=== PATIENT | female | born 1940 | race Two or more races ===

== ENCOUNTER 2018-10-05 12:50 | Emergency (ER) | payer MEDICARE, OTHER ==
[~2018-10-05] VITALS: Ht 162.6 cm; Wt 91.6 kg
--- OUTSIDE RECORDS SUMMARY | 2018-10-05 12:53 | XMS REPORT | Clinical Summary ---
Author Author [facility]ID [facility] Address Unknown Phone Unavailable Care Team Providers Care Family Practitioner Name Role Phone Girish Holt MD PCP Allergies Comments Active Allergy Reactions Severity Noted Date Sulfa (Sulfonamide 05/28/2014 Antibiotics) Medications End Date Status Medication Sig Dispensed Refills Start Date Active metFORMIN (GLUCOPHAGE) Take 500 mg 0 500 MG tablet by mouth 2 (two) times daily with breakfast and dinner. Active gabapentin (NEURONTIN) Take 300 mg 0 300 MG capsule by mouth 3 (three) times daily. Active ERGOCALCIFEROL, VITAMIN Take by 0 D2, (VITAMIN D2 ORAL) mouth. Active MULTIVITS W-FE,OTHER Take by 0 MIN/LUT (CENTRUM SILVER mouth. ULTRA WOMEN'S ORAL) Active meclizine (ANTIVERT) 25 Take 1 tablet 12 tablet 0 11/04/201 mg tablet (25 mg total) 6 by mouth 3 (three) times daily as needed. Active Problems Patient Care Coordination Note Day [employer]ae[employer] very poor insight. Problem Noted Date Family history of colon cancer 09/14/2014 Constipation 09/14/2014 Overview: History of colon spasm History of colonic polyps 09/14/2014 Overview: Dr. Ry Anderson - (not for many years) Fatty liver 09/14/2014 Osteoarthritis 09/14/2014 Overview: Left knee TKR, now some edema and loss of feeling. Leg edema 09/14/2014 Peripheral neuropathy 09/14/2014 Overview: Likely DM, numbness in hand, tingling in legs Hypokalemia 05/28/2014 Hypomagnesemia 05/28/2014 Hyponatremia 05/28/2014 DM (diabetes mellitus) 05/28/2014 Overview: A1c 7.10 May 2014 (admission) Tyree Jarrett, A1c 7.7--08/11/2014 Normal microalb 08/11/2014 HTN (hypertension) 05/28/2014 Social History Date Tobacco Use Types Packs/Day Years Used Quit: 06/06/1999 Former Smoker Alcohol Use Drinks/Week oz/Week Comments No Sex Assigned at Date Recorded Not on file Industry Job Start Date Occupation Not on file Not on file Not on file Travel End Travel History Travel Start No recent travel history available. Last Filed Vital Signs Not on file Plan of Treatment Health Maintenance Due Date Last Done Comments INFLUENZA VACCINE 04/05/2018 Results Not on fileafter 10/04/2017 Insurance Payer Benefit Subscriber ID Type Phone Address Plan / Group MEDICARE MEDICARE A xxxxxxxxxx Medicare B [facility] xxxxxxxxx Other Govt (, [place], [facility], etc.)
[2018-10-05] MEDS ORDERED: ACETAMINOPHEN 325 MG TAB PO ONE (13:30)
[2018-10-05 13:59] LABS: BASOPHILS # (AUTO) 0.1 (0.0-0.1); BASOPHILS % 0.6 % (0.0-1.0); EOSINOPHILS # (AUTO) 0.1 (0.0-0.4); EOSINOPHILS % 1.6 % (0.0-6.0); HEMOGLOBIN 13.9 g/dL (12.0-16.0); LYMPHOCYTES # (AUTO) 1.6 (1.0-3.2); LYMPHOCYTES % 18.8 % (18.0-39.1); MEAN CORPUSCULAR HGB CONC 33.9 g/dL (31-35); MEAN CORPUSCULAR VOLUME 94.3 fL (81-99); MONOCYTES # (AUTO) 0.6 (0.2-0.8); MONOCYTES % 7.2 % (4.4-11.3); NEUTROPHILS # (AUTO) 6.1 (2.1-6.9); NEUTROPHILS % 71.7 % (38.7-80.0); PLATELET COUNT 94 x10e3/uL (140-360); RED BLOOD COUNT 4.35 x10e6/uL (3.6-5.1); RED CELL DISTRIBUTION WIDTH 13.6 % (11.7-14.4)
[2018-10-05 14:15] LABS: ALANINE AMINOTRANSFERASE 25 IU/L (0-55); ALBUMIN 3.7 g/dL (3.5-5.0); ALBUMIN/GLOBULIN RATIO 0.8 (0.8-2.0); ALKALINE PHOSPHATASE 97 IU/L (40-150); ANION GAP 12.9 mmol/L (8-16); BLOOD UREA NITROGEN 12 mg/dL (7-26); BUN/CREATININE RATIO 15 (6-25); CALCIUM 10.1 mg/dL (8.4-10.2); CARBON DIOXIDE 27 mmol/L (22-29); CHLORIDE 102 mmol/L (98-107); CREATININE, SERUM 0.78 mg/dL (0.57-1.11); EST GLOMERULAR FILTRATION RATE > 60 ML/MIN (60-); GLUCOSE 109 mg/dL (74-118); POTASSIUM 3.9 mmol/L (3.5-5.1); SODIUM 138 mmol/L (136-145)
--- NOTE | 2018-10-05 14:15 | Diagnostic Imaging Report ---
Exam: Head CT without contrast History: Severe headache, lip numbness, healing and finger, hypertension, diabetes Comparison studies: None Technique: Axial images were obtained from the skull base to the vertex. Coronal and sagittal images reconstructed from the axial data. Dose modulation, iterative reconstruction, and/or weight based adjustment of the mA/kV was utilized to reduce the radiation dose to as low as reasonably achievable. Radiation dose: Total DLP: 832 mGy*cm. Estimated effective dose: DLP x 0.015 Intravenous contrast: None Findings: Scalp: No abnormalities. Bones: No fractures, blastic or lytic lesions. Brain sulci: Appropriate for age. Ventricles: Normal in size and configuration. No hydrocephalus. Extra-axial spaces: No masses, no fluid collection. Parenchyma: No mass, acute hemorrhage or acute cortical vascular insults. A few scattered hypodensities in the supratentorial white matter are nonspecific but most compatible with chronic small vessel ischemic changes. Sellar/suprasellar region: No abnormalities. Craniocervical junction: Patent foramen magnum. No Chiari one malformation. Incidental findings: Atherosclerotic calcifications in the carotid siphons. 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 IMPRESSION: No acute intracranial abnormalities. Chronic findings: 1. Mild generalized volume loss. 2. Mild microvascular ischemic changes. Signed by: Dr. Poli Horan M.D. on 10/05/2018 2:12 PM
[2018-10-05 14:44] VITALS: BP 162/76
== END 2018-10-05 14:44 | disposition home or self-care (01) ==
LOC: ER 12:50
DX: G44.89 Other headache syndrome (principal); D69.3 Immune thrombocytopenic purpura
CPT/HCPCS: 36415; 70450; 80053; 83735; 85025; 99283

== ENCOUNTER 2019-02-06 12:42 | Observation (INO) | payer MEDICARE, OTHER ==
[~2019-02-06] VITALS: Ht 162.6 cm; Wt 91.6 kg
--- OUTSIDE RECORDS SUMMARY | 2019-02-06 12:45 | XMS REPORT ---
Author Author [facility] Address Unknown Phone Unavailable Care Team Providers Care Machine Setter Supervisor Name Role Phone Shaun SOSA Unavailable Unavailable Problems This patient has no known problems. Allergies, Adverse Reactions, Alerts This patient has no known allergies or adverse reactions. Medications This patient has no known medications. Results Test Description Test Time Test Comments Text Results Atomic Results Result Comments CT BRAIN WO 2018-10-05 14:09:00 [id number] [place], [place] [address] Patient Name: YEYO BYRNE MR #: [id number] : 1940 Age/Sex: 77/F Req #: [id number] Adm Physician: Ordered by: ANDRY GUTIÉRREZ AUTO SERVICE MECHANIC Report #: [id number] Location: ER Room/Bed: Procedure: [id number] CT/CT BRAIN WO Exam Date: 10/05/18 Exam Time: 1350 REPORT STATUS: Signed Exam: Head CT without contrast History: Severe headache, lip numbness, healing and finger, hypertension, diabetes Comparison studies: None Technique: Axial images were obtained from the skull base to the vertex. Coronal and sagittal images reconstructed from the axial data. Dose modulation, iterative reconstruction, and/or weight based adjustment of the mA/kV was utilized to reduce the radiation dose to as low as reasonably achievable. Radiation dose: Total DLP: 832 mGy*cm. Estimated effective dose: DLP x 0.015 Intravenous contrast: None Findings: Scalp: No abnormalities. Bones: No fractures, blastic or lytic lesions. Brain sulci: Appropriate for age. Ventricles: Normal in size and configuration. No hydrocephalus. Extra-axial spaces: No masses, no fluid collection. Parenchyma: No mass, acute hemorrhage or acute cortical vascular insults. A few scattered hypodensities in the supratentorial white matter are nonspecific but most compatible with chronic small vessel ischemic changes. Sellar/suprasellar region: No abnormalities. Craniocervical junction: Patent foramen magnum. No Chiari one malformation. Incidental findings: Atherosclerotic calcifications in the carotid siphons. 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 IMPRESSION: No acute intracranial abnormalities. Chronic findings: 1. Mild generalized volume loss. 2. Mild microvascular ischemic changes. Signed by: Dr. Inés Horan M.D. on 10/05/2018 2:12 PM Dictated By: INÉS HORAN MD 1412 Transcribed By: VANITA on 10/05/18 1412 COPY TO: ANDRY GUTIÉRREZ NP
--- OUTSIDE RECORDS SUMMARY | 2019-02-06 12:45 | XMS REPORT | Continuity of Care Document ---
Author Author [email or web address] Address Unknown Phone Unavailable Care Team Providers Care Bleach Boiler Packer Name Role Phone [employer] Unavailable Unavailable Problems No Data Provided for This Section Medications No Data Provided for This Section Allergies, Adverse Reactions, Alerts Substance Category Reaction Severity Reaction type Status Date Reported Comments Source SULFA Unknown Allergy to Substance Active 10/05/2018 [facility] Immunizations No Data Provided for This Section Results Order Name Results Value Reference Range Date Interpretation Comments Source Blood leukocytes automated count (number/volume) 8.52 4.8 - 10.8 10/05/2018 [facility] Blood erythrocytes automated count (number/volume) 4.35 3.6 - 5.1 10/05/2018 [facility] Blood hemoglobin measurement (moles/volume) 13.9 12.0 - 16.0 10/05/2018 [facility] Automated blood hematocrit (volume fraction) 41.0 34.2 - 44.1 10/05/2018 [facility] Automated erythrocyte mean corpuscular volume 94.3 81 - 99 10/05/2018 [facility] Automated erythrocyte mean corpuscular hemoglobin (mass per erythrocyte) 32.0 28 - 32 10/05/2018 [facility] Automated erythrocyte mean corpuscular hemoglobin concentration measurement (mass/volume) 33.9 31 - 35 10/05/2018 [facility] RDW BldCo-Rto 13.6 11.7 - 14.4 10/05/2018 [facility] Automated blood platelet count (count/volume) 94 140 - 360 10/05/2018 [facility] Automated blood segmented neutrophil count as percentage of total leukocytes 71.7 38.7 - 80.0 10/05/2018 [facility] Automated blood lymphocyte count as percentage ot total leukocytes 18.8 18.0 - 39.1 10/05/2018 [facility] Automated blood monocyte count as percentage of total leukocytes 7.2 4.4 - 11.3 10/05/2018 [facility] Automated blood eosinophil count as percentage of total leukocytes 1.6 0.0 - 6.0 10/05/2018 [facility] Automated blood basophil count as percentage of total leukocytes 0.6 0.0 - 1.0 10/05/2018 [facility] IM GRANULOCYTES % 0.1 0.0 - 1.0 10/05/2018 [facility] Automated blood neutrophil count 6.1 2.1 - 6.9 10/05/2018 [facility] Blood lymphocytes count (number/volume) 1.6 1.0 - 3.2 10/05/2018 [facility] Blood monocytes automated count (number/volume) 0.6 0.2 - 0.8 10/05/2018 [facility] Automated blood eosinophil count 0.1 0.0 - 0.4 10/05/2018 [facility] Automated blood basophil count (count/volume) 0.1 0.0 - 0.1 10/05/2018 [facility] Absolute Immature Granulocyte (auto 0.01 0 - 0.1 10/05/2018 [facility] Serum or plasma sodium measurement (moles/volume) 138 136 - 145 10/05/2018 [facility] Serum or plasma potassium measurement (moles/volume) 3.9 3.5 - 5.1 10/05/2018 [facility] Serum or plasma chloride measurement (moles/volume) 102 98 - 107 10/05/2018 [facility] Serum or plasma carbon dioxide, total measurement (moles/volume) 27 22 - 29 10/05/2018 [facility] Serum or plasma anion gap 12.9 8 - 16 10/05/2018 [facility] Serum or plasma urea nitrogen measurement (mass/volume) 12 7 - 26 10/05/2018 [facility] Serum or plasma creatinine measurement (mass/volume) 0.78 0.57 - 1.11 10/05/2018 [facility] Serum or plasma urea nitrogen/creatinine mass ratio 15 6 - 25 10/05/2018 [facility] Estimated glomerular filtration rate (GFR) determination > 60 60 10/05/2018 [facility] Glucose measurement 109 74 - 118 10/05/2018 [facility] Serum or plasma calcium measurement (mass/volume) 10.1 8.4 - 10.2 10/05/2018 [facility] Serum or plasma magnesium measurement (mass/volume) 1.9 1.3 - 2.1 10/05/2018 [facility] Serum or plasma total bilirubin measurement (mass/volume) 0.5 0.2 - 1.2 10/05/2018 [facility] Aspartate Amino Transf (AST/SGOT) 36 5 - 34 10/05/2018 [facility] Serum or plasma alanine aminotransferase measurement (enzymatic activity/volume) 25 0 - 55 10/05/2018 [facility] Serum or plasma protein measurement (mass/volume) 8.4 6.5 - 8.1 10/05/2018 [facility] Serum or plasma albumin measurement (mass/volume) 3.7 3.5 - 5.0 10/05/2018 [facility] Plasma globulin measurement (mass/volume) 4.7 2.3 - 3.5 10/05/2018 [facility] Serum or plasma albumin/globulin mass ratio 0.8 0.8 - 2.0 10/05/2018 [facility] Serum or plasma alkaline phosphatase measurement (enzymatic activity/volume) 97 40 - 150 10/05/2018 [facility] Pathology Reports No Data Provided for This Section Diagnostic Reports No Data Provided for This Section Consultation Notes No Data Provided for This Section Discharge Summaries No Data Provided for This Section History and Physicals No Data Provided for This Section Vital Signs No Data Provided for This Section Encounters Location Location Details Encounter Type Encounter Number Reason For Visit Attending Provider ADM Date DC Date Status Source Departed Emergency Room [id number] MYAH SOSA MD 10/05/2018 10/05/2018 [facility] Procedures Procedure Code Date Perfomer Comments Source Computed tomography of brain without radiopaque contrast [id number] 10/05/2018 [facility] Assessment and Plan No Data Provided for This Section Plan of Care Plan of Care Date Source Discharge Date 10/05/18 2:44pm Disposition HOME, SELF-CARE Condition at Discharge Stable Instructions/Education Provided Headache Forms Provided Work/School Excuse Prescriptions See Medication Section Referrals Samson Paul Order Date: Call for an appointment Additional Instructions/Education Call for follow up appointment to see your medical provider as needed. Take over the counter Motrin, Tylenol medication as needed for comfort. If prescribed medication on discharge, take the medication as prescribed and adhere to the warnings given for medication. As discussed at the bedside, drink fluids, rest and return to the emergency department for any fever, shortness of breath, chest pain, abdominal pain, trouble handling oral secretions or any new concerns. 10/05/2018 [facility] Social History Social History Date Source Smoking Status Start Date Stop Date Never Smoker 10/05/2018 [facility] Family History No Data Provided for This Section Advance Directives Order Name Results Value Date Source Advance Directives Advance Directives Directive Response Recorded Date/Time Does the patient have an advance directive? No 10/05/18 2:43pm Do you have a Directive to Physician? No 10/05/18 2:43pm Do you have a Medical Power of Envelope Sealing Machine Operator? No 10/05/18 2:43pm Do you have an out of hospital Do Not Resuscitate Order? No 10/05/18 2:43pm Do you have any special needs we should be aware of? No 10/05/18 2:43pm Do you have a support person here with you today? Yes 10/05/18 2:43pm Did patient receive Notice of Privacy Practices? Yes 10/05/18 2:43pm Did patient receive patient rights and responsibilities? Yes 10/05/18 2:43pm 10/05/2018 [facility] Functional Status No Data Provided for This Section
--- OUTSIDE RECORDS SUMMARY | 2019-02-06 12:45 | XMS REPORT | Clinical Summary ---
Author Author ZAID [facility] Address Unknown Phone Unavailable Care Team Providers Care Flux Core Welder Name Role Phone Girish Holt MD PCP Unavailable Allergies Comments Active Allergy Reactions Severity Noted [...] 25 Take 1 tablet 12 tablet 0 /02/201 mg tablet (25 mg total) 6 by mouth 3 (three) times daily as needed. Active Problems Patient Care Coordination Note [facility] very poor insight. Problem Noted Date Family [...] INFLUENZA VACCINE 04/05/2018 Results Not on fileafter 02/05/2018 Insurance Payer Benefit Subscriber ID Type Phone Address Plan / Group MEDICARE MEDICARE A xxxxxxxxxx Medicare B xxxxxxxxx Other Govt (, [place], [facility], etc.)
--- NOTE | 2019-02-06 13:56 | Diagnostic Imaging Report ---
EXAMINATION: CHEST SINGLE (PORTABLE) COMPARISON: None INDICATION: ^CHEST PAIN ^[id number] ^1350 ^Y DISCUSSION: Frontal view of the chest obtained at 1341 hours. HEART AND MEDIASTINUM: The cardiomediastinal silhouette is unremarkable. LINES: None. LUNGS: The lungs are well inflated and clear. No pneumonia or pulmonary edema. PLEURA: No pleural effusion or pneumothorax. BONES AND SOFT TISSUES: No focal osseous lesion. The soft tissues are normal. IMPRESSION: No acute cardiopulmonary disease. Signed by: Dr. Binh Echevarria MD on 02/06/2019 1:53 PM
[2019-02-06 14:00] LABS: BASOPHILS % 0.3 % (0.0-1.0); EOSINOPHILS # (AUTO) 0.1 (0.0-0.4); EOSINOPHILS % 0.3 % (0.0-6.0); HEMATOCRIT 40.2 % (34.2-44.1); HEMOGLOBIN 14.9 g/dL (12.0-16.0); LYMPHOCYTES # (AUTO) 1.8 (1.0-3.2); LYMPHOCYTES % 12.4 % (18.0-39.1); MEAN CORPUSCULAR HEMOGLOBIN 32.5 pg (28-32); MEAN CORPUSCULAR HGB CONC 37.1 g/dL (31-35); MEAN CORPUSCULAR VOLUME 87.8 fL (81-99); MONOCYTES # (AUTO) 0.6 (0.2-0.8); MONOCYTES % 3.9 % (4.4-11.3); NEUTROPHILS # (AUTO) 11.9 (2.1-6.9); NEUTROPHILS % 82.5 % (38.7-80.0); PLATELET COUNT 150 x10e3/uL (140-360); RED BLOOD COUNT 4.58 x10e6/uL (3.6-5.1); RED CELL DISTRIBUTION WIDTH 12.7 % (11.7-14.4)
[2019-02-06 14:01] LABS: BILIRUBIN,URINE NEGATIVE (NEGATIVE); CLARITY,URINE HAZY (CLEAR); COLOR,URINE YELLOW (YELLOW); KETONES,URINE NEGATIVE (NEGATIVE); LEUKOCYTE ESTERASE ,URINE SMALL (NEGATIVE); NITRITE,URINE NEGATIVE (NEGATIVE); PROTEIN,URINE DIPSTICK 1+ (NEGATIVE); URINE UROBILINOGEN 0.2 mg/dL (0.2 - 1)
[2019-02-06 14:06] LABS: AMORPHOUS SEDIMENT,URINE FEW (FEW); BACTERIA,URINE MANY /HPF; EPITHELIAL CELLS,URINE MODERATE /LPF; HYALINE CASTS 0-1 (0-1); MUCUS,URINE FEW (RARE)
[2019-02-06 14:09] LABS: INR 1.01; PROTHROMBIN TIME 13.8 seconds (11.9-14.5)
[2019-02-06 14:10] LABS: PARTIAL THROMBOPLASTIN TIME 45.4 seconds (23.8-35.5)
[2019-02-06 14:18] LABS: ALANINE AMINOTRANSFERASE 35 IU/L (0-55); ALBUMIN 4.3 g/dL (3.5-5.0); ALBUMIN/GLOBULIN RATIO 0.9 (0.8-2.0); ALKALINE PHOSPHATASE 117 IU/L (40-150); ANION GAP 19.1 mmol/L (8-16); BLOOD UREA NITROGEN 14 mg/dL (7-26); BUN/CREATININE RATIO 16 (6-25); CARBON DIOXIDE 21 mmol/L (22-29); CHLORIDE 90 mmol/L (98-107); CREATINE KINASE 44 IU/L (29-168); CREATININE, SERUM 0.88 mg/dL (0.57-1.11); EST GLOMERULAR FILTRATION RATE > 60 ML/MIN (60-); GLUCOSE 184 mg/dL (74-118); POTASSIUM 4.1 mmol/L (3.5-5.1); SODIUM 126 mmol/L (136-145)
[2019-02-06] MEDS ORDERED: ONDANSETRON HCL INJ 2MG/ML 2ML 2 MG/ML VIAL IV STA (15:01)
[2019-02-06] MEDS ORDERED: HYDROCODONE/APAP 7.5MG-325MG 1 EA TAB PO ONE (15:15)
[2019-02-06] MEDS ORDERED: HYDROCORTISONE SOD SUCCINATE 100 MG VIAL IV ONE (16:00)
[2019-02-06] MEDS: CEFTRIAXONE SOD 1 GM/NS 50 ML 50 ML IV SCH (16:12)
--- NOTE | 2019-02-06 16:22 | Diagnostic Imaging Report ---
CT chest pulmonary embolism protocol INDICATION: Question pulmonary embolus. Abdominal pain Pyelonephritis . TECHNIQUE: Thin collimation axial images obtained through the level of the pulmonary arteries with additional imaging through the chest following the uneventful administration of 100 cc of low osmolar, nonionic intravenous contrast. Images reconstructed into three dimensional coronal and sagittal projections for complete evaluation of the tortuous and overlapping pulmonary vascular structures and to reduce patient radiation dose. 5 mm collimation axial images obtained from the diaphragm to the level of the pubic symphysis were also obtained. RADIATION DOSE: Total DLP: 1263.07 mGy*cm Estimated effective dose: (DLP x 0.015 x size factor) mSv CTDIvol has been reviewed. It is below the limits set by the Radiation Protocol Committee (RPC). Dose reduction techniques used: Automated exposure control, adjustment of the mAs and/or kVp according to patient size, standardized low-dose protocol, and/or iterative reconstruction technique. COMPARISON: None. CHEST FINDINGS: No filling defects are appreciated within the main, left, right, lobar or visualized segmental pulmonary arteries to suggest embolism. The main pulmonary artery measures 3 cm in diameter. The thoracic aorta is not aneurysmal. Diffuse calcifications are present. No evidence for dissection. Lymph nodes: No enlarged axillary, supraclavicular, mediastinal, or hilar lymph nodes. Thyroid: Normal in size without mass in the visualized parenchyma.. Mediastinum: The upper esophagus is patulous. Small hiatal hernia. Small anterior pericardial effusion. Lungs: Right lung: No infiltrates. Small foci of paraseptal emphysema in the posterior upper lobe. Left lung: No infiltrates. Airways: Patent. Pleura: No pleural effusion or pleural based mass. No pneumothorax. ABDOMEN FINDINGS: Liver: The right lobe measures 21 cm in length with rounded contours. No evidence for mass. Gallbladder: Present and appears normal. No biliary ductal dilatation. Pancreas: Normal attenuation. Lobulated cyst in the head measures 1.5 x 1.6 cm. A fat attenuating lesion in the uncinate measures 7 mm in longest dimension and is suggestive of a lipoma. Spleen: Measures 14 cm in length. No mass. Adrenal Glands: No evidence for mass. Kidneys: Symmetric enhancement. No enhancing mass. Bilateral renal cysts measuring up to 10 mm. No calculus. No hydronephrosis. Lymph Nodes: No enlarged abdominal or retroperitoneal lymph nodes.. Aorta: Normal in diameter with scattered calcifications PELVIS FINDINGS: Bowel: Stomach: Normal. Small Bowel: Normal in caliber with normal wall thickness. Large Bowel: Normal in caliber with normal wall thickness. 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 Bladder: Circumferential mural thickening and mild underdistention. No perivesicular inflammation. Uterus: Present and atrophic. No adnexal mass. Peritoneum/retroperitoneum: No free fluid or fluid collection Soft tissues: Unremarkable Bones: No focal osseous lesions.. IMPRESSION: 1. No evidence of pulmonary embolus or aortic dissection. Top normal size of the main pulmonary artery. 2. Mild burden of paraseptal emphysema. 3. Small hiatal hernia and patulous upper esophagus. 4. Hepatosplenomegaly. 5. No evidence of obstructive uropathy. Bilateral renal cysts. 6. Lobulated cyst in the pancreas head should be monitored annually to confirm stability. Subcentimeter lipoma in the uncinate. 7. No evidence for bowel obstruction or inflammation. Signed by: Dr. Binh Echevarria MD on 02/06/2019 4:19 PM
--- OUTSIDE RECORDS SUMMARY | 2019-02-06 17:11 | XMS REPORT | Clinical Summary ---
Author Author [facility]ID [facility] Address Unknown Phone Unavailable Care Team Providers Care Motorcycle Mechanic Name Role Phone Girish Holt MD PCP [...] Active Problems Patient Care Coordination Note Day [employer] very poor insight. Problem Noted Date Family [...] Medicare B xxxxxxxxx Other Govt (, [place], [facility], etc[facility]
--- OUTSIDE RECORDS SUMMARY | 2019-02-06 17:11 | XMS REPORT | Continuity of Care Document ---
Author Author [employer] Address Unknown Phone Unavailable Care Team Providers Care Expediter Service Order Name Role Phone [employer] Unavailable Unavailable Problems No Data Provided for This Section Medications No Data Provided for This Section Allergies, Adverse Reactions, Alerts Substance Category Reaction Severity Reaction type Status Date Reported Comments Source SULFA Unknown Allergy to Substance Active 10/05/2018 [facility] Immunizations No Data Provided for This Section Results Order Name Results Value Reference Range Date Interpretation Comments Source Blood leukocytes automated count (number/volume) 8.52 4.8 - 10.8 10/05/2018 [facility] Blood erythrocytes automated count (number/volume) 4.35 3.6 - 5.1 10/05/2018 [facility] Blood hemoglobin measurement (moles/volume) 13.9 12.0 - 16.0 10/05/2018 [facility] Automated blood hematocrit (volume fraction) 41.0 34.2 - 44.1 10/05/2018 [facility] Automated erythrocyte mean corpuscular volume 94.3 81 - 99 10/05/2018 [facility] Automated erythrocyte mean corpuscular hemoglobin (mass per erythrocyte) 32.0 28 - 32 10/05/2018 [facility] Automated erythrocyte mean corpuscular hemoglobin concentration measurement (mass/volume) 33.9 31 - 35 10/05/2018 [facility] RDW BldCo-Rto 13.6 11.7 - 14.4 10/05/2018 [facility] Automated blood platelet count (count/volume) 94 140 - 360 10/05/2018 [facility] Automated blood segmented neutrophil count as percentage of total leukocytes 71.7 38.7 - 80.0 10/05/2018 [facility] Automated blood lymphocyte count as percentage ot total leukocytes 18.8 18.0 - 39.1 10/05/2018 [facility] Automated blood monocyte count as percentage of total leukocytes 7.2 4.4 - 11.3 10/05/2018 [facility] Automated blood eosinophil count as percentage of total leukocytes 1.6 0.0 - 6.0 10/05/2018 [facility] Automated blood basophil count as percentage of total leukocytes 0.6 0.0 - 1.0 10/05/2018 [facility] IM GRANULOCYTES % 0.1 0.0 - 1.0 10/05/2018 [facility] Automated blood neutrophil count 6.1 2.1 - 6.9 10/05/2018 [facility] Blood lymphocytes count (number/volume) 1.6 1.0 - 3.2 10/05/2018 [facility] Blood monocytes automated count (number/volume) 0.6 0.2 - 0.8 10/05/2018 [facility] Automated blood eosinophil count 0.1 0.0 - 0.4 10/05/2018 [facility] Automated blood basophil count (count/volume) 0.1 0.0 - 0.1 10/05/2018 [facility] Absolute Immature Granulocyte (auto 0.01 0 - 0.1 10/05/2018 [facility] Serum or plasma sodium measurement (moles/volume) 138 136 - 145 10/05/2018 [facility] Serum or plasma potassium measurement (moles/volume) 3.9 3.5 - 5.1 10/05/2018 [facility] Serum or plasma chloride measurement (moles/volume) 102 98 - 107 10/05/2018 [facility] Serum or plasma carbon dioxide, total measurement (moles/volume) 27 22 - 29 10/05/2018 [facility] Serum or plasma anion gap 12.9 8 - 16 10/05/2018 [facility] Serum or plasma urea nitrogen measurement (mass/volume) 12 7 - 26 10/05/2018 [facility] Serum or plasma creatinine measurement (mass/volume) 0.78 0.57 - 1.11 10/05/2018 [facility] Serum or plasma urea nitrogen/creatinine mass ratio 15 6 - 25 10/05/2018 [facility] Estimated glomerular filtration rate (GFR) determination > 60 60 10/05/2018 [facility] Glucose measurement 109 74 - 118 10/05/2018 [facility] Serum or plasma calcium measurement (mass/volume) 10.1 8.4 - 10.2 10/05/2018 [facility] Serum or plasma magnesium measurement (mass/volume) 1.9 1.3 - 2.1 10/05/2018 [facility] Serum or plasma total bilirubin measurement (mass/volume) 0.5 0.2 - 1.2 10/05/2018 [facility] Aspartate Amino Transf (AST/SGOT) 36 5 - 34 10/05/2018 [facility] Serum or plasma alanine aminotransferase measurement (enzymatic activity/volume) 25 0 - 55 10/05/2018 [facility] Serum or plasma protein measurement (mass/volume) 8.4 6.5 - 8.1 10/05/2018 [facility] Serum or plasma albumin measurement (mass/volume) 3.7 3.5 - 5.0 10/05/2018 [facility] Plasma globulin measurement (mass/volume) 4.7 2.3 - 3.5 10/05/2018 [facility] Serum or plasma albumin/globulin mass ratio 0.8 0.8 - 2.0 10/05/2018 [facility] Serum or plasma alkaline phosphatase measurement (enzymatic activity/volume) 97 40 - 150 10/05/2018 [facility] Pathology Reports No Data Provided for This [...] DC Date Status Source Departed Emergency Room [id number] MYAH SOSA MD 10/05/2018 10/05/2018 [facility] Procedures Procedure Code Date Perfomer Comments Source Computed tomography of brain without radiopaque contrast [id number] 10/05/2018 [facility] Assessment and Plan No Data Provided for [...] oral secretions or any new concerns. 10/05/2018 [facility] Social History Social History Date Source Smoking Status Start Date Stop Date Never Smoker 10/05/2018 [facility] Family History No Data Provided for This Section Advance Directives Order Name Results Value Date Source Advance Directives Advance Directives Directive Response Recorded Date/Time Does the patient have an advance directive? No 10/05/18 2:43pm Do you have a Directive to Physician? No 10/05/18 2:43pm Do you have a Medical Power of Entry Level Manager? No 10/05/18 2:43pm Do you have an [...] rights and responsibilities? Yes 10/05/18 2:43pm 10/05/2018 [facility] Functional Status No Data Provided for This Section
[2019-02-06] MEDS ORDERED: ONDANSETRON HCL INJ 2MG/ML 2ML 2 MG/ML VIAL IV PRN (17:15)
[2019-02-06] MEDS: SODIUM CHLORIDE 0.9% 1000ML 1,000 ML IV SCH (17:38)
[2019-02-06] MEDS ORDERED: SODIUM CHLORIDE 0.9% 1000ML 1,000 ML ONE (17:38)
[2019-02-06] MEDS: FAMOTIDINE 20 MG/2 ML VIAL IV SCH (17:42)
[2019-02-06] MEDS ORDERED: ACETAMINOPHEN 325 MG TAB PO PRN (19:00)
[2019-02-06] MEDS ORDERED: HYDRALAZINE HCL 20 MG/ML VIAL IV PRN (19:00)
--- NOTE | 2019-02-06 19:34 | NUR ---
PT BED ASSIGNMENT CHANGED, REPORT CALLED TO NAOMI MAR; UPDATED ON CURRENT PT STATUS AND PLAN OF CARE.
[2019-02-06 19:49] VITALS: BP 156/74
--- NOTE | 2019-02-06 19:49 | NUR ---
patient is a new admit that arrived via wheelchair. patient is awake and talking. patient has been transferred into the bed. bed is in the lowest position and call castro is within reach. will continue to monitor patient.
[2019-02-06 20:00] VITALS: BP 138/85
[2019-02-06 20:19] VITALS: BP 156/74
[2019-02-06] MEDS: HYDROCODONE/APAP 5MG-325MG TAB PO PRN (21:17)
[2019-02-06] MEDS ORDERED: SODIUM CHLORIDE 0.9% 50ML 50 ML ONE (22:37)
[2019-02-06] MEDS ORDERED: IOPAMIDOL 370 MG/ML 200 ML INFUS..BTL INJ ONE (22:37)
[2019-02-07] VITALS (7 sets, daily range): BP systolic 125–163; BP diastolic 67–90
[2019-02-07] MEDS: CEFTRIAXONE SOD 1 GM/NS 50 ML 50 ML IV SCH ×2 (04:21→16:37)
[2019-02-07] MEDS: SODIUM CHLORIDE 0.9% 1000ML 1,000 ML IV SCH (04:22)
[2019-02-07] MEDS: FAMOTIDINE 20 MG/2 ML VIAL IV SCH (04:22)
[2019-02-07 05:08] LABS: BASOPHILS # (AUTO) 0.1 (0.0-0.1); BASOPHILS % 0.5 % (0.0-1.0); EOSINOPHILS # (AUTO) 0.1 (0.0-0.4); EOSINOPHILS % 1.2 % (0.0-6.0); HEMOGLOBIN 13.1 g/dL (12.0-16.0); LYMPHOCYTES # (AUTO) 2.7 (1.0-3.2); LYMPHOCYTES % 24.8 % (18.0-39.1); MEAN CORPUSCULAR HEMOGLOBIN 32.1 pg (28-32); MEAN CORPUSCULAR HGB CONC 36.4 g/dL (31-35); MEAN CORPUSCULAR VOLUME 88.2 fL (81-99); MONOCYTES # (AUTO) 0.6 (0.2-0.8); MONOCYTES % 5.6 % (4.4-11.3); NEUTROPHILS # (AUTO) 7.4 (2.1-6.9); NEUTROPHILS % 67.5 % (38.7-80.0); PLATELET COUNT 124 x10e3/uL (140-360); RED BLOOD COUNT 4.08 x10e6/uL (3.6-5.1); RED CELL DISTRIBUTION WIDTH 12.7 % (11.7-14.4)
[2019-02-07 05:20] LABS: CREATINE KINASE 37 IU/L (29-168)
[2019-02-07 05:22] LABS: ALANINE AMINOTRANSFERASE 27 IU/L (0-55); ALBUMIN 3.6 g/dL (3.5-5.0); ALBUMIN/GLOBULIN RATIO 0.8 (0.8-2.0); ALKALINE PHOSPHATASE 89 IU/L (40-150); ANION GAP 16.1 mmol/L (8-16); BILIRUBIN,DIRECT 0.3 mg/dL (0.0-0.5); BLOOD UREA NITROGEN 13 mg/dL (7-26); BUN/CREATININE RATIO 17 (6-25); CALCIUM 9.3 mg/dL (8.4-10.2); CARBON DIOXIDE 23 mmol/L (22-29); CHLORIDE 93 mmol/L (98-107); CHOL/HDL RATIO 2.5 (3.0-3.6); CHOLESTEROL 112 MD/DL (0-199); CREATININE, SERUM 0.78 mg/dL (0.57-1.11); EST GLOMERULAR FILTRATION RATE > 60 ML/MIN (60-); GLUCOSE 106 mg/dL (74-118); HDL CHOLESTEROL 44 MG/DL (40-60); LDL CHOLESTEROL 41 MG/DL (60-130); POTASSIUM 4.1 mmol/L (3.5-5.1); SODIUM 128 mmol/L (136-145); TRIGLYCERIDES 135 MG/DL (0-149)
[2019-02-07 05:43] LABS: FREE T4 (FREE THYROXINE) 1.01 ng/dL (0.8-1.8); THYROID STIMULATING HORMONE 1.565 uIU/mL (0.350-4.940)
[2019-02-07] MEDS: HYDROCODONE/APAP 5MG-325MG TAB PO PRN (06:38)
--- NOTE | 2019-02-07 07:00 | NUR ---
BEDSIDE SHIFT REPORT RECEIVED FROM NIGHT RN. PT DENIES NEEDS AT THIS TIME.
--- NOTE | 2019-02-07 07:03 | NUR ---
report given to morning nurse. patient is resting comfortably in bed. bed is in lowest position and call castro is within reach.
[2019-02-07 07:09] LABS: B-TYPE NATRIURETIC PEPTIDE2 103.2 pg/mL (0-100)
[2019-02-07] MEDS ORDERED: BACLOFEN 10 MG TAB PO PRN (09:15)
[2019-02-07] MEDS ORDERED: LISINOPRIL10 MG PO (09:19)
[2019-02-07] MEDS ORDERED: OMEPRAZOLE40 MG (09:19)
[2019-02-07] MEDS ORDERED: METFORMIN HCL500 M2 PO (09:19)
[2019-02-07] MEDS ORDERED: CENTRUM SILVER1 EAC3 (09:19)
[2019-02-07] MEDS ORDERED: ATORVASTATIN CA10 MG PO (09:19)
[2019-02-07] MEDS ORDERED: JANUVIA100 MG PO (09:20)
[2019-02-07] MEDS ORDERED: NIFEDIPINE ER60 MG PO (09:20)
[2019-02-07] MEDS: ASPIRIN 81 MG ENTERIC COATED PO SCH (09:58)
[2019-02-07 14:13] LABS: CREATINE KINASE MB 1.9 ng/mL (0-5.0)
[2019-02-07] MEDS: METFORMIN HCL 500 MG TAB CR PO SCH (16:37)
[2019-02-07] MEDS ORDERED: ATORVASTATIN 10 MG TAB PO SCH (21:00)
[2019-02-08] VITALS: BP 156/78
[2019-02-08 02:14] VITALS: BP 156/78
[2019-02-08] MEDS: CEFTRIAXONE SOD 1 GM/NS 50 ML 50 ML IV SCH (03:36)
[2019-02-08 04:54] VITALS: BP 171/79
[2019-02-08 05:25] LABS: BASOPHILS % 0.7 % (0.0-1.0); EOSINOPHILS # (AUTO) 0.1 (0.0-0.4); HEMATOCRIT 34.7 % (34.2-44.1); LYMPHOCYTES # (AUTO) 1.5 (1.0-3.2); LYMPHOCYTES % 25.1 % (18.0-39.1); MEAN CORPUSCULAR HEMOGLOBIN 31.5 pg (28-32); MEAN CORPUSCULAR HGB CONC 34.6 g/dL (31-35); MEAN CORPUSCULAR VOLUME 91.1 fL (81-99); MONOCYTES # (AUTO) 0.6 (0.2-0.8); MONOCYTES % 9.3 % (4.4-11.3); NEUTROPHILS # (AUTO) 3.8 (2.1-6.9); NEUTROPHILS % 62.6 % (38.7-80.0); PLATELET COUNT 91 x10e3/uL (140-360); RED BLOOD COUNT 3.81 x10e6/uL (3.6-5.1); RED CELL DISTRIBUTION WIDTH 12.9 % (11.7-14.4)
[2019-02-08 05:43] LABS: ANION GAP 14.3 mmol/L (8-16); BLOOD UREA NITROGEN 14 mg/dL (7-26); BUN/CREATININE RATIO 16 (6-25); CALCIUM 9.3 mg/dL (8.4-10.2); CARBON DIOXIDE 26 mmol/L (22-29); CHLORIDE 102 mmol/L (98-107); CREATININE, SERUM 0.85 mg/dL (0.57-1.11); EST GLOMERULAR FILTRATION RATE > 60 ML/MIN (60-); GLUCOSE 107 mg/dL (74-118); MAGNESIUM 1.8 MG/DL (1.3-2.1); POTASSIUM 4.3 mmol/L (3.5-5.1); SODIUM 138 mmol/L (136-145)
--- NOTE | 2019-02-08 07:00 | NUR ---
BEDSIDE SHIFT REPORT RECEIVED FROM NIGHT RN. PT DENIES NEEDS AT THIS TIME.
[2019-02-08] MEDS ORDERED: PROTONIX40 MG/ML PO (07:15)
[2019-02-08] MEDS ORDERED: BACLOFEN10 MG PO (07:15)
[2019-02-08] MEDS ORDERED: CEFTIN PO (07:15)
[2019-02-08] MEDS ORDERED: ASPIRIN EC81 MG PO (07:15)
[2019-02-08] MEDS ORDERED: ALBUTEROL HFA INH (07:22)
[2019-02-08] MEDS ORDERED: PANTOPRAZOLE SOD 40 MG TABEC PO SCH ×2 (07:30→08:00)
[2019-02-08 08:00] VITALS: BP 166/83
[2019-02-08] MEDS ORDERED: ONDANSETRON HCL 4 MG ORAL DISINTEGRATING TAB PO PRN (08:00)
[2019-02-08] MEDS: ASPIRIN 81 MG ENTERIC COATED PO SCH (08:09)
[2019-02-08] MEDS: METFORMIN HCL 500 MG TAB CR PO SCH (08:09)
[2019-02-08 09:00] VITALS: BP 166/83
[2019-02-08] MEDS ORDERED: NIFEDIPINE CR 30 MG TAB PO SCH (09:00)
[2019-02-08] MEDS ORDERED: SITAGLIPTIN 100 MG TAB PO SCH (09:00)
[2019-02-08] MEDS ORDERED: LISINOPRIL 20 MG TAB PO SCH (09:00)
--- NOTE | 2019-02-09 18:20 | Discharge Summary ---
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 HISTORY: The patient has a history of hypertension, hyperlipidemia, type 2 diabetes, GERD, bipolar depression, Lester's disease, and cirrhosis. SURGICAL HISTORY: Left knee surgery, abdominal and inguinal hernia repair, appendectomy, right oophorectomy. FAMILY HISTORY: The patient's grandma x2, dad and grandpa had diabetes. The patient's cousin had cancer. The patient's dad and grandma had a stroke. SOCIAL HISTORY: Noncontributory. HOSPITAL COURSE: A 78-year-old female complains of left-sided back pain described as constant and sharp. She has associated nausea and vomiting. Symptoms worsened with deep breath and improved with medicines. On admission, her sodium was 126. Troponins were negative x3. Chest x-ray was negative. CT of the chest showed no evidence of PE or aortic dissection. Mild burden of paraseptal emphysema, small hiatal hernia, hepatosplenomegaly. No evidence of obstructive uropathy. Bilateral renal cysts and lobulated cyst in the pancreas head, which should be monitored annually. No evidence of obstruction or inflammation. Patient's sodium trended up and the WBC trended down with Rocephin. The patient was discharged home with Protonix, Ceftin, baclofen, and aspirin. The patient is now tolerating diet and did not need a GI workup. She was discharged home and follow up with primary care in 1 to 2 weeks. Vital signs stable, the patient afebrile. Dictated by Venessa Acevedo NP MD VERO Posada/JONAS /[id number]
== END 2019-02-08 10:24 | disposition home or self-care (01) ==
LOC: ER 12:42 → ERHOLD 17:01 → IMCU 19:49
PROVIDERS: ADMIT Internal Medicine; ATTEND Internal Medicine
DX: M54.9 Dorsalgia, unspecified (principal); K76.0 Fatty (change of) liver, not elsewhere classified; E27.1 Primary adrenocortical insufficiency; I10 Essential (primary) hypertension; E78.5 Hyperlipidemia, unspecified; K21.9 Gastro-esophageal reflux disease without esophagitis; F31.9 Bipolar disorder, unspecified; K74.60 Unspecified cirrhosis of liver; J43.8 Other emphysema; K44.9 Diaphragmatic hernia without obstruction or gangrene; Q61.02 Congenital multiple renal cysts; E11.9 Type 2 diabetes mellitus without complications
CPT/HCPCS: 36415 ×3; 71045; 71260; 74177; 80048; 80053 ×2; 80061; 80076; 81001; 82550 ×2; 82553 ×2; 83036; 83690; 83735; 83880 ×3; 84439; 84443; 84484 ×2; 85025 ×3; 85610; 85730; 87086; 93005; G0378 ×3; J0696 ×2; J1720; J2405; J7030 ×2; Q9967; S0164

== ENCOUNTER 2019-02-10 15:46 | Emergency (ER) | payer MEDICARE, OTHER ==
[~2019-02-10] VITALS: Ht 162.6 cm; Wt 91.6 kg
[~2019-02-10 15:46] MED LIST: ALBUTEROL HFA INH; ASPIRIN EC81 MG PO; ATORVASTATIN CA10 MG PO; BACLOFEN10 MG PO; CEFTIN PO; CENTRUM SILVER1 EAC3; JANUVIA100 MG PO; LISINOPRIL10 MG PO; METFORMIN HCL500 M2 PO; NIFEDIPINE ER60 MG PO; OMEPRAZOLE40 MG; PROTONIX40 MG/ML PO
--- OUTSIDE RECORDS SUMMARY | 2019-02-10 15:49 | XMS REPORT | Clinical Summary ---
Author Author [facility] Address Unknown Phone Unavailable Care Team Providers Care Chief Projectionist Name Role Phone Girish Holt MD PCP [...] Active Problems Patient Care Coordination Note Day Latter-Day very poor insight. Problem Noted Date Family [...] INFLUENZA VACCINE 04/05/2018 Results Not on fileafter 02/09/2018 Insurance Payer Benefit Subscriber ID Type Phone Address Plan / Group MEDICARE MEDICARE A xxxxxxxxxx Medicare B xxxxxxxxx Other Govt (, [place], [facility], etc.)
--- OUTSIDE RECORDS SUMMARY | 2019-02-10 15:49 | XMS REPORT | Continuity of Care Document ---
Author Author [employer] Address Unknown Phone Unavailable Care Team Providers Care Auto Body Service Mechanic Name Role Phone [place] Unavailable Unavailable Problems No Data Provided for This Section Medications No Data Provided for This Section Allergies, Adverse Reactions, Alerts Substance Category Reaction Severity Reaction type Status Date Reported Comments Source SULFA Unknown Allergy to Substance Active 10/05/2018 [facility] Immunizations No Data Provided for This Section Results Order Name Results Value Reference Range Date Interpretation Comments Source Blood leukocytes automated count (number/volume) 8.52 4.8 - 10.8 10/05/2018 [facility] Blood erythrocytes automated count (number/volume) 4.35 3.6 - 5.1 10/05/2018 [facility] Blood hemoglobin measurement (moles/volume) 13.9 12.0 - 16.0 10/05/2018 [facility] Automated blood hematocrit (volume fraction) 41.0 34.2 - 44.1 10/05/2018 [facility] Automated erythrocyte mean corpuscular volume 94.3 81 - 99 10/05/2018 [facility] Automated erythrocyte mean corpuscular hemoglobin (mass per erythrocyte) 32.0 28 - 32 10/05/2018 [facility] Automated erythrocyte mean corpuscular hemoglobin concentration measurement (mass/volume) 33.9 31 - 35 10/05/2018 [facility] RDW BldCo-Rto 13.6 11.7 - 14.4 10/05/2018 [facility] Automated blood platelet count (count/volume) 94 140 - 360 10/05/2018 [facility] Automated blood segmented neutrophil count as percentage of total leukocytes 71.7 38.7 - 80.0 10/05/2018 [facility] Automated blood lymphocyte count as percentage ot total leukocytes 18.8 18.0 - 39.1 10/05/2018 [facility] Automated blood monocyte count as percentage of total leukocytes 7.2 4.4 - 11.3 10/05/2018 [facility] Automated blood eosinophil count as percentage of total leukocytes 1.6 0.0 - 6.0 10/05/2018 [facility] Automated blood basophil count as percentage of total leukocytes 0.6 0.0 - 1.0 10/05/2018 [facility] IM GRANULOCYTES % 0.1 0.0 - 1.0 10/05/2018 [facility] Automated blood neutrophil count 6.1 2.1 - 6.9 10/05/2018 [facility] Blood lymphocytes count (number/volume) 1.6 1.0 - 3.2 10/05/2018 [facility] Blood monocytes automated count (number/volume) 0.6 0.2 - 0.8 10/05/2018 [facility] Automated blood eosinophil count 0.1 0.0 - 0.4 10/05/2018 [facility] Automated blood basophil count (count/volume) 0.1 0.0 - 0.1 10/05/2018 [facility] Absolute Immature Granulocyte (auto 0.01 0 - 0.1 10/05/2018 [facility] Serum or plasma sodium measurement (moles/volume) 138 136 - 145 10/05/2018 [facility] Serum or plasma potassium measurement (moles/volume) 3.9 3.5 - 5.1 10/05/2018 [facility] Serum or plasma chloride measurement (moles/volume) 102 98 - 107 10/05/2018 [facility] Serum or plasma carbon dioxide, total measurement (moles/volume) 27 22 - 29 10/05/2018 [facility] Serum or plasma anion gap 12.9 8 - 16 10/05/2018 [facility] Serum or plasma urea nitrogen measurement (mass/volume) 12 7 - 26 10/05/2018 [facility] Serum or plasma creatinine measurement (mass/volume) 0.78 0.57 - 1.11 10/05/2018 [facility] Serum or plasma urea nitrogen/creatinine mass ratio 15 6 - 25 10/05/2018 [facility] Estimated glomerular filtration rate (GFR) determination > 60 60 10/05/2018 [facility] Glucose measurement 109 74 - 118 10/05/2018 [facility] Serum or plasma calcium measurement (mass/volume) 10.1 8.4 - 10.2 10/05/2018 [facility] Serum or plasma magnesium measurement (mass/volume) 1.9 1.3 - 2.1 10/05/2018 [facility] Serum or plasma total bilirubin measurement (mass/volume) 0.5 0.2 - 1.2 10/05/2018 [facility] Aspartate Amino Transf (AST/SGOT) 36 5 - 34 10/05/2018 [facility] Serum or plasma alanine aminotransferase measurement (enzymatic activity/volume) 25 0 - 55 10/05/2018 [facility] Serum or plasma protein measurement (mass/volume) 8.4 6.5 - 8.1 10/05/2018 [facility] Serum or plasma albumin measurement (mass/volume) 3.7 3.5 - 5.0 10/05/2018 [facility] Plasma globulin measurement (mass/volume) 4.7 2.3 - 3.5 10/05/2018 [facility] Serum or plasma albumin/globulin mass ratio 0.8 0.8 - 2.0 10/05/2018 [facility] Serum or plasma alkaline phosphatase measurement (enzymatic activity/volume) 97 40 - 150 10/05/2018 [facility] Pathology Reports No Data Provided for This [...] DC Date Status Source Departed Emergency Room [id number] MYAH SOSA MD 10/05/2018 10/05/2018 [facility] Procedures Procedure Code Date Perfomer Comments Source Computed tomography of brain without radiopaque contrast [id number] 10/05/2018 [facility] Assessment and Plan No Data Provided for [...] oral secretions or any new concerns. 10/05/2018 [facility] Social History Social History Date Source Smoking Status Start Date Stop Date Never Smoker 10/05/2018 [facility] Family History No Data Provided for This Section Advance Directives Order Name Results Value Date Source Advance Directives Advance Directives Directive Response Recorded Date/Time Does the patient have an advance directive? No 10/05/18 2:43pm Do you have a Directive to Physician? No 10/05/18 2:43pm Do you have a Medical Power of Blade Bender Furnace Tender? No 10/05/18 2:43pm Do you have an [...] rights and responsibilities? Yes 10/05/18 2:43pm 10/05/2018 [facility] Functional Status No Data Provided for This Section
[2019-02-10 16:38] LABS: BASOPHILS # (AUTO) 0.1 (0.0-0.1); BASOPHILS % 0.4 % (0.0-1.0); EOSINOPHILS # (AUTO) 0.2 (0.0-0.4); EOSINOPHILS % 1.4 % (0.0-6.0); HEMATOCRIT 38.7 % (34.2-44.1); HEMOGLOBIN 13.3 g/dL (12.0-16.0); LYMPHOCYTES # (AUTO) 1.8 (1.0-3.2); LYMPHOCYTES % 14.7 % (18.0-39.1); MEAN CORPUSCULAR HEMOGLOBIN 30.9 pg (28-32); MEAN CORPUSCULAR HGB CONC 34.4 g/dL (31-35); MONOCYTES # (AUTO) 0.8 (0.2-0.8); MONOCYTES % 6.2 % (4.4-11.3); NEUTROPHILS # (AUTO) 9.4 (2.1-6.9); NEUTROPHILS % 77.1 % (38.7-80.0); PLATELET COUNT 135 x10e3/uL (140-360); RED CELL DISTRIBUTION WIDTH 13.2 % (11.7-14.4)
[2019-02-10 16:41] LABS: BILIRUBIN,URINE NEGATIVE (NEGATIVE); CLARITY,URINE SL CLOUDY (CLEAR); COLOR,URINE YELLOW (YELLOW); KETONES,URINE NEGATIVE (NEGATIVE); LEUKOCYTE ESTERASE ,URINE SMALL (NEGATIVE); NITRITE,URINE NEGATIVE (NEGATIVE); PROTEIN,URINE DIPSTICK 1+ (NEGATIVE); URINE UROBILINOGEN 0.2 mg/dL (0.2 - 1)
[2019-02-10] MEDS ORDERED: KETOROLAC TROMETHAMINE 30 MG/ML VIAL IV ONE (16:42)
[2019-02-10] MEDS ORDERED: ACETAMINOPHEN 325 MG TAB PO ONE (16:45)
[2019-02-10 16:53] LABS: AMORPHOUS SEDIMENT,URINE MODERATE (FEW); BACTERIA,URINE MODERATE /HPF; EPITHELIAL CELLS,URINE MANY /LPF; TRANSITIONAL EPI CELLS,URINE FEW
[2019-02-10 16:54] LABS: ALANINE AMINOTRANSFERASE 28 IU/L (0-55); ALBUMIN 3.9 g/dL (3.5-5.0); ALBUMIN/GLOBULIN RATIO 0.9 (0.8-2.0); ALKALINE PHOSPHATASE 83 IU/L (40-150); ANION GAP 18.1 mmol/L (8-16); BLOOD UREA NITROGEN 9 mg/dL (7-26); BUN/CREATININE RATIO 11 (6-25); CALCIUM 9.7 mg/dL (8.4-10.2); CARBON DIOXIDE 22 mmol/L (22-29); CHLORIDE 97 mmol/L (98-107); CREATININE, SERUM 0.83 mg/dL (0.57-1.11); EST GLOMERULAR FILTRATION RATE > 60 ML/MIN (60-); GLUCOSE 148 mg/dL (74-118); POTASSIUM 4.1 mmol/L (3.5-5.1); SODIUM 133 mmol/L (136-145)
[2019-02-10 17:04] LABS: CREATINE KINASE 24 IU/L (29-168)
--- NOTE | 2019-02-10 17:43 | Diagnostic Imaging Report ---
EXAMINATION: PA and lateral views of the chest. COMPARISON: CT chest PE protocol 02/06/2019 CLINICAL HISTORY: Chest pain, right lung DISCUSSION: Lines/tubes: None. Lungs: The lungs are well inflated and grossly clear. There is no evidence of pneumonia or pulmonary edema. Pleura: There is no pleural effusion or pneumothorax. Heart and mediastinum: Cardiomediastinal silhouette is unremarkable. Pulmonary vasculature is normal. Bones and soft tissues: No acute bony abnormalities. Degenerative changes in the thoracic spine IMPRESSION: No acute cardiopulmonary abnormalities. Please note patient had a CT chest (PE protocol), abdomen and pelvis 4 days ago Signed by: Dr. Junior Esquivel M.D. on 02/10/2019 5:40 PM
[2019-02-10 18:28] VITALS: BP 148/64
[2019-02-10] MEDS ORDERED: TIZANIDINE HCL4 M1 PO (18:35)
== END 2019-02-10 18:55 | disposition home or self-care (01) ==
LOC: ER 15:46
DX: R07.89 Other chest pain (principal); I10 Essential (primary) hypertension; E11.9 Type 2 diabetes mellitus without complications; K21.9 Gastro-esophageal reflux disease without esophagitis; F31.9 Bipolar disorder, unspecified; J98.4 Other disorders of lung; Z87.891 Personal history of nicotine dependence
CPT/HCPCS: 36415; 71046; 80053; 81001; 82550; 82553; 83880; 84484; 85025; 93005; 99284

== ENCOUNTER 2020-05-24 14:25 | Emergency (ER) | payer MEDICARE, OTHER ==
[~2020-05-24] VITALS: Ht 162.6 cm; Wt 91.6 kg
[~2020-05-24 14:25] MED LIST changes: +TIZANIDINE HCL4 M1 PO
--- NOTE | 2020-05-24 14:39 | Emergency Department Note ---
History of Present Illnes History of Present Illness Chief Complaint: Eye, Ear, Nose, Throat, Dental History of Present Illness This is a 79 year old Other female Chief Complaint Comment Patient in from home with reports of bleeding from her left ear. Patient reports that she was trying to clean ear wax out of her ear using a q-tip and since then it has been bleeding. Some mild dry blood noted to her external ear canal. No hearing difficulties noted. No acute distress noted. No complaints of pain. Historian: Patient Arrival Mode: Car Co Op Required: No Onset (how long ago): day(s) (1) Location: L ear Quality: bleeding Radiation: Reports non-radiation Severity: mild Onset quality: sudden Duration (how long): day(s) (1) Timing of current episode: constant Progression: unchanged Chronicity: new Context: Denies recent illness, Denies recent surgery Relieving factors: none Exacerbating factors: none Associated symptoms: Reports denies other symptoms Treatments prior to arrival: none Past Medical/Family History Physician Review I have reviewed the patient's past medical and family history. Any updates have been documented here. Past Medical History Recent Fever: No Clinical Suspicion of Infectio: No New/Unexplained Change in Ment: No Past Medical History: Hypertension, Diabetes, Liver Disease, GERD Other Medical History: BIPOLAR CIRRHOSIS ADDISONS EMPHYSEMA Past Surgical History: Knee Replacement, Hernia Repair Other Surgery: LEFT KNEE Social History Smoking Cessation: Never Smoker Alcohol Use: None Any Illegal Drug Use: No Other Last Tetanus: UNKNOWN Any Pre-Existing Lines (PICC,: No Review of Systems Review of Systems Constitutional: Reports no symptoms EENTM: Reports as per HPI, Reports ear pain, Reports ear discharge Cardiovascular: Reports no symptoms Respiratory: Reports no symptoms Gastrointestinal: Reports no symptoms Genitourinary: Reports no symptoms Musculoskeletal: Reports no symptoms Integumentary: Reports no symptoms Neurological: Reports no symptoms Psychological: Reports no symptoms Endocrine: Reports no symptoms Hematological/Lymphatic: Reports no symptoms Physical Exam Related Data Allergies: Coded Allergies: Sulfa (Sulfonamide Antibiotics) (Verified Allergy, Unknown, 02/07/19) Triage Vital Signs Vital Signs Date Time Temp Pulse Resp B/P (MAP) Pulse Ox O2 Delivery O2 Flow Rate FiO2 05/24/20 14:30 98.3 83 18 121/72 98 Room Air Vital signs reviewed: Yes Physical Exam CONSTITUTIONAL Constitutional: Present well-developed, Present well-nourished HENT HENT: Present normocephalic, Present atraumatic, Present oropharynx clear/moist, Present nose normal HENT L/R: Present left TM normal, Present right TM normal, Present left ext ear normal, Present right ext ear normal; Absent left canal normal (blood and small abrasions), Absent right canal normal (blood and small abrasions) EYES Eyes: Reports PERRL, Reports conjunctivae normal NECK Neck: Present ROM normal PULMONARY Pulmonary: Present effort normal, Present breath sounds normal CARDIOVASCULAR Cardiovascular: Present regular rhythm, Present heart sounds normal, Present capillary refill normal, Present normal rate GASTROINTESTINAL Abdominal: Present soft, Present nontender, Present bowel sounds normal GENITOURINARY Genitourinary: Present exam deferred SKIN Skin: Present warm, Present dry MUSCULOSKELETAL Musculoskeletal: Present ROM normal NEUROLOGICAL Neurological: Present alert, Present oriented x 3, Present no gross motor or sensory deficits PSYCHOLOGICAL Psychological: Present mood/affect normal, Present judgement normal Assessment & Plan Medical Decision Making MDM 79 y.o F presents for ear bleeding after using q-ttip. Exam shows small abrasions to EAC bilaterally likely 2/2 q-tip use. Will rx cipro ear drops and she will f/u w/ PCP. Appropriate for DC Assessment & Plan Final Impression: (1) Ear canal abrasion Depart Disposition: HOME, SELF-CARE Last Vital Signs Date Time Temp Pulse Resp B/P (MAP) Pulse Ox O2 Delivery O2 Flow Rate FiO2 05/24/20 14:30 98.3 83 18 121/72 98 Room Air Home Meds Active Scripts Tizanidine Hcl (TIZANIDINE HCL) 4 Mg Capsule, 4 MG PO TID PRN for MUSCLE SPASMS, #15 TAB Prov:ANDRY GUTIÉRREZ [employer] 02/10/19 [Albuterol Hfa] No Conflict Check, 1 INH INH Q8H PRN for SHORTNESS OF BREATH, #1 Prov:AJ ALMENDAREZ [employer] 02/08/19 [Ceftin] No Conflict Check, 500 MG PO Q12H for 5 Days Prov:AJ ALMENDAREZ [employer] 02/08/19 Pantoprazole Sod (PROTONIX) 40 Mg/Ml Susp, 40 MG PO BIDWM for 30 Days Prov:AJ ALMENDAREZ [employer] 02/08/19 Baclofen (BACLOFEN) 10 Mg Tablet, 5 MG PO TID PRN for MUSCLE SPASMS, #30 Prov:ERICKSONAJ Bryant [employer] 02/08/19 Aspirin (ASPIRIN EC) 81 Mg Tablet.dr, 81 MG PO QAM for 30 Days Prov:AJ ALMENDAREZ [employer] 02/08/19 Reported Medications Sitagliptin Phosphate (JANUVIA) 100 Mg Tablet, 100 MG PO DAILY, #30 TAB 02/07/19 Nifedipine (NIFEDIPINE ER) 60 Mg Tablet.er, 60 MG PO DAILY 02/07/19 Lisinopril (LISINOPRIL) 10 Mg Tablet, 20 MG PO DAILY, #30 TAB 02/07/19 Metformin Hcl (METFORMIN HCL ER) 500 Mg Tab.er.24, 1000 MG PO BID, #60 TAB 02/07/19 Atorvastatin Calcium (ATORVASTATIN CALCIUM) 10 Mg Tablet, 10 MG PO 2100, #30 TAB 02/07/19 Omeprazole (OMEPRAZOLE) 40 Mg Capsule., ACB 02/07/19 Mu-Vits-Min Th/Lycopene/Lutein (CENTRUM SILVER TABLET) 1 Each Tablet, 60 DAILY 02/07/19 HARRY NG MD May 24, 2020 14:39
--- OUTSIDE RECORDS SUMMARY | 2020-05-24 15:26 | XMS REPORT | Clinical Summary ---
Author [facility] Address Unknown Phone Unavailable Care Team Providers Care [place] Name Role Phone Girish Holt MD PCP [...] Active Problems Patient Care Coordination Note Day Yarsanism very poor insight. Problem Noted Date Family history of colon cancer 09/14/2014 Constipation 09/14/2014 Overview: History of colon spasm History of colonic polyps 09/14/2014 Overview: Dr. Ry Anderson - (not for many years) Fatty liver 09/14/2014 Osteoarthritis 09/14/2014 Overview: Left knee TKR, now some edema and loss of feeling. Leg edema 09/14/2014 Peripheral neuropathy 09/14/2014 Overview: Likely DM, numbness in hand, tingling i n legs Hypokalemia 05/28/2014 Hypomagnesemia 05/28/2014 Hyponatremia 05/28/2014 DM (diabetes mellitus) 05/28/2014 Overview: A1c 7.10 May 2014 (admission) Tyree Jarrett, A1c 7.7--08/11/2014 Normal microalb 08/11/2014 HTN (hypertension) 05/28/2014 Social History Date Tobacco Use Types Packs/Day Years Used Quit: 06/06/1999 Former Smoker Drinks/Week oz/Week Comments Alcohol Use No Sex Assigned at Date Recorded Not on file Last Filed Vital Signs Not on file Plan of Treatment Not on file Results Not on fileafter 05/24/2019 Insurance Type Payer Benefit Subscriber ID Effective Phone Address Plan / Dates Group Medicare MEDICARE MEDICARE A [id number] 1998-P B resent Other Govt (, [place], [facility], etc.) [id number] 2011 -Present
--- OUTSIDE RECORDS SUMMARY | 2020-05-24 15:26 | XMS REPORT | Continuity of Care Document ---
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 Role Phone [employer] Information [employer] Unavailable Un available Problems Problem Status Onset Date Classification Date Reported Comments Source K74.60 / R10.98 Active 12/28/2019 [facility] CHEST PAIN/SOB/VOMITING Active 12/11/2019 [facility] HYPONATREMIA, HYPOKALEMIA, VOMITING Active 11/21/2019 [facility] Abnormal results of liver function studies 06/29/2018 01/10/2019 [facility], JENNI Ramirez NEW PT CONSULT Active 04/02/2018 [facility] R10.9 - UNSPECIFIED ABDOMINAL PAIN Active 03/29/2018 [facility] Encounter for screening for malignant neoplasm of colo n 02/12/2018 08/18/2018 [facility] Other specified abnormal findings of blood chemistry 01/24/2018 08/08/2018 [facility] [place] UNK Active 0 01/11/2018 [facility] M79.644 - PAIN IN RIGHT FINGER(S) Active 12/26/2016 [facility] Discharge Diagnosis: Vaginal bleeding 02/08/2014 02/11/2014 [facility] ABDOMINAL PAIN Active 02/07/2014 [facility] Clostridium difficile (organism) Active 09/21/2010 Problem 01/05/2020 Problem added by Discern Expert. [facility] JENNI Ramirez ,[facility] [place] Nonalcoholic steatohepatitis (YODER) 01/10/2019 [facility] Cholesterolosis of gallbladder 01/10/2019 [facility] [place] Cyst of pancreas 01/10/2019 [facility] [place] Bipolar (qualifier value) Acti ve Problem 03/2014 [facility] Type 2 diabetes mellitus without complications 11/23/2018 [facility] [place] Morbid (severe) obesity due to excess calories 11/23/2018 [facility] Body mass index (BMI) 33.0-33.9, adult 11/23/2018 [facility] Chronic obstructive pulmonary disease, unspecified 11/23/2018 [facility] Essential (primary) hypertension 11/23/2018 [facility], [place] Obstructive sleep apnea (adult) (pediatric) 11/23/2018 [facility] Bipolar disorder, unspecified 11/23/2018 [facility], [place] Benign neoplasm of ascending colon 08/18/2018 [facility] Benign neoplasm of cecum 08/18/2018 [facility] Benign neoplasm of transverse colon 08/18/2018 [facility] Gastro-esophageal reflux disease without esophagitis 08/18/2018 [facility] Diaphragmatic hernia without obstruction or gangrene 08/18/2018 [facility] Obesity, unspecified 08/18/2018 [facility] Primary adrenocortical insufficiency 08/18/2018 [facility] 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 08/18/2018 [facility] Personal history of nicotine dependence 08/18/2018 [facility] Unspecified osteoarthritis, unspecified site 08/18/2018 [facility] Body mass index (BMI) 35.0-35.9, adult 08/18/2018 [facility] [place]'s disease (disorder) R esolved Problem 08/2019 [facility], [facility] [place], Giselle Anemia (disorder) Active Problem 01/05/2020 [facility], [facility] [place],[facility], JENNI [place] Arthritis (disorder) Active Problem 01/05/2020 [facility], [facility] [place],[facility], [facility] [place] Asthma (disorder) Active Problem 01/05/2020 [facility], [facility] [place],[facility], [facility] [place] Bipolar disorder (disorder) Re solved Problem 08/2019 [facility], [facility] [place], Giselle Bronchitis (disorder) Active Problem 01/05/2020 [facility], [facility] [place],[facility], [facility] [place] Chronic obstructive lung disease (disorder) Active Problem 01/05/2020 [facility], [facility] [place],[facility], [facility] [place] Diabetes mellitus (disorder) A ctive Problem 08/2019 [facility], [facility] [place],[facility], [facility] [place] Hypertensive disorder, systemic arterial (disorder) Active Problem 01/05/2020 [facility], [facility] [place],[facility] Pain (finding) Active Problem 01/05/2020 [facility], [facility] [place],[facility] [place] Simple obesity (disorder) Acti ve Problem 08/2019 [facility] PID [place],[facility] Sleep apnea (finding) Active Problem 01/05/2020 [facility] [place],[facility] Urinary tract infectious disease (disorder) Active Problem 01/05/2020 [facility], [facility] [place],[facility] Hypo-osmolality and hyponatremia 11/27/2019 [facility] Cirrhosis of liver (disorder) Active Problem 08/2019 [facility] W/ Active [facility] HYPO-OSMOLALITY AND HYPONATREMIA Active [facility] HYPOKALEMIA Active [facility] VOMITING, UNSPECIFIED Active [facility] UNSPECIFIED CIRRHOSIS OF LIVER Active [facility] Medications Medication Details Route Status Patient Instructions Ordering Provider Order Date Source ondansetron 4 mg oral tablet 4 mg = 1 tab, PO, Q8H, PRN Nausea & Vomiting, # 15 tab, 0 Refill(s), Pharmacy: [id number] Active 12/13/2019 [facility] atorvastatin Notes: (Same As: Lipitor) No Longer Active 12/13/2019 [facility] Saline Flush 0.9% Notes: (Same as: BD Posiflush) No Longer Active 12/12/2019 [facility] ARIPiprazole Notes: (Same as: Abilify) No Longer Active 12/12/2019 [facility] Aspirin Notes: Do not crush or chew. (Same As: Ecotrin) No Longer Active 12/12/2019 [facility] Fluoxetine Notes: (Same as: Pr ozac) No Longer Active 12/12/2019 [facility] Lisinopril Notes: (Same as: Pr inivil, Zestril) No Longer Active 12/12/2019 [facility] NIFEdipine 60 mg oral tablet, extended release Notes: (Same as: Adalat CC, Procardia XL) Give on empty stomach. Take 1 hour before or 2 hours after meal; "Avoid grapefruit and grapefruit juice". Do not crush No Longer Active 12/12/2019 [facility] Omeprazole 40 mg, 1 cap, Route : PO, Drug form: DRC, Daily, Dosing Weight 91.818, kg, Start date: 12/12/19 9:00:00 CDT, Duration: 30 day, Stop date: 01/10/20 9:00:00 CDT No Longer Active 12/12/2019 [facility] Protonix Notes: Tablet should not be chewed or crushed. (Same as: Protonix) No Longer Active 12/12/2019 [facility] Lovenox Notes: (Same as: Loven ox) No Longer Active 12/12/2019 [facility] Al hydroxide/Mg hydroxide/simethicone Notes: (aluminum hydroxide-magnesium hyd-simethicone [phone]/5ml 30 ml ud JOSE E) Inactive 12/12/2019 [facility] Xylocaine Viscous 2% mucous membrane solution Notes: (Same as: Xylocaine) Inactive 12/12/2019 [facility] GI cocktail (aluminum hydroxide/magnesiu m hydroxide/lidocaine/simethicone) 45 ml, Route: PO, Drug Form: SUSP, Dosin g Weight 91.818, kg, ONCE, Routine, Start date: 12/11/19 22:43:00 CDT, Stop date: 12/11/19 22:43:00 CDT Inactive 12/12/2019 [facility] Dextrose 50% Syringe (D50W) 12 .5 gm, 25 mL, Route: IVP, Drug Form: INJ, Dosing Weight 91.818, kg, PRN, PRN Blood Glucose Results, Start date: 12/11/19 22:22:00 CDT, Duration: 30 day, Stop date: 01/10/20 22:21:00 CDT, 0 No Longer Active 12/12/2019 [facility] Glucagon 1 mg, Route: IM, Drug form: PDR/INJ, PRN, Dosing Weight 91.818, kg, PRN Blood Glucose Results, Start date: 12/11/19 22:22:00 CDT, Duration: 30 day, Stop date: 01/10/20 22:21:00 CDT, 0 No Longer Active 12/12/2019 [facility] Insulin Lispro Notes: (Same as : Humalog) Roll in palms of hands gently; Do not shake vigorously. WASTE: F/P - Black; E - Municipal Trash Bin Stable for 28 days at room temperature. Expires in days from Date No Longer Active 12/12/2019 [facility] Zofran Notes: (Same as: Zofran ) MEDICATION WASTE Product Size: 4 mg Product Wasted: ___ mg No Longer Active 12/12/2019 [facility] tizanidine Notes: (Same As: Za naflex) No Longer Active 12/12/2019 [facility] Nitroglycerin Notes: (Same as: Nitroquick, Nitrostat) "Do Not Crush" Sublingual tablet No Longer Active 12/12/2019 [facility] Morphine Notes: (Same as:MORPh ine Sulfate) No Longer Active 12/12/2019 [facility] Acetaminophen Notes: Do not ex ceed 4 gm/day. (Same as: Tylenol) No Longer Active 12/12/2019 [facility] Ondansetron Notes: (Same as: Alfonzo kuo) No Longer Active 12/12/2019 [facility] Saline Flush 0.9% Notes: (Same as: BD Posiflush) No Longer Active 12/12/2019 [facility] atorvastatin 20 mg oral tablet 20 mg = 1 tab, PO, Bedtime, # 30 tab, 0 Refill(s) Active 12/12/2019 [facility] Thiamine Notes: (Same As: Alva min B1) No Longer Active 11/24/2019 [facility] Lisinopril Notes: (Same as: Pr inivil, Zestril) No Longer Active 11/24/2019 [facility] Mucinex Notes: (Same as: Guaif enesin LA, Humibid LA, Mucinex) "Do Not Crush" Take medication with plenty of water. No Longer Active 11/24/2019 [facility] Aspirin Notes: Do not crush or chew. (Same As: Ecotrin) No Longer Active 11/23/2019 [facility] Folic Acid Notes: (Same as: Fo lvite) No Longer Active 11/23/2019 [facility] Potassium Chloride Notes: ([place] e as: K-Dur 20) "Do Not Crush" Give with food and full glass of water For patients unable to swallow tablet, dissolve in one half glass of water. Allow about 2 minutes for the tab lets to disintegrate. Stir before giving to prepare slurry and administer. Please exclude Patients with feeding tube less than 14 Hebrew (Dobhoff, J-tube etc) and pediatric and patients. No Longer Active 11/23/2019 [facility] potassium phosphate-sodium phosphate 250 mg-280 mg-160 mg oral powder for reconstitution Notes: (Same as: Phos-NaK) Each 1.5 gm pkt has 250mg phosphorous. Mix w/2.5oz water and stir. No Longer Active 11/23/2019 [facility] potassium phosphate Notes: (Sa me as: K Phosphate.) Do not infuse phosphorous concurrently in the same line as TPN or IVF that contains calcium. For double lumen central lines, phosphorous may be infused in a separate lumen from TPN. 1 mMol phoshate has 1.47 mEq potassium Infuse over 4 hours No Longer Active 11/23/2019 [facility] sodium phosphate Notes: Infuse over 4 hour. Do not infuse phosphorous concurrently in the same line as TPN or IVF that contains calcium. For double lumen central lines, phosphorous may be infused in a separate lumen from TPN. No Longer Active 11/23/2019 [facility] Magnesium Sulfate Notes: WASTE : F/P - Sink; E - Municipal Trash Bin No Longer Active 11/23/2019 [facility] Magnesium Oxide Notes: (Same a s: Mag-Ox 400) Magnesium oxide [id number] elemental magnesium Dose=____mg magnesium oxide (___mg elemental magnesium) No Longer Active 11/23/2019 [facility] Calcium Gluconate Notes: WASTE : F/P - Sink; E - Municipal Trash Bin No Longer Active 11/23/2019 [facility] heparin sodium, porcine 2500 UNT/ML Injectable Solutio n Notes: porcine heparin No Longer Active 11/23/2019 [facility] Aspirin 81, PO, Daily, 0 Refil l(s) Active 11/22/2019 [facility] NIFEdipine 60 mg oral tablet, extended release 60 mg = 1 tab, PO, Daily, # 30 tab, 0 Refill(s) Active 11/22/2019 [facility] NS (Bolus) IV 500 mL, 500 ml/h r, Infuse Over: 1 hr, Route: IV, 500, Drug form: INJ, ONCE, Priority: STAT, Dosing Weight 94.659 kg, Start date: 11/22/19 16:51:00 CDT, Stop date: 11/22/19 16:51:00 CDT, 0 Inactive 11/22/2019 [facility] Folic Acid Notes: (Same as: Fo lvite) No Longer Active 11/22/2019 [facility] Thiamine Notes: (Same As: Alva min B1) No Longer Active 11/22/2019 [facility] Sodium Chloride 1000 MG Oral Tablet 2 gm, 2 tab, Route: PO, Drug form: TAB, TID, Dosing Weight 94.659, kg, Start date: 11/21/19 23:45:00 CDT, Duration: 30 day, Stop date: 12/21/19 17:00:00 CDT, 0 No Longer Active 11/22/2019 [facility] Potassium Chloride Notes: ([facility] e as: K-Dur 20) "Do Not Crush" Give with food and full glass of water For patients unable to swallow tablet, dissolve in one half glass of water. Allow about 2 minutes for the tab lets to disintegrate. Stir before giving to prepare slurry and administer. Please exclude Patients with feeding tube less than 14 Hebrew (Dobhoff, J-tube etc) and pediatric and patients. No Longer Active 11/22/2019 [facility] potassium phosphate-sodium phosphate 250 mg-280 mg-160 mg oral powder for reconstitution Notes: (Same as: Phos-NaK) Each 1.5 gm pkt has 250mg phosphorous. Mix w/2.5oz water and stir. No Longer Active 11/22/2019 [facility] potassium phosphate Notes: ([facility] as: K Phosphate.) Do not infuse phosphorous concurrently in the same line as TPN or IVF that contains calcium. For double lumen central lines, phosphorous may be infused in a separate lumen from TPN. 1 mMol phoshate has 1.47 mEq potassium Infuse over 4 hours No Longer Active 11/22/2019 [facility] sodium phosphate Notes: Infuse over 4 hour. Do not infuse phosphorous concurrently in the same line as TPN or IVF that contains calcium. For double lumen central lines, phosphorous may be infused in a separate lumen from TPN. No Longer Active 11/22/2019 [facility] Magnesium Sulfate Notes: WASTE : F/P - Sink; E - Municipal Trash Bin No Longer Active 11/22/2019 [facility] Magnesium Oxide Notes: (Same a s: Mag-Ox 400) Magnesium oxide [id number] elemental magnesium Dose=____mg magnesium oxide (___mg elemental magnesium) No Longer Active 11/22/2019 [facility] Calcium Gluconate Notes: WASTE : F/P - Sink; E - Municipal Trash Bin No Longer Active 11/22/2019 [facility] Please update HT/WT/allergy Please update HT/WT/allergy, Please update in ADHOC, Drug form: MISC, Route: MISC, Q15Min, 11/21/19 21:45:00 CDT, Duration: 30 day, Stop date: 12/21/19 21:30:00 CDT, 0 Inactive 11/22/2019 [facility] Dextrose 50% Syringe (D50W) 12 .5 gm, 25 mL, Route: IVP, Drug Form: INJ, Dosing Weight 89.182, kg, PRN, PRN Blood Glucose Results, Start date: 11/21/19 21:38:00 CDT, Duration: 30 day, Stop date: 12/21/19 21:37:00 CDT, 0 No Longer Active 11/22/2019 [facility] Glucagon 1 mg, Route: IM, Drug form: PDR/INJ, PRN, Dosing Weight 89.182, kg, PRN Blood Glucose Results, Start date: 11/21/19 21:38:00 CDT, Duration: 30 day, Stop date: 12/21/19 21:37:00 CDT, 0 No Longer Active 11/22/2019 [facility] Insulin Lispro Notes: (Same as : Humalog) Roll in palms of hands gently; Do not shake vigorously. WASTE: F/P - Black; E - Municipal Trash Bin Stable for 28 days at room temperature. Expires in days from Date No Longer Active 11/22/2019 [facility] Dextrose 50% Syringe (D50W) 25 mL, Route: IVP, Dosing Weight 89.182, kg, PRN, PRN Blood Glucose Results, Start date: 11/21/19 21:35:00 CDT, Duration: 30 day, Stop date: 12/21/19 21:34:00 CDT Inactive 11/22/2019 [facility] Glucagon 1 mg, Route: IM, PRN, Dosing Weight 89.182, kg, PRN Blood Glucose Results, Start date: 11/21/19 21:35:00 CDT, Duration: 30 day, Stop date: 12/21/19 21:34:00 CDT Inactive 11/22/2019 [facility] Acetaminophen Notes: Do not ex ceed 4 gm/day. (Same as: Tylenol) No Longer Active 11/22/2019 [facility] Zofran Notes: (Same as: Zofran ) MEDICATION WASTE Product Size: 4 mg Product Wasted: ___ mg No Longer Active 11/22/2019 [facility] Hair, Skin & Nails 5 mg =, PO, Daily, 0 Refill(s) Active 05/06/2018 [facility] multivitamin Daily, 0 Refill(s) Active 05/06/2018 [facility] lisinopril 20 mg oral tablet 2 0 mg = 1 tab, PO, Daily, 0 Refill(s) Active 05/06/2018 [facility] omeprazole 40 mg oral delayed release capsule 40 mg = 1 cap, PO, Daily, 0 Refill(s) Active 05/06/2018 [facility] nter ARIPiprazole 5 mg, PO, 0 Refil l(s) Active 05/06/2018 [facility] Fluoxetine 10 mg, PO, Daily, 0 Refill(s) Active 05/06/2018 [facility] Multiple Vitamins oral tablet 1 tab, PO, Daily, # 30 tab, 0 Refill(s) Active 01/29/2018 [facility] Mucinex 600 mg, PO, Q12H, 0 Re fill(s) Active 01/29/2018 [facility] Albuterol 0.833 MG/ML / Ipratropium Brom zee 0.167 MG/ML Inhalant Solution 3 mL, Route: NEB, Dosing Weight 94.545, kg, ONCE, STAT, Start date: 01/29/18 8:18:00 CDT, Stop date: 01/29/18 8:18:00 CDT Inactive 01/29/2018 [facility] Sodium Chloride 0.9% IV 500 mL 500 mL, Rate: 25 ml/hr, Infuse over: 20 hr, Route: IV, Dosing Weight 94.545 kg, Total Volume: 500, Start date: 01/29/18 8:18:00 CDT, Duration: 30 day, Stop date: 02/28/18 8:17:00 CDT, 2.1, m2 Inactive 01/29/2018 [facility] lisinopril 10 mg oral tablet 1 0 mg = 1 tab, PO, Daily, # 30 tab, 0 Refill(s) Active 01/28/2018 [facility] Metformin hydrochloride 500 MG Oral Tablet 500 mg = 1 tab, PO, BID-Meals, # 30 tab, 0 Refill(s) Active 01/28/2018 [facility] Allergies, Adverse Reactions, Alerts Substance Category Reaction Severity Reaction type Status Date Reported Comments Source sulfa drugs Assertion Drug allergy Active [facility] Immunizations Immunization Date Given Site Status Last Updated Comments Source pneumococcal 23-valent vaccine 04/16/2009 Right arm completed [facility], JENNI Ramirez,[facility], JENNI Jean Results Order Name Results Value Reference Range Date Interpretation Comments Source CHEM PANEL Glucose Lvl 139 70 - 99 12/13/2019 [facility] CHEM PANEL BUN 13 7 - 22 12/13/2019 [facility] CHEM PANEL Creatinine Lvl 0.85 0.50 - 1.40 12/13/2019 [facility] CHEM PANEL Sodium Lvl 132 135 - 145 12/13/2019 [facility] CHEM PANEL Potassium Lvl 4.0 3.5 - 5.1 12/13/2019 [facility] CHEM PANEL Chloride Lvl 99 95 - 109 12/13/2019 [facility] CHEM PANEL CO2 29 24 - 32 12/13/2019 [facility] CHEM PANEL Calcium Lvl 9.0 8.5 - 10.5 12/13/2019 [facility] CHEM PANEL Total Protein 7.6 6.4 - 8.4 12/13/2019 [facility] CHEM PANEL Albumin Lvl 3.4 3.5 - 5.0 12/13/2019 [facility] CHEM PANEL ALT 50 0 - 65 12/13/2019 [facility] CHEM PANEL AST 61 0 - 37 12/13/2019 [facility] CHEM PANEL Alk Phos 81 39 - 136 12/13/2019 [facility] CHEM PANEL Bili Total 0.4 0.2 - 1.3 12/13/2019 [facility] CHEM PANEL AGAP 8.0 10.0 - 20.0 12/13/2019 [facility] CHEM PANEL B/C Ratio 15 6 - 25 12/13/2019 [facility] CHEM PANEL Globulin 4.2 2.7 - 4.2 12/13/2019 [facility] CHEM PANEL A/G Ratio 0.8 0.7 - 1.6 12/13/2019 [facility] CHEM PANEL eGFR 66 12/13/2019 Result Comment: The eGFR is calculated using the CKD-EPI formula. In most young, healthy individuals the eGFR will be >90 mL/min/1.73m2. The eGFR declines with age. An eGFR of 60-89 may be normal in some populations, particularly the elderly, for whom the CKD-EPI formula has not been extensively validated. Use of the eGFR is not recommended in the following populations:

Individuals with unstable creatinine concentrations, including patients and those with serious co-morbid conditions.

Patients with extremes in muscle mass or diet.

The data above are obtained from the National Kidney Disease Education Program (NKDEP) which additionally recommends that when the eGFR is used in patients with extremes of body mass index for purposes of drug dosing, the eGFR should be multiplied by the estimated BMI. [facility] HEMATOLOGY WBC 7.8 3.7 - 10.4 12/13/2019 [facility] HEMATOLOGY RBC 4.13 4.20 - 5.40 12/13/[address] [facility] Hgb 13.0 12.0 - 16.0 12/13/2019 [facility] HEMATOLOGY Hct 38.4 36.0 - 48.0 12/13/[address] [facility] MCV 92.9 80.0 - 98.0 12/13/[address] [facility] MCH 31.4 27.0 - 31.0 12/13/[address] [facility] MCHC 33.8 32.0 - 36.0 12/13/[address] [facility] RDW 13.8 11.5 - 14.5 12/13/[address] [facility] Platelet 141 133 - 450 12/13/[address] [facility] MPV 7.9 7.4 - 10.4 12/13/2019 [facility] CARDIAC ENZYMES Troponin-I <0.02 0.00 - 0.40 12/12/2019 [facility] CHEM PANEL Ammonia 13.0 <=45.0 uMol/L 12/12/2019 [facility] HEMATOLOGY D-Dimer 0.63 12/12/2019 [facility] CARDIAC ENZYMES Troponin-I <0.02 0.00 - 0.40 12/12/2019 [facility] CHEM PANEL Glucose Lvl 119 70 - 99 12/12/2019 [facility] CHEM PANEL BUN 13 7 - 22 12/12/2019 [facility] CHEM PANEL Creatinine Lvl 0.88 0.50 - 1.40 12/12/2019 [facility] CHEM PANEL Sodium Lvl 129 135 - 145 12/12/2019 [facility] CHEM PANEL Potassium Lvl 3.4 3.5 - 5.1 12/12/2019 [facility] CHEM PANEL Chloride Lvl 93 95 - 109 12/12/2019 [facility] CHEM PANEL CO2 28 24 - 32 12/12/2019 [facility] CHEM PANEL Calcium Lvl 8.2 8.5 - 10.5 12/12/2019 [facility] CHEM PANEL AGAP 11.4 10.0 - 20.0 12/12/2019 [facility] CHEM PANEL eGFR 63 12/12/2019 Result Comment: The eGFR is calculated using the CKD-EPI formula. In most young, healthy individuals the eGFR will be >90 mL/min/1.73m2. The eGFR declines with age. An eGFR of 60-89 may be normal in some populations, particularly the elderly, for whom the CKD-EPI formula has not been extensively validated. Use of the eGFR is not recommended in the following populations:

Individuals with unstable creatinine concentrations, including patients and those with serious co-morbid conditions.

Patients with extremes in muscle mass or diet.

The data above are obtained from the National Kidney Disease Education Program (NKDEP) which additionally recommends that when the eGFR is used in patients with extremes of body mass index for purposes of drug dosing, the eGFR should be multiplied by the estimated BMI. [facility] CHEM PANEL Magnesium Lvl 1.6 1.8 - 2.4 12/12/2019 [facility] CHEM PANEL Phosphorus 3.0 2.5 - 4.5 12/12/2019 [facility] CHEM PANEL Total Protein 7.6 6.4 - 8.4 12/12/2019 [facility] CHEM PANEL Albumin Lvl 3.5 3.5 - 5.0 12/12/2019 [facility] CHEM PANEL ALT 33 0 - 65 12/12/2019 [facility] CHEM PANEL AST 40 0 - 37 12/12/2019 [facility] CHEM PANEL Alk Phos 74 39 - 136 12/12/2019 [facility] CHEM PANEL Bili Total 0.5 0.2 - 1.3 12/12/2019 [facility] CHEM PANEL Bili Direct 0.2 0.0 - 0.3 12/12/2019 [facility] CHEM PANEL Globulin 4.1 2.7 - 4.2 12/12/2019 [facility] CHEM PANEL A/G Ratio 0.9 0.7 - 1.6 12/12/2019 [facility] CHEM PANEL Bili Indirect 0.3 0.0 - 1.0 12/12/2019 [facility] HEMATOLOGY WBC 10.3 3.7 - 10.4 12/12/2019 [facility] HEMATOLOGY RBC 4.10 4.20 - 5.40 12/12/2019 [facility] HEMATOLOGY Hgb 13.0 12.0 - 16.0 12/12/2019 [facility] HEMATOLOGY Hct 37.8 36.0 - 48.0 12/12/2019 [facility] HEMATOLOGY MCV 92.2 80.0 - 98.0 12/12/2019 [facility] HEMATOLOGY MCH 31.6 27.0 - 31.0 12/12/[address] [facility] MCHC 34.3 32.0 - 36.0 12/12/2019 [facility] HEMATOLOGY RDW 14.2 11.5 - 14.5 12/12/2019 [facility] HEMATOLOGY Platelet 161 133 - 450 12/12/2019 [facility] HEMATOLOGY MPV 7.6 7.4 - 10.4 12/12/2019 [facility] HEMATOLOGY Segs 65.7 45.0 - 75.0 12/12/2019 [facility] HEMATOLOGY Lymphocytes 24.7 20.0 - 40.0 12/12/2019 [facility] HEMATOLOGY Monocytes 8.1 2.0 - 12.0 12/12/2019 [facility] HEMATOLOGY Eosinophils 1.0 0.0 - 4.0 12/12/2019 [facility] HEMATOLOGY Basophils 0.5 0.0 - 1.0 12/12/2019 [facility] HEMATOLOGY Neutrophils # 6.8 1.5 - 8.1 12/12/2019 [facility] HEMATOLOGY Lymphocytes # 2.5 1.0 - 5.5 12/12/2019 [facility] HEMATOLOGY Monocytes # 0.8 0.0 - 0.8 12/12/2019 [facility] HEMATOLOGY Eosinophils # 0.1 0.0 - 0.5 12/12/2019 [facility] HEMATOLOGY Basophils # 0.1 0.0 - 0.2 12/12/2019 [facility] CARDIAC ENZYMES Troponin-I <0.02 0.00 - 0.40 12/12/2019 [facility] CHEM PANEL Lipase Lvl 196 73 - 393 12/12/2019 [facility] CHEM PANEL Phosphorus 2.5 2.5 - 4.5 11/25/2019 [facility] CHEM PANEL Glucose Lvl 151 70 - 99 11/25/2019 [facility] CHEM PANEL BUN 13 7 - 22 11/25/2019 [facility] CHEM PANEL Creatinine Lvl 0.80 0.50 - 1.40 11/25/2019 [facility] CHEM PANEL Sodium Lvl 136 135 - 145 11/25/2019 [facility] CHEM PANEL Potassium Lvl 3.9 3.5 - 5.1 11/25/2019 [facility] CHEM PANEL Chloride Lvl 102 95 - 109 11/25/2019 [facility] CHEM PANEL CO2 27 24 - 32 11/25/2019 [facility] CHEM PANEL Calcium Lvl 8.7 8.5 - 10.5 11/25/2019 [facility] CHEM PANEL AGAP 10.9 10.0 - 20.0 11/25/2019 [facility] CHEM PANEL eGFR 71 11/25/2019 Result Comment: The eGFR is calculated using the CKD-EPI formula. In most young, healthy individuals the eGFR will be >90 mL/min/1.73m2. The eGFR declines with age. An eGFR of 60-89 may be normal in some populations, particularly the elderly, for whom the CKD-EPI formula has not been extensively validated. Use of the eGFR is not recommended in the following populations:

Individuals with unstable creatinine concentrations, including patients and those with serious co-morbid conditions.

Patients with extremes in muscle mass or diet.

The data above are obtained from the National Kidney Disease Education Program (NKDEP) which additionally recommends that when the eGFR is used in patients with extremes of body mass index for purposes of drug dosing, the eGFR should be multiplied by the estimated BMI. [facility] CHEM PANEL Magnesium Lvl 2.1 1.8 - 2.4 11/25/2019 [facility] CHEM PANEL Glucose Lvl 126 70 - 99 11/24/2019 [facility] CHEM PANEL BUN 15 7 - 22 11/24/2019 [facility] CHEM PANEL Creatinine Lvl 0.80 0.50 - 1.40 11/24/2019 [facility] CHEM PANEL Sodium Lvl 137 135 - 145 11/24/2019 [facility] CHEM PANEL Potassium Lvl 3.9 3.5 - 5.1 11/24/2019 [facility] CHEM PANEL Chloride Lvl 103 95 - 109 11/24/2019 [facility] CHEM PANEL CO2 28 24 - 32 11/24/2019 [facility] CHEM PANEL Calcium Lvl 8.8 8.5 - 10.5 11/24/2019 [facility] CHEM PANEL AGAP 9.9 10.0 - 20.0 11/24/2019 [facility] CHEM PANEL eGFR 71 11/24/2019 Result Comment: The eGFR is calculated using the CKD-EPI formula. In most young, healthy individuals the eGFR will be >90 mL/min/1.73m2. The eGFR declines with age. An eGFR of 60-89 may be normal in some populations, particularly the elderly, for whom the CKD-EPI formula has not been extensively validated. Use of the eGFR is not recommended in the following populations:

Individuals with unstable creatinine concentrations, including patients and those with serious co-morbid conditions.

Patients with extremes in muscle mass or diet.

The data above are obtained from the National Kidney Disease Education Program (NKDEP) which additionally recommends that when the eGFR is used in patients with extremes of body mass index for purposes of drug dosing, the eGFR should be multiplied by the estimated BMI. [facility] CHEM PANEL Magnesium Lvl 2.2 1.8 - 2.4 11/24/2019 [facility] CHEM PANEL Phosphorus 2.0 2.5 - 4.5 11/24/2019 [facility] HEMATOLOGY WBC 7.6 3.7 - 10.4 11/24/2019 [facility] HEMATOLOGY RBC 4.17 4.20 - 5.40 11/24/[address] [facility] Hgb 13.2 12.0 - 16.0 11/24/2019 [facility] HEMATOLOGY Hct 37.8 36.0 - 48.0 11/24/2019 [facility] HEMATOLOGY MCV 90.7 80.0 - 98.0 11/24/2019 [facility] HEMATOLOGY MCH 31.7 27.0 - 31.0 11/24/2019 [facility] HEMATOLOGY MCHC 34.9 32.0 - 36.0 11/24/[address] [facility] RDW 13.6 11.5 - 14.5 11/24/[address] [facility] Platelet 110 133 - 450 11/24/[address] [facility] MPV 7.0 7.4 - 10.4 11/24/[address] [facility] Segs 70.2 45.0 - 75.0 11/24/2019 [facility] HEMATOLOGY Lymphocytes 19.6 20.0 - 40.0 11/24/2019 [facility] HEMATOLOGY Monocytes 8.5 2.0 - 12.0 11/24/2019 [facility] HEMATOLOGY Eosinophils 1.4 0.0 - 4.0 11/24/2019 [facility] HEMATOLOGY Basophils 0.3 0.0 - 1.0 11/24/2019 [facility] HEMATOLOGY Neutrophils # 5.4 1.5 - 8.1 11/24/2019 [facility] HEMATOLOGY Lymphocytes # 1.5 1.0 - 5.5 11/24/2019 [facility] HEMATOLOGY Monocytes # 0.7 0.0 - 0.8 11/24/2019 [facility] HEMATOLOGY Eosinophils # 0.1 0.0 - 0.5 11/24/2019 [facility] CHEM PANEL Glucose Lvl 112 70 - 99 11/23/2019 [facility] CHEM PANEL BUN 15 7 - 22 11/23/2019 [facility] CHEM PANEL Creatinine Lvl 0.84 0.50 - 1.40 11/23/2019 [facility] CHEM PANEL Sodium Lvl 134 135 - 145 11/23/2019 [facility] CHEM PANEL Potassium Lvl 3.5 3.5 - 5.1 11/23/2019 [facility] CHEM PANEL Chloride Lvl 98 95 - 109 11/23/2019 [facility] CHEM PANEL CO2 28 24 - 32 11/23/2019 [facility] CHEM PANEL AGAP 11.5 10.0 - 20.0 11/23/2019 [facility] CHEM PANEL Calcium Lvl 8.9 8.5 - 10.5 11/23/2019 [facility] CHEM PANEL eGFR 67 11/23/2019 Result Comment: The eGFR is calculated using the CKD-EPI formula. In most young, healthy individuals the eGFR will be >90 mL/min/1.73m2. The eGFR declines with age. An eGFR of 60-89 may be normal in some populations, particularly the elderly, for whom the CKD-EPI formula has not been extensively validated. Use of the eGFR is not recommended in the following populations:

Individuals with unstable creatinine concentrations, including patients and those with serious co-morbid conditions.

Patients with extremes in muscle mass or diet.

The data above are obtained from the National Kidney Disease Education Program (NKDEP) which additionally recommends that when the eGFR is used in patients with extremes of body mass index for purposes of drug dosing, the eGFR should be multiplied by the estimated BMI. [facility] CHEM PANEL Magnesium Lvl 2.4 1.8 - 2.4 11/23/2019 [facility] CHEM PANEL Phosphorus 1.8 2.5 - 4.5 11/23/2019 [facility] URINE AND STOOL UA Turbidity Clear (11/22/19 5:02 AM) Clear 11/22/2019 [facility] URINE AND STOOL UA Spec Grav 1.005 <=1.030 11/22/2019 [facility] URINE AND STOOL UA pH 6.0 5.0 - 8.0 11/22/2019 [facility] URINE AND STOOL UA Protein Negative mg/dL Negative mg/dL 11/22/[address] [facility] [address] URINE AND STOOL UA Glucose Negative mg/dL Negative mg/dL 11/22/[address] [facility] [address] URINE AND STOOL UA Ketones Negative mg/dL Negative mg/dL 11/22/[address] [facility] [address] URINE AND STOOL UA Bili Negative *NA* (11/22/19 5:02 AM) Negative 11/22/2019 [facility] URINE AND STOOL UA Blood Small *ABN* (11/22/19 5:02 AM) Negative 11/22/2019 [facility] URINE AND STOOL UA Nitrite Negative (11/22/19 5:02 AM) Negative 11/22/2019 [facility] URINE AND STOOL UA Leuk Est Negative (11/22/19 5:02 AM) Negative 11/22/2019 [facility] URINE AND STOOL UA Sq Epi Few /LPF Few /LPF 11/22/2019 [facility] URINE AND STOOL UA WBC 1 0 - 5 11/22/2019 [facility] URINE AND STOOL UA RBC 4 0 - 2 11/22/2019 [facility] URINE AND STOOL UA Bacteria Many /HPF None Seen /HPF 11/22/2019 [facility] URINE AND STOOL UA Color Ltyellow 11/22/2019 [facility] URINE AND STOOL UA Urobilinogen <=1.0 mg/dL 0.1 - 1.0 11/22/2019 [facility] URINE CHEM U Osmolality 159 300 - 800 11/22/2019 [facility] URINE CHEM U Sodium 10 11/22/2019 [facility] URINE CHEM U Creatinine 31.50 11/22/2019 [facility] URINE CHEM U Potassium 7.1 11/22/2019 [facility] CHEM PANEL Osmolality 244 280 - 300 11/22/2019 [facility] CHEM PANEL A/G Ratio 0.8 0.7 - 1.6 05/06/2018 [facility] CHEM PANEL Globulin 4.9 2.7 - 4.2 05/06/2018 [facility] CHEM PANEL Bili Indirect 0.2 0.0 - 1.0 05/06/2018 [facility] CHEM PANEL Bili Direct 0.2 0.0 - 0.3 05/06/2018 [facility] CHEM PANEL Bili Total 0.4 0.2 - 1.3 05/06/2018 [facility] CHEM PANEL Alk Phos 104 39 - 136 05/06/2018 [facility] CHEM PANEL Albumin Lvl 3.7 3.5 - 5.0 05/06/2018 [facility] CHEM PANEL ALT 36 0 - 65 05/06/2018 [facility] CHEM PANEL Total Protein 8.6 6.4 - 8.4 05/06/2018 [facility] CHEM PANEL AST 40 0 - 37 05/06/2018 [facility] CHEM PANEL eGFR 61 05/06/2018 Result Comment: The eGFR is calculated using the CKD-EPI formula. In most young, healthy individuals the eGFR will be >90 mL/min/1.73m2. The eGFR declines with age. An eGFR of 60-89 may be normal in some populations, particularly the elderly, for whom the CKD-EPI formula has not been extensively validated. Use of the eGFR is not recommended in the following populations:

Individuals with unstable creatinine concentrations, including patients and those with serious co-morbid conditions.

Patients with extremes in muscle mass or diet.

The data above are obtained from the National Kidney Disease Education Program (NKDEP) which additionally recommends that when the eGFR is used in patients with extremes of body mass index for purposes of drug dosing, the eGFR should be multiplied by the estimated BMI. [facility] CHEM PANEL Sodium Lvl 140 135 - 145 05/06/2018 [facility] CHEM PANEL Creatinine Lvl 0.91 0.50 - 1.40 05/06/2018 [facility] CHEM PANEL BUN 13 7 - 22 05/06/2018 [facility] CHEM PANEL Glucose Lvl 149 70 - 99 05/06/2018 [facility] CHEM PANEL CO2 28 24 - 32 05/06/2018 [facility] CHEM PANEL Chloride Lvl 101 95 - 109 05/06/2018 [facility] CHEM PANEL Potassium Lvl 3.7 3.5 - 5.1 05/06/2018 [facility] CHEM PANEL Calcium Lvl 9.0 8.5 - 10.5 05/06/2018 [facility] CHEM PANEL AGAP 14.7 10.0 - 20.0 05/06/2018 [facility] HEMATOLOGY Monocytes 5.3 2.0 - 12.0 05/06/2018 [facility] HEMATOLOGY Basophils 0.4 0.0 - 1.0 05/06/2018 [facility] HEMATOLOGY Eosinophils 1.8 0.0 - 4.0 05/06/2018 [facility] HEMATOLOGY Neutrophils # 7.1 1.5 - 8.1 05/06/2018 [facility] HEMATOLOGY Lymphocytes # 1.6 1.0 - 5.5 05/06/2018 [facility] HEMATOLOGY Segs 76.0 45.0 - 75.0 05/06/2018 [facility] HEMATOLOGY Lymphocytes 16.5 20.0 - 40.0 05/06/2018 [facility] HEMATOLOGY Monocytes # 0.5 0.0 - 0.8 05/06/2018 [facility] HEMATOLOGY Eosinophils # 0.2 0.0 - 0.5 05/06/2018 [facility] HEMATOLOGY INR 1.15 0.85 - 1.17 05/06/2018 [facility] HEMATOLOGY PT 14.7 12.0 - 14.7 05/06/2018 [facility] HEMATOLOGY Platelet 134 133 - 450 05/06/2018 [facility] HEMATOLOGY Hct 42.5 36.0 - 48.0 05/06/2018 [facility] HEMATOLOGY MCH 32.7 27.0 - 31.0 05/06/2018 [facility] HEMATOLOGY MCV 95.0 80.0 - 98.0 05/06/2018 [facility] HEMATOLOGY MCHC 34.4 32.0 - 36.0 05/06/2018 [facility] HEMATOLOGY RDW 14.0 11.5 - 14.5 05/06/2018 [facility] HEMATOLOGY MPV 7.9 7.4 - 10.4 05/06/2018 [facility] HEMATOLOGY WBC 9.4 3.7 - 10.4 05/06/2018 [facility] HEMATOLOGY Hgb 14.6 12.0 - 16.0 05/06/2018 [facility] HEMATOLOGY RBC 4.47 4.20 - 5.40 05/06/2018 [facility] IMMUNOLOGY Hep A Tot Posit marcio *NA* (05/06/18 4:35 PM) Negative 05/06/2018 [facility] IMMUNOLOGY Hep Bs Ab <3.1 <=7.4 mIU/mL 05/06/2018 [facility] IMMUNOLOGY IgG Lvl 1510 694 - 1618 05/06/2018 [facility] LIPIDS VLDL 43 05/06/2018 [facility] LIPIDS LDL (Calculated) 44 <=99 mg/dL 05/06/2018 [facility] LIPIDS Chol 125 <=199 mg/dL 05/06/2018 [facility] LIPIDS HDL 38 >=61 mg/dL 05/06/2018 [facility] LIPIDS Trig 216 <=149 mg/dL 05/06/2018 [facility] LIPIDS CHD Risk 3.29 3.90 - 5.80 05/06/2018 [facility] SPECIAL CHEMISTRY Hgb A1C 7.0 <=5.6 % 05/06/2018 [facility] TUMOR MARKERS AFP 4.7 0.0 - 11.0 05/06/2018 [facility] URINE AND STOOL Micro? Performed (02/08/14 2:30 AM) 02/08/2014 [facility] URINE AND STOOL UA Sq Epi Occasional /LPF Few /LPF 02/08/2014 [facility] URINE AND STOOL UA WBC 6-10 /HPF None Seen /HPF 02/08/2014 [facility] URINE AND STOOL UA RBC 0-2 /HPF 0 - 2 02/08/2014 [facility] URINE AND STOOL UA Nitrite Negative (02/08/14 2:30 AM) Negative 02/08/2014 [facility] URINE AND STOOL UA Leuk Est Negative (02/08/14 2:30 AM) Negative 02/08/2014 [facility] URINE AND STOOL UA Color Yellow *NA* (02/08/14 2:30 AM) Yellow 02/08/2014 [facility] URINE AND STOOL UA Turbidity Clear (02/08/14 2:30 AM) Clear 02/08/2014 [facility] URINE AND STOOL UA Spec Grav 1.025 <=1.030 02/08/2014 [facility] URINE AND STOOL UA Protein Negative mg/dL Negative mg/dL 02/08/2014 [facility] URINE AND STOOL UA pH 5.5 5.0 - 8.0 02/08/2014 [facility] URINE AND STOOL UA Glucose Negative mg/dL Negative mg/dL 02/08/2014 [facility] URINE AND STOOL UA Ketones Negative mg/dL Negative mg/dL 02/08/2014 [facility] URINE AND STOOL UA Bili Negative *NA* (02/08/14 2:30 AM) Negative 02/08/2014 [facility] URINE AND STOOL UA Urobilinogen 0.2 0.1 - 1.0 02/08/2014 [facility] URINE AND STOOL UA Blood Negative (02/08/14 2:30 AM) Negative 02/08/2014 [facility] Pathology Reports No Data Provided for This Section Diagnostic Reports Report Value Date Source Gallbladder scan AJCQUES stokes IN PROCEDURE INFORMATION: Exam: NM Hepatobiliary Including Gallbladder When Present With Pharmacological Intervention Exam date and time: 01/03/2020 9:56 AM Age: 79 years old Clinical indication: Unspecified abdominal pain; Additional info: /r10.9 unspecified abdominal pain TECHNIQUE: Imaging protocol: Hepatobiliary system imaging including the gallbladder when present with pharmacologic intervention. Including quantitative measurements when performed. Projections: Frontal abdomen. Radiopharmaceutical: 7.2 mCi technetium 99 M Choletec IV. Time of imaging post radiopharmaceutical administration: 60 minutes following radiopharmaceutical. Pharmacological intervention: 1.8 mcg CCK was administered at 60 minutes post radiopharmaceutical injection with patient reporting mild cramping. COMPARISON: No relevant prior studies available. FINDINGS: Liver: Unremarkable. Homogeneous radiotracer uptake. Gallbladder: 56% ejection fraction. Clearly visualized. Bile Ducts: Unremarkable. Clearly visualized. Normal hepatic to biliary transit time. Stomach and bowel: Unremarkable. No evidence of significant enterogastric reflux. Radiotracer activity is seen in the small bowel. Normal biliary to bowel transit time. IMPRESSION: Normal hepatobiliary exam. No evidence of acute cholecystitis. Artem Mcgregor MD On 01/03/2020 12:42:56; [id number] 01/03/2020 [facility] Abdomen complete US PROCEDURE INFORMATION: Exam: US Abdomen Complete Exam date and time: 01/03/2020 8:54 AM Age: 79 years old Clinical indication: /cirrhosis -abdominal pain TECHNIQUE: Imaging protocol: Real-time ultrasound of the abdomen with image documentation. COMPARISON: ABDOMEN RUQ US 12/12/2019 5:10 AM FINDINGS: Liver: Mildly enlarged, measuring 18.1 cm in craniocaudal dimension. Diffusely heterogeneous hepatic parenchymal echotexture noted. No mass. Mild nodular contour of the hepatic margins also appreciated. Limited visualized main portal vein is grossly patent and measures at the upper limits of normal in caliber, at 13 mm diameter. Hepatopetal flow noted in the main portal vein. Gallbladder: Multiple tiny shadowing echogenic foci noted in the gallbladder lumen, compatible with gallstones. Additional nonshadowing echogenic material is noted in the dependent aspect of the gallbladder lumen, suggestive of gallbladder sludge. There is no gallbladder wall thickening. Gallbladder wall measures 2 mm in thickness. Common bile duct: Normal. No stones. No dilation. Proximal common bile duct measures 5 mm in diameter. Pancreas: Visualized pancreas is unremarkable. Right kidney: Measures 11 cm in maximal dimension. No mass. No hydronephrosis. A 1.1 cm right renal midpole simple cortical exophytic cyst is noted. Left kidney: Measures 11 cm in maximal dimension. No mass. Multiple punctate nonshadowing echogenic foci noted throughout portions of the left kidney. No hydronephrosis. Spleen: Measures at the upper limits of normal, at 12 cm in maximal dimension. Aorta: Normal. No aneurysm. Inferior vena cava: Normal. IMPRESSION: 1. Mild hepatomegaly. Sonographic findin gs suggestive of cirrhosis. 2. Cholelithiasis and gallbladder sludge without any sonographic evidence of acute cholecystitis. 3. Multiple punctate nonshadowing echoge yenni foci throughout the left kidney. Differential considerations include nonshadowing nephrolithiasis, renal calcifications, foci of echogenic renal sinus fat or tiny renal angiomyolipomas. A 1.1 cm right renal midpole simple cortical exophytic cyst, requiring no follow-up imaging. Michel Mackay DO On 01/03/2020 10:25:03; [id number] 01/03/2020 [facility] Cardiac SPECT multi studies NM EXAM: Cardiac SPECT multi studies NM INDICATION: Chest pain REPORT: Pharmacologic stress testing was performed with 0.4 mg/5 mL of intravenous Regadenoson per protocol. The heart rate henny from 72 beats per minute to 102 beats per minute at peak stress which is 71% of the maximum predicted heart rate. The blood pressure increased from 159/72 mmHg at rest to 161/70 mmHg during stress, which is a normal response. The patient developed no significant symptoms. The resting ECG showed normal sinus rhythm and did not show any ST-segment changes consistent with myocardial ischemia. MYOCARDIAL PERFUSION IMAGING: Myocardial perfusion SPECT imaging was performed at rest following the injection of 11 mCi of intravenous Tc-99m sestamibi. At peak pharmacologic effect, the patient was injected with 33 mCi of intravenous Tc-99m sestamibi. Gated post- stress tomographic imaging was performed. The overall quality of the study is fair. Attenuation artifact was absent. Left ventricular cavity was noted to be normal size on the rest and stress studies. SPECT images demonstrate homogeneous tracer distribution throughout the myocardium. Gated SPECT imaging reveals normal myocardial thickening and wall motion. The left ventricular ejection fraction was calculated to be 70%. IMPRESSION: 1. Myocardial perfusion imaging is ismael l. 2. Overall left ventricular systolic fun ction was normal without regional wall motion abnormalities. [id number] 12/12/2019 [facility] Abdomen RUQ US PROCEDURE INFOR MATION: Exam: US Abdomen Limited, Right Upper Quadrant Exam date and time: 12/12/2019 5:10 AM Age: 79 years old Clinical indication: /acute ruq pain TECHNIQUE: Imaging protocol: Real-time ultrasound of the abdomen with image documentation. Examination was focused on the right upper quadrant. COMPARISON: No relevant prior studies available. LIVER: Mild hepatomegaly. No focal liver abnormality. PORTAL VENOUS: Hepatopetal portal venous flow. Common bile duct: The intrahepatic and extrahepatic bile ducts are not dilated with the common bile duct measuring 2.9 mm. The distal common bile duct is not well seen. GALLBLADDER: Question small gallstones within the gallbladder. No pericholecystic fluid. There is a mild gallbladder wall thickening. Recommend HIDA scan to exclude acute cholecystitis. PANCREAS: The visualized portions of the pancreas appear unremarkable. RIGHT KIDNEY: The right kidney measures 10.2 x 3.9 x 4.6 cm. No right pelvocaliectasis, no right nephrolithiasis and no right renal mass lesion identified. There is no right abdominal ascites. IMPRESSION: 1. Mild hepatomegaly. 2. Question small gallstones within the gallbladder. 3. Mild gallbladder wall thickening. Rec ommend HIDA scan to exclude acute cholecystitis. Gabriel Garcia MD On 12/12/2019 07:13:26; [id number] 12/12/2019 [facility] Chest 1view DX PROCEDURE INFOR MATION: Exam: XR Chest, 1 View Exam date and time: 11/24/2019 12:12 PM Age: 79 years old Clinical indication: Cough and dyspnea; Additional info: /pna. Patient states history of lung problems TECHNIQUE: Imaging protocol: XR of the chest Views: 1 view. COMPARISON: No relevant prior studies available. FINDINGS: Lungs: No focal airspace consolidation. Pleural space: No pleural effusion. No appreciable pneumothorax. Heart/Mediastinum: The cardiomediastinal silhouette is within normal limits. Atherosclerotic calcification is present in the aortic arch. Bones/joints: Unremarkable. IMPRESSION: No acute cardiopulmonary findings. Preeti Knox MD On 11/24/2019 15:31:11; [id number] 11/24/2019 [facility] Liver US EXAM: US ABDOMEN LIVE R INDICATION: - R94.5 Abnormal results of liver function studies; K75.81 Nonalcoholic steatohepatitis (YODER) COMPARISON: Ultrasound 12/20/[address] scan 01/08/2018 TECHNIQUE: Multiplanar grayscale and color Doppler ultrasound of the liver. FINDINGS: Liver: Craniocaudal length: 16.3 cm. Echogenicity: Unremarkable Surface: Unremarkable Mass: None. Portal vein: 1.4 cm in diameter. Hepatopetal in flow Hepatic arteries: Visualized portions are unremarkable. Hepatic veins: Visualized portions are unremarkable. Gallbladder: Multiple nonmobile echogenic foci are seen measuring up to 5 mm most compatible with gallbladder polyps. Gallbladder wall: 0.2 cm. Pericholecystic fluid: None. Sonographic Foster sign: Negative Bile ducts: Common bile duct diameter: 0.6 cm. Intrahepatic ducts: Unremarkable. Pancreas: Cystic-appearing lesion seen within the head of the pancreas measuring up to 2.2 cm, corresponding with findings on recent CT scan. Ascites: None. IMPRESSION: 1. Liver is unremarkable in size. No fo terrie masses seen within the liver. No ascites is appreciated. 2. Multiple nonmobile echogenic foci ar e seen within the gallbladder measuring up to 5 mm most compatible with gallbladder polyps. 3. Cystic-appearing lesion seen within the head of the pancreas measuring up to 2.2 cm, corresponding with findings on recent CT scan. 06/22/2018 [facility] Abdomen complete US EXAM: US A BDOMEN COMPLETE INDICATION: elevated lfts - R79.89 Other specified abnormal findings of blood chemistry COMPARISON: Ultrasound 09/20/[address] scan 01/08/2018 TECHNIQUE: Multiplanar grayscale and color Doppler ultrasound of the abdomen. FINDINGS: Liver: Craniocaudal length: 21.2 cm. (Enlarged) Echogenicity: Unremarkable Surface: Unremarkable Mass: None. Portal vein: Hepatopetal in flow Gallbladder: A few tiny polyps are seen. There is also a mild amount of adenomyomatosis. Pericholecystic fluid: None. Sonographic Foster sign: Negative Bile ducts: Common bile duct diameter: 0.4 cm. Intrahepatic ducts: Unremarkable Pancreas: On comparison CT scan, there was description of a 1.8 cm cystic lesion in the pancreatic head and uncinate process. On current ultrasound, there is a cystic echogenicity seen in a similar location measuring 1.5 cm. This likely corresponds with the finding on CT scan. It appears complex rather than a simple cyst. Spleen: Size: 11.6 cm. Mass or focal lesion: None. Right kidney: Size: 11.5 cm. Renal cortex 1.0 cm. Hydronephrosis: None. Echogenicity: Unremarkable Calculi/Cysts/Masses: 1.2 cm cyst. Left kidney: Size: 11.2 cm. Renal cortex 1.1 cm. Hydronephrosis: None. Echogenicity: Unremarkable Calculi/Cysts/Masses: None. Abdominal aorta: Visualized portions are unremarkable. IVC: Visualized portions are unremarkable. Ascites: None. IMPRESSION: 1. Liver is enlarged. It is unremarkabl e in echogenicity. A few tiny polyps are seen. There is also a mild amount of adenomyomatosis. 2. On comparison CT scan, there was syd cription of a 1.8 cm cystic lesion in the pancreatic head and uncinate process. On current ultrasound, there is a cystic echogenicity seen in a similar location measuring 1.5 cm. This likely corresponds with the finding on CT scan. It appears complex rather than a simple cyst. 01/19/2018 [facility] [place] Hand 2 views DX EXAM: XR RIGHT HAND 2 VIEWS DATE: 12/26/2016 1258 hours INDICATION: - M79.644 Pain in right finger(s) COMPARISON: None TECHNIQUE: PA and lateral radiographs of the right hand FINDINGS: No acute fracture or malalignment is identified. Joint space narrowing at the PIP and DIP joints as well as the CMC joints without evidence of erosion. The MCP joints are preserved. Diffuse osteopenia. No soft tissue abnormality is identified. IMPRESSION: 1. No acute fracture or malalignment. 2. Age-related degenerative changes. 3. Diffuse osteopenia. 12/26/2016 [facility] Consultation Notes No Data Provided for This Section Discharge Summaries No Data Provided for This Section History and Physicals No Data Provided for This Section Vital Signs Vital Sign Value Date Comments Source Temperature Oral (F) 98.3 F 12/13/2019 [facility] Heart Rate 76 12/13/2019 [facility] Respitory Rate 18 12/13/2019 [facility] Systolic (mm Hg) 131 12/13/2019 [facility] Diastolic (mm Hg) 59 12/13/2019 [facility] Temperature Oral (F) 98.1 F 12/13/2019 [facility] Heart Rate 71 12/13/2019 [facility] Respitory Rate 20 12/13/2019 [facility] Systolic (mm Hg) 141 12/13/2019 [facility] Diastolic (mm Hg) 61 12/13/2019 [facility] Temperature Oral (F) 98 F 12/13/2019 [facility] Heart Rate 74 12/13/2019 [facility] Respitory Rate 18 12/13/2019 [facility] Systolic (mm Hg) 141 12/13/2019 [facility] Diastolic (mm Hg) 68 12/13/2019 [facility] BMI Calculated 34.75 12/12/2019 [facility] Height 162.56 cm 12/12/2019 [facility] Weight 91.818 12/12/2019 [facility] BMI Calculated 34.75 12/12/2019 [facility] Heart Rate 68 11/25/2019 [facility] Systolic (mm Hg) 155 11/25/2019 [facility] Diastolic (mm Hg) 71 11/25/2019 [facility] Temperature Oral (F) 98.5 F 11/25/2019 [facility] Temperature Oral (F) 98.2 F 11/25/2019 [facility] Heart Rate 69 11/25/2019 [facility] Systolic (mm Hg) 162 11/25/2019 [facility] Diastolic (mm Hg) 65 11/25/2019 [facility] Temperature Oral (F) 98.4 F 11/24/2019 [facility] Heart Rate 78 11/24/2019 [facility] Systolic (mm Hg) 143 11/24/2019 [facility] Diastolic (mm Hg) 54 11/24/2019 [facility] Respitory Rate 17 11/23/2019 [facility] Respitory Rate 22 11/23/2019 [facility] Respitory Rate 19 11/23/2019 [facility] Height 162.56 cm 11/22/2019 [facility] Weight 94.659 11/22/2019 [facility] BMI Calculated 35.82 11/22/2019 [facility] Height 162.56 cm 05/06/2018 [facility] BMI Calculated 33.75 05/06/2018 [facility] Weight 89.182 05/06/2018 [facility] Respitory Rate 16 05/06/2018 [facility] Heart Rate 90 05/06/2018 [facility] Systolic (mm Hg) 173 05/06/2018 [facility] Diastolic (mm Hg) 79 05/06/2018 [facility] Systolic (mm Hg) 138 01/29/2018 [facility] Diastolic (mm Hg) 79 01/29/2018 [facility] Respitory Rate 19 01/29/2018 [facility] Respitory Rate 15 01/29/2018 [facility] Systolic (mm Hg) 142 01/29/2018 [facility] Diastolic (mm Hg) 80 01/29/2018 [facility] Systolic (mm Hg) 113 01/29/2018 [facility] Diastolic (mm Hg) 64 01/29/2018 [facility] Respitory Rate 17 01/29/2018 [facility] Weight 94.545 01/28/2018 [facility] Height 162.56 cm 01/28/2018 [facility] BMI Calculated 35.78 01/28/2018 [facility] Temperature Oral (F) 98.3 F 02/08/2014 [facility] Heart Rate 87 02/08/2014 [facility] Systolic (mm Hg) 166 02/08/2014 [facility] Diastolic (mm Hg) 78 02/08/2014 [facility] Respitory Rate 18 02/08/2014 [facility] Temperature Oral (F) 98.3 F 02/08/2014 [facility] Systolic (mm Hg) 169 02/08/2014 [facility] Heart Rate 90 02/08/2014 [facility] Respitory Rate 18 02/08/2014 [facility] Diastolic (mm Hg) 69 02/08/2014 [facility] Heart Rate 94 02/08/2014 [facility] Respitory Rate 18 02/08/2014 [facility] Temperature Oral (F) 98.0 F 02/08/2014 [facility] Diastolic (mm Hg) 77 02/08/2014 [facility] Systolic (mm Hg) 153 02/08/2014 [facility] Weight 86.364 02/07/2014 [facility] BMI Calculated 32.68 02/07/2014 [facility] Height 162.56 cm 02/07/2014 [facility] Encounters Location Location Details Encounter Type Encounter Number Reason For Visit Attending Provider ADM Date DC Date Status Source [facility] [id number] Cristian Spencerz 02/07/2014 02/08/2014 [facility] [place] [facility] [id number] Arben Olson 01/08/2018 01/09/2018 [facility] [place] [facility] [id number] Wale Foster 01/19/2018 01/20/2018 [facility] Bed[facility] Outpatient [id number] Arben Olson 01/29/2018 01/29/2018 [facility] [id number] Gunnar Block 05/06/2018 05/07/2018 [facility] [place] [facility] [id number] Gunnar Block 06/22/2018 06/23/2018 [facility] Inpatient [id number] Jesus Manuel Movva 11/22/2019 11/25/2019 [facility] Observation [id number] Melania Delgado 12/12/2019 12/13/2019 [facility] Outpatient [id number] Arben Olson 01/03/2020 01/04/2020 [facility] Procedures Procedure Code Date Perfomer Comments Source section [id number] [facility] [id number] [facility] [place],[facility] Assessment and Plan Assessment and Plan Date Source Extracted from:Title: Cardiology Progres s Note Author: Jane Gallegos MD Date: 12/13/19 Impression and Plan 1. Chest pain 2. Abdominal pain 3. Hyponatremia 4. Hypertension 5. Diabetes mellitus 6. YODER cirrhosis Plan: 1. No evidence of myocardial infarction on serial troponin. Nuclear stress test without evidence of ischemia. 2. BP for the most part acceptable for a ge. Continue current medications. 3. Monitor on telemetry while admitted. Thank you for this consult. We will continue to follow. Extracted from:Title: Clinical Document Author: Jane Gallegos MD Date: 12/12/19 Cardiology Consultation Reason for Consult: Chest pain History of Present Illness: 79 year-old woman with diabetes mellitus , hypertension, YODER cirrhosis who presented with complaints of chest pain. She describes chest and abdominal pain beginning yesterday morning around 3 AM associated with shortness of breath, nausea, and vomiting. The chest pain was 3-4/10 in severity and did not radiate. Pain improved with medications. Denied edema, orthopnea, PND. Of note, patient reports her abdominal pain was more severe than the chest pain. Review of Systems: Negative, except as per HPI. Past Medical History: 1. Hypertension 2. Diabetes mellitus 3. YODER cirrhosis 4. GERD 5. IBS Past Surgical History: 1. Appendectomy 2. Hernia surgery 3. Knee surgery Social History: Quit smoking and drinking in 1998. No drugs. Family History: Notable for mother with [place]. Allergies: See EMR. Medications: Please see medication reconciliation. Physical Exam: Vitals reviewed. General: Well-developed, well-nourished, elderly woman. No acute distress. HEENT: Pupils equal, round and reactive to light. No scleral icterus or conjunctival pallor. No thyromegaly or cervical lymphadenopathy. No carotid bruits. CV: Normal rate. Regular rhythm. No murmur. Normal S1 and S2. Respiratory: Clear to auscultation bilaterally. No wheezes/crackles. Symmetric. Good air movement. ABD: Soft, non-tender, non-distended. Normoactive bowel sounds. Neuro: Cranial nerves II-XII grossly intact. No focal deficits. Strength 5/5. Appropriate mood and affect. Extremities: No edema. Skin: No rash appreciated. Labs: Reviewed. Impression: 1. Chest pain 2. Abdominal pain 3. Hyponatremia 4. Hypertension 5. Diabetes mellitus 6. YODER cirrhosis Plan: 1. No evidence of myocardial infarction on serial troponin. Given risk factors, ischemic evaluation with nuclear stress test. 2. Get echo. 3. Continue home cardiac medications. If BP persistently elevated, will need to increase antihypertensive therapy. 4. Fasting lipid panel. Thank you for this consult. We will continue to follow. Extracted from:Title: History and Physical Author: Claire Macedo MD Date: 12/11/19 79-year-old female with history of type 2 diabetes, hypertension, Yoder cirrhosis, GERD, IBS who presented to a freestanding EDwith chest pain. Acute chest pain - will continue to trend cardiac enzymes -Monitor on telemetry -Sublingual nitro and morphine as needed -Pending evaluation by cardiology Acute RUQ pain N/V - will get RUQ u/s and lipase - clear liquid diet, will advance as silvia erated Type 2 DM - SSI YODER cirrhosis - home medications resumed - no significant ascites on exam lovenox observation, anticipate 1 midnight 12/13/2019 [facility] Extracted from:Title: Clinical Document Author: Halina Lackey MD Date: 11/25/19 Pulmonary and Critical Care Progress Note [facility] Sujective/overnight events: Patient seen and examined. Chest x-ray was obtained yesterday due to some shortness of breath. Patient states this is improved. Does have occasional congestion and cough however is very mild Scheduled Meds (6): 11/23/19 aspirin 81 mg PO Daily 11/23/19 folic acid 1 mg PO Daily 11/23/19 guaiFENesin (Mucinex) 600 mg PO Q12H 11/22/19 heparin (heparin 5000 units/mL injectable solution) 5,000 unit SUB-Q Q12H 11/24/19 lisinopril 20 mg PO Daily 11/24/19 thiamine 100 mg PO Daily Continuous Infusions: None Labs (Last four charted values) WBC 7.6 (NOVEMBER 23) Hgb 13.2 (NOVEMBER 23) Hct 37.8 (NOVEMBER 23) Plt L 110 (NOVEMBER 23) Na 136 (NOVEMBER 24) 137 (NOVEMBER 23) L 134 (NOVEMBER 22) L 128 (NOVEMBER 21) K 3.9 (NOVEMBER 24) 3.9 (NOVEMBER 23) 3.5 (NOVEMBER 22) 3.5 (NOVEMBER 21) CO2 27 (NOVEMBER 24) 28 (NOVEMBER 23) 28 (NOVEMBER 22) 26 (NOVEMBER 21) Cl 102 (NOVEMBER 24) 103 (NOVEMBER 23) 98 (NOVEMBER 22) L 92 (NOVEMBER 21) Cr 0.80 (NOVEMBER 24) 0.80 (NOVEMBER 23) 0.84 (NOVEMBER 22) 1.05 (NOVEMBER 21) BUN 13 (NOVEMBER 24) 15 (NOVEMBER 23) 15 (NOVEMBER 22) 17 (NOVEMBER 21) Glucose Random H 151 (NOVEMBER 24) H 126 (NOVEMBER 23) H 112 (NOVEMBER 22) H 167 (NOVEMBER 21) Mg 2.1 (NOVEMBER 24) 2.2 (NOVEMBER 23) 2.4 (NOVEMBER 22) 1.8 (NOVEMBER 21) Phos 2.5 (NOVEMBER 24) L 2.0 (NOVEMBER 23) L 1.8 (NOVEMBER 22) L 1.7 (NOVEMBER 21) Ca 8.7 (NOVEMBER 24) 8.8 (NOVEMBER 23) 8.9 (NOVEMBER 22) 8.5 (NOVEMBER 21) Objective: I&O Record In Out Bal 11/24 24hr Tot 0 0 0 11/23 24hr Tot 780 0 780 11/25/2019 08:00 SpO2 percent 96 11/25/2019 00:40 O2 Sat Location Right hand/finger Vital Signs (last 24 hrs) Last Charted Temp Oral 98.5 DegF (NOVEMBER 24 08:00) Heart Rate Peripheral 68 bpm (NOVEMBER 24 08:00) SBP H 155mmHg (NOVEMBER 24 08:00) Exam: General: No acute distress HEENT: No pallor, anicteric sclera CV: RRR, no murmur Resp: CTAB Abd: Soft, NTTP, ND, +BS Extremities: No c/c/e Neuro: A&Ox3, non focal Skin: No break down Problems: Severe hyponatremia Critical hypophosphatemia Hypokalemia History of Lester disease Nausea/vomiting Abdominal pain Pancreatic cystic lesion Diabetes Hypertension GERD Depression History of cirrhosis History of COPD Chronic urinary tract infections Deconditioning Plan: --Chest x-ray visualized no significant cardiopulmonary process. She is oxygenating well on room air. She does have a history of reported COPD and will need outpatient pulmonary function testing. Continue bronchodilators. She is not wheezing does not appear to be any acute exacerbation of his COPD. Halina Lackey MD Pulmonary and Critical Care Medicine Extracted from:Title: ICU Consult Note Author: Patrick Baptiste MD Date: 11/22/19 Pulmonary and Critical Care Consult Note Patrick Baptiste MD Reason for consult: Severe Hyponatremia HPI: Patient is a 79-year-old female past medical history significant for diabetes, hypertension, depression, urinary incontinence, cirrhosis secondary to YODER, hyperlipidemia, COPD, MAGDI who presented to the ED initially with persistent nausea and vomiting. Patient also complained of abdominal pain. Patient denied any fevers or chills. No sick contacts. Patient reported compliance with medications though she is not able to keep down some of her medications. Patient is alert and oriented. Denies vision changes numbness or tingling or changes in sensation. No history of seizures. In chart review patient indicated to have prior history of [place] disease, unclear as to diagnosis and treatment. Patient transferred to ICU for further management. Review of systems: 14 point review of systems negative exce pt as per HPI Allergies Allergies (1) Active Reaction sulfa drugs None documented Procedure History section Knee joint operation Past Medical History Bipolar disorder DM (diabetes mellitus) HTN (hypertension) Arthritis Dor[place] disease Family History Father: Alcoholism; Type 2 diabetes mellitus Mother: Type 2 diabetes mellitus Social history Alcohol Details: Past, Last use: [employer] ALCOHOL[employer]. Tobacco Details: Use: Former smoker. Tobacco smoke exposure: None. Did the Patient Smoke Cigarettes Anytime During the Last 365 Days? No. Cessation Counseling Provided? No. Home Meds Home Medications (10) Active ARIPiprazole 5 mg, PO FLUoxetine 10 mg, PO, Daily Hair, Skin and Nails 5 mg, PO, Daily lisinopril 10 mg oral tablet 10 mg = 1 tab, PO, Daily lisinopril 20 mg oral tablet 20 mg = 1 tab, PO, Daily metFORMIN 500 mg oral tablet 500 mg = 1 tab, PO, BID-Meals Mucinex 600 mg, PO, Q12H Multiple Vitamins oral tablet 1 tab, PO, Daily multivitamin , Daily omeprazole 40 mg oral delayed release capsule 40 mg = 1 cap, PO, Daily Scheduled Meds (1): 11/21/19 sodium chloride (sodium chlorid e 1 gm oral tablet) 2 gm PO TID Continuous Infusions: None Labs (Last four charted values) Na C 115 (NOVEMBER 20) K L 3.4 (NOVEMBER 20) CO2 24 (NOVEMBER 20) Cl L 78 (NOVEMBER 20) Cr 1.06 (NOVEMBER 20) BUN 21 (NOVEMBER 20) Glucose Random H 107 (NOVEMBER 20) Mg L 1.7 (NOVEMBER 20) Phos L 1.6 (NOVEMBER 20) Ca 8.7 (NOVEMBER 20) All imaging reviewed. Objective: I&O Record In Out Bal 24hr Tot 0 0 0 24hr Tot 0 0 0 CCL error: %POO-F-422-SMT_EDOC_COMMON(0,0,56)[id number]:0037Overflow on array out of bound at (size:1,occur:10). CCL error: %LDT-Q-043-SMT_EDOC_COMMON(0,0,56)[id number]:0037Overflow on array out of bound at (size:1,occur:5). CCL error: %ZWF-W-942-SMT_EDOC_COMMON(0,0,56)[id number]:0037Overflow on array out of bound at (size:1,occur:5). CCL error: %CZZ-Z-372-SMT_EDOC_COMMON(0,0,56)[id number]:0037Overflow on array out of bound at (size:1,occur:7). CCL error: %WCD-L-708-SMT_EDOC_COMMON(0,0,56)[id number]:0037Overflow on array out of bound at (size:1,occur:2). Lines, Tubes, and Drains: 11/21/2019 20:00 Peripheral Lines: Forea rm Left 20 gauge Over the needle catheter 11/21/2019 23:51 SpO2 percent 95 Vital Signs (last 24 hrs) Last Charted Temp Oral 98.4 DegF (NOVEMBER 20 23:51) Heart Rate Apical 77 bpm (NOVEMBER 20 23:51) Resp Rate H 36BRMIN (NOVEMBER 20 23:51) SBP H 141mmHg (NOVEMBER 20 23:51) Weight 94.659 kg (NOVEMBER 20:55) Height 162.56 cm (NOVEMBER 20:55) BMI 35.82 (NOVEMBER 20:55) Exam: General: Ill-appearing, elderly, frail HEENT: no pallor, anicteric sclera Cardiovascular: regular, no murmur Respiratory: CTA, no rhonchi rales or wheezes Abdomen: soft, non-tender, +BS Extremities: no edema, no cyanosis Neurologic: Awake, Nonfocal Skin: no breakdown Problems: Severe hyponatremia Critical hypophosphatemia Hypokalemia History of [place] disease Nausea/vomiting Abdominal pain Pancreatic cystic lesion Diabetes Hypertension GERD Depression History of cirrhosis History of COPD Chronic urinary tract infections Plan: Severe hyponatremia, acute 2-hour basic metabolic panel, urine studies pending, mild hypovolemia on exam, received 1 L NS, nephrology consulted, no indication for hypertonic saline at this time, close monitoring in the ICU, plan for gradual sodium correction 4-6 mEq/L in next 24 hours. As to etiology patient is on fluoxetine and also with nausea/vomiting as above. Patient also has remote history of Lester's disease? Follow-up urine studies. Hypophosphatemia and hypokalemia, care for replacement of potassium as its effects on serum sodium are applicable in setting of careful correction of serum sodium levels. ICU electrolyte replacement protocol thereafter Insulin sliding scale and Accu-Cheks Pancreatic cystic lesion seen on liver ultrasound, previously seen on CT scan in 2018 GERD, restart home PPI Depression, will hold fluoxetine for now and discuss with nephrology Prophylaxis: DVT: Heparin GI: Not indicated Nutrition: Renal diet Code Status: Full code Disposition: ICU I spent 31 min of Critical care time , in reviewing, laboratory and radiographic data,in direct management of patient at bedside as well as coordination. Time spent does not include time spent by any other provider or time spent in doing procedure. Patient required critical care due to the acute impairment of vital organ systems and a high probability of imminent and life threatening deterioration. 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 1.Hyponatremia(E87.1) Sodium 115. Could be secondary to SIADH as she did notrespond to IV fluids, versus hypervolemia as her CT abdomen shows some cirrhosis with ascites --Transfer to ICU --Hyponatremia MPP initiated --Nephrology consulted --Follow-upurine studies Ordered: Admit/Condition, 11/21/19 21:30:00 CDT, Status: Inpatient, IMU, Expected LOS: 2 Midnights, Ward Thomas MD, Admit Review/Approve Yes, Isolation: No Isolation/Standard Precautions, Hyponatremia | Hypokalemia 2.Hypokalemia(E87.6) Potassium 2.8due to poor p.o. intake and vomiting --Replace for goal of 4.0 Ordered: Admit/Condition, 11/21/19 21:30:00 CDT, Status: Inpatient, IMU, Expected LOS: 2 Midnights, Ward Thomas MD, Admit Review/Approve Yes, Isolation: No Isolation/Standard Precautions, Hyponatremia | Hypokalemia 3.Hypophosphatemia(E83.39) Phosphorus 1.6. Due to vomiting --Replace for goal of 3.0 4.Hypomagnesemia(E83.42) Magnesium1.7. Due to vomiting --Replace for goal of 2.0 5.Nausea and vomiting(R11.2) Zofran PRN 6.Diabetes mellitus(E11.9) Insulin sliding scale with Accu-Cheks before meals and at bedtime 7.Hypertension(I10) Patient's andrestart antihypertensives 8.Cirrhosis of liver(K74.60) CT abdomen showshepatomegaly with borderline splenomegaly. Ascites and generalized edema with possible portal venous hypertension. --Continue follow-up GI as an outpatient Ambulate Home when stable 11/25/2019 [facility] Plan of Care No Data Provided for This Section Social History Social History Date Source Social History TypeResponse Alcohol Past, Last use: RECOVERING ALCOHOLIC. Smoking Status Former smoker; Exposure to Tobacco Smoke None; Cigarette Smoking Last 365 Days No; Reg Smoking Cessation Counseling No entered on: 12/11/19 12/12/2019 [place] Social History TypeResponse Alcohol Past, Last use: RECOVERING ALCOHOLIC. Smoking Status Former smoker; Exposure to Tobacco Smoke None; Cigarette Smoking Last 365 Days No; Reg Smoking Cessation Counseling No entered on: 05/06/18 01/28/2018 [facility] [place] Social History TypeResponse Alcohol Past, Last use: RECOVERING ALCOHOLIC. Smoking Status Former smoker; Exposure to Tobacco Smoke None; Cigarette Smoking Last 365 Days No; Reg Smoking Cessation Counseling No entered on: 05/06/18 01/28/2018 [facility] No data available for this section 01/09/2018 [facility] [place] Family History No Data Provided for This Section Advance Directives No Data Provided for This Section Functional Status No Data Provided for This Section
--- OUTSIDE RECORDS SUMMARY | 2020-05-24 15:27 | XMS REPORT | Continuity of Care Document ---
Author Author [facility] t Organization [facility] Address [address] [place] [address] Phone Unavailable Care Team Providers Care Forestry Hunter Name Role Phone NONSTAFF PCP Unavailable Esme Olson Attphys Alison Delgado Attphys Nadya Jesus Manuel Attphys Pb LARSON Attphys Unavailable Shaun SOSA Attphys Unavailable Germán Lindquist Attphys Sorin Olson Attphys Baltazar Foster Attphys Hever Jeff Attphys Alison Delgado Admphys Nadya Jesus Manuel Admphys Payers Payer Name Policy Type Policy Number Effective Date Expiration Date Melia Floyd Ppo [id number] 2016 00:00:00 [facility] Medicare A & B [id number] 1998 00:00:00 [facility] Problems Condition Name Condition Details Condition Category Status Onset Date Resolution Date Last Treatment Date Treating Clinician Comments Source K74.60 / R10.98 K74. 60 / R10.98 Active 12/28/2019 [facility] Active 2019-12-28 00:00:00 2020-01-03 13:29:00 Fatou Lind CHEST PAIN/SOB/VOMITING CHES T PAIN/SOB/VOMITING Active 12/11/2019 [facility] Active 2019-12-11 18:55:00 2019-12-29 12:23:00 Fatou Lind HYPONATREMIA, HYPOKALEMIA, VOMITING HYPONATREMIA, HYPOKALEMIA, VOMITING Active 11/21/2019 [facility] Ac tive 2019-11-21 00:00:00 2019-11-30 22:01:00 M hermes Lind NEW PT CONSULT NEW PT CONSULT Active 04/02/2018 [facility] Diagnosis Active 2018-04-02 00:00:00 2018-05-06 1 4:30:00 Fatou Lind R10.9 - UNSPECIFIED ABDOMINAL PAIN R10.9 - UNSPECIFIED ABDOMINAL PAIN Active 03/29/2018 [facility] Active 2018-03-29 00:01:00 2018-10-04 17:36:00 Fatou Lind UNK UNK Active 01/11/2018 [facility] Active 2018-01-11 00:00:00 2018-01-29 06:42:00 M hermes Lind M79.644 - PAIN IN RIGHT FINGER(S) M79.644 - PAIN IN RIGHT FINGER(S) Active 12/26/2016 [facility] Active 2016-12-26 00:01:00 2017-01-01 18:39:00 Fatou Lind Family history of colon cancer Family history of colon cancer Disea se Active 2014-09-14 00:00:00 [facility] Constipation Constipation Disease Active 2014-09-14 00:00:00 Overview: History of colon spasm [facility] History of colonic polyps History of colonic polyps Disease Ac tive 2014-09-14 00:00:00 Overview: Dr. Ry Anderson - (not for many years) [facility] Fatty liver Fatty liver Disease Active 2014-09-14 00:00:00 [facility] Osteoarthritis Osteoarthritis Disease Active 2014-09-14 00:00:00 Overview: Left knee TKR, now some edema and loss of feeling. [facility] Leg edema Leg edema Disease Active 2014-09-14 00:00:00 [facility] Peripheral neuropathy Peripheral neuropathy Disease Active 201 11-06-11 00:00:00 Overview: Likely DM, numbness in hand, tingling in legs [facility] Hypokalemia Hypokalemia Disease Active 2014-05-28 00:00:00 [facility] Hypomagnesemia Hypomagnesemia Disease Active 2014-05-28 00:00:00 [facility] Hyponatremia Hyponatremia Disease Active 2014-05-28 00:00:00 [facility] ABDOMINAL PAIN ABDO MILLER PAIN Active 02/07/2014 [facility] Diagnosis Active 2014-02-07 00:00:00 2014-02-08 0 2:55:00 [facility] Clostridium difficile (organism) Clostridium difficile (organism) Active 09/21/2010 Problem 01/05/2020 Problem added by Discern Expert. 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 Problem 2018-11-23 12:47:47 Urban Lind Morbid (severe) obesity due to excess calories Morbid (severe) obesity due to excess calories 11/23/2018 [facility] Problem 2018-11-23 12:47:47 [facility] Body mass index (BMI) 33.0-33.9, adult Body mass index (BMI) 33.0-33.9, adult 11/23/2018 [facility] Problem 2018-11-23 12:47:47 Fatou Lind Chronic obstructive pulmonary disease, unspecified Chronic obstructive pulmonary disease, unspecified 11/23/2018 [facility] Problem 2018-11-23 12:47:47 Urban Lind Essential (primary) hypertension Essential (primary) hypertension 11/23/2018 [facility] 2018-11-23 12:47:47 [facility] Obstructive sleep apnea (adult) (pediatric) Obstructive sleep apnea (adult) (pediatric) 11/23/2018 [facility] Problem 2018-11-23 12:47:47 [facility] Bipolar disorder, unspecified Bipolar disorder, unspecified 11/23/2018 [facility] 2018-11-23 12:47:47 [facility] Benign neoplasm of ascending colon Benign neoplasm of ascending colon 08/18/2018 [facility] 13:04:54 [facility] Benign neoplasm of cecum Ruslan gn neoplasm of cecum 08/18/2018 [facility] 2018-08-18 13:04:54 [facility] Benign neoplasm of transverse colon Benign neoplasm of transverse colon 08/18/2018 [facility] 2018-08 13:04:54 [facility] Gastro-esophageal reflux disease without esophagitis Gastro-esophageal reflux disease without esophagitis 08/18/2018 [facility] 2018-08-18 13:04:54 [facility] Diaphragmatic hernia without obstruction or gangrene Diaphragmatic hernia without obstruction or gangrene 08/18/2018 [facility] 2018-08-18 13:04:54 [facility] Obesity, unspecified Obes ity, unspecified 08/18/2018 [facility] 2018-08-18 13:04:54 [facility] 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 08/18/2018 [facility] 2018-08-18 13:04:54 [facility] 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 (current) use of oral hypoglycemic drugs 08/18/2018 [facility] 2018-08-18 13:04:54 [facility] Personal history of nicotine dependence Personal history of nicotine dependence 08/18/2018 [facility] 2018-08-18 13:04:54 [facility] Unspecified osteoarthritis, unspecified site Unspecified osteoarthritis, unspecified site 08/18/2018 [facility] 2018-08-18 13:04:54 [facility] Body mass index (BMI) 35.0-35.9, adult Body mass index (BMI) 35.0-35.9, adult 08/18/2018 [facility] 2018-08-18 13:04:54 [facility] [place] Hypo-osmolality and hyponatremia Hypo-osmolality and hyponatremia 11/27/2019 [facility] Problem 2019-11-27 21:26:54 Fatou Lind 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, JENNI Ramirez,[facility] Problem Resolved 2020-01-05 23:15:16 M hermes Lind Bipolar disorder (disorder) Bi polar disorder (disorder) Resolved Problem 01/05/2020 [facility], OPIOrquidea [place]anna,[facility] Problem Resolved 2020-01-05 23:15:16 Tamar Lind Bipolar (qualifier value) Bipo lar (qualifier value) Active Problem 02/11/2014 [facility] Problem Active 2014-02-11 01:32:05 Fatou Lind Anemia (disorder) Anem ia (disorder) Active Problem 01/05/2020 [facility], JENNI Ramirez,[facility], OPID [place] Problem Active 2020-01-05 23:15:16 Fatou [place] Arthritis (disorder) Arth ritis (disorder) Active Problem 01/05/2020 [facility], [place]idea [place],[facility], [facility] [place] Problem Active 2020-01-05 23:15:16 Urban Lind Asthma (disorder) Asth ma (disorder) Active Problem 01/05/2020 [facility], [place],[facility], [facility] [place] Problem Active 2020-01-05 23:15:16 Fatou Lind Bronchitis (disorder) Bron chitis (disorder) Active Problem 01/05/2020 [facility], [place],[facility], [facility] [place] Problem Active 2020-01-05 23:15:16 Urban Lind Chronic obstructive lung disease (disorder) Chronic obstructive lung disease (disorder) Active Problem 01/05/2020 [facility], [place],[facility], [facility] [place] Problem Active 2020-01-05 23:15:16 [facility] Diabetes mellitus (disorder) D iabetes mellitus (disorder) Active Problem 01/05/2020 [facility], JENIN Ramirez,[facility], [facility] [place] Problem Active 2020-01-05 23:15:16 Fatou Lind Hypertensive disorder, systemic arterial (disorder) Hypertensive disorder, systemic arterial (disorder) Active Problem 01/05/2020 [facility], JENNI [place],[facility], [facility] [place] Problem Active 2020-01-05 23:15:16 Fatou Lind Pain (finding) Pain (finding) Active Problem 01/05/2020 [facility], JENNI Ramirez,[facility], [facility] [place] Problem Active 2020-01-05 23:15:16 Fatou Lind Simple obesity (disorder) Simp le obesity (disorder) Active Problem 01/05/2020 [facility], JENNI [place],[facility] Problem Active 2020-01-05 23:15:16 Fatou Lind Sleep apnea (finding) Slee p apnea (finding) Active Problem 01/05/2020 [facility], JENNI Ramirez,[facility], [facility] [place] Problem Active 2020-01-05 23:15:16 Urban Lind Urinary tract infectious disease (disorder) Urinary tract infectious disease (disorder) Active Problem 01/05/2020 [facility], JENNI Ramirez,[facility], [facility] [place] Problem Active 2020-01-05 23:15:16 Fatou Lind Cirrhosis of liver (disorder) Cirrhosis of liver (disorder) Active Problem 01/05/2020 [facility] Problem Active 2020-01-05 23:15:16 Fatou Lind ENCNTR FOR GENERAL ADULT MEDICAL EXAM W/ ENCNTR FOR GENERAL ADULT MEDICAL EXAM W/ Active [facility] Diagnosis Act marcio 2018-05-06 14:30:00 Fatou baron HYPO-OSMOLALITY AND HYPONATREMIA HYPO-OSMOLALITY AND HYPONATREMIA Active [facility] Active 2019-11-30 22 :01:00 Fatou Lind HYPOKALEMIA HYPO KALEMIA Active [facility] Active 2019-11-30 22:01:00 Katherine Lind VOMITING, UNSPECIFIED VOMI TING, UNSPECIFIED Active [facility] Active 2019-11-30 22:01:00 morilina Lind UNSPECIFIED CIRRHOSIS OF LIVER UNSPECIFIED CIRRHOSIS OF LIVER Active [facility] Active 2020-01-03 13:29 :00 Fatou Lind Abnormal results of liver function studies Abnormal results of liver function studies 06/29/2018 01/10/2019 [facility],ALLAN Ramirez Problem 2018-06-29 05:11:55 2019-01-10 11:42:02 2019-01-10 11:42:02 Fatou Lind Encounter for screening for malignant neoplasm of colo n Encounter for screening for malignant neoplasm of colon 02/12/2018 08/18/2018 [facility] Problem 2018-02-12 03:27:31 2018-08-18 13:04:54 2018-08 13:04:54 [facility] Other specified abnormal findings of blood chemistry Other specified abnormal findings of blood chemistry 01/24/2018 08/08/2018 JENNI Ramirez Problem 2018-01-24 03:02:26 2018-08-08 12:58:53 2018-08-08 12:58:53 [facility] Discharge Diagnosis: Vaginal bleeding Discharge Diagnosis: Vaginal bleeding 02/08/2014 02/11/2014 [facility] Problem 2014-02-08 05:00:00 2014-02-11 01:32:05 2014-02-11 01:32:05 [facility] Allergies, Adverse Reactions, Alerts Allergy Name Allergy Type Status Severity Reaction(s) Onset Date Inacti ve Date Treating Clinician Comments Source Sulfa (Sulfonamide Antibiotics) Allergy to Substance Active 2019-02-07 00:00:00 [facility] Sulfa (Sulfonamide Antibiotics) Propensity to adverse reactions Activ e 2014-05-28 00:00:00 [facility] sulfa drugs sulfa drugs Active [facility] Social History Social Habit Start Date Stop Date Quantity Comments Source Sex Assigned At [facility] Social History 2018-01-09 04:59:00 2018-01-09 04:59:00 [facility] Alcohol intake 2015-11-05 00:00:00 2015-11-05 00:00:00 [facility] use 1999-06-06 00:00:00 Current smoker [facility] Smoking Status Start Date Stop Date Source Former smoker 2015-11-05 00:00:00 2015-11-05 00:00:00 [facility] Medications Ordered Medication Name Filled Medication Name Start Date Stop Da te Current Medication? Ordering Clinician Indication Dosage Frequency Signature (SIG) Comments Components Source ondansetron 4 mg oral tablet 2019-12-13 19:54:00 Yes 4 mg = 1 tab, PO, Q8H, PRN Nausea & Vomiting, # 15 tab, 0 Refill(s), Pharmacy: [id number] atorvastatin 2019-12-13 02:00:00 No Notes: (Same As: Lipitor) [facility] Saline Flush 0.9% 2019-12-12 14:00:00 No Notes: (Same as: BD Posiflush) [facility] ARIPiprazole 2019-12-12 14:00:00 No Notes: (Same as: Abilify) [facility] Aspirin 2019-12-12 14:00:00 No Notes: Do not crush or chew. (Same As: Ecotrin) [facility] Fluoxetine 2019-12-12 14:00:00 No Notes: (S alexi as: Prozac) [facility] Lisinopril 2019-12-12 14:00:00 No Notes: (Same as: Prinivil, Zestril) [facility] NIFEdipine 60 mg oral tablet, extended release 2019-12-12 14:00: 00 No Notes: (Same as: Adalat CC, Procardia XL ) Give on empty stomach. Take 1 hour before or 2 hours after meal; "Avoid grapefruit and grapefruit juice". Do not crush [facility] Omeprazole 2019-12-12 14:00:00 No 40 mg, 1 cap, Route: PO, Drug form: DRC, Daily, Dosing Weight 91.818, kg, Start date: 12/12/19 9:00:00 CDT, Duration: 30 day, Stop date: 01/10/20 9:00:00 CDT [facility] Protonix 2019-12-12 04:00:00 No Notes: Tablet should not be chewed or crushed. (Same as: Protonix) [facility] Lovenox 2019-12-12 04:00:00 No Notes: (Same as: Lovenox) [facility] Al hydroxide/Mg hydroxide/simethicone 2019-12-12 03:51:00 N o Notes: (aluminum hydroxide-magnesium hyd-simethicone [phone]/5ml 30 ml ud JOSE E) Fatou Lind Xylocaine Viscous 2% mucous membrane solution 2019-12-12 03:51:0 0 No Notes: (Same as: Xylocaine) [facility] cocktail (aluminum hydroxide/magnesium hydroxide/lidocain e/simethicone) 2019-12-12 03:43:00 No 45 ml, Route: PO, Drug Form: SUSP, Dosing Weight 91.818, kg, ONCE, Routine, Start date: 12/11/19 22:43:00 CDT, Stop date: 12/11/19 22:43:00 CDT Fatou Lind Dextrose 50% Syringe (D50W) 2019-12-12 03:22:00 No 12.5 gm, 25 mL, Route: IVP, Drug Form: INJ, Dosing Weight 91.818, kg, PRN, PRN Blood Glucose Results, Start date: 12/11/19 22:22:00 CDT, Duration: 30 day, Stop date: 01/10/20 22:21:00 CDT, 0 Fatou Nathan n Glucagon 2019-12-12 03:22:00 No 1 mg, Route: IM, Drug form: PDR/INJ, PRN, Dosing Weight 91.818, kg, PRN Blood Glucose Results, Start date: 12/11/19 22:22:00 CDT, Duration: 30 day, Stop date: 01/10/20 22:21:00 CDT, 0 [facility] [place] Insulin Lispro 2019-12-12 03:22:00 No Notes: (Same as: Humalog) Roll in palms of hands gently; Do not shake vigorously. WASTE: F/P - Black; E - Municipal Trash Bin Stable for 28 days at room temperature. Expires in days from Date Fatou meza Zofran 2019-12-12 03:21:00 No Notes: (Same as: Angle) MEDICATION WASTE Product Size: 4 mg Product Wasted: ___ mg [facility] [place] tizanidine 2019-12-12 03:21:00 No Notes: (S alexi As: Zanaflex) [facility] [place] Nitroglycerin 2019-12-12 02:43:00 No Notes: (Same as:Nitroquick, Nitrostat) "Do Not Crush" Sublingual tablet [facility] Morphine 2019-12-12 02:43:00 No Not es: (Same as:MORPhine Sulfate) [facility] Acetaminophen 2019-12-12 02:43:00 No Notes: Do not exceed 4 gm/day. (Same as: Tylenol) [facility] Ondansetron 2019-12-12 02:43:00 No Notes: ( Same as: Zofran) [facility] Saline Flush 0.9% 2019-12-12 02:43:00 No Notes: (Same as: BD Posiflush) [facility] atorvastatin 20 mg oral tablet 2019-12-12 02:04:00 Yes 20 mg = 1 tab, PO, Bedtime, # 30 tab, 0 Refill(s) [facility] Thiamine 2019-11-24 14:00:00 No Notes: (Sheldon e As: Vitamin B1) [facility] Lisinopril 2019-11-24 14:00:00 No Notes: (Same as: Prinivil, Zestril) [facility] Mucinex 2019-11-24 02:00:00 No Notes: (Same as: Guaifenesin LA, Humibid LA, Mucinex) "Do Not Crush" Take medication with plenty of water. [facility] Aspirin 2019-11-23 14:30:00 No Notes: Do not crush or chew. (Same As: Ecotrin) [facility] Folic Acid 2019-11-23 14:30:00 No Notes: (S alexi as: Folvite) [facility] Potassium Chloride 2019-11-23 14:21:00 No Notes: (Same as: K-Dur 20) "Do Not Crush" Give with food and full glass of water For patients unable to swallow tablet, dissolve in one half glass of water. Allow about 2 minutes for the tablets to disintegrate. Stir before giving to prepare slurry and administer. Please exclude Patient s with feeding tube less than 14 [place] (Dobhoff, J-tube etc) and pediatric and patients. [facility] potassium phosphate-sodium phosphate 250 mg-280 mg-160 mg oral powder for reconstitution 2019-11-23 14:21:00 No Notes: (Same as: Phos-NaK) Each 1.5 gm pkt has 250mg phosphorous. Mix w/2.5oz water and stir. [facility] potassium phosphate 2019-11-23 14:21:00 No Notes: (Same as: K Phosphate.) Do not infuse phosphorous concurrently in the same line as TPN or IVF that contains calcium. For double lumen central lines, phosphorous may be infused in a separate lumen from TPN. 1 mMol phoshate has 1.47 mEq potassium Infuse over 4 hours [facility] sodium phosphate 2019-11-23 14:21:00 No Notes: Infuse over 4 hour. Do not infuse phosphorous concurrently in the same line as TPN or IVF that contains calcium. For double lumen central lines, phosphorous may be infused in a separate lumen from TPN. [facility] Magnesium Sulfate 2019-11-23 14:21:00 No Notes: WASTE: F/P - Sink; E - Municipal Trash [facility] Magnesium Oxide 2019-11-23 14:21:00 No Notes: (Same as: Mag-Ox 400) Magnesium oxide 657gs=825at elemental magnesium Dose=____mg magnesium oxide (___mg elemental magnesium) [facility] Calcium Gluconate 2019-11-23 14:21:00 No Notes: WASTE: F/P - Sink; E - [facility] heparin sodium, porcine 2500 UNT/ML Injectable Solution 2019-11-23 02:00:00 No Notes: [facility] Aspirin 2019-11-22 22:22:00 Yes 81, PO, Shruthi y, 0 Refill(s) Fatou Lind NIFEdipine 60 mg oral tablet, extended release 2019-11-22 22:22: 00 Yes 60 mg = 1 tab, PO, Daily, # 30 tab, 0 Refill(s) Fatou Lind NS (Bolus) IV 2019-11-22 21:51:00 No 500 mL, 500 ml/hr, Infuse Over: 1 hr, Route: IV, 500, Drug form: INJ, ONCE, Priority: STAT, Dosing Weight 94.659 kg, Start date: 11/22/19 16:51:00 CDT, Stop date: 11/22/19 16:51:00 CDT, 0 [facility] Folic Acid 2019-11-22 14:00:00 No Notes: (S alexi as: Folvite) Fatou Lind Thiamine 2019-11-22 11:17:00 No Notes: (Sheldon e As: Vitamin B1) Fatou Lnid Sodium Chloride 1000 MG Oral Tablet 2019-11-22 04:45:00 No 2 gm, 2 tab, Route: PO, Drug form: TAB, TID, Dosing Weight 94.659, kg, Start date: 11/21/19 23:45:00 CDT, Duration: 30 day, Stop date: 12/21/19 17:00:00 CDT, 0 Fatou Lind Potassium Chloride 2019-11-22 04:23:00 No Notes: (Same as: K-Dur 20) "Do Not Crush" Give with food and full glass of water For patients unable to swallow tablet, dissolve in one half glass of water. Allow about 2 minutes for the tablets to disintegrate. Stir before giving to prepare slurry and administer. Please exclude Patient s with feeding tube less than 14 [place] (Dobhoff, J-tube etc) and pediatric and patients. Fatou Lind potassium phosphate-sodium phosphate 250 mg-280 mg-160 mg oral powder for reconstitution 2019-11-22 04:23:00 No Notes: (Same as: Phos-NaK) Each 1.5 gm pkt has 250mg phosphorous. Mix w/2.5oz water and stir. Fatou Lind potassium phosphate 2019-11-22 04:23:00 No Notes: (Same as: K Phosphate.) Do not infuse phosphorous concurrently in the same line as TPN or IVF that contains calcium. For double lumen central lines, phosphorous may be infused in a separate lumen from TPN. 1 mMol phoshate has 1.47 mEq potassium Infuse over 4 hours [facility] sodium phosphate 2019-11-22 04:23:00 No Notes: Infuse over 4 hour. Do not infuse phosphorous concurrently in the same line as TPN or IVF that contains calcium. For double lumen central lines, phosphorous may be infused in a separate lumen from TPN. Fatou suarez Magnesium Sulfate 2019-11-22 04:23:00 No Notes: WASTE: F/P - Sink; E - Municipal Trash Bin Fatou Lind Magnesium Oxide 2019-11-22 04:23:00 No Notes: (Same as: Mag-Ox 400) Magnesium oxide [id number] elemental magnesium Dose=____mg magnesium oxide (___mg elemental magnesium) Fatou baron Calcium Gluconate 2019-11-22 04:23:00 No Notes: WASTE: F/P - Sink; E - Municipal Trash Bin Fatou Lind Please update HT/WT/allergy 2019-11-22 02:45:00 No Please update HT/WT/allergy, Please update in ADHOC, Drug form: MISC, Route: MISC, Q15Min, 11/21/19 21:45:00 CDT, Duration: 30 day, Stop date: 12/21/19 21:30:00 CDT, 0 Fatou Lind Dextrose 50% Syringe (D50W) 2019-11-22 02:38:00 No 12.5 gm, 25 mL, Route: IVP, Drug Form: INJ, Dosing Weight 89.182, kg, PRN, PRN Blood Glucose Results, Start date: 11/21/19 21:38:00 CDT, Duration: 30 day, Stop date: 12/21/19 21:37:00 CDT, 0 Fatou Evans n Glucagon 2019-11-22 02:38:00 No 1 mg, Route: IM, Drug form: PDR/INJ, PRN, Dosing Weight 89.182, kg, PRN Blood Glucose Results, Start date: 11/21/19 21:38:00 CDT, Duration: 30 day, Stop date: 12/21/19 21:37:00 CDT, 0 Fatou Lind Insulin Lispro 2019-11-22 02:38:00 No Notes: (Same as: Humalog) Roll in palms of hands gently; Do not shake vigorously. WASTE: F/P - Black; E - Municipal Trash Bin Stable for 28 days at room temperature. Expires in days from Date Fatou meza Dextrose 50% Syringe (D50W) 2019-11-22 02:35:00 No 25 mL, Route: IVP, Dosing Weight 89.182, kg, PRN, PRN Blood Glucose Results, Start date: 11/21/19 21:35:00 CDT, Duration: 30 day, Stop date: 12/21/19 21:34:00 CDT [facility] Glucagon 2019-11-22 02:35:00 No 1 mg, Route: IM, PRN, Dosing Weight 89.182, kg, PRN Blood Glucose Results, Start date: 11/21/19 21:35:00 CDT, Duration: 30 day, Stop date: 12/21/19 21:34:00 CDT [facility] Acetaminophen 2019-11-22 02:35:00 No Notes: Do not exceed 4 gm/day. (Same as: Tylenol) [facility] Zofran 2019-11-22 02:34:00 No Notes: (Same as: Zofran) MEDICATION WASTE Product Size: 4 mg Product Wasted: ___ mg [facility] Tizanidine Hcl 4 Mg Capsule Tizanidine Hcl 4 Mg Capsule 2019-02-10 00:00:00 Yes Miguel Ángel Phelan Director Clinical Operations 4 Three Times A Day as needed for Muscle Spasms [facility] Albuterol Hfa Albuterol Hfa 2019-02-08 00:00:00 Yes Venessa Rothman ose Director Clinical Operations 1 Every 8 Hours as needed for Shortness Of Breath [facility] Aspirin (Aspirin Ec) 81 Mg Tablet. Aspirin (Aspirin Ec) 81 Mg Tablet. 2019-02-08 00:00:00 Yes Venessa Acevedo Director Clinical Operations 81 Every M orning [facility] Baclofen 10 Mg Tablet Baclofen 10 Mg Tablet 2019-02-08 00:00:00 Yes Venessa Acevedo Director Clinical Operations 5 Three Times A Day as needed for Muscle Spasms [facility] Ceftin Ceftin 2019-02-08 00:00:00 Yes Venessa Bryant Quitman Director Clinical Operations 500 Every 12 Hours [facility] Pantoprazole Sod (Protonix) 40 Mg/Ml Susp Pantoprazole Sod (Protonix) 40 Mg/Ml Susp 2019-02-08 00:00:00 Yes Venessa Acevedo Director Clinical Operations 40 Twice Daily With Meals [facility] Hair, Skin & Nails 2018-05-06 19:47:00 Yes 5 mg =, PO, Daily, 0 Refill(s) [facility] multivitamin 2018-05-06 19:47:00 Yes Daily, 0 Refill(s) Fatou Lind lisinopril 20 mg oral tablet 2018-05-06 19:45:00 Yes 20 mg = 1 tab, PO, Daily, 0 Refill(s) Fatou Lind omeprazole 40 mg oral delayed release capsule 2018-05-06 19:45:0 0 Yes 40 mg = 1 cap, PO, Daily, 0 Refill(s) Fatou Lind ARIPiprazole 2018-05-06 19:45:00 Yes 5 mg, P O, 0 Refill(s) Fatou Lind Fluoxetine 2018-05-06 19:45:00 Yes 1 0 mg, PO, Daily, 0 Refill(s) Fatou Lind Multiple Vitamins oral tablet 2018-01-29 13:25:00 Yes 1 tab, PO, Daily, # 30 tab, 0 Refill(s) Fatou Sd susana Mucinex 2018-01-29 13:24:00 Yes 600 mg, PO, Q12H, 0 Refill(s) Fatou Lind Albuterol 0.833 MG/ML / Ipratropium [place] 0.167 MG/ML Inha lant Solution 2018-01-29 13:18:00 No 3 mL, Route: NEB, Dosing Weight 94.545, kg, ONCE, STAT, Start date: 01/29/18 8:18:00 CDT, Stop date: 01/29/18 8:18:00 CDT Fatou Lind Sodium Chloride 0.9% IV 500 mL 2018-01-29 13:18:00 No 500 mL, Rate: 25 ml/hr, Infuse over: 20 hr, Route: IV, Dosing Weight 94.545 kg, Total Volume: 500, Start date: 01/29/18 8:18:00 CDT, Duration: 30 day, Stop date: 02/28/18 8:17:00 CDT, 2.1, m2 Fatou Lind lisinopril 10 mg oral tablet 2018-01-28 17:37:00 Yes 10 mg = 1 tab, PO, Daily, # 30 tab, 0 Refill(s) Rene Lind Metformin hydrochloride 500 MG Oral Tablet 2018-01-28 17:37:00 Yes 500 mg = 1 tab, PO, BID-Meals, # 30 tab, 0 Refill(s) Fatou Lind meclizine (ANTIVERT) 25 mg tablet 2015-11-05 00:00:00 Yes 25mg Take 1 tablet (25 mg total) by mouth 3 (three) times daily as needed. [facility] metFORMIN (GLUCOPHAGE) 500 MG tablet 2014-09-14 09:15:59 Ye s 500mg Take 500 mg by mouth 2 (two) times daily with breakfast and dinner. [facility] gabapentin (NEURONTIN) 300 MG capsule 2014-09-14 09:15:59 Yes 300mg [id number] Take 300 mg by mouth 3 (three) times daily. [facility] ERGOCALCIFEROL, VITAMIN D2, (VITAMIN D2 ORAL) 2014-09-14 09:15:5 9 Yes [facility] [place] MULTIVITS W-FE,OTHER MIN/LUT (CENTRUM SILVER ULTRA WOMEN'S O RAL) 2014-09-14 09:15:59 Yes Take by mouth. [facility] Atorvastatin Calcium 10 Mg Tablet Atorvastatin Calcium 10 Mg Tablet Yes 10 Today At 9:00PM [facility] Lisinopril 10 Mg Tablet Lisinopril 10 Mg Tablet Yes 20 Daily [facility] Metformin Hcl (Metformin Hcl Er) 500 Mg Tab.er.24 Metf ormin Hcl (Metformin Hcl Er) 500 Mg Tab.er.24 Yes 1000 Twice A Day [facility] Mu-Vits-Min Th/Lycopene/Lutein (Centrum Silver Tablet) 1 Each Tablet Mu-Vits-Min Th/Lycopene/Lutein (Centrum Silver Tablet) 1 Each Tablet Yes 60 Daily [facility] Nifedipine (Nifedipine Er) 60 Mg Tablet.er Nifedipine (Nifedipine Er) 60 Mg Tablet.er Yes 60 Daily [facility] Omeprazole 40 Mg Capsule. Omeprazole 40 Mg Capsule.dr Damian Before Breakfast [facility] Sitagliptin Phosphate (Januvia) 100 Mg Tablet Sitaglip tin Phosphate (Januvia) 100 Mg Tablet Yes 100 Daily [facility] Vital Signs Vital Name Observation Time Observation Value Comments Source Temperature Oral (F) 2019-12-13 16:10:00 98.3 F [facility] Heart Rate 2019-12-13 16:10:00 [facility] Respitory Rate 2019-12-13 16:10:00 [facility] Systolic (mm Hg) 2019-12-13 16:10:00 [facility] Diastolic (mm Hg) 2019-12-13 16:10:00 [facility] Temperature Oral (F) 2019-12-13 12:45:00 98.1 F [facility] Heart Rate 2019-12-13 12:45:00 [facility] Respitory Rate 2019-12-13 12:45:00 [facility] Systolic (mm Hg) 2019-12-13 12:45:00 [facility] Diastolic (mm Hg) 2019-12-13 12:45:00 [facility] Temperature Oral (F) 2019-12-13 08:30:00 98 F [facility] Heart Rate 2019-12-13 08:30:00 [facility] Respitory Rate 2019-12-13 08:30:00 [facility] Systolic (mm Hg) 2019-12-13 08:30:00 [facility] Diastolic (mm Hg) 2019-12-13 08:30:00 [facility] BMI Calculated 2019-12-12 02:43:00 [facility] Height 2019-12-12 01:58:00 162.56 cm [facility] Weight 2019-12-12 01:58:00 [facility] BMI Calculated 2019-12-12 01:58:00 [facility] Heart Rate 2019-11-25 13:00:00 [facility] Systolic (mm Hg) 2019-11-25 13:00:00 [facility] Diastolic (mm Hg) 2019-11-25 13:00:00 [facility] Temperature Oral (F) 2019-11-25 13:00:00 98.5 F [facility] Temperature Oral (F) 2019-11-25 05:40:00 98.2 F [facility] Heart Rate 2019-11-25 05:40:00 [facility] Systolic (mm Hg) 2019-11-25 05:40:00 [facility] Diastolic (mm Hg) 2019-11-25 05:40:00 [facility] Temperature Oral (F) 2019-11-24 20:20:00 98.4 F [facility] Heart Rate 2019-11-24 20:20:00 [facility] Systolic (mm Hg) 2019-11-24 20:20:00 [facility] Diastolic (mm Hg) 2019-11-24 20:20:00 [facility] Respitory Rate 2019-11-23 16:00:00 [facility] Respitory Rate 2019-11-23 15:38:00 [facility] Respitory Rate 2019-11-23 15:00:00 [facility] Height 2019-11-22 02:55:00 162.56 cm [facility] Weight 2019-11-22 02:55:00 [facility] BMI Calculated 2019-11-22 02:55:00 [facility] Height 2018-05-06 19:26:00 162.56 cm [facility] BMI Calculated 2018-05-06 19:26:00 [facility] Weight 2018-05-06 19:26:00 [facility] Respitory Rate 2018-05-06 19:26:00 [facility] Heart Rate 2018-05-06 19:26:00 [facility] Systolic (mm Hg) 2018-05-06 19:26:00 [facility] Diastolic (mm Hg) 2018-05-06 19:26:00 [facility] Systolic (mm Hg) 2018-01-29 14:45:00 [facility] Diastolic (mm Hg) 2018-01-29 14:45:00 [facility] Respitory Rate 2018-01-29 14:45:00 [facility] Respitory Rate 2018-01-29 14:30:00 [facility] Systolic (mm Hg) 2018-01-29 14:30:00 [facility] Diastolic (mm Hg) 2018-01-29 14:30:00 [facility] Systolic (mm Hg) 2018-01-29 14:15:00 [facility] Diastolic (mm Hg) 2018-01-29 14:15:00 [facility] Respitory Rate 2018-01-29 14:15:00 [facility] Weight 2018-01-28 17:22:00 [facility] Height 2018-01-28 17:22:00 162.56 cm [facility] BMI Calculated 2018-01-28 17:22:00 [facility] Temperature Oral (F) 2014-02-08 08:45:00 98.3 F [facility] Heart Rate 2014-02-08 08:45:00 [facility] Systolic (mm Hg) 2014-02-08 08:45:00 [facility] Diastolic (mm Hg) 2014-02-08 08:45:00 [facility] Respitory Rate 2014-02-08 08:45:00 [facility] Temperature Oral (F) 2014-02-08 03:53:00 98.3 F [facility] Systolic (mm Hg) 2014-02-08 03:53:00 [facility] Heart Rate 2014-02-08 03:53:00 [facility] Respitory Rate 2014-02-08 03:53:00 [facility] Diastolic (mm Hg) 2014-02-08 03:53:00 [facility] Heart Rate 2014-02-08 01:19:00 [facility] Respitory Rate 2014-02-08 01:19:00 [facility] Temperature Oral (F) 2014-02-08 01:19:00 98.0 F [facility] Diastolic (mm Hg) 2014-02-08 01:19:00 [facility] Systolic (mm Hg) 2014-02-08 01:19:00 [facility] Weight 2014-02-07 20:42:00 [facility] BMI Calculated 2014-02-07 20:42:00 [facility] Height 2014-02-07 20:42:00 [facility] Procedure Date / Time Performed Performing Clinician [facility] e X-ray of chest, two views 2019-02-10 00:00:00 MIGUEL ÁNGEL PHELAN [facility] Computed tomography of chest with contrast 2019-02-06 00:00:00 HIMANSHU BARAHONA [facility] Computed tomography of abdomen and pelvis with contrast 2018 00:00:00 HIMANSHU LARSON [facility] Computed tomography of brain without radiopaque contrast 201 03-09-02 00:00:00 MIGUEL ÁNGEL PHELAN [facility] section [facility] Nathan Knee joint operation [facility] Encounters Start Date/Time End Date/Time Encounter Type Admission Type Attendi [facility] Care Department Encounter ID Source 2019-11-21 19:35:00 Inpatient U [facility] MED 01 [id number] [facility] 2020-01-03 08:25:00 2020-01-03 23:59:00 Outpatient Alessandra Olson leonard Victoria [facility] [id number] 2020-01-03 08:25:00 2020-01-03 08:25:00 Outpatient [facility] [id number] [facility] 2019-12-11 20:38:00 2019-12-13 15:58:00 Outpatient BrittanypbMelania Alison [facility] [id number] 2019-12-11 20:38:00 2019-12-11 20:38:00 Outpatient [facility] MED [id number] [facility] 2019-11-21 19:35:00 2019-11-25 11:25:00 Outpatient NadyaJesus Manuel [facility] [id number] 2019-02-10 15:46:00 2019-02-10 18:55:00 Departed Emergency Room 1 [facility] [id number] [facility] 2019-02-06 17:01:00 2019-02-08 10:24:00 Discharged Inpatient (obs) 1 [facility] [id number] [facility] 2018-10-05 12:50:00 2018-10-05 14:44:00 Departed Emergency Room 1 MYAH SOSA [facility] [id number] [facility] 2018-06-22 11:35:00 2018-06-22 23:59:00 Outpatient Gunnar Frausto [facility] [id number] 2018-05-06 14:14:00 2018-05-06 23:59:00 Outpatient Gunnar Frausto [facility] [id number] 2018-01-29 06:30:00 2018-01-29 10:00:00 Outpatient Arben Olson [facility] [id number] 2018-01-19 09:20:00 2018-01-19 23:59:00 [facility] [id number] 2018-01-08 12:57:00 2018-01-08 23:59:00 Outpatient Yany colton Arben Rowell OIB [facility] [id number] 2014-02-07 15:29:00 2014-02-08 03:46:00 Outpatient Sergey Jeff [facility] [id number] Results Test Description Test Time Test Comments Results Result Comments Source CHEM PANEL 2019-12-13 09:21:00 [facility] CHEM PANEL 2019-12-13 09:21:00 13 [facility] CHEM [facility] 2019-12-13 09:21:00 0.85 [facility] CHEM [facility] 2019-12-13 09:21:00 132 [facility] CHEM [facility] 2019-12-13 09:21:00 4.0 [facility] 2019-12-13 09:21:00 99 [facility] 2019-12-13 09:21:00 29 [facility] CHEM [facility] 2019-12-13 09:21:00 9.0 [facility] CHEM [facility] 2019-12-13 09:21:00 7.6 [facility] CHEM [facility] 2019-12-13 09:21:00 3.4 [facility] CHEM [facility] 2019-12-13 09:21:00 50 [facility] CHEM PANEL 2019-12-13 09:21:00 61 [facility] CHEM PANEL 2019-12-13 09:21:00 81 [facility] CHEM PANEL 2019-12-13 09:21:00 0.4 [facility] CHEM PANEL 2019-12-13 09:21:00 8.0 [facility]EL 2019-12-13 09:21:00 Test Item B/C Ratio (test code = B/C Ratio) 15 1 6-25 [facility] MLXCU8469-54-37 09:21:004.2[facility] 2019-12-13 09:21:00* Test Item Value Reference Range Interpretation Comments A/G Ratio (test code = A/G Ratio) 0.8 1 0.7-1.6 [facility]ann[facility] CVOJD2527-02-63 09:21:0066[facility]annHEMATOLOGY 2019-12-13 09:21:007.8[facility] WbhuymnFNIIXSSRHW0155-68-29 09:21:004.13[facility] YoonnfjTQGSKPQHQH3328-22-68 09:21:0013.0[facility] FayvnmwLCKDBAGNUO2127-92-46 09:21:0038.4[facility] RapgefzEIHJMXSQWB0307-00-18 09:21:0092.9[facility] TYVSTXIMWE7320-37-48 09:21:00* Test Item Value Reference Range Interpretation Comments MCH (test code = MCH) 31.4 pg 27.0-31.0 [facility] IdsolkiEWQHVYVKYM2049-38-26 09:21:0033.8[facility] HermannHEMATOLOGY 2019-12-13 09:21:0013.8[facility] UpljrpsLYCEAHITOC3110-23-04 09:21:22342Suenyluu FpwmezjNUXOFEJWUQ1330-85-19 09:21:007.9[facility] HermannCARDIAC YVXLJPP3410-15-54 20:09:00<0.02[facility]annCHEM MJMYK3175-13-30 20:09:0013.0[facility] SNUKFOBICU2183-36-12 20:09:000.63[facility] HermannCARDIAC XZYROHX0941-24-56 08:27:00<0.02[facility] HermannCHEM ZJVQG7091-62-87 08:27:90972Pzrntjmh [facility] CHEM JMIQU0805-49-17 08:27:0013[facility]annCHEM NQPMA9821-01-18 08:27:000.88 [facility]annCHEM AUSQZ3416-88-85 08:27:04336Cizxeist HermannCHEM PANEL 2019-12-12 08:27:003.4[facility] HermannCHEM TSWOY6890-70-41 08:27:0093[facility] HermannCHEM OTPUT3890-82-56 08:27:0028[facility] HermannCHEM YZJLY5138-12-16 08:27:008.2[facility]annCHEM QWVXY4379-78-36 08:27:0011.4[facility]annCHEM OGFMI4518-92-62 08:27:0063[facility]annCHEM TOEVL5799-29-73 08:27:001.6 [facility]ann[facility] XAVBJ3954-49-21 08:27:003.0[facility]annCHEM PANEL 2019-12-12 08:27:007.6[facility]annCHEM WEMCF5304-51-12 08:27:003.5[facility]annCHEM ODDJW9067-80-55 08:27:0033[facility]annCHEM JEGLX5065-45-78 08:27:0040[facility]annCHEM QBANF9640-92-90 08:27:0074[facility]annCHEM WPGPQ6418-45-75 08:27:000.5[facility]annCHEM LJSRD7640-48-13 08:27:000.2 [facility]ann[facility] BGVDB7929-31-66 08:27:004.1[facility]annCHEM PANEL 2019-12-12 08:27:00* Test Item Value Reference Range Interpretation Comments A/G Ratio (test code = A/G Ratio) 0.9 1 0.7-1.6 [facility]annCHE[facility] TAZAR6450-65-39 08:27:000.3[facility] HermannHEMATOLOGY 2019-12-12 08:27:0010.3[facility] PgurhlsMQBSGDQKHS9498-43-01 08:27:004.10[facility] TszmgcdCIVZHTZRFM0834-98-55 08:27:0013.0[facility] AbxeadkSYTKHVOBCB6612-27-67 08:27:0037.8[facility] PlnczhxUBUIHZEJRT1486-66-27 08:27:0092.2[facility] IOEQINBXMZ1946-21-05 08:27:00* Test Item Value Reference Range Interpretation Comments MCH (test code = MCH) 31.6 pg 27.0-31.0 [facility] PvmftpsVVHMSSBQAC9439-82-56 08:27:0034.3[facility] HermannHEMATOLOGY 2019-12-12 08:27:0014.2[facility] YovotknVGQXHLVTHN2456-93-48 08:27:44356Vwbjtywt DciiiqrGXYPOXZKAQ7046-76-96 08:27:007.6[facility] VutlabnZUEKBPFMVJ8468-83-24 08:27:0065.7[facility] XeishplQAAWVQINVV3341-95-97 08:27:0024.7[facility] QWOAMNRBGF1933-71-49 08:27:008.1[facility] NbchifdELYAHUMXSU7186-84-89 08:27:001.0 [facility] ZcktvemDOXQWIUDEW8847-72-09 08:27:000.5[facility] HermannHEMATOLOGY 2019-12-12 08:27:006.8[facility] HshwxuhIQZFBDCREO5791-40-81 08:27:002.5[facility] LaaxrraSQCTMOEELY2053-90-67 08:27:000.8[facility] NahbhwgTUTGQDDGJX3992-40-72 08:27:000.1[facility] ZchphouOFRKRQWPRG3898-05-58 08:27:000.1[facility] CARDIAC OJSFIOU8906-54-24 04:00:00<0.02[facility] HermannCHEM ANAXU8198-86-28 04:00:44207Ottfswdh HermannCHEM ZHSAJ6593-73-31 08:25:002.5[facility] HermannCHEM VIZDT8649-77-17 08:25:00711Tmyiwnun HermannCHEM OJZRB3356-38-95 08:25:0013 [facility]annCHE[facility] WYRPL7642-91-99 08:25:000.80[facility] HermannCHEM PANEL 2019-11-25 08:25:25016Xbvxzjpk HermannCHEM AVMUR8576-51-98 08:25:003.9[facility] HermannCHEM BYKUF2311-44-94 08:25:30008Uxtrvebi HermannCHEM XUATN5351-63-23 08:25:0027[facility] HermannCHEM YZJED1677-51-66 08:25:008.7[facility] HermannCHEM GGHOE9598-26-34 08:25:0010.9[facility] HermannCHEM AFPPM5006-81-94 08:25:0071 [facility]annCHE[facility] VAGII0374-29-19 08:25:002.1[facility] HermannCHEM PANEL 2019-11-24 11:19:72876Gzdeezxz HermannCHEM RCTUZ9906-72-45 11:19:0015[facility] HermannCHEM TXZVD3207-80-94 11:19:000.80[facility] HermannCHEM ISXBZ4210-09-87 11:19:67103Cyoxxiwq HermannCHEM BERBI8519-89-60 11:19:003.9[facility] HermannCHEM NHLKV4112-45-27 11:19:02509Dxiuxofj HermannCHEM EQJYJ8710-02-18 11:19:0028 [facility]annCHE[facility] CGXFF4737-93-01 11:19:008.8[facility] HermannCHEM PANEL 2019-11-24 11:19:009.9[facility] HermannCHEM XVIIU2350-22-08 11:19:0071[facility] HermannCHEM KKUZD9214-63-71 11:19:002.2[facility] HermannCHEM HWBKY6489-34-06 11:19:002.0[facility] UtpfffzELXGCUUXXL8498-55-23 11:19:007.6[facility] QHMTPAFLDN7453-87-19 11:19:004.17[facility] NrvggalMHJHYNPCYS3245-89-31 11:19:00 13.2[facility] YidockzYMXEIXCVMD7607-16-09 11:19:0037.8[facility] HermannHEMATOLOGY 2019-11-24 11:19:0090.7[facility] InxbgeqAJZDUGJLCQ7967-59-64 11:19:00* Test Item Value Reference Range Interpretation Comments MCH (test code = MCH) 31.7 pg 27.0-31.0 [facility] DlvakrsTHFCTIASPY3178-65-54 11:19:0034.9[facility] HermannHEMATOLOGY 2019-11-24 11:19:0013.6[facility] MfhookxTAZJJVEKKU9314-90-38 11:19:89654Cpyhpbrz VuwrropVECOFKMQMC9349-20-03 11:19:007.0[facility] KummlgiCRZDXJDBKG5808-96-13 11:19:0070.2[facility] TbtffilGAGRGPWUBP0082-36-41 11:19:0019.6[facility] WTHSFVSNFK1649-61-85 11:19:008.5[facility] McvghxlROWXUZWIWR0824-54-69 11:19:001.4 [facility] FngvyhpRVOXAMWEYT2373-49-29 11:19:000.3[facility] HermannHEMATOLOGY 2019-11-24 11:19:005.4[facility] NakcweqRSSKXLVTTK9157-63-66 11:19:001.5[facility] VllcqezKRNLAGOIQA2436-07-91 11:19:000.7[facility] HqqmbadUKGIEUZEMZ3831-41-95 11:19:000.1[facility] HermannCHEM FYQYQ4341-67-58 08:32:29127Xnmaqexy HermannCHEM PUABP7484-49-84 08:32:0015[facility] HermannCHEM OJQGA1598-21-90 08:32:000.84 [facility]annCHEM GORHP7938-09-41 08:32:47092Uwpgxybx HermannCHEM PANEL 2019-11-23 08:32:003.5[facility] HermannCHEM ZEVEV2707-99-32 08:32:0098[facility] HermannCHEM KUGPE0693-46-69 08:32:0028[facility] HermannCHEM UTZPY1510-75-63 08:32:0011.5[facility] HermannCHEM KRFEB4963-19-75 08:32:008.9[facility] HermannCHEM NFRGR6544-31-17 08:32:0067[facility] HermannCHEM QLZSF3826-75-12 08:32:002.4 [facility]annCHEM YRAGH5665-06-72 08:32:001.8[facility] HermannURINE AND STOOL 2019-11-22 10:02:00Clear (11/22/19 5:02 AM)[facility]ann[facility] AND STOOL 2019-11-22 10:02:00* Test Item Value Reference Range Interpretation Comments UA Spec Grav (test code = UA Spec Grav) 1.005 1 [facility]ann[facility] AND LUADA1579-13-07 10:02:00* Test Item Value Reference Range Interpretation Comments UA pH (test code = UA pH) 6.0 1 5.0-8.0 [facility] AND CRHNH5195-79-15 10:02:00Negative *NA*(11/22/19 5:02 AM) [facility] WWHWM0675-18-77 10:02:00Small *ABN*(11/22/19 5:02 AM) [facility] FVGMO4132-01-09 10:02:00Negative (11/22/19 5:02 AM) [facility] COMKJ8444-04-07 10:02:00Negative (11/22/19 5:02 AM) [facility] YLIHA8077-78-49 10:02:001[facility] AND IHZLV8708-72-11 10:02:004[facility]annUR[facility] FGEL7069-65-33 10:02:11603 [facility] SFJO8594-01-19 10:02:0010[facility]ann[facility] CHEM 2019-11-22 10:02:0031.50[facility]annURINE UXYZ0318-20-96 10:02:007.1[facility] HermannCHEM MXXZL5577-69-53 03:06:55953Kwzrhiwb HermannCHEST 2 PEKGM7198-25-66 17:38:00 [place] [address] Patient Name: YEYO BYRNE MR #: [id number] : 1940 Age/Sex: 78/F Req #: [id number] Adm Physician: Ordered by: MIGUEL ÁNGEL PHELAN [employer] Report #: [id number] Location: Room/Bed: Procedure: 0808-00 [id number] DX/CHEST 2 VIEWS Exam Date: 02/10/19 Exam Time: 1 710 REPORT STATUS: Signed EXA MINATION: PA and lateral views of the chest. COMPARISON: CT chest PE protoc ol 02/06/2019 CLINICAL HISTORY: Chest pain, right lung DISCUSSION: Lines/tubes: None. Lungs: The lungs are well inflated and grossly c lear. There is no evidence of pneumonia or pulmonary edema. Pleura: Ther e is no pleural effusion or pneumothorax. Heart and mediastinum: Cardiomed iastinal silhouette is unremarkable. Pulmonary vasculature is normal. Bones and soft tissues: No acute bony abnormalities. Degenerative changes in the thoracic spine IMPRESSION: No acute cardiopulmonary abnormalities. Please note patient had a CT chest (PE protocol), abdomen and pelvis 4 days ag o Signed by: Dr. Junior Espinoza M.D. on 02/10/2019 5:40 PM Dictated By: JUNIOR ESPNIOZA MD 40 Transcribed By: VANITA on 02/10/191739 COPY TO: MIGUEL ÁNGEL MAZARIEGOS [employer] Creatine Kinase [id number] 17:12:00* Test Item Value Reference Range Interpretation Comments Creatine Kinase MB (test code = 29880-0) 0.90 0-5.0 [facility] [id number] 17:12:00* Test Item Value Reference Range Interpretation Comments Troponin I (test code = HQC0958) < 0.001 0-0.300 [facility] [id number] 17:06:00* Test Item Value Reference Range Interpretation Comments Creatine Kinase (test code = 2157-6) 24 29-168 L [facility] [id number] 17:04:00* Test Item Value Reference Range Interpretation Comments B-Type Natriuretic Peptide (test code = 63583-4) 82.5 0-100 [facility] Wgege3210-00-08 16:55:00* Test Item Value Reference Range Interpretation Comments Sodium Level (test code = 2951-2) 133 136-145 L [facility]Pot[facility] Hbycj0381-22-36 16:55:00* Test Item Value Reference Range Interpretation Comments Potassium Level (test code = 2823-3) 4.1 3.5-5.1 [facility]Chloride [id number] 16:55:00* Test Item Value Reference Range Interpretation Comments Chloride Level (test code = 2075-0) 97 98-107 L [facility] HospitalCarbon Dioxide Qfqlr1923-29-94 16:55:00* Test Item Value Reference Range Interpretation Comments Carbon Dioxide Level (test code = 2028-9) 22 22-29 [facility] HospitalAnion [id number] 16:55:00* Test Item Value Reference Range Interpretation Comments Anion Gap (test code = 50788-8) 18.1 8-16 H [facility]Blood Urea Ytotfbjd5565-01-43 16:55:00* Test Item Value Reference Range Interpretation Comments Blood Urea Nitrogen (test code = 3094-0) 9 7-26 [facility]Creatinine2019-08-08 16:55:00* Test Item Value Reference Range Interpretation Comments Creatinine (test code = 2160-0) 0.83 0.57-1.11 [facility]BUN/Creatinine Kfrmc1171-27-46 16:55:00* Test Item Value Reference Range Interpretation Comments BUN/Creatinine Ratio (test code = 3097-3) 11 6-25 [facility] HospitalEstimat Glomerular Filtration Rate 2019-02-10 16:55:00* Test Item Value Reference Range Interpretation Comments Estimat Glomerular Filtration Rate (test code = 322399231) > 60 >60 Ranges were taken from the National Kidney Disease Education Program and the [facility] literature.Reference ranges:60 or greater: Ncclej17-24 ( for 3 consecutive months): Chronic kidney disease 15 or less: Kidney failureHouston Methodist HospitalGlucose Pateq9813-04-82 16:55:00* Test Item Value Reference Range Interpretation Comments Glucose Level (test code = AZO1495) 148 74-118 H [facility] HospitalCalcium Fgagc1717-62-82 16:55:00* Test Item Value Reference Range Interpretation Comments Calcium Level (test code = 67248-3) 9.7 8.4-10.2 [facility] HospitalTotal Rgcmjuqqt7207-67-41 16:55:00* Test Item Value Reference Range Interpretation Comments Total Bilirubin (test code = 1975-2) 0.4 0.2-1.2 [facility] HospitalAspartate Amino Transf (AST/SGOT) 2019-02-10 16:55:00* Test Item Value Reference Range Interpretation Comments Aspartate Amino Transf (AST/SGOT) (test code = Aspartate Amino Transf (AST/SGOT)) 28 5-34 [facility] HospitalAlanine Aminotransferase (ALT/SGPT) 2019-02-10 16:55:00* Test Item Value Reference Range Interpretation Comments Alanine Aminotransferase (ALT/SGPT) (test code = 1742-6) 28 0-55 [facility] HospitalTotal Jtjreum1670-15-17 16:55:00* Test Item Value Reference Range Interpretation Comments Total Protein (test code = 2885-2) 8.2 6.5-8.1 H [facility] HospitalAlbumin2019-08-08 16:55:00* Test Item Value Reference Range Interpretation Comments Albumin (test code = 1751-7) 3.9 3.5-5.0 [facility] HospitalGlobulin2019-08-08 16:55:00* Test Item Value Reference Range Interpretation Comments Globulin (test code = 14980-3) 4.3 2.3-3.5 H [facility] HospitalAlbumin/Globulin Pscai7288-27-72 16:55:00 * Test Item Value Reference Range Interpretation Comments Albumin/Globulin Ratio (test code = 1759-0) 0.9 0.8-2.0 [facility] HospitalAlkaline Vndcvephpkf1547-91-19 16:55:00* Test Item Value Reference Range Interpretation Comments Alkaline Phosphatase (test code = 6768-6) 83 40-150 [facility] HospitalUrine EFV6212-79-75 16:54:00* Test Item Value Reference Range Interpretation Comments Urine WBC (test code = 5821-4) 6-10 0-5 H [facility] HospitalUrine ZRQ7605-00-61 16:54:00* Test Item Value Reference Range Interpretation Comments Urine RBC (test code = 92952-2) 6-10 0-5 H [facility] HospitalUrine Bcwujife2995-80-12 16:54:00* Test Item Value Reference Range Interpretation Comments Urine Bacteria (test code = 75737-6) MODERATE NONE H [facility] HospitalUrine Epithelial Czfaw1498-81-93 16:54:00 * Test Item Value Reference Range Interpretation Comments Urine Epithelial Cells (test code = 65790-1) MANY NONE [facility] HospitalUrine Transitional Epithelial Cells 2019-02-10 16:54:00* Test Item Value Reference Range Interpretation Comments Urine Transitional Epithelial Cells (test code = 8249-5) FEW NONE H [facility] Amorphous Ekwmgytw2612-40-74 16:54:00* Test Item Value Reference Range Interpretation Comments Urine Amorphous Sediment (test code = 8246-1) MODERATE FEW H [facility] HospitalUrine Zgqbz5797-10-42 16:47:00* Test Item Value Reference Range Interpretation Comments Urine Color (test code = 5778-6) YELLOW YELLOW [facility] HospitalUrine Xmlrxni8790-27-65 16:47:00* Test Item Value Reference Range Interpretation Comments Urine Clarity (test code = 39129-7) SL CLOUDY CLEAR [facility] HospitalUrine Specific Slzhfti5011-85-15 16:47:00 * Test Item Value Reference Range Interpretation Comments Urine Specific [place] (test code = 5811-5) 1.020 1.010-1.02 5 [facility] HospitalUrine pX3540-64-08 16:47:00* Test Item Value Reference Range Interpretation Comments Urine pH (test code = 20434-0) 6 5-7 [facility] HospitalU[facility] Leukocyte Yrqzbxlf2163-69-79 16:47:00* Test Item Value Reference Range Interpretation Comments Urine Leukocyte Esterase (test code = 64383-1) SMALL NEGATIV E [facility] HospitalUrine Buqlaac0948-78-99 16:47:00* Test Item Value Reference Range Interpretation Comments Urine Nitrite (test code = 99258-4) NEGATIVE NEGATIVE [facility] HospitalUrine Tidbfpl7203-48-60 16:47:00* Test Item Value Reference Range Interpretation Comments Urine Protein (test code = 38291-6) 1+ NEGATIVE H [facility] HospitalUrine Glucose (UA)2019-02-10 16:47:00* Test Item Value Reference Range Interpretation Comments Urine Glucose (UA) (test code = 15108-2) NEGATIVE NEGATIVE [facility] HospitalUrine Wgxplcz4107-37-26 16:47:00* Test Item Value Reference Range Interpretation Comments Urine Ketones (test code = 57456-6) NEGATIVE NEGATIVE [facility] HospitalUrine Xbyjjeqiehvb8394-99-20 16:47:00* Test Item Value Reference Range Interpretation Comments Urine Urobilinogen (test code = 87314-2) 0.2 0.2-1 [facility] HospitalUrine Hhpxikewx2265-25-61 16:47:00* Test Item Value Reference Range Interpretation Comments Urine Bilirubin (test code = 1977-8) NEGATIVE NEGATIVE [facility] HospitalUrine Htkvk9270-19-65 16:47:00* Test Item Value Reference Range Interpretation Comments Urine Blood (test code = 49789-1) 1+ NEGATIVE [facility] HospitalWhite Blood Ftkdn4784-40-19 16:41:00* Test Item Value Reference Range Interpretation Comments White Blood Count (test code = 6690-2) 12.23 4.8-10.8 H [facility] HospitalRed Blood Pyvzh6349-18-49 16:41:00* Test Item Value Reference Range Interpretation Comments Red Blood Count (test code = 789-8) 4.30 3.6-5.1 [facility] HospitalHemoglobin2019-08-08 16:41:00* Test Item Value Reference Range Interpretation Comments Hemoglobin (test code = 02708-4) 13.3 12.0-16.0 [facility] HospitalHematocrit2019-08-08 16:41:00* Test Item Value Reference Range Interpretation Comments Hematocrit (test code = 4544-3) 38.7 34.2-44.1 [facility] HospitalMean Corpuscular Ghiznp6504-63-13 16:41:00* Test Item Value Reference Range Interpretation Comments Mean Corpuscular Volume (test code = 787-2) 90.0 81-99 [facility] HospitalMean Corpuscular Vanjkmzqts6210-20-13 16:41:00* Test Item Value Reference Range Interpretation Comments Mean Corpuscular Hemoglobin (test code = 785-6) 30.9 28-32 [facility] HospitalMean Corpuscular Hemoglobin Concent 2019-02-10 16:41:00* Test Item Value Reference Range Interpretation Comments Mean Corpuscular Hemoglobin Concent (test code = 786-4) 34.4 31-35 [facility] HospitalRed Cell Distribution Byzge8708-20-57 16:41:00* Test Item Value Reference Range Interpretation Comments Red Cell Distribution Width (test code = 20143-7) 13.2 11.7 -14.4 [facility] HospitalPlatelet Folib9900-86-89 16:41:00* Test Item Value Reference Range Interpretation Comments Platelet Count (test code = 777-3) 135 140-360 L [facility] HospitalNeutrophils (%) (Auto)2019-02-10 16:41:00 * Test Item Value Reference Range Interpretation Comments Neutrophils (%) (Auto) (test code = 33124-6) 77.1 38.7-80.0 [facility] HospitalLymphocytes (%) (Auto)2019-02-10 16:41:00 * Test Item Value Reference Range Interpretation Comments Lymphocytes (%) (Auto) (test code = 736-9) 14.7 18.0-39.1 L [facility] HospitalMonocytes (%) (Auto)2019-02-10 16:41:00* Test Item Value Reference Range Interpretation Comments Monocytes (%) (Auto) (test code = 5905-5) 6.2 4.4-11.3 [facility] HospitalEosinophils (%) (Auto)2019-02-10 16:41:00 * Test Item Value Reference Range Interpretation Comments Eosinophils (%) (Auto) (test code = 713-8) 1.4 0.0-6.0 [facility] HospitalBasophils (%) (Auto)2019-02-10 16:41:00* Test Item Value Reference Range Interpretation Comments Basophils (%) (Auto) (test code = 706-2) 0.4 0.0-1.0 [facility] HospitalIM GRANULOCYTES %2019-02-10 16:41:00* Test Item Value Reference Range Interpretation Comments IM GRANULOCYTES % (test code = IM GRANULOCYTES %) 0.2 0.0- 1.0 [facility] HospitalNeutrophils # (Auto)2019-02-10 16:41:00* Test Item Value Reference Range Interpretation Comments Neutrophils # (Auto) (test code = 751-8) 9.4 2.1-6.9 H [facility] HospitalLymphocytes # (Auto)2019-02-10 16:41:00* Test Item Value Reference Range Interpretation Comments Lymphocytes # (Auto) (test code = 22537-9) 1.8 1.0-3.2 [facility] HospitalMonocytes # (Auto)2019-02-10 16:41:00* Test Item Value Reference Range Interpretation Comments Monocytes # (Auto) (test code = 742-7) 0.8 0.2-0.8 [facility] HospitalEosinophils # (Auto)2019-02-10 16:41:00* Test Item Value Reference Range Interpretation Comments Eosinophils # (Auto) (test code = 711-2) 0.2 0.0-0.4 [facility] HospitalBasophils # (Auto)2019-02-10 16:41:00* Test Item Value Reference Range Interpretation Comments Basophils # (Auto) (test code = 704-7) 0.1 0.0-0.1 [facility] HospitalAbsolute Immature Granulocyte (auto 2019-02-10 16:41:00* Test Item Value Reference Range Interpretation Comments Absolute Immature Granulocyte (auto (nikhil t code = Absolute Immature Granulocyte (auto) 0.03 0-0.1 [facility] HospitalB-Type Natriuretic Oabcrnm1198-38-32 06:10:00* Test Item Value Reference Range Interpretation Comments B-Type Natriuretic Peptide (test code = 82646-7) 77.3 0-100 [facility] Mdzte9619-97-42 05:44:00* Test Item Value Reference Range Interpretation Comments Sodium Level (test code = 2951-2) 138 136-145 [facility] HospitalPotassium Ytrgb7128-87-14 05:44:00* Test Item Value Reference Range Interpretation Comments Potassium Level (test code = 2823-3) 4.3 3.5-5.1 [facility] HospitalChloride Ushuk4785-21-05 05:44:00* Test Item Value Reference Range Interpretation Comments Chloride Level (test code = 2075-0) 102 98-107 [facility] HospitalCarbon Dioxide Qpfgo6969-34-01 05:44:00* Test Item Value Reference Range Interpretation Comments Carbon Dioxide Level (test code = 2028-9) 26 22-29 [facility] HospitalAnion Lbx2646-84-19 05:44:00* Test Item Value Reference Range Interpretation Comments Anion Gap (test code = 74033-8) 14.3 8-16 [facility] HospitalBlood Urea Uykdxrym1518-02-41 05:44:00* Test Item Value Reference Range Interpretation Comments Blood Urea Nitrogen (test code = 3094-0) 14 7-26 [facility] HospitalCreatinine2019-08-06 05:44:00* Test Item Value Reference Range Interpretation Comments Creatinine (test code = 2160-0) 0.85 0.57-1.11 [facility] HospitalBUN/Creatinine Jitvm3010-57-12 05:44:00* Test Item Value Reference Range Interpretation Comments BUN/Creatinine Ratio (test code = 3097-3) 16 6-25 [facility] HospitalEstimat Glomerular Filtration Rate 2019-02-08 05:44:00* Test Item Value Reference Range Interpretation Comments Estimat Glomerular Filtration Rate (test code = 036246925) > 60 >60 Ranges were taken from the National Kidney Disease Education Program and the [facility] Kidney Foundation literature.Reference ranges:60 or greater: Ybrlkg53-36 ( for 3 consecutive months): Chronic kidney disease 15 or less: Kidney failureHouston Methodist HospitalGlucose Gtixc2968-94-43 05:44:00* Test Item Value Reference Range Interpretation Comments Glucose Level (test code = XLL3376) 107 74-118 [facility] HospitalCalcium Ppiyf9508-27-07 05:44:00* Test Item Value Reference Range Interpretation Comments Calcium Level (test code = 09125-8) 9.3 8.4-10.2 [facility] HospitalMagnesium Whach6443-74-18 05:44:00* Test Item Value Reference Range Interpretation Comments Magnesium Level (test code = 06121-7) 1.8 1.3-2.1 [facility] HospitalMagnesium Kgieb4448-51-20 05:44:00* Test Item Value Reference Range Interpretation Comments Magnesium Level (test code = 47728-4) 1.8 1.3-2.1 [facility] HospitalWhite Blood Gduqa6683-15-08 05:33:00* Test Item Value Reference Range Interpretation Comments White Blood Count (test code = 6690-2) 6.02 4.8-10.8 [facility] HospitalRed Blood Momth4729-89-44 05:33:00* Test Item Value Reference Range Interpretation Comments Red Blood Count (test code = 789-8) 3.81 3.6-5.1 [facility] HospitalHemoglobin2019-08-06 05:33:00* Test Item Value Reference Range Interpretation Comments Hemoglobin (test code = 62735-8) 12.0 12.0-16.0 [facility] HospitalHematocrit2019-08-06 05:33:00* Test Item Value Reference Range Interpretation Comments Hematocrit (test code = 4544-3) 34.7 34.2-44.1 [facility] HospitalMean Corpuscular Lespmy5785-16-37 05:33:00* Test Item Value Reference Range Interpretation Comments Mean Corpuscular Volume (test code = 787-2) 91.1 81-99 [facility] HospitalMean Corpuscular Tjpjwqjrdo3125-24-24 05:33:00* Test Item Value Reference Range Interpretation Comments Mean Corpuscular Hemoglobin (test code = 785-6) 31.5 28-32 [facility] HospitalMean Corpuscular Hemoglobin Concent 2019-02-08 05:33:00* Test Item Value Reference Range Interpretation Comments Mean Corpuscular Hemoglobin Concent (test code = 786-4) 34.6 31-35 [facility] HospitalRed Cell Distribution Illqj2662-85-97 05:33:00* Test Item Value Reference Range Interpretation Comments Red Cell Distribution Width (test code = 55047-7) 12.9 11.7 -14.4 [facility] HospitalPlatelet Ncfln5919-38-54 05:33:00* Test Item Value Reference Range Interpretation Comments Platelet Count (test code = 777-3) 91 140-360 L [facility] HospitalNeutrophils (%) (Auto)2019-02-08 05:33:00 * Test Item Value Reference Range Interpretation Comments Neutrophils (%) (Auto) (test code = 41981-1) 62.6 38.7-80.0 [facility] HospitalLymphocytes (%) (Auto)2019-02-08 05:33:00 * Test Item Value Reference Range Interpretation Comments Lymphocytes (%) (Auto) (test code = 736-9) 25.1 18.0-39.1 [facility] HospitalMonocytes (%) (Auto)2019-02-08 05:33:00* Test Item Value Reference Range Interpretation Comments Monocytes (%) (Auto) (test code = 5905-5) 9.3 4.4-11.3 [facility] HospitalEosinophils (%) (Auto)2019-02-08 05:33:00 * Test Item Value Reference Range Interpretation Comments Eosinophils (%) (Auto) (test code = 713-8) 2.0 0.0-6.0 [facility] HospitalBasophils (%) (Auto)2019-02-08 05:33:00* Test Item Value Reference Range Interpretation Comments Basophils (%) (Auto) (test code = 706-2) 0.7 0.0-1.0 [facility] HospitalIM GRANULOCYTES %2019-02-08 05:33:00* Test Item Value Reference Range Interpretation Comments IM GRANULOCYTES % (test code = IM GRANULOCYTES %) 0.3 0.0- 1.0 [facility] HospitalNeutrophils # (Auto)2019-02-08 05:33:00* Test Item Value Reference Range Interpretation Comments Neutrophils # (Auto) (test code = 751-8) 3.8 2.1-6.9 [facility] HospitalLymphocytes # (Auto)2019-02-08 05:33:00* Test Item Value Reference Range Interpretation Comments Lymphocytes # (Auto) (test code = 17399-2) 1.5 1.0-3.2 [facility] HospitalMonocytes # (Auto)2019-02-08 05:33:00* Test Item Value Reference Range Interpretation Comments Monocytes # (Auto) (test code = 742-7) 0.6 0.2-0.8 [facility] HospitalEosinophils # (Auto)2019-02-08 05:33:00* Test Item Value Reference Range Interpretation Comments Eosinophils # (Auto) (test code = 711-2) 0.1 0.0-0.4 [facility] HospitalBasophils # (Auto)2019-02-08 05:33:00* Test Item Value Reference Range Interpretation Comments Basophils # (Auto) (test code = 704-7) 0.0 0.0-0.1 [facility] HospitalAbsolute Immature Granulocyte (auto 2019-02-08 05:33:00* Test Item Value Reference Range Interpretation Comments Absolute Immature Granulocyte (auto (nikhil t code = Absolute Immature Granulocyte (auto) 0.02 0-0.1 [facility] HospitalCreatine Kinase GJ3885-93-47 14:14:00* Test Item Value Reference Range Interpretation Comments Creatine Kinase MB (test code = 83670-2) 1.90 0-5.0 [facility] HospitalTroponin N9630-08-00 14:14:00* Test Item Value Reference Range Interpretation Comments Troponin I (test code = ZDH7326) 0.001 0-0.300 [facility] HospitalCreatine Ghxoyy1382-31-11 14:06:00* Test Item Value Reference Range Interpretation Comments Creatine Kinase (test code = 2157-6) 45 29-168 [facility] HospitalLipase2019-08-05 09:39:00* Test Item Value Reference Range Interpretation Comments Lipase (test code = 3040-3) 46 8-78 [facility] HospitalLipase2019-08-05 09:39:00* Test Item Value Reference Range Interpretation Comments Lipase (test code = 3040-3) 46 8-78 [facility] HospitalFr Beyzmigva8120-07-12 05:45:00* Test Item Value Reference Range Interpretation Comments Free Thyroxine (test code = 3024-7) 1.01 0.8-1.8 [facility] HospitalThyroid Stimulating Hormone (TSH) 2019-02-07 05:45:00* Test Item Value Reference Range Interpretation Comments Thyroid Stimulating Hormone (TSH) (test code = 33381-6) 1.565 0.350-4.940 [facility] Tokcrdqvt0906-21-97 05:45:00* Test Item Value Reference Range Interpretation Comments Free Thyroxine (test code = 3024-7) 1.01 0.8-1.8 [facility] HospitalThyroid Stimulating Hormone (TSH) 2019-02-07 05:45:00* Test Item Value Reference Range Interpretation Comments Thyroid Stimulating Hormone (TSH) (test code = 31788-9) 1.565 0.350-4.940 [facility] HospitalTotal Jfolhfkod8451-41-50 05:23:00* Test Item Value Reference Range Interpretation Comments Total Bilirubin (test code = 1975-2) 0.5 0.2-1.2 [facility] HospitalDirect Xxqqmdiyj8509-49-31 05:23:00* Test Item Value Reference Range Interpretation Comments Direct Bilirubin (test code = 10319-3) 0.3 0.0-0.5 [facility] HospitalAspartate Amino Transf (AST/SGOT) 2019-02-07 05:23:00* Test Item Value Reference Range Interpretation Comments Aspartate Amino Transf (AST/SGOT) (test code = Aspartate Amino Transf (AST/SGOT)) 28 5-34 [facility] HospitalAlanine Aminotransferase (ALT/SGPT) 2019-02-07 05:23:00* Test Item Value Reference Range Interpretation Comments Alanine Aminotransferase (ALT/SGPT) (test code = 1742-6) 27 0-55 [facility] HospitalTotal Djcnxqg0395-41-91 05:23:00* Test Item Value Reference Range Interpretation Comments Total Protein (test code = 2885-2) 7.9 6.5-8.1 [facility] HospitalAlbumin2019-08-05 05:23:00* Test Item Value Reference Range Interpretation Comments Albumin (test code = 1751-7) 3.6 3.5-5.0 [facility] HospitalGlobulin2019-08-05 05:23:00* Test Item Value Reference Range Interpretation Comments Globulin (test code = 67731-1) 4.3 2.3-3.5 H [facility] HospitalAlbumin/Globulin Dcgyz8088-72-46 05:23:00 * Test Item Value Reference Range Interpretation Comments Albumin/Globulin Ratio (test code = 1759-0) 0.8 0.8-2.0 [facility] HospitalAlkaline Mzpagwnenla0943-25-62 05:23:00* Test Item Value Reference Range Interpretation Comments Alkaline Phosphatase (test code = 6768-6) 89 40-150 [facility] HospitalTriglycerides Teqjw3901-41-54 05:23:00* Test Item Value Reference Range Interpretation Comments Triglycerides Level (test code = 2571-8) 135 0-149 [facility] HospitalCholesterol Bvrzy1452-89-05 05:23:00* Test Item Value Reference Range Interpretation Comments Cholesterol Level (test code = 2093-3) 112 0-199 Less than 200 mg/dL Low Grxd020 - 239 mg/dL Borderline Odxq981 m g/dl and greater High Risk [facility] HospitalLDL Tvsjccjrjqb3212-33-90 05:23:00* Test Item Value Reference Range Interpretation Comments LDL Cholesterol (test code = 2089-1) 41 60-130 [facility] Pmoqcumdcvi5428-75-79 05:23:00* Test Item Value Reference Range Interpretation Comments HDL Cholesterol (test code = 2085-9) 44 40-60 [facility] HospitalCholesterol/HDL Pjylj1079-24-69 05:23:00 * Test Item Value Reference Range Interpretation Comments Cholesterol/HDL Ratio (test code = 9830-1) 2.5 3.0-3.6 L [facility] HospitalDirect Xxtodmvwv4327-08-75 05:23:00* Test Item Value Reference Range Interpretation Comments Direct Bilirubin (test code = 92451-5) 0.3 0.0-0.5 [facility] HospitalTriglycerides Wtgbh3610-26-45 05:23:00* Test Item Value Reference Range Interpretation Comments Triglycerides Level (test code = 2571-8) 135 0-149 [facility] HospitalCholesterol Ymsln1367-37-89 05:23:00* Test Item Value Reference Range Interpretation Comments Cholesterol Level (test code = 2093-3) 112 0-199 Less than 200 mg/dL Low Oyxz569 - 239 mg/dL Borderline Xerb832 m g/dl and greater High Risk [facility] HospitalLDL Psodjeociae7965-28-12 05:23:00* Test Item Value Reference Range Interpretation Comments LDL Cholesterol (test code = 2089-1) 41 60-130 [facility] Qtbrtwiindx4401-38-41 05:23:00* Test Item Value Reference Range Interpretation Comments HDL Cholesterol (test code = 2085-9) 44 40-60 [facility] HospitalCholesterol/HDL Texif8039-82-41 05:23:00 * Test Item Value Reference Range Interpretation Comments Cholesterol/HDL Ratio (test code = 9830-1) 2.5 3.0-3.6 L [facility] HospitalHemoglobin A1c Uoqzqkq2559-77-29 05:22:00 * Test Item Value Reference Range Interpretation Comments Hemoglobin A1c Percent (test code = Hemoglobin A1c Percent) 6.8 4.0-7.0 [facility] HospitalHemoglobin A1c Ytkshpa2776-06-93 05:22:00 * Test Item Value Reference Range Interpretation Comments Hemoglobin A1c Percent (test code = Hemoglobin A1c Percent) 6.8 4.0-7.0 [facility] HospitalCT ABDOMEN/PELVIS O6839-04-55 16:10:00 [facility] [address] [address] Patient Name: YEYO BYRNE MR #: [id number] : 1940 Age/Sex: 78/F Req #: [id number] Adm Physician: Ordered by: HIMANSHU LARSON MD Report #: [id number] Location: ER Room/Bed: Procedure: [id number] CT/CT ABDOMEN/PELVIS W Exam Date: 02/06/19 Exam Time : 1540 REPORT STATUS: Signed CT chest pulmonary embolism protocol INDICATION: Question pulmonary embolus. Abdominal pain Pyelonephritis . TECHNIQUE: Thin collimation axial images o btained through the level of the pulmonary arteries with additional imaging th rough the chest following the uneventful administration of 100 cc of low osmol ar, nonionic intravenous contrast. Images reconstructed into three dimensiona l coronal and sagittal projections for complete evaluation of the tortuous and overlapping pulmonary vascular structures and to reduce patient radiation dos e. 5 mm collimation axial images obtained from the diaphragm to the level of t he pubic symphysis were also obtained. RADIATION DOSE: Total DLP: 1263.07 mGy*cm Estimated effective dose: (DLP x 0.015 x size factor) mSv CTDIvol has been reviewed. It is below the limits set by the Radiation Protocol Committee (RPC). Dose reduction techniques used: Automated exposur e control, adjustment of the mAs and/or kVp according to patient size, standar dized low-dose protocol, and/or iterative reconstruction technique. WILLIAM RISON: None. CHEST FINDINGS: No filling defects are appreciated within the main, left, right, lobar or visualized segmental pulmonary arteries to marcial ggest embolism. The main pulmonary artery measures 3 cm in diameter. The thoracic aorta is not aneurysmal. Diffuse calcifications are present. No evid ence for dissection. Lymph nodes: No enlarged axillary, supraclavicular, me diastinal, or hilar lymph nodes. Thyroid: Normal in size without mass in the visualized parenchyma.. Mediastinum: The upper esophagus is patulous. S mall hiatal hernia. Small anterior pericardial effusion. Lungs: Right lung: No infiltrates. Small foci of paraseptal emphysema in the posterior uppe r lobe. Left lung: No infiltrates. Airways: Patent. Pleura: No pl eural effusion or pleural based mass. No pneumothorax. ABDOMEN FINDINGS: Liver: The right lobe measures 21 cm in length with rounded contours. No ev idence for mass. Gallbladder: Present and appears normal. No biliary ductal dilatation. Pancreas: Normal attenuation. Lobulated cyst in the head measu res 1.5 x 1.6 cm. A fat attenuating lesion in the uncinate measures 7 mm in lo ngest dimension and is suggestive of a lipoma. Spleen: Measures 14 cm in length. No mass. Adrenal Glands: No evidence for mass. Kidneys: Symmet marina enhancement. No enhancing mass. Bilateral renal cysts measuring up to 10 mm. No calculus. No hydronephrosis. Lymph Nodes: No enlarged abdominal or retroperitoneal lymph nodes.. Aorta: Normal in diameter with scattered calc ifications PELVIS FINDINGS: Bowel: Stomach: Normal. Small Bowel: Normal in caliber with normal wall thickness. Large Bowel: Normal in caliber with normal wall thickness. 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 Bladder: Circumferential mural thickening and mild un derdistention. No perivesicular inflammation. Uterus: Present and atrophi c. No adnexal mass. Peritoneum/retroperitoneum: No free fluid or fluid kaelyn ection Soft tissues: Unremarkable Bones: No focal osseous lesions.. IMPRESSION: 1. No evidence of pulmonary embolus or aortic dissection. Top normal size of the main pulmonary artery. 2. Mild burden of parasep farnaz emphysema. 3. Small hiatal hernia and patulous upper esophagus. 4. Hepatosplenomegaly. 5. No evidence of obstructive uropathy. Bilateral renal cysts. 6. Lobulated cyst in the pancreas head should be monitored annually to confirm stability. Subcentimeter lipoma in the uncinate. 7. No evid ence for bowel obstruction or inflammation. Signed by: Dr. Maegan reese MD on 02/06/2019 4:19 PM Dictated By: MAEGAN BE MD Electronical ly Signed By: MAEGAN BE MD on 02/06/191618 Transcribed By: VANITA on 02/06/191618 COPY TO: HIMANSHU LARSON MD CT CHEST J0576-08-77 16:10:00 [place] [address] Patient Name: YEYO BYRNE MR #: [id number] : 1940 Age/Sex: 78/F Req #: [id number] Adm Physician: Ordered by: HIMANSHU LARSON MD Report #: [id number] Location: ER Room/Bed: Procedure: [id number] CT/CT CHEST W Exam Date: 02/06/19 Exam Time: 1540 REPORT STATUS: Signed CT chest pul monary embolism protocol INDICATION: Question pulmonary embolus. Abdomina l pain Pyelonephritis . TECHNIQUE: Thin collimation axial images obtained t hrough the level of the pulmonary arteries with additional imaging through the chest following the uneventful administration of 100 cc of low osmolar, nonio yenni intravenous contrast. Images reconstructed into three dimensional coronal and sagittal projections for complete evaluation of the tortuous and overlapp ing pulmonary vascular structures and to reduce patient radiation dose. 5 mm c ollimation axial images obtained from the diaphragm to the level of the pubic symphysis were also obtained. RADIATION DOSE: Total DLP: 1263.07 m Gy*cm Estimated effective dose: (DLP x 0.015 x size factor) mSv CT DIvol has been reviewed. It is below the limits set by the Radiation Protocol Committee (RPC). Dose reduction techniques used: Automated exposure control , adjustment of the mAs and/or kVp according to patient size, standardized low -dose protocol, and/or iterative reconstruction technique. COMPARISON: No ne. CHEST FINDINGS: No filling defects are appreciated within the main , left, right, lobar or visualized segmental pulmonary arteries to suggest emb olism. The main pulmonary artery measures 3 cm in diameter. The thoracic aorta is not aneurysmal. Diffuse calcifications are present. No evidence for dissection. Lymph nodes: No enlarged axillary, supraclavicular, mediastinal , or hilar lymph nodes. Thyroid: Normal in size without mass in the visua lized parenchyma.. Mediastinum: The upper esophagus is patulous. Small hiat al hernia. Small anterior pericardial effusion. Lungs: Right lung: No infiltrates. Small foci of paraseptal emphysema in the posterior upper lobe. Left lung: No infiltrates. Airways: Patent. Pleura: No pleural eff usion or pleural based mass. No pneumothorax. ABDOMEN FINDINGS: Liver: The right lobe measures 21 cm in length with rounded contours. No evidence for mass. Gallbladder: Present and appears normal. No biliary ductal dilatati on. Pancreas: Normal attenuation. Lobulated cyst in the head measures 1.5 x 1.6 cm. A fat attenuating lesion in the uncinate measures 7 mm in longest dim ension and is suggestive of a lipoma. Spleen: Measures 14 cm in length. N o mass. Adrenal Glands: No evidence for mass. Kidneys: Symmetric enhan cement. No enhancing mass. Bilateral renal cysts measuring up to 10 mm. No ca lculus. No hydronephrosis. Lymph Nodes: No enlarged abdominal or retroperi toneal lymph nodes.. Aorta: Normal in diameter with scattered calcification s PELVIS FINDINGS: Bowel: Stomach: Normal. Small Bowel: Normal i n caliber with normal wall thickness. Large Bowel: Normal in caliber with no rmal wall thickness. 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 Bladder: Circumferential mural thickening and mild underdisten tion. No perivesicular inflammation. Uterus: Present and atrophic. No adn exal mass. Peritoneum/retroperitoneum: No free fluid or fluid collection Soft tissues: Unremarkable Bones: No focal osseous lesions.. IMPRES JUS: 1. No evidence of pulmonary embolus or aortic dissection. Top ismael l size of the main pulmonary artery. 2. Mild burden of paraseptal emphy sema. 3. Small hiatal hernia and patulous upper esophagus. 4. Hepatosp lenomegaly. 5. No evidence of obstructive uropathy. Bilateral renal cysts. 6. Lobulated cyst in the pancreas head should be monitored annually to conf irm stability. Subcentimeter lipoma in the uncinate. 7. No evidence for bowel obstruction or inflammation. Signed by: Dr. Maegan Be MD on 02/06/2019 4:19 PM Dictated By: MAEGAN BE MD 18 Transcribed By: VANITA on 02/06/191618 COPY TO: HIMANSHU LARSON MD Prothrombin Qpyl5905-57-55 14:10:00* Test Item Value Reference Range Interpretation Comments Prothrombin Time (test code = 5902-2) 13.8 11.9-14.5 [facility] International Ratio 2019-02-06 14:10:00* Test Item Value Reference Range Interpretation Comments Prothromb Time International Ratio (test code = 6301-6) 1.01 Oral Anticoagulant Therapy INR Values:1. Low Intensity Therapy 1.5 - 2.02 . Moderate Intensity Therapy 2.0 - 3.03. High Intensity Therapy(1) 2.5 - 3. 54. High Intensity Therapy(2) 3.0 - 4.05. Panic Value INR > 5.0 [facility] HospitalAct[facility] Partial Thromboplast Time 2019-02-06 14:10:00* Test Item Value Reference Range Interpretation Comments Activated Partial Thromboplast Time (test code = 98948-9) 45.4 23.8-35.5 H [facility] HospitalProthrombin Lfev8118-07-46 14:10:00* Test Item Value Reference Range Interpretation Comments Prothrombin Time (test code = 5902-2) 13.8 11.9-14.5 [facility] HospitalProthromb Time International Ratio 2019-02-06 14:10:00* Test Item Value Reference Range Interpretation Comments Prothromb Time International Ratio (test code = 6301-6) 1.01 Oral Anticoagulant Therapy INR Values:1. Low Intensity Therapy 1.5 - 2.02 . Moderate Intensity Therapy 2.0 - 3.03. High Intensity Therapy(1) 2.5 - 3. 54. High Intensity Therapy(2) 3.0 - 4.05. Panic Value INR > 5.0 [facility] HospitalActivated Partial Thromboplast Time 2019-02-06 14:10:00* Test Item Value Reference Range Interpretation Comments Activated Partial Thromboplast Time (test code = 27400-0) 45.4 23.8-35.5 H [facility] HospitalUrine SBG8840-23-84 14:06:00* Test Item Value Reference Range Interpretation Comments Urine WBC (test code = 5821-4) 6-10 0-5 H [facility] HospitalU[facility] QRN3432-59-35 14:06:00* Test Item Value Reference Range Interpretation Comments Urine RBC (test code = 57547-9) 6-10 0-5 H [facility] HospitalU[facility] Mplcxqga2559-00-34 14:06:00* Test Item Value Reference Range Interpretation Comments Urine Bacteria (test code = 40346-3) MANY NONE H [facility] HospitalU[facility] Epithelial Tukpw4994-09-81 14:06:00 * Test Item Value Reference Range Interpretation Comments Urine Epithelial Cells (test code = 74554-8) MODERATE NONE [facility] HospitalU[facility] Amorphous Uiemzqth6456-29-31 14:06:00* Test Item Value Reference Range Interpretation Comments Urine Amorphous Sediment (test code = 8246-1) FEW FEW [facility] HospitalU[facility] Hyaline Okhsa5957-06-57 14:06:00* Test Item Value Reference Range Interpretation Comments Urine Hyaline Casts (test code = 64187-4) 0-1 0-1 [facility] Sikqx4329-31-00 14:06:00* Test Item Value Reference Range Interpretation Comments Urine Mucus (test code = 8247-9) FEW RARE H [facility] HospitalU[facility] Hyaline Iuwjs0496-79-62 14:06:00* Test Item Value Reference Range Interpretation Comments Urine Hyaline Casts (test code = 86044-9) 0-1 0-1 [facility] Bahrq2266-34-73 14:06:00* Test Item Value Reference Range Interpretation Comments Urine Mucus (test code = 8247-9) FEW RARE H [facility] HospitalU[facility] Qlpko0262-05-06 14:02:00* Test Item Value Reference Range Interpretation Comments Urine Color (test code = 5778-6) YELLOW YELLOW [facility] HospitalU[facility] Jcvnjfs1999-76-17 14:02:00* Test Item Value Reference Range Interpretation Comments Urine Clarity (test code = 56677-9) HAZY CLEAR [facility] Specific Gvcboly7093-31-10 14:02:00 * Test Item Value Reference Range Interpretation Comments Urine Specific [place] (test code = 5811-5) 1.010 1.010-1.02 5 [facility] HospitalU[facility] uP4644-14-21 14:02:00* Test Item Value Reference Range Interpretation Comments Urine pH (test code = 42388-1) 7 5-7 [facility] Leukocyte Axdfydsg7086-39-75 14:02:00* Test Item Value Reference Range Interpretation Comments Urine Leukocyte Esterase (test code = 5799-2) SMALL NEGATIVE [facility] Qfhbcjh7118-72-27 14:02:00* Test Item Value Reference Range Interpretation Comments Urine Nitrite (test code = 53501-7) NEGATIVE NEGATIVE [facility] HospitalU[facility] Bpohevj9463-09-54 14:02:00* Test Item Value Reference Range Interpretation Comments Urine Protein (test code = 5804-0) 1+ NEGATIVE H [facility] HospitalUrine Glucose (UA)2019-02-06 14:02:00* Test Item Value Reference Range Interpretation Comments Urine Glucose (UA) (test code = 2349-9) 1+ NEGATIVE H [facility] HospitalUrine Pgeroec6398-08-22 14:02:00* Test Item Value Reference Range Interpretation Comments Urine Ketones (test code = 81928-0) NEGATIVE NEGATIVE [facility] Fjibwfoknfuq9450-19-49 14:02:00* Test Item Value Reference Range Interpretation Comments Urine Urobilinogen (test code = 65704-9) 0.2 0.2-1 [facility] Aweayevue3343-03-61 14:02:00* Test Item Value Reference Range Interpretation Comments Urine Bilirubin (test code = 1978-6) NEGATIVE NEGATIVE [facility] HospitalU[facility] Ysfhf3982-02-83 14:02:00* Test Item Value Reference Range Interpretation Comments Urine Blood (test code = 40708-4) TRACE NEGATIVE H [facility] HospitalCHEST SINGLE (PORTABLE)2019-02-06 13:51:00 [place] [address] Patient Name: YEYO BYRNE MR #: [id number] : 1940 Age/Sex: 78/F Req #: [id number] Adm Physician: Ordered by: HIMANSHU LARSON MD Report #: [id number] Location: ER Room/Bed: Procedure: [id number] DX/CHEST SINGLE (PORTABLE) Exam Date: 02/06/19 Exam Time: 1350 REPORT STATUS: Signed EXAMINATION: CHEST SINGLE (PORTABLE) COMPARISON: None INDICATION: CHEST PAIN [id number] Y DISCUSSION: Frontal view of the chest obtained at 1341 hours. HEART AND MEDIASTINUM: The cardiomediast inal silhouette is unremarkable. LINES: None. LUNGS: The lungs are well inflated and clear. No pneumonia or pulmonary edema. PLEURA: No pleu ral effusion or pneumothorax. BONES AND SOFT TISSUES: No focal osseous les ion. The soft tissues are normal. IMPRESSION: No acute cardiopulmonary d isease. Signed by: Dr. Maegan Be MD on 02/06/2019 1:53 PM Dic tated By: MAEGAN BE MD 1353 COPY TO: HIMANSHU LARSON MD Magnesium Fpssv6664-36-46 14:19:00* Test Item Value Reference Range Interpretation Comments Magnesium Level (test code = 06404-8) 1.9 1.3-2.1 [facility] Cnbcz4245-30-41 14:15:00* Test Item Value Reference Range Interpretation Comments Sodium Level (test code = 2951-2) 138 136-145 [facility] HospitalPotassium Evmdp0792-63-88 14:15:00* Test Item Value Reference Range Interpretation Comments Potassium Level (test code = 2823-3) 3.9 3.5-5.1 [facility] HospitalChloride Swltn7273-81-67 14:15:00* Test Item Value Reference Range Interpretation Comments Chloride Level (test code = 2075-0) 102 98-107 [facility] HospitalCarbon Dioxide Yjaqg0499-59-34 14:15:00* Test Item Value Reference Range Interpretation Comments Carbon Dioxide Level (test code = 2028-9) 27 22-29 [facility] HospitalAnion Ufm9348-57-87 14:15:00* Test Item Value Reference Range Interpretation Comments Anion Gap (test code = 30465-4) 12.9 8-16 [facility] HospitalBlood Urea Qtnrlfiy5476-42-22 14:15:00* Test Item Value Reference Range Interpretation Comments Blood Urea Nitrogen (test code = 3094-0) 12 7-26 [facility] HospitalCreatinine2019-04-02 14:15:00* Test Item Value Reference Range Interpretation Comments Creatinine (test code = 2160-0) 0.78 0.57-1.11 [facility] HospitalBUN/Creatinine Xorex9719-05-65 14:15:00* Test Item Value Reference Range Interpretation Comments BUN/Creatinine Ratio (test code = 3097-3) 15 6-25 [facility] HospitalEstimat Glomerular Filtration Rate 2018-10-05 14:15:00* Test Item Value Reference Range Interpretation Comments Estimat Glomerular Filtration Rate (test code = 640968972) > 60 >60 Ranges were taken from the National Kidney Disease Education Program and the [facility] Kidney Foundation literature.Reference ranges:60 or greater: Vmjqmf77-60 ( for 3 consecutive months): Chronic kidney disease 15 or less: Kidney failureHouston Methodist HospitalGlucose Cykwl4812-00-58 14:15:00* Test Item Value Reference Range Interpretation Comments Glucose Level (test code = CHS9876) 109 74-118 [facility] HospitalCalcium Czxnc6091-62-00 14:15:00* Test Item Value Reference Range Interpretation Comments Calcium Level (test code = 33429-7) 10.1 8.4-10.2 [facility] HospitalTotal Uwlewnymk5320-80-04 14:15:00* Test Item Value Reference Range Interpretation Comments Total Bilirubin (test code = 1975-2) 0.5 0.2-1.2 [facility] HospitalAspartate Amino Transf (AST/SGOT) 2018-10-05 14:15:00* Test Item Value Reference Range Interpretation Comments Aspartate Amino Transf (AST/SGOT) (test code = Aspartate Amino Transf (AST/SGOT)) 36 5-34 H [facility] HospitalAlanine Aminotransferase (ALT/SGPT) 2018-10-05 14:15:00* Test Item Value Reference Range Interpretation Comments Alanine Aminotransferase (ALT/SGPT) (test code = 1742-6) 25 0-55 [facility] HospitalTotal Frzqkru8442-78-96 14:15:00* Test Item Value Reference Range Interpretation Comments Total Protein (test code = 2885-2) 8.4 6.5-8.1 H [facility] HospitalAlbumin2019-04-02 14:15:00* Test Item Value Reference Range Interpretation Comments Albumin (test code = 1751-7) 3.7 3.5-5.0 [facility] HospitalGlobulin2019-04-02 14:15:00* Test Item Value Reference Range Interpretation Comments Globulin (test code = 23483-4) 4.7 2.3-3.5 H [facility] HospitalAlbumin/Globulin Ygnhn8515-40-70 14:15:00 * Test Item Value Reference Range Interpretation Comments Albumin/Globulin Ratio (test code = 1759-0) 0.8 0.8-2.0 [facility] HospitalAlkaline Jcjyuljitjm8153-18-76 14:15:00* Test Item Value Reference Range Interpretation Comments Alkaline Phosphatase (test code = 6768-6) 97 40-150 [facility] HospitalCT BRAIN WZ1036-88-70 14:09:00 [facility] [address] [address] Patient Name: YEYO BYRNE MR #: [id number] : 1940 Age/Sex: 77/F Req #: [id number] Adm Physician: Ordered by: MIGUEL ÁNGEL PHELAN [employer] Report #: [id number] Location: ER Room/Bed: Procedure: CT/CT BRAIN WO Exam Date: 10/05/18 Exam Time: 135 0 REPORT STATUS: Signed Exam: He ad CT without contrast History: Severe headache, lip numbness, healing and fi nger, hypertension, diabetes Comparison studies: None Technique: Axi al images were obtained from the skull base to the vertex. Coronal and sagitta l images reconstructed from the axial data. Dose modulation, iterative recons truction, and/or weight based adjustment of the mA/kV was utilized to reduce t he radiation dose to as low as reasonably achievable. Radiation dose: Total DLP: 832 mGy*cm. Estimated effective dose: DLP x 0.015 Intravenous contrast: None Findings: Scalp: No abnormalities. Bones: No fractur es, blastic or lytic lesions. Brain sulci: Appropriate for age. Ventricle s: Normal in size and configuration. No hydrocephalus. Extra-axial spaces: No masses, no fluid collection. Parenchyma: No mass, acute hemorrhage or a cute cortical vascular insults. A few scattered hypodensities in the supratent orial white matter are nonspecific but most compatible with chronic small vess el ischemic changes. Sellar/suprasellar region: No abnormalities. [employer] Furnace Tender niocervical junction: Patent foramen magnum. No Chiari one malformation. In cidental findings: Atherosclerotic calcifications in the carotid siphons. 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 IM PRESSION: No acute intracranial abnormalities. Chronic findings: 1. Mild generalized volume loss. 2. Mild microvascular ischemic changes. Signed by: Dr. Inés Onofre M.D. on 10/05/2018 2:12 PM Dictated By: INÉS ONOFRE MD 1412 Tr anscribed By: VANITA on 10/05/18 1412 COPY TO: MIGUEL ÁNGEL PHELAN NP White Blood Xwyir4829-65-75 14:00:00* Test Item Value Reference Range Interpretation Comments White Blood Count (test code = 6690-2) 8.52 4.8-10.8 [facility] HospitalRed Blood Rhrzq1086-52-41 14:00:00* Test Item Value Reference Range Interpretation Comments Red Blood Count (test code = 789-8) 4.35 3.6-5.1 [facility] HospitalHemoglobin2019-04-02 14:00:00* Test Item Value Reference Range Interpretation Comments Hemoglobin (test code = 67828-5) 13.9 12.0-16.0 [facility] HospitalHematocrit2019-04-02 14:00:00* Test Item Value Reference Range Interpretation Comments Hematocrit (test code = 4544-3) 41.0 34.2-44.1 [facility] HospitalMean Corpuscular Qulcau0712-88-21 14:00:00* Test Item Value Reference Range Interpretation Comments Mean Corpuscular Volume (test code = 787-2) 94.3 81-99 [facility] HospitalMean Corpuscular Zlkotlcmqv5014-59-16 14:00:00* Test Item Value Reference Range Interpretation Comments Mean Corpuscular Hemoglobin (test code = 785-6) 32.0 28-32 [facility] Hem[facility] Concent 2018-10-05 14:00:00* Test Item Value Reference Range Interpretation Comments Mean Corpuscular Hemoglobin Concent (test code = 786-4) 33.9 31-35 [facility] HospitalRed Cell Distribution Bhhly7676-18-65 14:00:00* Test Item Value Reference Range Interpretation Comments Red Cell Distribution Width (test code = 44961-7) 13.6 11.7 -14.4 [facility] HospitalPlatelet Nesne2070-54-83 14:00:00* Test Item Value Reference Range Interpretation Comments Platelet Count (test code = 777-3) 94 140-360 L [facility] HospitalNeutrophils (%) (Auto)2018-10-05 14:00:00 * Test Item Value Reference Range Interpretation Comments Neutrophils (%) (Auto) (test code = 91121-8) 71.7 38.7-80.0 [facility] HospitalLymphocytes (%) (Auto)2018-10-05 14:00:00 * Test Item Value Reference Range Interpretation Comments Lymphocytes (%) (Auto) (test code = 736-9) 18.8 18.0-39.1 [facility] HospitalMonocytes (%) (Auto)2018-10-05 14:00:00* Test Item Value Reference Range Interpretation Comments Monocytes (%) (Auto) (test code = 5905-5) 7.2 4.4-11.3 [facility] HospitalEosinophils (%) (Auto)2018-10-05 14:00:00 * Test Item Value Reference Range Interpretation Comments Eosinophils (%) (Auto) (test code = 713-8) 1.6 0.0-6.0 [facility] HospitalBasophils (%) (Auto)2018-10-05 14:00:00* Test Item Value Reference Range Interpretation Comments Basophils (%) (Auto) (test code = 706-2) 0.6 0.0-1.0 [facility] HospitalIM GRANULOCYTES %2018-10-05 14:00:00* Test Item Value Reference Range Interpretation Comments IM GRANULOCYTES % (test code = IM GRANULOCYTES %) 0.1 0.0- 1.0 [facility] HospitalNeutrophils # (Auto)2018-10-05 14:00:00* Test Item Value Reference Range Interpretation Comments Neutrophils # (Auto) (test code = 751-8) 6.1 2.1-6.9 [facility] HospitalLymphocytes # (Auto)2018-10-05 14:00:00* Test Item Value Reference Range Interpretation Comments Lymphocytes # (Auto) (test code = 05130-9) 1.6 1.0-3.2 [facility] HospitalMonocytes # (Auto)2018-10-05 14:00:00* Test Item Value Reference Range Interpretation Comments Monocytes # (Auto) (test code = 742-7) 0.6 0.2-0.8 [facility] HospitalEosinophils # (Auto)2018-10-05 14:00:00* Test Item Value Reference Range Interpretation Comments Eosinophils # (Auto) (test code = 711-2) 0.1 0.0-0.4 [facility] HospitalBasophils # (Auto)2018-10-05 14:00:00* Test Item Value Reference Range Interpretation Comments Basophils # (Auto) (test code = 704-7) 0.1 0.0-0.1 [facility] HospitalAbsolute Immature Granulocyte (auto 2018-10-05 14:00:00* Test Item Value Reference Range Interpretation Comments Absolute Immature Granulocyte (auto (nikhil t code = Absolute Immature Granulocyte (auto) 0.01 0-0.1 [facility] HospitalCHEM CFJTY7124-79-00 21:35:00* Test Item Value Reference Range Interpretation Comments A/G Ratio (test code = A/G Ratio) 0.8 1 0.7-1.6 [facility] QLCZF2166-14-67 21:35:004.9[facility]annCHEM PANEL 2018-05-06 21:35:000.2[facility]annCHEM JILQG1920-51-98 21:35:000.2[facility]annCHEM CNSOV9403-62-66 21:35:000.4[facility]annCHEM KXPJB1486-46-01 21:35:84995Fhogbwdc HermannCHEM ZZKRZ7652-50-60 21:35:003.7[facility]annCHEM JOLNC8971-34-84 21:35:0036[facility]annCHEM BBITR9176-72-35 21:35:008.6 [facility]annCHE[facility] YOYQJ1998-26-11 21:35:0040[facility]annCHEM PANEL 2018-05-06 21:35:0061[facility]annCHEM UPKOE6798-28-35 21:35:44244Byanklkr [facility]annCHEM MLHHK8109-58-88 21:35:000.91[facility]annCHEM EEWWC4017-18-21 21:35:0013[facility]annCHEM KCHLC8146-25-66 21:35:36859Cnyyyhci HermannCHEM VRFBG7128-59-73 21:35:0028[facility]annCHEM ABNCS9255-28-82 21:35:13086 [facility]CHE[facility] MQNLQ3017-22-35 21:35:003.7[facility]annCHEM PANEL 2018-05-06 21:35:009.0[facility]annCHEM ETDSD5857-93-08 21:35:0014.7[facility] HchwgdzRVTLUYQOHB0950-74-95 21:35:005.3[facility] KnzsnxeMYLYFHHGTS5721-28-88 21:35:000.4[facility] QgusvamNYYWFQXVME0445-92-82 21:35:001.8[facility] UZLTQPCJWQ6675-07-87 21:35:007.1[facility] FkubomoMSWRZPYVVC0979-23-20 21:35:001.6 [facility] TnylrllVFDHMCOXMI7945-05-50 21:35:0076.0[facility]annHEMATOLOGY 2018-05-06 21:35:0016.5[facility] MmagktqXHLOSVGQKW0687-10-24 21:35:000.5[facility] DfyonecIBBSOOFLHJ3499-51-82 21:35:000.2[facility] HnidlnzCOOHPQGQNT2997-58-72 21:35:00* Test Item Value Reference Range Interpretation Comments INR (test code = INR) 1.15 1 0.85-1.17 [facility] GpyntbdZQIPFTIXXH9290-34-94 21:35:00* Test Item Value Reference Range Interpretation Comments PT (test code = PT) 14.7 s 12.0-14.7 [facility] GqtmsvxHUHUYOUXIG3175-82-98 21:35:91650Aftftdim [facility]annHEMATOLOGY 2018-05-06 21:35:0042.5[facility] PuzttllVJWHTVGHVH2417-98-80 21:35:00* Test Item Value Reference Range Interpretation Comments MCH (test code = MCH) 32.7 pg 27.0-31.0 [facility] TeqpknfKUSFMYHEYG4742-06-73 21:35:0095.0[facility]annHEMATOLOGY 2018-05-06 21:35:0034.4[facility] AbbclcaWQMNNHTDFY8777-93-70 21:35:0014.0[facility] DibbzbuKKWWDZFXJR3901-43-05 21:35:007.9[facility] DfxpfttUPXFQHCOYJ3962-21-47 21:35:009.4[facility] IrgkcwfXIRTTQVQBJ4100-12-12 21:35:0014.6[facility] Diogo ZNAJSZXBWY3822-17-28 21:35:004.47[facility] VrtbastKMZUUVBVXO6989-11-21 21:35:00 Positive *NA*(05/06/18 4:35 PM)[facility] AwlejprQMEXPZZYHB7664-30-47 21:35:00<3.1 [facility] CxqsyvwOMJHNOILKX1140-17-86 21:35:009176Tjbdhdwf HermannLIPIDS 2018-05-06 21:35:00* Test Item Value Reference Range Interpretation Comments VLDL (test code = VLDL) 43 1 [facility] WzelikvOFOSGN5519-20-45 21:35:0044[facility] WxdlqstDGQJEY1338-36-92 21:35:96478Qmkcrjfx KyxgkgtEKDSGQ6314-74-18 21:35:0038[facility] HermannLIPIDS 2018-05-06 21:35:54622Aipumkoe FujbcagTKQUEN3689-36-46 21:35:00* Test Item Value Reference Range Interpretation Comments CHD Risk (test code = CHD Risk) 3.29 1 3.90-5.80 [facility]annSPECIAL UKCQENIKC6097-86-62 21:35:007.0[facility] HermannTUMOR XJOEWQL8920-41-55 21:35:004.7[facility]annURINE AND HUQUV7448-56-31 07:30:18 Performed (02/08/14 2:30 AM)[facility]UR[facility] AND EUSWN6267-51-74 07:30:18 Negative (02/08/14 2:30 AM)[facility]annUR[facility] AND BFQEO2913-92-51 07:30:18 Negative (02/08/14 2:30 AM)[facility] AND KYTRC3267-80-67 07:30:18 Yellow *NA*(02/08/14 2:30 AM)[facility] AND NOSFF3175-90-93 07:30:18 Clear (02/08/14 2:30 AM)[facility]annUR[facility] AND CSYWX6100-03-49 07:30:18* Test Item Value Reference Range Interpretation Comments UA Spec Grav (test code = UA Spec Grav) 1.025 1 [facility] [id number] 07:30:18* Test Item Value Reference Range Interpretation Comments UA pH (test code = UA pH) 5.5 1 5.0-8.0 [facility] [id number] 07:30:18Negative *NA*(02/08/14 2:30 AM) [facility] [id number] 07:30:180.2[facility] [id number] 07:30:18Negative (02/08/14 2:30 AM)[facility]
== END 2020-05-24 14:57 | disposition home or self-care (01) ==
LOC: ER 14:50
DX: S00.412A Abrasion of left ear, initial encounter (principal); W22.8XXA Striking against or struck by other objects, initial encounter; Y93.E8 Activity, other personal hygiene; Y92.008 Other place in unspecified non-institutional (private) residence as the place of occurrence of the external cause; I10 Essential (primary) hypertension; E11.9 Type 2 diabetes mellitus without complications; K21.9 Gastro-esophageal reflux disease without esophagitis; K76.9 Liver disease, unspecified; F31.9 Bipolar disorder, unspecified
CPT/HCPCS: 99283

== ENCOUNTER 2020-05-30 21:40 | Emergency (ER) | payer MEDICARE, OTHER ==
[~2020-05-30] VITALS: Ht 162.6 cm; Wt 95.3 kg
--- OUTSIDE RECORDS SUMMARY | 2020-05-30 21:51 | XMS REPORT | Clinical Summary ---
Author [facility] Address Unknown Phone Unavailable Care Team Providers Care Student Nurse Name Role Phone Girish Holt MD PCP [...] Not on file Results Not on fileafter 05/30/2019 Insurance Type Payer Benefit Subscriber ID Effective Phone Address Plan / Dates Group Medicare MEDICARE MEDICARE A [id number] [id number] B resent Other Govt (, [place], [facility], etc.) [id number] 2011 -Present
--- OUTSIDE RECORDS SUMMARY | 2020-05-30 21:51 | XMS REPORT | Continuity of Care Document ---
Author Author [employer] YEYO Ness Organization [facility] Address Unknown Phone Unavailable Care Team Providers Care Client Services Account Manager Name Role Phone [employer] Unavailable Un available Problems Problem Status Onset Date Classification Date Reported Comments Source K74.60 / R10.98 Active 12/28/2019 [facility] CHEST PAIN/SOB/VOMITING Active 12/11/2019 [facility] HYPONATREMIA, HYPOKALEMIA, VOMITING Active 11/21/2019 [facility] Abnormal results of liver function studies 06/29/2018 01/10/2019 [facility], JENNI Ramirez NEW PT CONSULT Active 04/02/2018 [facility] R10.9 - UNSPECIFIED ABDOMINAL PAIN Active 03/29/2018 [facility] Encounter for screening for malignant neoplasm of colo n 02/12/2018 08/18/2018 [facility] Other specified abnormal findings of blood chemistry 01/24/2018 08/08/2018 [facility] D[facility] UNK Active 0 01/11/2018 [facility] M79.644 - PAIN IN RIGHT FINGER(S) Active 12/26/2016 [facility] Discharge Diagnosis: Vaginal bleeding 02/08/2014 02/11/2014 [facility] ABDOMINAL PAIN Active 02/07/2014 [facility] Clostridium difficile (organism) Active 09/21/2010 Problem 01/05/2020 Problem added by Discern Expert. [facility] JENNI Ramirez ,[facility] OPID Kennan Nonalcoholic steatohepatitis (YODER) 01/10/2019 [facility] D[facility] Cholesterolosis of gallbladder 01/10/2019 [facility] D[facility] Cyst of pancreas 01/10/2019 [facility] D[facility] Bipolar (qualifier value) Acti ve Problem 03/2014 [facility] Type 2 diabetes mellitus without complications 11/23/2018 [facility] Morbid (severe) obesity due to excess calories 11/23/2018 [facility] Body mass index (BMI) 33.0-33.9, adult 11/23/2018 [facility] Chronic obstructive pulmonary disease, unspecified 11/23/2018 [facility] Essential (primary) hypertension 11/23/2018 [facility], [facility] Obstructive sleep apnea (adult) (pediatric) 11/23/2018 [facility] Bipolar disorder, unspecified 11/23/2018 [facility] Benign neoplasm of ascending colon 08/18/2018 [facility] Benign neoplasm of cecum 08/18/2018 [facility] Benign neoplasm of transverse colon 08/18/2018 [facility] Gastro-esophageal reflux disease without esophagitis 08/18/2018 [facility] Diaphragmatic hernia without obstruction or gangrene 08/18/2018 [facility] Obesity, unspecified 08/18/2018 [facility] Primary adrenocortical insufficiency 08/18/2018 [facility] outpatient case manager (current) use of oral hypoglycemic drugs 08/18/2018 [facility] Personal history of nicotine dependence 08/18/2018 [facility] Unspecified osteoarthritis, unspecified site 08/18/2018 [facility] Body mass index (BMI) 35.0-35.9, adult 08/18/2018 [facility] [place]'s disease (disorder) R esolved Problem 08/2019 [facility], O PID Dutton, Giselle Anemia (disorder) Active Problem 01/05/2020 [facility], O PID Dutton,[facility], JENNI Kennan Arthritis (disorder) Active Problem 01/05/2020 [facility], O PID Dutton,[facility], [facility] Kennan Asthma (disorder) Active Problem 01/05/2020 [facility], O PID Dutton,[facility], OP[facility] Kennan Bipolar disorder (disorder) Re solved Problem 08/2019 [facility], O PID Dutton, Giselle Bronchitis (disorder) Active Problem 01/05/2020 [facility], O PID Dutton,[facility], OP[facility] Kennan Chronic obstructive lung disease (disorder) Active Problem 01/05/2020 [facility], OPID Dutton,[facility], OPID Kennan Diabetes mellitus (disorder) A ctive Problem 08/2019 [facility], O PID Dutton,[facility], OP[facility] Kennan Hypertensive disorder, systemic arterial (disorder) Active Problem 01/05/2020 [facility], OPID Dutton,[facility] Pain (finding) Active Problem 01/05/2020 [facility], O PID Dutton,[facility] Simple obesity (disorder) Acti ve Problem 08/2019 [facility] PID Dutton,[facility] Sleep apnea (finding) Active Problem 01/05/2020 [facility] PID Dutton,[facility] Urinary tract infectious disease (disorder) Active Problem 01/05/2020 [facility], OPID Dutton,[facility] Hypo-osmolality and hyponatremia 11/27/2019 [facility] Cirrhosis of liver (disorder) Active Problem 08/2019 [facility] ENCNTR FOR GENERAL ADULT MEDICAL EXAM W/ Active [facility] HYPO-OSMOLALITY AND HYPONATREMIA Active [facility] HYPOKALEMIA Active [facility] VOMITING, UNSPECIFIED Active [facility] UNSPECIFIED CIRRHOSIS OF LIVER Active [facility] Medications Medication Details Route Status Patient Instructions Ordering Provider Order Date Source ondansetron 4 mg oral tablet 4 mg = 1 tab, PO, Q8H, PRN Nausea & Vomiting, # 15 tab, 0 Refill(s), Pharmacy: [id number] Active 12/13/2019 [facility] atorvastatin Notes: (Same As: Lipitor) No Longer Active 12/13/2019 [facility] Saline Flush 0.9% Notes: (Same as: BD Posiflush) No Longer Active 12/12/2019 [facility] ARIPiprazole Notes: (Same as: Abilify) No Longer Active 12/12/2019 [facility] Aspirin Notes: Do not crush or chew. (Same As: Ecotrin) No Longer Active 12/12/2019 [facility] Fluoxetine Notes: (Same as: Pr ozac) No Longer Active 12/12/2019 [facility] Lisinopril Notes: (Same as: Pr inivil, Zestril) No Longer Active 12/12/2019 [facility] NIFEdipine 60 mg oral tablet, extended release Notes: (Same as: Adalat CC, Procardia XL) Give on empty stomach. Take 1 hour before or 2 hours after meal; "Avoid grapefruit and grapefruit juice". Do not crush No Longer Active 12/12/2019 [facility] Omeprazole 40 mg, 1 cap, Route : PO, Drug form: DRC, Daily, Dosing Weight 91.818, kg, Start date: 12/12/19 9:00:00 CDT, Duration: 30 day, Stop date: 01/10/20 9:00:00 CDT No Longer Active 12/12/2019 [facility] Protonix Notes: Tablet should not be chewed or crushed. (Same as: Protonix) No Longer Active 12/12/2019 [facility] Lovenox Notes: (Same as: Loven ox) No Longer Active 12/12/2019 [facility] Al hydroxide/Mg hydroxide/simethicone Notes: (aluminum hydroxide-magnesium hyd-simethicone [id number]/5ml 30 ml ud JOSE E) Inactive 12/12/2019 [facility] Xylocaine Viscous 2% mucous membrane solution Notes: (Same as: Xylocaine) Inactive 12/12/2019 [facility] GI cocktail (aluminum hydroxide/magnesiu m hydroxide/lidocaine/simethicone) 45 ml, Route: PO, Drug Form: SUSP, Dosin g Weight 91.818, kg, ONCE, Routine, Start date: 12/11/19 22:43:00 CDT, Stop date: 12/11/19 22:43:00 CDT Inactive 12/12/2019 [facility] Dextrose 50% Syringe (D50W) 12 .5 gm, 25 mL, Route: IVP, Drug Form: INJ, Dosing Weight 91.818, kg, PRN, PRN Blood Glucose Results, Start date: 12/11/19 22:22:00 CDT, Duration: 30 day, Stop date: 01/10/20 22:21:00 CDT, 0 No Longer Active 12/12/2019 [facility] Glucagon 1 mg, Route: IM, Drug form: PDR/INJ, PRN, Dosing Weight 91.818, kg, PRN Blood Glucose Results, Start date: 12/11/19 22:22:00 CDT, Duration: 30 day, Stop date: 01/10/20 22:21:00 CDT, 0 No Longer Active 12/12/2019 [facility] Insulin Lispro Notes: (Same as : Humalog) Roll in palms of hands gently; Do not shake vigorously. WASTE: F/P - Black; E - Municipal Trash Bin Stable for 28 days at room temperature. Expires in days from Date No Longer Active 12/12/2019 [facility] Zofran Notes: (Same as: Zofran ) MEDICATION WASTE Product Size: 4 mg Product Wasted: ___ mg No Longer Active 12/12/2019 [facility] tizanidine Notes: (Same As: Za naflex) No Longer Active 12/12/2019 [facility] Nitroglycerin Notes: (Same as: Nitroquick, Nitrostat) "Do Not Crush" Sublingual tablet No Longer Active 12/12/2019 [facility] Morphine Notes: (Same as:MORPh ine Sulfate) No Longer Active 12/12/2019 [facility] Acetaminophen Notes: Do not ex ceed 4 gm/day. (Same as: Tylenol) No Longer Active 12/12/2019 [facility] Ondansetron Notes: (Same as: Alfonzo kuo) No Longer Active 12/12/2019 [facility] Saline Flush 0.9% Notes: (Same as: BD Posiflush) No Longer Active 12/12/2019 [facility] atorvastatin 20 mg oral tablet 20 mg = 1 tab, PO, Bedtime, # 30 tab, 0 Refill(s) Active 12/12/2019 [facility] Thiamine Notes: (Same As: Alva min B1) No Longer Active 11/24/2019 [facility] Lisinopril Notes: (Same as: Pr inivil, Zestril) No Longer Active 11/24/2019 [facility] Mucinex Notes: (Same as: Guaif enesin LA, Humibid LA, Mucinex) "Do Not Crush" Take medication with plenty of water. No Longer Active 11/24/2019 [facility] Aspirin Notes: Do not crush or chew. (Same As: Ecotrin) No Longer Active 11/23/2019 [facility] Folic Acid Notes: (Same as: Fo lvite) No Longer Active 11/23/2019 [facility] Potassium Chloride Notes: ([place] e as: K-Dur 20) "Do Not Crush" Give with food and full glass of water For patients unable to swallow tablet, dissolve in one half glass of water. Allow about 2 minutes for the tab lets to disintegrate. Stir before giving to prepare slurry and administer. Please exclude Patients with feeding tube less than 14 Arabic (Dobhoff, J-tube etc) and pediatric and patients. No Longer Active 11/23/2019 [facility] potassium phosphate-sodium phosphate 250 mg-280 mg-160 mg oral powder for reconstitution Notes: (Same as: Phos-NaK) Each 1.5 gm pkt has 250mg phosphorous. Mix w/2.5oz water and stir. No Longer Active 11/23/2019 [facility] potassium phosphate Notes: (Sa me as: K Phosphate.) Do not infuse phosphorous concurrently in the same line as TPN or IVF that contains calcium. For double lumen central lines, phosphorous may be infused in a separate lumen from TPN. 1 mMol phoshate has 1.47 mEq potassium Infuse over 4 hours No Longer Active 11/23/2019 [facility] sodium phosphate Notes: Infuse over 4 hour. Do not infuse phosphorous concurrently in the same line as TPN or IVF that contains calcium. For double lumen central lines, phosphorous may be infused in a separate lumen from TPN. No Longer Active 11/23/2019 [facility] Magnesium Sulfate Notes: WASTE : F/P - Sink; E - Municipal Trash Bin No Longer Active 11/23/2019 [facility] Magnesium Oxide Notes: (Same a s: Mag-Ox 400) Magnesium oxide [id number] elemental magnesium Dose=____mg magnesium oxide (___mg elemental magnesium) No Longer Active 11/23/2019 [facility] Calcium Gluconate Notes: WASTE : F/P - Sink; E - Municipal Trash Bin No Longer Active 11/23/2019 [facility] heparin sodium, porcine 2500 UNT/ML Injectable Solutio n Notes: porcine heparin No Longer Active 11/23/2019 [facility] Aspirin 81, PO, Daily, 0 Refil l(s) Active 11/22/2019 [facility] NIFEdipine 60 mg oral tablet, extended release 60 mg = 1 tab, PO, Daily, # 30 tab, 0 Refill(s) Active 11/22/2019 [facility] NS (Bolus) IV 500 mL, 500 ml/h r, Infuse Over: 1 hr, Route: IV, 500, Drug form: INJ, ONCE, Priority: STAT, Dosing Weight 94.659 kg, Start date: 11/22/19 16:51:00 CDT, Stop date: 11/22/19 16:51:00 CDT, 0 Inactive 11/22/2019 [facility] Folic Acid Notes: (Same as: Fo lvite) No Longer Active 11/22/2019 [facility] Thiamine Notes: (Same As: Alva min B1) No Longer Active 11/22/2019 [facility] Sodium Chloride 1000 MG Oral Tablet 2 gm, 2 tab, Route: PO, Drug form: TAB, TID, Dosing Weight 94.659, kg, Start date: 11/21/19 23:45:00 CDT, Duration: 30 day, Stop date: 12/21/19 17:00:00 CDT, 0 No Longer Active 11/22/2019 [facility] Potassium Chloride Notes: ([facility] e as: K-Dur 20) "Do Not Crush" Give with food and full glass of water For patients unable to swallow tablet, dissolve in one half glass of water. Allow about 2 minutes for the tab lets to disintegrate. Stir before giving to prepare slurry and administer. Please exclude Patients with feeding tube less than 14 Arabic (Dobhoff, J-tube etc) and pediatric and patients. No Longer Active 11/22/2019 [facility] potassium phosphate-sodium phosphate 250 mg-280 mg-160 mg oral powder for reconstitution Notes: (Same as: Phos-NaK) Each 1.5 gm pkt has 250mg phosphorous. Mix w/2.5oz water and stir. No Longer Active 11/22/2019 [facility] potassium phosphate Notes: ([facility] as: K Phosphate.) Do not infuse phosphorous concurrently in the same line as TPN or IVF that contains calcium. For double lumen central lines, phosphorous may be infused in a separate lumen from TPN. 1 mMol phoshate has 1.47 mEq potassium Infuse over 4 hours No Longer Active 11/22/2019 [facility] sodium phosphate Notes: Infuse over 4 hour. Do not infuse phosphorous concurrently in the same line as TPN or IVF that contains calcium. For double lumen central lines, phosphorous may be infused in a separate lumen from TPN. No Longer Active 11/22/2019 [facility] Magnesium Sulfate Notes: WASTE : F/P - Sink; E - Municipal Trash Bin No Longer Active 11/22/2019 [facility] Magnesium Oxide Notes: (Same a s: Mag-Ox 400) Magnesium oxide [id number] elemental magnesium Dose=____mg magnesium oxide (___mg elemental magnesium) No Longer Active 11/22/2019 [facility] Calcium Gluconate Notes: WASTE : F/P - Sink; E - Municipal Trash Bin No Longer Active 11/22/2019 [facility] Please update HT/WT/allergy Please update HT/WT/allergy, Please update in ADHOC, Drug form: MISC, Route: MISC, Q15Min, 11/21/19 21:45:00 CDT, Duration: 30 day, Stop date: 12/21/19 21:30:00 CDT, 0 Inactive 11/22/2019 [facility] Dextrose 50% Syringe (D50W) 12 .5 gm, 25 mL, Route: IVP, Drug Form: INJ, Dosing Weight 89.182, kg, PRN, PRN Blood Glucose Results, Start date: 11/21/19 21:38:00 CDT, Duration: 30 day, Stop date: 12/21/19 21:37:00 CDT, 0 No Longer Active 11/22/2019 [facility] Glucagon 1 mg, Route: IM, Drug form: PDR/INJ, PRN, Dosing Weight 89.182, kg, PRN Blood Glucose Results, Start date: 11/21/19 21:38:00 CDT, Duration: 30 day, Stop date: 12/21/19 21:37:00 CDT, 0 No Longer Active 11/22/2019 [facility] Insulin Lispro Notes: (Same as : Humalog) Roll in palms of hands gently; Do not shake vigorously. WASTE: F/P - Black; E - Municipal Trash Bin Stable for 28 days at room temperature. Expires in days from Date No Longer Active 11/22/2019 [facility] Dextrose 50% Syringe (D50W) 25 mL, Route: IVP, Dosing Weight 89.182, kg, PRN, PRN Blood Glucose Results, Start date: 11/21/19 21:35:00 CDT, Duration: 30 day, Stop date: 12/21/19 21:34:00 CDT Inactive 11/22/2019 [facility] Glucagon 1 mg, Route: IM, PRN, Dosing Weight 89.182, kg, PRN Blood Glucose Results, Start date: 11/21/19 21:35:00 CDT, Duration: 30 day, Stop date: 12/21/19 21:34:00 CDT Inactive 11/22/2019 [facility] Acetaminophen Notes: Do not ex ceed 4 gm/day. (Same as: Tylenol) No Longer Active 11/22/2019 [facility] Zofran Notes: (Same as: Zofran ) MEDICATION WASTE Product Size: 4 mg Product Wasted: ___ mg No Longer Active 11/22/2019 [facility] Hair, Skin & Nails 5 mg =, PO, Daily, 0 Refill(s) Active 05/06/2018 [facility] multivitamin Daily, 0 Refill(s) Active 05/06/2018 [facility] lisinopril 20 mg oral tablet 2 0 mg = 1 tab, PO, Daily, 0 Refill(s) Active 05/06/2018 [facility] omeprazole 40 mg oral delayed release capsule 40 mg = 1 cap, PO, Daily, 0 Refill(s) Active 05/06/2018 [facility] nter ARIPiprazole 5 mg, PO, 0 Refil l(s) Active 05/06/2018 [facility] Fluoxetine 10 mg, PO, Daily, 0 Refill(s) Active 05/06/2018 [facility] Multiple Vitamins oral tablet 1 tab, PO, Daily, # 30 tab, 0 Refill(s) Active 01/29/2018 [facility] Mucinex 600 mg, PO, Q12H, 0 Re fill(s) Active 01/29/2018 [facility] Albuterol 0.833 MG/ML / Ipratropium Brom zee 0.167 MG/ML Inhalant Solution 3 mL, Route: NEB, Dosing Weight 94.545, kg, ONCE, STAT, Start date: 01/29/18 8:18:00 CDT, Stop date: 01/29/18 8:18:00 CDT Inactive 01/29/2018 [facility] Sodium Chloride 0.9% IV 500 mL 500 mL, Rate: 25 ml/hr, Infuse over: 20 hr, Route: IV, Dosing Weight 94.545 kg, Total Volume: 500, Start date: 01/29/18 8:18:00 CDT, Duration: 30 day, Stop date: 02/28/18 8:17:00 CDT, 2.1, m2 Inactive 01/29/2018 [facility] lisinopril 10 mg oral tablet 1 0 mg = 1 tab, PO, Daily, # 30 tab, 0 Refill(s) Active 01/28/2018 [facility] Metformin hydrochloride 500 MG Oral Tablet 500 mg = 1 tab, PO, BID-Meals, # 30 tab, 0 Refill(s) Active 01/28/2018 [facility] Allergies, Adverse Reactions, Alerts Substance Category Reaction Severity Reaction type Status Date Reported Comments Source sulfa drugs Assertion Drug allergy Active [facility] Immunizations Immunization Date Given Site Status Last Updated Comments Source pneumococcal 23-valent vaccine 04/16/2009 Right arm completed Johnson [facility], JENNI Ramirez,[facility], JENNI Jean Results Order Name Results Value Reference Range Date Interpretation Comments Source CHEM PANEL Glucose Lvl 139 70 - 99 12/13/2019 [facility] CHEM PANEL BUN 13 7 - 22 12/13/2019 [facility] CHEM PANEL Creatinine Lvl 0.85 0.50 - 1.40 12/13/2019 [facility] CHEM PANEL Sodium Lvl 132 135 - 145 12/13/2019 [facility] CHEM PANEL Potassium Lvl 4.0 3.5 - 5.1 12/13/2019 [facility] CHEM PANEL Chloride Lvl 99 95 - 109 12/13/2019 [facility] CHEM PANEL CO2 29 24 - 32 12/13/2019 [facility] CHEM PANEL Calcium Lvl 9.0 8.5 - 10.5 12/13/2019 [facility] CHEM PANEL Total Protein 7.6 6.4 - 8.4 12/13/2019 [facility] CHEM PANEL Albumin Lvl 3.4 3.5 - 5.0 12/13/2019 [facility] CHEM PANEL ALT 50 0 - 65 12/13/2019 [facility] CHEM PANEL AST 61 0 - 37 12/13/2019 [facility] CHEM PANEL Alk Phos 81 39 - 136 12/13/2019 [facility] CHEM PANEL Bili Total 0.4 0.2 - 1.3 12/13/2019 [facility] CHEM PANEL AGAP 8.0 10.0 - 20.0 12/13/2019 [facility] CHEM PANEL B/C Ratio 15 6 - 25 12/13/2019 [facility] CHEM PANEL Globulin 4.2 2.7 - 4.2 12/13/2019 [facility] CHEM PANEL A/G Ratio 0.8 0.7 - 1.6 12/13/2019 [facility] CHEM PANEL eGFR 66 12/13/2019 Result Comment: [...] should be multiplied by the estimated BMI. [facility] HEMATOLOGY WBC 7.8 3.7 - 10.4 12/13/2019 [facility] HEMATOLOGY RBC 4.13 4.20 - 5.40 12/13/2019 [facility] Hgb 13.0 12.0 - 16.0 12/13/2019 [facility] HEMATOLOGY Hct 38.4 36.0 - 48.0 12/13/2019 [facility] MCV 92.9 80.0 - 98.0 12/13/2019 [facility] MCH 31.4 27.0 - 31.0 12/13/2019 [facility] MCHC 33.8 32.0 - 36.0 12/13/2019 [facility] RDW 13.8 11.5 - 14.5 12/13/2019 [facility] Platelet 141 133 - 450 12/13/2019 [facility] MPV 7.9 7.4 - 10.4 12/13/2019 [facility] CARDIAC ENZYMES Troponin-I <0.02 0.00 - 0.40 12/12/2019 [facility] CHEM PANEL Ammonia 13.0 <=45.0 uMol/L 12/12/2019 [facility] HEMATOLOGY D-Dimer 0.63 12/12/2019 [facility] CARDIAC ENZYMES Troponin-I <0.02 0.00 - 0.40 12/12/2019 [facility] CHEM PANEL Glucose Lvl 119 70 - [...] Bili Direct 0.2 0.0 - 0.3 12/12/2019 [facility] CHEM PANEL Globulin 4.1 2.7 - 4.2 12/12/2019 [facility] CHEM PANEL A/G Ratio 0.9 0.7 - 1.6 12/12/2019 [facility] CHEM PANEL Bili Indirect 0.3 0.0 - 1.0 12/12/2019 [facility] HEMATOLOGY WBC 10.3 3.7 - 10.4 12/12/2019 [facility] HEMATOLOGY RBC 4.10 4.20 - 5.40 12/12/2019 [facility] HEMATOLOGY Hgb 13.0 12.0 - 16.0 12/12/2019 [facility] HEMATOLOGY Hct 37.8 36.0 - 48.0 12/12/2019 [facility] HEMATOLOGY MCV 92.2 80.0 - 98.0 12/12/2019 [facility] HEMATOLOGY MCH 31.6 27.0 - 31.0 12/12/2019 [facility] MCHC 34.3 32.0 - 36.0 12/12/2019 [facility] HEMATOLOGY RDW 14.2 11.5 - 14.5 12/12/2019 [facility] HEMATOLOGY Platelet 161 133 - 450 12/12/2019 [facility] HEMATOLOGY MPV 7.6 7.4 - 10.4 12/12/2019 [facility] HEMATOLOGY Segs 65.7 45.0 - 75.0 12/12/2019 [facility] HEMATOLOGY Lymphocytes 24.7 20.0 - 40.0 12/12/2019 [facility] HEMATOLOGY Monocytes 8.1 2.0 - 12.0 12/12/2019 [facility] HEMATOLOGY Eosinophils 1.0 0.0 - 4.0 12/12/2019 [facility] HEMATOLOGY Basophils 0.5 0.0 - 1.0 12/12/2019 [facility] HEMATOLOGY Neutrophils # 6.8 1.5 - 8.1 12/12/2019 [facility] HEMATOLOGY Lymphocytes # 2.5 1.0 - 5.5 12/12/2019 [facility] HEMATOLOGY Monocytes # 0.8 0.0 - 0.8 12/12/2019 [facility] HEMATOLOGY Eosinophils # 0.1 0.0 - 0.5 12/12/2019 [facility] HEMATOLOGY Basophils # 0.1 0.0 - 0.2 12/12/2019 [facility] CARDIAC ENZYMES Troponin-I <0.02 0.00 - 0.40 12/12/2019 [facility] CHEM PANEL Lipase Lvl 196 73 - [...] Chloride Lvl 103 95 - 109 11/24/2019 [facility] CHEM PANEL CO2 28 24 - 32 11/24/2019 [facility] CHEM PANEL Calcium Lvl 8.8 8.5 - 10.5 11/24/2019 [facility] CHEM PANEL AGAP 9.9 10.0 - 20.0 11/24/2019 [facility] CHEM PANEL eGFR 71 11/24/2019 Result Comment: [...] should be multiplied by the estimated BMI. [facility] CHEM PANEL Magnesium Lvl 2.2 1.8 - 2.4 11/24/2019 [facility] CHEM PANEL Phosphorus 2.0 2.5 - 4.5 11/24/2019 [facility] HEMATOLOGY WBC 7.6 3.7 - 10.4 11/24/2019 [facility] HEMATOLOGY RBC 4.17 4.20 - 5.40 11/24/2019 [facility] Hgb 13.2 12.0 - 16.0 11/24/2019 [facility] HEMATOLOGY Hct 37.8 36.0 - 48.0 11/24/2019 [facility] HEMATOLOGY MCV 90.7 80.0 - 98.0 11/24/2019 [facility] HEMATOLOGY MCH 31.7 27.0 - 31.0 11/24/2019 [facility] HEMATOLOGY MCHC 34.9 32.0 - 36.0 11/24/2019 [facility] RDW 13.6 11.5 - 14.5 11/24/2019 [facility] Platelet 110 133 - 450 11/24/2019 [facility] MPV 7.0 7.4 - 10.4 11/24/2019 [facility] Segs 70.2 45.0 - 75.0 11/24/2019 [facility] HEMATOLOGY Lymphocytes 19.6 20.0 - 40.0 11/24/2019 [facility] HEMATOLOGY Monocytes 8.5 2.0 - 12.0 11/24/2019 [facility] HEMATOLOGY Eosinophils 1.4 0.0 - 4.0 11/24/2019 [facility] HEMATOLOGY Basophils 0.3 0.0 - 1.0 11/24/2019 [facility] HEMATOLOGY Neutrophils # 5.4 1.5 - 8.1 11/24/2019 [facility] HEMATOLOGY Lymphocytes # 1.5 1.0 - 5.5 11/24/2019 [facility] HEMATOLOGY Monocytes # 0.7 0.0 - 0.8 11/24/2019 [facility] HEMATOLOGY Eosinophils # 0.1 0.0 - 0.5 11/24/2019 [facility] CHEM PANEL Glucose Lvl 112 70 - 99 11/23/2019 [facility] CHEM PANEL BUN 15 7 - 22 11/23/2019 [facility] CHEM PANEL Creatinine Lvl 0.84 0.50 - 1.40 11/23/2019 [facility] CHEM PANEL Sodium Lvl 134 135 - 145 11/23/2019 [facility] CHEM PANEL Potassium Lvl 3.5 3.5 - 5.1 11/23/2019 [facility] CHEM PANEL Chloride Lvl 98 95 - 109 11/23/2019 [facility] CHEM PANEL CO2 28 24 - 32 11/23/2019 [facility] CHEM PANEL AGAP 11.5 10.0 - 20.0 11/23/2019 [facility] CHEM PANEL Calcium Lvl 8.9 8.5 - 10.5 11/23/2019 [facility] CHEM PANEL eGFR 67 11/23/2019 Result Comment: [...] should be multiplied by the estimated BMI. [facility] CHEM PANEL Magnesium Lvl 2.4 1.8 - 2.4 11/23/2019 [facility] CHEM PANEL Phosphorus 1.8 2.5 - 4.5 11/23/2019 [facility] URINE AND STOOL UA Turbidity Clear (11/22/19 5:02 AM) Clear 11/22/2019 [facility] URINE AND STOOL UA Spec Grav 1.005 <=1.030 11/22/2019 [facility] URINE AND STOOL UA pH 6.0 5.0 - 8.0 11/22/2019 [facility] URINE AND STOOL UA Protein Negative mg/dL Negative mg/dL 11/22/[address] [facility] [address] URINE AND STOOL UA Glucose Negative mg/dL Negative mg/dL 11/22/[address] [facility] [address] URINE AND STOOL UA Ketones Negative mg/dL Negative mg/dL 11/22/[address] [facility] [address] URINE AND STOOL UA Bili Negative *NA* (11/22/19 5:02 AM) Negative 11/22/2019 [facility] URINE AND STOOL UA Blood Small *ABN* [...] Urobilinogen <=1.0 mg/dL 0.1 - 1.0 11/22/2019 [facility] URINE CHEM U Osmolality 159 300 - 800 11/22/2019 [facility] URINE CHEM U Sodium 10 11/22/2019 [facility] URINE CHEM U Creatinine 31.50 11/22/2019 [facility] URINE CHEM U Potassium 7.1 11/22/2019 [facility] CHEM PANEL Osmolality 244 280 - 300 11/22/2019 [facility] CHEM PANEL A/G Ratio 0.8 0.7 - 1.6 05/06/2018 [facility] CHEM PANEL Globulin 4.9 2.7 - 4.2 05/06/2018 [facility] CHEM PANEL Bili Indirect 0.2 0.0 - 1.0 05/06/2018 [facility] CHEM PANEL Bili Direct 0.2 0.0 - 0.3 05/06/2018 [facility] CHEM PANEL Bili Total 0.4 0.2 - 1.3 05/06/2018 [facility] CHEM PANEL Alk Phos 104 39 - 136 05/06/2018 [facility] CHEM PANEL Albumin Lvl 3.7 3.5 - 5.0 05/06/2018 [facility] CHEM PANEL ALT 36 0 - 65 05/06/2018 [facility] CHEM PANEL Total Protein 8.6 6.4 - 8.4 05/06/2018 [facility] CHEM PANEL AST 40 0 - 37 05/06/2018 [facility] CHEM PANEL eGFR 61 05/06/2018 Result Comment: [...] should be multiplied by the estimated BMI. [facility] CHEM PANEL Sodium Lvl 140 135 - 145 05/06/2018 [facility] CHEM PANEL Creatinine Lvl 0.91 0.50 - 1.40 05/06/2018 [facility] CHEM PANEL BUN 13 7 - 22 05/06/2018 [facility] CHEM PANEL Glucose Lvl 149 70 - 99 05/06/2018 [facility] CHEM PANEL CO2 28 24 - 32 05/06/2018 [facility] CHEM PANEL Chloride Lvl 101 95 - 109 05/06/2018 [facility] CHEM PANEL Potassium Lvl 3.7 3.5 - 5.1 05/06/2018 [facility] CHEM PANEL Calcium Lvl 9.0 8.5 - 10.5 05/06/2018 [facility] CHEM PANEL AGAP 14.7 10.0 - 20.0 05/06/2018 [facility] HEMATOLOGY Monocytes 5.3 2.0 - 12.0 05/06/2018 [facility] HEMATOLOGY Basophils 0.4 0.0 - 1.0 05/06/2018 [facility] HEMATOLOGY Eosinophils 1.8 0.0 - 4.0 05/06/2018 [facility] HEMATOLOGY Neutrophils # 7.1 1.5 - 8.1 05/06/2018 [facility] HEMATOLOGY Lymphocytes # 1.6 1.0 - 5.5 05/06/2018 [facility] HEMATOLOGY Segs 76.0 45.0 - 75.0 05/06/2018 [facility] HEMATOLOGY Lymphocytes 16.5 20.0 - 40.0 05/06/2018 [facility] HEMATOLOGY Monocytes # 0.5 0.0 - 0.8 05/06/2018 [facility] HEMATOLOGY Eosinophils # 0.2 0.0 - 0.5 05/06/2018 [facility] HEMATOLOGY INR 1.15 0.85 - 1.17 05/06/2018 [facility] HEMATOLOGY PT 14.7 12.0 - 14.7 05/06/2018 [facility] HEMATOLOGY Platelet 134 133 - 450 05/06/2018 [facility] HEMATOLOGY Hct 42.5 36.0 - 48.0 05/06/2018 [facility] HEMATOLOGY MCH 32.7 27.0 - 31.0 05/06/2018 [facility] HEMATOLOGY MCV 95.0 80.0 - 98.0 05/06/2018 [facility] HEMATOLOGY MCHC 34.4 32.0 - 36.0 05/06/2018 [facility] HEMATOLOGY RDW 14.0 11.5 - 14.5 05/06/2018 [facility] HEMATOLOGY MPV 7.9 7.4 - 10.4 05/06/2018 [facility] HEMATOLOGY WBC 9.4 3.7 - 10.4 05/06/2018 [facility] HEMATOLOGY Hgb 14.6 12.0 - 16.0 05/06/2018 [facility] HEMATOLOGY RBC 4.47 4.20 - 5.40 05/06/2018 [facility] IMMUNOLOGY Hep A Tot Posit marcio *NA* (05/06/18 4:35 PM) Negative 05/06/2018 [facility] IMMUNOLOGY Hep Bs Ab <3.1 <=7.4 mIU/mL 05/06/2018 [facility] IMMUNOLOGY IgG Lvl 1510 694 - 1618 05/06/2018 [facility] LIPIDS VLDL 43 05/06/2018 [facility] LIPIDS LDL (Calculated) 44 <=99 mg/dL 05/06/2018 [facility] LIPIDS Chol 125 <=199 mg/dL 05/06/2018 [facility] LIPIDS HDL 38 >=61 mg/dL 05/06/2018 [facility] LIPIDS Trig 216 <=149 mg/dL 05/06/2018 [facility] LIPIDS CHD Risk 3.29 3.90 - 5.80 05/06/2018 [facility] SPECIAL CHEMISTRY Hgb A1C 7.0 <=5.6 % 05/06/2018 [facility] TUMOR MARKERS AFP 4.7 0.0 - 11.0 05/06/2018 [facility] URINE AND STOOL Micro? Performed (02/08/14 2:30 AM) 02/08/2014 [facility] URINE AND STOOL UA Sq Epi Occasional /LPF Few /LPF 02/08/2014 [facility] URINE AND STOOL UA WBC 6-10 /HPF None Seen /HPF 02/08/2014 [facility] URINE AND STOOL UA RBC 0-2 /HPF 0 - 2 02/08/2014 [facility] URINE AND STOOL UA Nitrite Negative (02/08/14 2:30 AM) Negative 02/08/2014 [facility] URINE AND STOOL UA Leuk Est Negative (02/08/14 2:30 AM) Negative 02/08/2014 [facility] URINE AND STOOL UA Color Yellow *NA* (02/08/14 2:30 AM) Yellow 02/08/2014 [facility] URINE AND STOOL UA Turbidity Clear (02/08/14 2:30 AM) Clear 02/08/2014 [facility] URINE AND STOOL UA Spec Grav 1.025 <=1.030 02/08/2014 [facility] URINE AND STOOL UA Protein Negative mg/dL Negative mg/dL 02/08/2014 [facility] URINE AND STOOL UA pH 5.5 5.0 - 8.0 02/08/2014 [facility] URINE AND STOOL UA Glucose Negative mg/dL Negative mg/dL 02/08/2014 [facility] URINE AND STOOL UA Ketones Negative mg/dL Negative mg/dL 02/08/2014 [facility] URINE AND STOOL UA Bili Negative *NA* (02/08/14 2:30 AM) Negative 02/08/2014 [facility] URINE AND STOOL UA Urobilinogen 0.2 0.1 - 1.0 02/08/2014 [facility] URINE AND STOOL UA Blood Negative (02/08/14 2:30 AM) Negative 02/08/2014 [facility] Pathology Reports No Data Provided for This Section Diagnostic Reports Report Value Date Source Gallbladder scan JACQUES stokes [place] PROCEDURE INFORMATION: Exam: NM Hepatobiliary Including Gallbladder [...] cholecystitis. Artem Mcgregor MD On 01/03/2020 12:42:56; [id number] 01/03/2020 [facility] Abdomen complete US PROCEDURE INFORMATION: Exam: US [...] imaging. Michel Mackay DO On 01/03/2020 10:25:03; [id number] 01/03/2020 [facility] Cardiac SPECT multi studies NM EXAM: Cardiac [...] was normal without regional wall motion abnormalities. [id number] 12/12/2019 [facility] Abdomen RUQ US PROCEDURE INFOR MATION: Exam: [...] cholecystitis. Gabriel Garcia MD On 12/12/2019 07:13:26; [id number] 12/12/2019 [facility] Chest 1view DX PROCEDURE INFOR MATION: Exam: [...] findings. Preeti Knox MD On 11/24/2019 15:31:11; [id number] 11/24/2019 [facility] Liver US EXAM: US ABDOMEN LIVE R [...] findings on recent CT scan. 06/22/2018 [facility] Abdomen complete US EXAM: US A BDOMEN [...] rather than a simple cyst. 01/19/2018 [facility] Hand 2 views DX EXAM: XR RIGHT [...] degenerative changes. 3. Diffuse osteopenia. 12/26/2016 [facility] Consultation Notes No Data Provided for This Section Discharge Summaries No Data Provided for This Section History and Physicals No Data Provided for This Section Vital Signs Vital Sign Value Date Comments Source Temperature Oral (F) 98.3 F 12/13/2019 [facility] Heart Rate 76 12/13/2019 [facility] Respitory Rate 18 12/13/2019 [facility] Systolic (mm Hg) 131 12/13/2019 [facility] Diastolic (mm Hg) 59 12/13/2019 [facility] Temperature Oral (F) 98.1 F 12/13/2019 [facility] Heart Rate 71 12/13/2019 [facility] Respitory Rate 20 12/13/2019 [facility] Systolic (mm Hg) 141 12/13/2019 [facility] Diastolic (mm Hg) 61 12/13/2019 [facility] Temperature Oral (F) 98 F 12/13/2019 [facility] Heart Rate 74 12/13/2019 [facility] Respitory Rate 18 12/13/2019 [facility] Systolic (mm Hg) 141 12/13/2019 [facility] Diastolic (mm Hg) 68 12/13/2019 [facility] BMI Calculated 34.75 12/12/2019 [facility] Height 162.56 cm 12/12/2019 [facility] Weight 91.818 12/12/2019 [facility] BMI Calculated 34.75 12/12/2019 [facility] Heart Rate 68 11/25/2019 [facility] Systolic (mm Hg) 155 11/25/2019 [facility] Diastolic (mm Hg) 71 11/25/2019 [facility] Temperature Oral (F) 98.5 F 11/25/2019 [facility] Temperature Oral (F) 98.2 F 11/25/2019 [facility] Heart Rate 69 11/25/2019 [facility] Systolic (mm Hg) 162 11/25/2019 [facility] Diastolic (mm Hg) 65 11/25/2019 [facility] Temperature Oral (F) 98.4 F 11/24/2019 [facility] Heart Rate 78 11/24/2019 [facility] Systolic (mm Hg) 143 11/24/2019 [facility] Diastolic (mm Hg) 54 11/24/2019 [facility] Respitory Rate 17 11/23/2019 [facility] Respitory Rate 22 11/23/2019 [facility] Respitory Rate 19 11/23/2019 [facility] Height 162.56 cm 11/22/2019 [facility] Weight 94.659 11/22/2019 [facility] BMI Calculated 35.82 11/22/2019 [facility] Height 162.56 cm 05/06/2018 [facility] BMI Calculated 33.75 05/06/2018 [facility] Weight 89.182 05/06/2018 [facility] Respitory Rate 16 05/06/2018 [facility] Heart Rate 90 05/06/2018 [facility] Systolic (mm Hg) 173 05/06/2018 [facility] Diastolic (mm Hg) 79 05/06/2018 [facility] Systolic (mm Hg) 138 01/29/2018 [facility] Diastolic (mm Hg) 79 01/29/2018 [facility] Respitory Rate 19 01/29/2018 [facility] Respitory Rate 15 01/29/2018 [facility] Systolic (mm Hg) 142 01/29/2018 [facility] Diastolic (mm Hg) 80 01/29/2018 [facility] Systolic (mm Hg) 113 01/29/2018 [facility] Diastolic (mm Hg) 64 01/29/2018 [facility] Respitory Rate 17 01/29/2018 [facility] Weight 94.545 01/28/2018 [facility] Height 162.56 cm 01/28/2018 [facility] BMI Calculated 35.78 01/28/2018 [facility] Temperature Oral (F) 98.3 F 02/08/2014 [facility] Heart Rate 87 02/08/2014 [facility] Systolic (mm Hg) 166 02/08/2014 [facility] Diastolic (mm Hg) 78 02/08/2014 [facility] Respitory Rate 18 02/08/2014 [facility] Temperature Oral (F) 98.3 F 02/08/2014 [facility] Systolic (mm Hg) 169 02/08/2014 [facility] Heart Rate 90 02/08/2014 [facility] Respitory Rate 18 02/08/2014 [facility] Diastolic (mm Hg) 69 02/08/2014 [facility] Heart Rate 94 02/08/2014 [facility] Respitory Rate 18 02/08/2014 [facility] Temperature Oral (F) 98.0 F 02/08/2014 [facility] Diastolic (mm Hg) 77 02/08/2014 [facility] Systolic (mm Hg) 153 02/08/2014 [facility] Weight 86.364 02/07/2014 [facility] BMI Calculated 32.68 02/07/2014 [facility] Height 162.56 cm 02/07/2014 [facility] Encounters Location Location Details Encounter Type Encounter Number Reason For Visit Attending Provider ADM Date DC Date Status Source [facility] [id number] Cristian Spencerz 02/07/2014 02/08/2014 [facility] [id number] Arben Olson 01/08/2018 01/09/2018 [facility] [id number] Wale Foster 01/19/2018 01/20/2018 [facility] Bedded Outpatient [id number] Arben Olson 01/29/2018 01/29/2018 [facility] [id number] Gunnar Block 05/06/2018 05/07/2018 [facility] [place] [id number] Gunnar Block 06/22/2018 06/23/2018 [facility] Inpatient [id number] Jesus Manuel Movva 11/22/2019 11/25/2019 [facility] Observation [id number] Melania Delgado 12/12/2019 12/13/2019 [facility] Outpatient [id number] Arben Olson 01/03/2020 01/04/2020 [facility] Procedures Procedure Code Date Perfomer Comments Source section [id number] [facility] [id number] [facility] [place],[facility] Assessment and Plan Assessment and Plan Date [...] drugs. Family History: Notable for mother with [place]. Allergies: See EMR. Medications: Please see medication [...] exam lovenox observation, anticipate 1 midnight 12/13/2019 [facility] Extracted from:Title: Clinical Document Author: Halina Lackey MD Date: 11/25/19 Pulmonary and Critical Care Progress Note [facility] Sujective/overnight events: Patient seen and [...] patient indicated to have prior history of [place] disease, unclear as to diagnosis and treatment. Patient transferred to ICU for further management. Review of systems: 14 point review of systems negative exce pt as per HPI Allergies Allergies (1) Active Reaction sulfa drugs None documented Procedure History section Knee joint operation Past Medical History Bipolar disorder DM (diabetes mellitus) HTN (hypertension) Arthritis [place] disease Family History Father: Alcoholism; Type 2 [...] 24hr Tot 0 0 0 CCL error: %GGD-F-272-SMT_EDOC_COMMON(0,0,56)416016:0037Overflow on array out of bound at (size:1,occur:10). CCL error: %SSU-J-115-SMT_EDOC_COMMON(0,0,56)[id number]:0037Overflow on array out of bound at (size:1,occur:5). CCL error: %AXP-R-111-SMT_EDOC_COMMON(0,0,56)149455:0037Overflow on array out of bound at (size:1,occur:5). CCL error: %RAF-V-408-SMT_EDOC_COMMON(0,0,56)993167:0037Overflow on array out of bound at (size:1,occur:7). CCL error: %KGC-O-104-SMT_EDOC_COMMON(0,0,56)534584:0037Overflow on array out of bound at (size:1,occur:2). 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 1.Hyponatremia(E87.1) Sodium 115. [...] an outpatient [facility] when stable 11/25/2019 [facility] Plan of Care No Data Provided for [...] Cessation Counseling No entered on: 05/06/18 01/28/2018 [facility] No data available for this section 01/09/2018 [facility] Family History No Data Provided for This Section Advance Directives No Data Provided for This Section Functional Status No Data Provided for This Section
--- OUTSIDE RECORDS SUMMARY | 2020-05-30 21:52 | XMS REPORT | Continuity of Care Document ---
Author Author [facility] t Organization [facility] Address [address] [place] [address] Phone Unavailable Care Team Providers Care Maintenance Person Name Role Phone NONSTAFF PCP Unavailable Esme Olson Attphys Alison Delgado Attphys Movva, Jesus Manuel Attphys Vance LARSON Attphys Unavailable Shaun SOSA Attphys Unavailable Germán Lindquist Attphys Sorin Olson Attphys Baltazar Foster Attphys Hever Jeff Attphys Alison Delgado Admphys Movva, Jesus Manuel Admphys Payers Payer Name Policy Type Policy Number Effective Date Expiration Date Melia Floyd Ppo [id number] 2016 00:00:00 [facility] Medicare A & B [id number] 1998 00:00:00 [facility] Problems Condition Name Condition Details Condition Category Status Onset Date Resolution Date Last Treatment Date Treating Clinician Comments Source K74.60 / R10.98 K74. 60 / R10.98 Active 12/28/2019 [facility] Active 2019-12-28 00:00:00 2020-01-03 13:29:00 Fatou Lind CHEST PAIN/SOB/VOMITING CHES T PAIN/SOB/VOMITING Active 12/11/2019 [facility] Active 2019-12-11 18:55:00 2019-12-29 12:23:00 Fatou Lind HYPONATREMIA, HYPOKALEMIA, VOMITING HYPONATREMIA, HYPOKALEMIA, VOMITING Active 11/21/2019 [facility] Diagnosis Ac tive 2019-11-21 00:00:00 2019-11-30 22:01:00 M hermes Lind NEW PT CONSULT NEW PT CONSULT Active 04/02/2018 [facility] Diagnosis Active 2018-04-02 00:00:00 2018-05-06 1 4:30:00 Fatou Lind R10.9 - UNSPECIFIED ABDOMINAL PAIN R10.9 - UNSPECIFIED ABDOMINAL PAIN Active 03/29/2018 [facility] Active 2018-03-29 00:01:00 2018-10-04 17:36:00 [facility] UNK UNK Active 01/11/2018 [facility] Diagnosis Active 2018-01-11 00:00:00 2018-01-29 06:42:00 M hermes Lind M79.644 - PAIN IN RIGHT FINGER(S) M79.644 - PAIN IN RIGHT FINGER(S) Active 12/26/2016 [facility] Active 2016-12-26 00:01:00 2017-01-01 18:39:00 Fatou Lind Family history of colon cancer Family history of colon cancer Disea se Active 2014-09-14 00:00:00 [facility] Constipation Constipation Disease Active 2014-09-14 00:00:00 Overview: History of colon spasm [facility] History of colonic polyps History of colonic polyps Disease Ac tive 2014-09-14 00:00:00 Overview: Dr. Ry Anderson - (not for many years) [facility] Fatty liver Fatty liver Disease Active 2014-09-14 00:00:00 [facility] Osteoarthritis Osteoarthritis Disease Active 2014-09-14 00:00:00 Overview: Left knee TKR, now some edema and loss of feeling. [facility] Leg edema Leg edema Disease Active 2014-09-14 00:00:00 [facility] Peripheral neuropathy Peripheral neuropathy Disease Active 201 11-06-11 00:00:00 Overview: Likely DM, numbness in hand, tingling in legs [facility] Hypokalemia Hypokalemia Disease Active 2014-05-28 00:00:00 [facility] Hypomagnesemia Hypomagnesemia Disease Active 2014-05-28 00:00:00 [facility] Hyponatremia Hyponatremia Disease Active 2014-05-28 00:00:00 [facility] ABDOMINAL PAIN ABDO MILLER PAIN Active 02/07/2014 [facility] Diagnosis Active 2014-02-07 00:00:00 2014-02-08 0 2:55:00 [facility] Clostridium difficile (organism) Clostridium difficile (organism) Active 09/21/2010 Problem 01/05/2020 Problem added by Discern Expert. 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 01/10/2019 [facility] [place] Problem 11:42:02 Fatou Lind Cyst of pancreas Cyst of pancreas 01/10/2019 JENNI Ramirez Problem 2019-01-10 11:42:02 Fatou Lind Type 2 diabetes mellitus without complications Type 2 diabetes mellitus without complications 11/23/2018 [facility] Problem 2018-11-23 12:47:47 Urban Lind Morbid (severe) obesity due to excess calories Morbid (severe) obesity due to excess calories 11/23/2018 [facility] Problem 2018-11-23 12:47:47 [facility] Body mass index (BMI) 33.0-33.9, adult Body mass index (BMI) 33.0-33.9, adult 11/23/2018 [facility] Problem 2018-11-23 12:47:47 Fatou Lind Chronic obstructive pulmonary disease, unspecified Chronic obstructive pulmonary disease, unspecified 11/23/2018 [facility] Problem 2018-11-23 12:47:47 Urban Lind Essential (primary) hypertension Essential (primary) hypertension 11/23/2018 [facility] Problem 2018-11-23 12:47:47 [facility] Obstructive sleep apnea (adult) (pediatric) Obstructive sleep apnea (adult) (pediatric) 11/23/2018 [facility] Problem 2018-11-23 12:47:[address] [facility] baron Bipolar disorder, unspecified Bipolar disorder, unspecified 11/23/2018 [facility] Problem 2018-11-23 12:47:47 [facility] Benign neoplasm of ascending colon Benign neoplasm of ascending colon 08/18/2018 [facility] 13:04:54 [facility] Benign neoplasm of cecum Ruslan gn neoplasm of cecum 08/18/2018 [facility] 2018-08-18 13:04:54 [facility] Benign neoplasm of transverse colon Benign neoplasm of transverse colon 08/18/2018 [facility] 2018-08 13:04:54 [facility] Gastro-esophageal reflux disease without esophagitis Gastro-esophageal reflux disease without esophagitis 08/18/2018 [facility] 2018-08-18 13:04:54 [facility] Diaphragmatic hernia without obstruction or gangrene Diaphragmatic hernia without obstruction or gangrene 08/18/2018 [facility] 2018-08-18 13:04:54 [facility] Obesity, unspecified Obes ity, unspecified 08/18/2018 [facility] 2018-08-18 13:04:54 [facility] 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 08/18/2018 [facility] 2018-08-18 13:04:54 [facility] 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) use of oral hypoglycemic drugs 08/18/2018 [facility] 2018-08-18 13:04:54 [facility] Personal history of nicotine dependence Personal history of nicotine dependence 08/18/2018 [facility] 2018-08-18 13:04:54 [facility] Unspecified osteoarthritis, unspecified site Unspecified osteoarthritis, unspecified site 08/18/2018 [facility] 2018-08-18 13:04:54 [facility] Body mass index (BMI) 35.0-35.9, adult Body mass index (BMI) 35.0-35.9, adult 08/18/2018 [facility] Problem 2018-08-18 13:04:54 [facility] Hypo-osmolality and hyponatremia Hypo-osmolality and hyponatremia 11/27/2019 [facility] Problem 2019-11-27 21:26:54 Fatou Lind 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) Resolved Problem 01/05/2020 [facility], JENNI Ramirez,[facility] Problem Resolved 2020-01-05 23:15:16 M hermes Lind Bipolar disorder (disorder) Bi polar disorder (disorder) Resolved Problem 01/05/2020 [facility], JENNI Ramirez,[facility] Problem Resolved 2020-01-05 23:15:16 Tamar orilina Lind Bipolar (qualifier value) Bipo lar (qualifier value) Active Problem 02/11/2014 [facility] Problem Active 2014-02-11 01:32:05 [facility] Anemia (disorder) Anem ia (disorder) Active Problem 01/05/2020 [facility], JENNI Ramirez,[facility], OPID [place] Problem Active 2020-01-05 23:15:16 [facility] Arthritis (disorder) Arth ritis (disorder) Active Problem 01/05/2020 [facility], JENNI Ramirez,[facility], [facility] [place] Problem Active 2020-01-05 23:15:16 Urban Lind Asthma (disorder) Asth ma (disorder) Active Problem 01/05/2020 [facility], JENNI Ramirez,[facility], [facility] [place] Problem Active 2020-01-05 23:15:16 [facility] Bronchitis (disorder) Bron chitis (disorder) Active Problem 01/05/2020 [facility], JENNI Ramirez,[facility], [facility] [place] Problem Active 2020-01-05 23:15:16 Urban Lind Chronic obstructive lung disease (disorder) Chronic obstructive lung disease (disorder) Active Problem 01/05/2020 [facility], JENNI Ramirez,[facility], [facility] [place] Problem Active 2020-01-05 23:15:16 [facility] Diabetes mellitus (disorder) D iabetes mellitus (disorder) Active Problem 01/05/2020 [facility], [facility] [place],[facility], [facility] [place] Problem Active 2020-01-05 23:15:16 Fatou Lind Hypertensive disorder, systemic arterial (disorder) Hypertensive disorder, systemic arterial (disorder) Active Problem 01/05/2020 [facility], [facility] [place],[facility], [facility] [place] Problem Active 2020-01-05 23:15:16 Fatou Lind Pain (finding) Pain (finding) Active Problem 01/05/2020 [facility] [place],[facility], [facility] [place] Problem Active 2020-01-05 23:15:16 Fatou Lind Simple obesity (disorder) Simp le obesity (disorder) Active Problem 01/05/2020 [facility], [facility] [place],[facility] Problem Active 2020-01-05 23:15:16 Fatou Lind Sleep apnea (finding) Slee p apnea (finding) Active Problem 01/05/2020 [facility], [place]ENNI [place],[facility], [facility] [place] Problem Active 2020-01-05 23:15:16 Urban Lind Urinary tract infectious disease (disorder) Urinary tract infectious disease (disorder) Active Problem 01/05/2020 [facility], [place],[facility], [facility] [place] Problem Active 2020-01-05 23:15:16 Fatou Lind Cirrhosis of liver (disorder) Cirrhosis of liver (disorder) Active Problem 01/05/2020 [facility] Problem Active 2020-01-05 23:15:16 Fatou Lind ENCNTR FOR GENERAL ADULT MEDICAL EXAM W/ ENCNTR FOR GENERAL ADULT MEDICAL EXAM W/ Active [facility] Diagnosis Act marcio 2018-05-06 14:30:00 Fatou baron HYPO-OSMOLALITY AND HYPONATREMIA HYPO-OSMOLALITY AND HYPONATREMIA Active [facility] Active 2019-11-30 22 :01:00 Fatou Lind HYPOKALEMIA HYPO KALEMIA Active [facility] Active 2019-11-30 22:01:00 Katherine Lind VOMITING, UNSPECIFIED VOMI TING, UNSPECIFIED Active [facility] Active 2019-11-30 22:01:00 N[place] morial [facility] UNSPECIFIED CIRRHOSIS OF LIVER UNSPECIFIED CIRRHOSIS OF LIVER Active [facility] Active 2020-01-03 13:29 :00 [facility] Abnormal results of liver function studies Abnormal results of liver function studies 06/29/2018 01/10/2019 [facility],ALLAN Ramirez Problem 2018-06-29 05:11:55 2019-01-10 11:42:02 2019-01-10 11:42:02 [facility] Encounter for screening for malignant neoplasm of colo n Encounter for screening for malignant neoplasm of colon 02/12/2018 08/18/2018 [facility] Problem 2018-02-12 03:27:31 2018-08-18 13:04:54 2018-08 13:04:54 [facility] Other specified abnormal findings of blood chemistry Other specified abnormal findings of blood chemistry 01/24/2018 08/08/2018 ALLAN Ramirez Problem 2018-01-24 03:02:26 2018-08-08 12:58:53 2018-08-08 12:58:53 [facility] Discharge Diagnosis: Vaginal bleeding Discharge Diagnosis: Vaginal bleeding 02/08/2014 02/11/2014 [facility] Problem 2014-02-08 05:00:00 2014-02-11 01:32:05 2014-02-11 01:32:05 [facility] Allergies, Adverse Reactions, Alerts Allergy Name Allergy Type Status Severity Reaction(s) Onset Date Inacti ve Date Treating Clinician Comments Source Sulfa (Sulfonamide Antibiotics) Allergy to substance Active 2019-02-07 00:00:00 [facility] Sulfa (Sulfonamide Antibiotics) Propensity to adverse reactions Activ e 2014-05-28 00:00:00 [facility] sulfa drugs sulfa drugs Active [facility] Social History Social Habit Start Date Stop Date Quantity Comments Source Sex Assigned At [facility] Social History 2018-01-09 04:59:00 2018-01-09 04:59:00 [facility] Alcohol intake 2015-11-05 00:00:00 2015-11-05 00:00:00 [facility] use 1999-06-06 00:00:00 Current smoker [facility] Smoking Status Start Date Stop Date Source Former smoker 2015-11-05 00:00:00 2015-11-05 00:00:00 [facility] Medications Ordered Medication Name Filled Medication Name Start Date Stop Da te Current Medication? Ordering Clinician Indication Dosage Frequency Signature (SIG) Comments Components Source ondansetron 4 mg oral tablet 2019-12-13 19:54:00 Yes 4 mg = 1 tab, PO, Q8H, PRN Nausea & Vomiting, # 15 tab, 0 Refill(s), Pharmacy: [id number] atorvastatin 2019-12-13 02:00:00 No Notes: (Same As: Lipitor) [facility] Saline Flush 0.9% 2019-12-12 14:00:00 No Notes: (Same as: BD Posiflush) [facility] ARIPiprazole 2019-12-12 14:00:00 No Notes: (Same as: Abilify) [facility] Aspirin 2019-12-12 14:00:00 No Notes: Do not crush or chew. (Same As: Ecotrin) [facility] Fluoxetine 2019-12-12 14:00:00 No Notes: (S alexi as: Prozac) [facility] Lisinopril 2019-12-12 14:00:00 No Notes: (Same as: Prinivil, Zestril) [facility] NIFEdipine 60 mg oral tablet, extended release 2019-12-12 14:00: 00 No Notes: (Same as: Adalat CC, Procardia XL ) Give on empty stomach. Take 1 hour before or 2 hours after meal; "Avoid grapefruit and grapefruit juice". Do not crush [facility] Omeprazole 2019-12-12 14:00:00 No 40 mg, 1 cap, Route: PO, Drug form: DRC, Daily, Dosing Weight 91.818, kg, Start date: 12/12/19 9:00:00 CDT, Duration: 30 day, Stop date: 01/10/20 9:00:00 CDT [facility] Protonix 2019-12-12 04:00:00 No Notes: Tablet should not be chewed or crushed. (Same as: Protonix) [facility] Lovenox 2019-12-12 04:00:00 No Notes: (Same as: Lovenox) [facility] Al hydroxide/Mg hydroxide/simethicone 2019-12-12 03:51:00 N o Notes: (aluminum hydroxide-magnesium hyd-simethicone [id number]/5ml 30 ml ud JOSE E) Fatou Lind Xylocaine Viscous 2% mucous membrane solution 2019-12-12 03:51:0 0 No Notes: (Same as: Xylocaine) Urban Lind GI cocktail (aluminum hydroxide/magnesium hydroxide/lidocain e/simethicone) 2019-12-12 [...] Stop date: 01/10/20 22:21:00 CDT, 0 Fatou Lind Insulin Lispro 2019-12-12 03:22:00 No Notes: (Same as: Humalog) Roll in palms of hands gently; Do not shake vigorously. WASTE: F/P - Black; E - Municipal Trash Bin Stable for 28 days at room temperature. Expires in days from Date Fatou meza Zofran 2019-12-12 03:21:00 No Notes: (Same as: Angle) MEDICATION WASTE Product Size: 4 mg Product Wasted: ___ mg [facility] tizanidine 2019-12-12 03:21:00 No Notes: (S alexi As: Jonathonflex) [facility] Nitroglycerin 2019-12-12 02:43:00 No Notes: (Same as:Nitroquick, Nitrostat) "Do Not Crush" Sublingual tablet [facility] Morphine 2019-12-12 02:43:00 No Not es: (Same as:MORPhine Sulfate) [facility] Acetaminophen 2019-12-12 02:43:00 No Notes: Do not exceed 4 gm/day. (Same as: Tylenol) [facility] Ondansetron 2019-12-12 02:43:00 No Notes: ( Same as: Zofran) [facility] Saline Flush 0.9% 2019-12-12 02:43:00 No Notes: (Same as: BD Posiflush) [facility] atorvastatin 20 mg oral tablet 2019-12-12 02:04:00 Yes 20 mg = 1 tab, PO, Bedtime, # 30 tab, 0 Refill(s) [facility] Thiamine 2019-11-24 14:00:00 No Notes: (Sheldon e As: Vitamin B1) [facility] Lisinopril 2019-11-24 14:00:00 No Notes: (Same as: Prinivil, Zestril) [facility] Mucinex 2019-11-24 02:00:00 No Notes: (Same as: Guaifenesin LA, Humibid LA, Mucinex) "Do Not Crush" Take medication with plenty of water. [facility] Aspirin 2019-11-23 14:30:00 No Notes: Do not crush or chew. (Same As: Ecotrin) [facility] Folic Acid 2019-11-23 14:30:00 No Notes: (S alexi as: Folvite) [facility] Potassium Chloride 2019-11-23 14:21:00 No Notes: (Same as: K-Dur 20) "Do Not Crush" Give with food and full glass of water For patients unable to swallow tablet, dissolve in one half glass of water. Allow about 2 minutes for the tablets to disintegrate. Stir before giving to prepare slurry and administer. Please exclude Patient s with feeding tube less than 14 Macedonian (Dobhoff, J-tube etc) and pediatric and patients. [facility] potassium phosphate-sodium phosphate 250 mg-280 mg-160 mg oral powder for reconstitution 2019-11-23 14:21:00 No Notes: (Same as: Phos-NaK) Each 1.5 gm pkt has 250mg phosphorous. Mix w/2.5oz water and stir. [facility] [place] potassium phosphate 2019-11-23 14:21:00 No Notes: (Same as: K Phosphate.) Do not infuse phosphorous concurrently in the same line as TPN or IVF that contains calcium. For double lumen central lines, phosphorous may be infused in a separate lumen from TPN. 1 mMol phoshate has 1.47 mEq potassium Infuse over 4 hours [facility] sodium phosphate 2019-11-23 14:21:00 No Notes: Infuse over 4 hour. Do not infuse phosphorous concurrently in the same line as TPN or IVF that contains calcium. For double lumen central lines, phosphorous may be infused in a separate lumen from TPN. [facility] daniela Magnesium Sulfate 2019-11-23 14:21:00 No Notes: WASTE: F/P - Sink; E - Municipal Trash [facility] Magnesium Oxide 2019-11-23 14:21:00 No Notes: (Same as: Mag-Ox 400) Magnesium oxide [id number] elemental magnesium Dose=____mg magnesium oxide (___mg elemental magnesium) [facility] Calcium Gluconate 2019-11-23 14:21:00 No Notes: WASTE: F/P - Sink; E - [facility] heparin sodium, porcine 2500 UNT/ML Injectable Solution 2019-11-23 02:00:00 No Notes: porcine [facility] Aspirin 2019-11-22 22:22:00 Yes 81, PO, [...] CDT, Stop date: 11/22/19 16:51:00 CDT, 0 Fatou Lind Folic Acid 2019-11-22 14:00:00 No Notes: (S alexi as: Folvite) Fatou Lind Thiamine 2019-11-22 11:17:00 No Notes: (Sheldon e As: Vitamin B1) Fatou Lind Sodium Chloride 1000 MG Oral Tablet 2019-11-22 04:45:00 No 2 gm, 2 tab, Route: PO, Drug form: TAB, TID, Dosing Weight 94.659, kg, Start date: 11/21/19 23:45:00 CDT, Duration: 30 day, Stop date: 12/21/19 17:00:00 CDT, 0 Fatou Lind Potassium Chloride 2019-11-22 04:23:00 No Notes: (Same as: K-Dur ) "Do Not Crush" Give with food and full glass of water For patients unable to swallow tablet, dissolve in one half glass of water. Allow about 2 minutes for the tablets to disintegrate. Stir before giving to prepare slurry and administer. Please exclude Patient s with feeding tube less than 14 Macedonian (Dobhoff, J-tube etc) and pediatric and patients. Fatou Yanesann potassium phosphate-sodium phosphate 250 mg-280 mg-160 mg [...] 1.47 mEq potassium Infuse over 4 hours [facility] sodium phosphate 2019-11-22 04:23:00 [...] Notes: (Same as: Mag-Ox 400) Magnesium oxide [id number] elemental magnesium Dose=____mg magnesium oxide (___mg elemental [...] 30 day, Stop date: 12/21/19 21:34:00 CDT [facility] Glucagon 2019-11-22 02:35:00 No 1 mg, Route: IM, PRN, Dosing Weight 89.182, kg, PRN Blood Glucose Results, Start date: 11/21/19 21:35:00 CDT, Duration: 30 day, Stop date: 12/21/19 21:34:00 CDT [facility] Acetaminophen 2019-11-22 02:35:00 No Notes: Do not exceed 4 gm/day. (Same as: Tylenol) [facility] Zofran 2019-11-22 02:34:00 No Notes: (Same as: Zofran) MEDICATION WASTE Product Size: 4 mg Product Wasted: ___ mg [facility] Tizanidine Hcl Tizanidine Hcl 2019-02-10 19:35:00 Yes 4 Three Times A Day as needed for Muscle Spasms [facility] Albuterol Hfa Albuterol Hfa 2019-02-08 08:22:00 Yes 1 Every 8 Hours as needed for Shortness Of Breath [facility] Aspirin (Aspirin Ec) 81 Mg TABLET. Aspirin (Aspirin Ec) 81 Mg TABLET. 2019-02-08 08:15:00 Yes 81 Every Morning [facility] Baclofen Baclofen 2019-02-08 08:15:00 Yes 5 Three Times A Day as needed for Muscle Spasms [facility] Ceftin Ceftin 2019-02-08 08:15:00 Yes 500 Every 12 Ho urs [facility] Pantoprazole Sod (Protonix) 40 Mg/Ml SUSP Pantoprazole Sod (Protonix) 40 Mg/Ml SUSP 2019-02-08 08:15:00 Yes 40 Twice Daily With M eals [facility] Hair, Skin & Nails 2018-05-06 19:47:00 Yes 5 mg =, PO, Daily, 0 Refill(s) [facility] multivitamin 2018-05-06 19:47:00 Yes Daily, 0 Refill(s) [facility] lisinopril 20 mg oral tablet 2018-05-06 19:45:00 Yes 20 mg = 1 tab, PO, Daily, 0 Refill(s) Fatou Lind omeprazole 40 mg oral delayed release capsule 2018-05-06 19:45:0 0 Yes 40 mg = 1 cap, PO, Daily, 0 Refill(s) [facility] ARIPiprazole 2018-05-06 19:45:00 Yes 5 mg, P O, 0 Refill(s) [facility] Fluoxetine 2018-05-06 19:45:00 Yes 1 0 mg, PO, Daily, 0 Refill(s) Fatou Lind Multiple Vitamins oral tablet 2018-01-29 13:25:00 Yes 1 tab, PO, Daily, # 30 tab, 0 Refill(s) Fatou susana Mucinex 2018-01-29 13:24:00 Yes 600 mg, PO, Q12H, 0 Refill(s) Fatou Lind Albuterol 0.833 MG/ML / Ipratropium [place] 0.167 MG/ML Inha lant Solution 2018-01-29 13:18:00 [...] mouth 3 (three) times daily as needed. [facility] metFORMIN (GLUCOPHAGE) 500 MG tablet 2014-09-14 09:15:59 Ye s 500mg Take 500 mg by mouth 2 (two) times daily with breakfast and dinner. [facility] gabapentin (NEURONTIN) 300 MG capsule 2014-09-14 09:15:59 Yes 300mg [id number] Take 300 mg by mouth 3 (three) times daily. [facility] ERGOCALCIFEROL, VITAMIN D2, (VITAMIN D2 ORAL) 2014-09-14 09:15:5 9 Yes Take by mouth. [facility] MULTIVITS W-FE,OTHER MIN/LUT (CENTRUM SILVER ULTRA WOMEN'S O RAL) 2014-09-14 09:15:59 Yes Take by mouth. [facility] Atorvastatin Calcium Atorvastatin Calcium Yes 10 Today At 9:00PM [facility] Lisinopril Lisinopril Yes 20 Daily [facility] Metformin Hcl (Metformin Hcl Er) 500 Mg TAB.ER.24 Metf ormin Hcl (Metformin Hcl Er) 500 Mg TAB.ER.24 Yes 1000 Twice A Day [facility] Mu-Vits-Min Th/Lycopene/Lutein (Centrum Silver Tablet) 1 Each TABLET Mu-Vits-Min Th/Lycopene/Lutein (Centrum Silver Tablet) 1 Each TABLET Yes 60 Daily [facility] Nifedipine (Nifedipine Er) 60 Mg TABLET.ER Nifedipine (Nifedipine Er) 60 Mg TABLET.ER Yes 60 Daily [facility] Omeprazole Omeprazole Yes Before Breakfast [facility] Sitagliptin Phosphate (Januvia) 100 Mg TABLET Sitaglip tin Phosphate (Januvia) 100 Mg TABLET Yes 100 Daily [facility] Vital Signs Vital Name Observation Time Observation Value Comments Source Oxygen saturation by Pulse oximetry 2020-05-24 14:30:00 98 /min [facility] Weight 2020-05-24 14:30:00 202 [lb_av] [facility] BMI (Body Mass Index) 2020-05-24 14:30:00 34.7 kg/m2 [facility] Temperature Oral (F) 2019-12-13 16:10:00 98.3 F [facility] Heart Rate 2019-12-13 16:10:00 [facility] Respitory Rate 2019-12-13 16:10:00 [facility] Systolic (mm Hg) 2019-12-13 16:10:00 [facility] Diastolic (mm Hg) 2019-12-13 16:10:00 [facility] Temperature Oral (F) 2019-12-13 12:45:00 98.1 F [facility] Rate 2019-12-13 12:45:00 [facility] Respitory Rate 2019-12-13 12:45:00 [facility] [place] Systolic (mm Hg) 2019-12-13 12:45:00 [facility] Diastolic (mm Hg) 2019-12-13 12:45:00 [facility] Temperature Oral (F) 2019-12-13 08:30:00 98 F [facility] Rate 2019-12-13 08:30:00 [facility] Respitory Rate 2019-12-13 08:30:00 [facility] Systolic (mm Hg) 2019-12-13 08:30:00 [facility] Diastolic (mm Hg) 2019-12-13 08:30:00 [facility] [place] BMI Calculated 2019-12-12 02:43:00 [facility] Height 2019-12-12 01:58:00 162.56 cm [facility] Weight 2019-12-12 01:58:00 [facility] BMI Calculated 2019-12-12 01:58:00 [facility] Heart Rate 2019-11-25 13:00:00 [facility] [place] Systolic (mm Hg) 2019-11-25 13:00:00 [facility] Diastolic (mm Hg) 2019-11-25 13:00:00 [facility] [place] Temperature Oral (F) 2019-11-25 13:00:00 98.5 F [facility] Temperature Oral (F) 2019-11-25 05:40:00 98.2 F [facility] Rate 2019-11-25 05:40:00 [facility] Systolic (mm Hg) 2019-11-25 05:40:00 [facility] Diastolic (mm Hg) 2019-11-25 05:40:00 [facility] Temperature Oral (F) 2019-11-24 20:20:00 98.4 F [facility] Heart Rate 2019-11-24 20:20:00 [facility] [place] Systolic (mm Hg) 2019-11-24 20:20:00 [facility] Diastolic (mm Hg) 2019-11-24 20:20:00 [facility] [place] Respitory Rate 2019-11-23 16:00:00 [facility] Respitory Rate 2019-11-23 15:38:00 [facility] Respitory Rate 2019-11-23 15:00:00 [facility] [place] Height 2019-11-22 02:55:00 162.56 cm [facility] Weight 2019-11-22 02:55:00 [facility] BMI Calculated 2019-11-22 02:55:00 [facility] Height 2018-05-06 19:26:00 162.56 cm [facility] [place] BMI Calculated 2018-05-06 19:26:00 [facility] [place] Weight 2018-05-06 19:26:00 [facility] Respitory Rate 2018-05-06 19:26:00 [facility] [place] Heart Rate 2018-05-06 19:26:00 [facility] [place] Systolic (mm Hg) 2018-05-06 19:26:00 [facility] [place] Diastolic (mm Hg) 2018-05-06 19:26:00 [facility] Systolic (mm Hg) 2018-01-29 14:45:00 [facility] Diastolic (mm Hg) 2018-01-29 14:45:00 [facility] Respitory Rate 2018-01-29 14:45:00 [facility] [place] Respitory Rate 2018-01-29 14:30:00 [facility] [place] Systolic (mm Hg) 2018-01-29 14:30:00 [facility] Diastolic (mm Hg) 2018-01-29 14:30:00 [facility] Systolic (mm Hg) 2018-01-29 14:15:00 [facility] Diastolic (mm Hg) 2018-01-29 14:15:00 [facility] Respitory Rate 2018-01-29 14:15:00 [facility] [place] Weight 2018-01-28 17:22:00 [facility] Height 2018-01-28 17:22:00 162.56 cm [facility] BMI Calculated 2018-01-28 17:22:00 [facility] Temperature Oral (F) 2014-02-08 08:45:00 98.3 F [facility] Heart Rate 2014-02-08 08:45:00 [facility] Systolic (mm Hg) 2014-02-08 08:45:00 [facility] Diastolic (mm Hg) 2014-02-08 08:45:00 [facility] [place] Respitory Rate 2014-02-08 08:45:00 [facility] [place] Temperature Oral (F) 2014-02-08 03:53:00 98.3 F [facility] Systolic (mm Hg) 2014-02-08 03:53:00 [facility] Rate 2014-02-08 03:53:00 [facility] Respitory Rate 2014-02-08 03:53:00 [facility] [place] Diastolic (mm Hg) 2014-02-08 03:53:00 [facility] Rate 2014-02-08 01:19:00 [facility] Respitory Rate 2014-02-08 01:19:00 [facility] Temperature Oral (F) 2014-02-08 01:19:00 98.0 F [facility] Diastolic (mm Hg) 2014-02-08 01:19:00 [facility] [place] Systolic (mm Hg) 2014-02-08 01:19:00 [facility] Weight 2014-02-07 20:42:00 [facility] [place] BMI Calculated 2014-02-07 20:42:00 [facility] [place] Height 2014-02-07 20:42:00 [facility] Procedure Date / Time Performed Performing Clinician [facility] e section [facility] Planned Activity Planned Date Details Comments Source Instructions Cerumen Impaction [facility] Encounters Start Date/Time End Date/Time Encounter Type Admission Type [facility] Care Department Encounter ID Source 2019-11-21 19:35:00 Inpatient U [facility] MED 01 [id number] [facility] 2020-05-24 14:50:00 2020-05-24 14:57:00 Departed Emergency Room [facility] [id number] [facility] 2020-01-03 08:25:00 2020-01-03 23:59:00 Outpatient WhitneyAlessandra mayberry [facility] [id number] 2020-01-03 08:25:00 2020-01-03 08:25:00 Outpatient [facility] [id number] [facility] 2019-12-11 20:38:00 2019-12-13 15:58:00 Outpatient Melania Delgado [facility] [id number] 2019-12-11 20:38:00 2019-12-11 20:38:00 Outpatient [facility] MED [id number] [facility] 2019-11-21 19:35:00 2019-11-25 11:25:00 Outpatient Jesus Manuel Covington [facility] [id number] 2019-02-10 15:46:00 2019-02-10 18:55:00 Departed Emergency Room 1 [facility] [id number] [facility] 2019-02-06 17:01:00 2019-02-08 10:24:00 Discharged Inpatient (obs) 1 [facility] [id number] [facility] 2018-10-05 12:50:00 2018-10-05 14:44:00 Departed Emergency Room 1 [facility] [id number] [facility] 2018-06-22 11:35:00 2018-06-22 23:59:00 Outpatient Gunnar Frausto [facility] [id number] 2018-05-06 14:14:00 2018-05-06 23:59:00 Outpatient Gunnar Frausto [facility] [id number] 2018-01-29 06:30:00 2018-01-29 10:00:00 Outpatient Arben Olson [facility] [id number] 2018-01-19 09:20:00 2018-01-19 23:59:00 [facility] [id number] 2018-01-08 12:57:00 2018-01-08 23:59:00 Outpatient Arben Dawson Sorin OIB OIB [id number] 2014-02-07 15:29:00 2014-02-08 03:46:00 Outpatient Sergey Jeff [facility] [id number] Results Test Description Test Time Test Comments Results Result Comments Source CHEM [facility] 2019-12-13 09:21:00 [facility] CHEM [facility] 2019-12-13 09:21:00 13 [facility] CHEM [facility] 2019-12-13 09:21:00 0.85 [facility] CHEM [facility] 2019-12-13 09:21:00 132 [facility] CHEM [facility] 2019-12-13 09:21:00 4.0 [facility] CHEM [facility] 2019-12-13 09:21:00 99 [facility] CHEM [facility] 2019-12-13 09:21:00 29 [facility] CHEM [facility] 2019-12-13 09:21:00 9.0 [facility] CHEM [facility] 2019-12-13 09:21:00 7.6 [facility] CHEM [facility] 2019-12-13 09:21:00 3.4 [facility] CHEM [facility] 2019-12-13 09:21:00 50 [facility] CHEM [facility] 2019-12-13 09:21:00 61 [facility] CHEM [facility] 2019-12-13 09:21:00 81 [facility] CHEM [facility] 2019-12-13 09:21:00 0.4 [facility] CHEM [facility] 2019-12-13 09:21:00 8.0 [facility] CHEM [facility] 2019-12-13 09:21:00 Test Item B/C Ratio (test code = B/C Ratio) 15 1 6-25 [facility]2020-06-09 09:21:004.2[facility] 2019-12-13 09:21:00* Test Item Value Reference Range Interpretation Comments A/G Ratio (test code = A/G Ratio) 0.8 1 0.7-1.6 [facility]2020-06-09 09:21:0066[facility] 2019-12-13 09:21:007.8[facility] AmajhekQCEEIBUAUR4640-20-15 09:21:004.13[facility] PenvawfPZSHNIAYFX6510-48-47 09:21:0013.0[facility] PaoercoLEUIXCWQUK2880-79-22 09:21:0038.4[facility] BruvqyjNZTURAWHAE8125-33-27 09:21:0092.9[facility] [place] CBWJNCLMYQ4081-73-99 09:21:00* Test Item Value Reference Range Interpretation Comments MCH (test code = MCH) 31.4 pg 27.0-31.0 [facility] HygbdjtGNNPIANZYQ8459-14-25 09:21:0033.8[facility]ann[facility]OLOGY 2019-12-13 09:21:0013.8[facility] OcpmqfpFBBCBPOEYU6657-62-98 09:21:42977Ktvxzllw XsprrkrDCPITWBVXW1368-97-75 09:21:007.9[facility]annCARDIAC BNQNXVR9304-91-40 20:09:00<0.02[facility]annCHEM SIADX1288-31-36 20:09:0013.0[facility] ULMPMQPUIB4112-07-19 20:09:000.63[facility]annCARDIAC WRUUCXB9065-65-29 08:27:00<0.02[facility]annCHEM IOSAO7102-24-18 08:27:25641Pyvhlssi [facility] CHEM XNUUY8126-49-47 08:27:0013[facility]annCHEM TVRVR2899-40-93 08:27:000.88 [facility]annCHE[facility] EYKHV2400-51-25 08:27:76717Idrrceeo HermannCHEM PANEL 2019-12-12 08:27:003.4[facility]annCHEM QNCCV3925-84-65 08:27:0093[facility]annCHEM HXNZO6090-10-08 08:27:0028[facility]annCHE[facility] MBDLU6835-52-99 08:27:008.2[facility]annCHE[facility] ZQTWZ3701-84-69 08:27:0011.4[facility]annCHE[facility] GKLNK3793-71-64 08:27:0063[facility]annCHE[facility] LTJGX6183-41-68 08:27:001.6 [facility]annCHE[facility] KDKSV8516-24-83 08:27:003.0[facility]annCHEM PANEL 2019-12-12 08:27:007.6[facility]annCHE[facility] KLFJY4837-33-95 08:27:003.5[facility]annCHEM PQOVQ2794-37-92 08:27:0033[facility]annCHEM GORMX7440-92-79 08:27:0040[facility]annCHEM DULSE1009-73-85 08:27:0074[facility]annCHEM FWNNC6460-69-97 08:27:000.5[facility]annCHE[facility] CYQLR7246-80-60 08:27:000.2 [facility]CHE[facility] DTJPS3295-59-01 08:27:004.1[facility]annCHEM PANEL 2019-12-12 08:27:00* Test Item Value Reference Range Interpretation Comments A/G Ratio (test code = A/G Ratio) 0.9 1 0.7-1.6 [facility]CHE[facility] DZPVH3778-50-79 08:27:000.3[facility]annHEMATOLOGY 2019-12-12 08:27:0010.3[facility] XxrefhzLLYOASHFXK7772-97-04 08:27:004.10[facility] WwawapyCRLEROHFYM8485-66-48 08:27:0013.0[facility] OylgfabQHXZMAXVGL8120-05-00 08:27:0037.8[facility] CwoluuyWOHVZVXAAC3896-66-32 08:27:0092.2[facility] [place] OUOQHAFVVY3521-03-72 08:27:00* Test Item Value Reference Range Interpretation Comments MCH (test code = MCH) 31.6 pg 27.0-31.0 [facility] SdztsvgBKXJWZDAAH7334-75-10 08:27:0034.3[facility]annHEMATOLOGY 2019-12-12 08:27:0014.2[facility] AurcuqiNDCHHMVXUS0043-86-28 08:27:30654Vcncgogv HjqtpvrCZFFNSNNXK1145-63-86 08:27:007.6[facility] SjztdelDFRQBZNAOY3312-69-61 08:27:0065.7[facility] SgzfftqRSRCQGCXXA8125-40-77 08:27:0024.7[facility] [place] BRVIECIBCD9468-36-18 08:27:008.1[facility] MgctutdFUIFSMQAIB9775-16-19 08:27:001.0 [facility] ChfwiohQJRELEXREQ4734-63-64 08:27:000.5[facility]annHEMATOLOGY 2019-12-12 08:27:006.8[facility] PuugtskIWPVWKDGBQ6597-43-48 08:27:002.5[facility] OifmfguCBUIXZDIZL4008-42-38 08:27:000.8[facility] KfuupmwETZDFWJMLL5763-23-05 08:27:000.1[facility] AzapddeJDPRNRMONP9900-86-00 08:27:000.1[facility] [place] CARDIAC NDLSUFS3141-84-31 04:00:00<0.02[facility] HermannCHEM RNQRB8260-89-06 04:00:85328Tvclqgpn HermannCHEM ERDRN7749-84-92 08:25:002.5[facility]annCHEM GKDHK0211-42-42 08:25:46778Pomeygzd HermannCHEM MCBVF7777-69-67 08:25:0013 [facility]annCHE[facility] THLYX1024-33-68 08:25:000.80[facility]annCHEM PANEL 2019-11-25 08:25:09812Dulhowhy HermannCHEM YVPRR4939-81-34 08:25:003.9[facility] HermannCHEM WDYTA1593-73-06 08:25:33167Boyiuqww HermannCHEM ISOWS9409-05-95 08:25:0027[facility]annCHEM RPRTU8740-42-06 08:25:008.7[facility]annCHEM HPGYZ8449-69-93 08:25:0010.9[facility]annCHE[facility] GMBVR1939-85-49 08:25:0071 [facility]annCHE[facility] IVOHY8288-50-76 08:25:002.1[facility]annCHEM PANEL 2019-11-24 11:19:76261Hnsqnxxs HermannCHEM CPJWS2156-62-00 11:19:0015[facility]annCHEM KETIU8376-84-52 11:19:000.80[facility]annCHEM VPWBK3642-76-32 11:19:89522Pdlmkqed HermannCHEM PULLE1177-44-81 11:19:003.9[facility]annCHEM HHBAS1438-27-89 11:19:84012Yixupdwl HermannCHEM QNKYN1047-39-94 11:19:0028 [facility]annCHE[facility] DRHOF1290-61-39 11:19:008.8[facility]annCHEM PANEL 2019-11-24 11:19:009.9[facility]annCHEM BFJPJ3139-77-07 11:19:0071[facility]annCHEM OMEWS0265-50-36 11:19:002.2[facility]annCHEM YMGZP1236-63-91 11:19:002.0[facility] OznxwgbHJCRUJCUPY9364-81-10 11:19:007.6[facility] KHNRULBEXT8394-97-04 11:19:004.17[facility] HxyncyuPAEODHPHUC4030-60-79 11:19:00 13.2[facility] AkseaunDWTKTMDZVD5805-12-25 11:19:0037.8[facility]annHEMATOLOGY 2019-11-24 11:19:0090.7[facility] TcbxyawUWKZURSOYU5357-79-62 11:19:00* Test Item Value Reference Range Interpretation Comments MCH (test code = MCH) 31.7 pg 27.0-31.0 [facility] PyaumezMNNQWCUCUP0437-58-70 11:19:0034.9[facility]annHEMATOLOGY 2019-11-24 11:19:0013.6[facility] QmgbpapLGCSUHZNOT9707-35-21 11:19:54142Sboxoqnp XhobbivEUBGKRREGB2137-24-33 11:19:007.0[facility] EforoteBCGSKZZXHR6370-31-21 11:19:0070.2[facility] YczztzvVKZQAAZUDA2375-34-62 11:19:0019.6[facility] QBCNWLVOAQ5546-14-37 11:19:008.5[facility] NvcgclyHGFAQBUAHJ9569-76-99 11:19:001.4 [facility] QinemoxBUKFIAWLFQ2614-67-03 11:19:000.3[facility]annHEMATOLOGY 2019-11-24 11:19:005.4[facility] AiynzisKGEHIKDGTV2588-61-08 11:19:001.5[facility] TzgeqvbCOHXITBSFZ7037-76-29 11:19:000.7[facility] FggmaxoDCFKQQUBQZ3237-48-45 11:19:000.1[facility] HermannCHEM BSYOY5426-71-49 08:32:67913Nqgupeje HermannCHEM SMYEK8117-03-17 08:32:0015[facility] HermannCHEM JWPIZ6581-36-45 08:32:000.84 [facility]annCHEM APVRY0106-67-83 08:32:71386Eqyysqif HermannCHEM PANEL 2019-11-23 08:32:003.5[facility]annCHEM LKXPS4813-51-50 08:32:0098[facility] HermannCHEM ISIRZ5119-24-02 08:32:0028[facility]annCHEM RSTLL0628-78-65 08:32:0011.5[facility]annCHEM NBCTZ0351-47-95 08:32:008.9[facility]annCHEM KIVYI6650-68-31 08:32:0067[facility]annCHEM VFKGJ7618-99-77 08:32:002.4 [facility]annCHEM MISLV4680-71-59 08:32:001.8[facility]annURINE AND STOOL 2019-11-22 10:02:00Clear (11/22/19 5:02 AM)[facility] ST[facility] 2019-11-22 10:02:00* Test Item Value Reference Range Interpretation Comments UA Spec Grav (test code = UA Spec Grav) 1.005 1 [facility] AND HLYRK0823-14-56 10:02:00* Test Item Value Reference Range Interpretation Comments UA pH (test code = UA pH) 6.0 1 5.0-8.0 [facility] XOAAB4676-81-80 10:02:00Negative *NA*(11/22/19 5:02 AM) [facility] JAUGI2340-73-49 10:02:00Small *ABN*(11/22/19 5:02 AM) [facility] XAMLD3510-65-36 10:02:00Negative (11/22/19 5:02 AM) [facility] UNBKD0087-72-04 10:02:00Negative (11/22/19 5:02 AM) [facility] DJTBW3255-11-27 10:02:001[facility] AND XEWNK0302-06-95 10:02:004[facility] VTPD2735-17-36 10:02:15340 [facility] SSTA0132-59-23 10:02:0010[facility] CHEM 2019-11-22 10:02:0031.50[facility] RPDX8189-86-55 10:02:007.1[facility] HermannCHEM NGCZL6139-01-87 03:06:74753Jtwhvame HermannCHEST 2 UXDQU2999-79-22 17:38:00 [place] [address] Patient Name: YEYO BYRNE MR #: [id number] : 1940 Age/Sex: 78/F Req #: [id number] Adm Physician: Ordered by: ANDRY GUTIÉRREZ [employer]ANE [employer]OWER Report #: [id number] Location: ER Room/Bed: Procedure: 08 61 DX/CHEST 2 VIEWS Exam Date: 02/10/19 [...] on 02/10/2019 5:40 PM Dictated By: JUNIOR ESPINOZA MD 39 Transcribed By: VANITA on 02/10/191739 COPY TO: ANDRY MAZARIEGOS CRANE [employer]LLOWER Creatine Kinase EX9667-56-10 17:12:00* Test Item Value Reference Range Interpretation Comments Creatine Kinase MB (test code = 81733-3) 0.90 0-5.0 [facility]-68 17:12:00* Test Item Value Reference Range Interpretation Comments Troponin I (test code = EYH9586) < 0.001 0-0.300 [facility] Fqnxwm3383-62-75 17:06:00* Test Item Value Reference Range Interpretation Comments Creatine Kinase (test code = 2157-6) 24 29-168 L [facility] Center[facility] Natriuretic Nriwdsp9255-03-82 17:04:00* Test Item Value Reference Range Interpretation Comments B-Type Natriuretic Peptide (test code = 34102-1) 82.5 0-100 [facility] Ihlce9913-90-69 16:55:00* Test Item Value Reference Range Interpretation Comments Sodium Level (test code = 2951-2) 133 136-145 L [facility] CenterPotassium Sgcya2924-59-90 16:55:00* Test Item Value Reference Range Interpretation Comments Potassium Level (test code = 2823-3) 4.1 3.5-5.1 [facility] CenterChloride Sslvg2630-12-99 16:55:00* Test Item Value Reference Range Interpretation Comments Chloride Level (test code = 2075-0) 97 98-107 L [facility] CenterCarbon Dioxide Gbsqy5690-62-65 16:55:00* Test Item Value Reference Range Interpretation Comments Carbon Dioxide Level (test code = 2028-9) 22 22-29 [facility] CenterAnion Geg9177-81-82 16:55:00* Test Item Value Reference Range Interpretation Comments Anion Gap (test code = 00293-9) 18.1 8-16 H [facility] CenterBlood Urea Vcotibcp0204-84-75 16:55:00* Test Item Value Reference Range Interpretation Comments Blood Urea Nitrogen (test code = 3094-0) 9 7-26 [facility] CenterCreatinine2019-08-08 16:55:00* Test Item Value Reference Range Interpretation Comments Creatinine (test code = 2160-0) 0.83 0.57-1.11 [facility] CenterBUN/Creatinine Xzgvn0762-19-67 16:55:00* Test Item Value Reference Range Interpretation Comments BUN/Creatinine Ratio (test code = 3097-3) 11 6- [facility] CenterEstimat Glomerular Filtration Rate 2019-02-10 16:55:00* Test Item Value Reference Range Interpretation Comments Estimat Glomerular Filtration Rate (test code = 615562783) > 60 >60 Ranges were taken from the National Kidney Disease Education Program and the [facility] literature.Reference ranges:60 or greater: Oehpfw58-97 ( for 3 consecutive months): Chronic kidney disease 15 or less: Kidney failureBaptist Medical CenterGlucose Sbynb2847-06-91 16:55:00* Test Item Value Reference Range Interpretation Comments Glucose Level (test code = PIF3446) 148 74-118 H [facility] CenterCalcium Skfwf7387-32-80 16:55:00* Test Item Value Reference Range Interpretation Comments Calcium Level (test code = 31839-5) 9.7 8.4-10.2 [facility] CenterTotal Njvuevtib3160-54-23 16:55:00* Test Item Value Reference Range Interpretation Comments Total Bilirubin (test code = 1975-2) 0.4 0.2-1.2 [facility] CenterAspartate Amino Transf (AST/SGOT) 2019-02-10 16:55:00* Test Item Value Reference Range Interpretation Comments Aspartate Amino Transf (AST/SGOT) (test code = Aspartate Amino Transf (AST/SGOT)) 28 5-34 [facility] CenterAlanine Aminotransferase (ALT/SGPT) 2019-02-10 16:55:00* Test Item Value Reference Range Interpretation Comments Alanine Aminotransferase (ALT/SGPT) (test code = 1742-6) 28 0-55 [facility] CenterTotal Qfhrmjd3371-61-83 16:55:00* Test Item Value Reference Range Interpretation Comments Total Protein (test code = 2885-2) 8.2 6.5-8.1 H [facility] CenterAlbumin2019-08-08 16:55:00* Test Item Value Reference Range Interpretation Comments Albumin (test code = 1751-7) 3.9 3.5-5.0 [facility] CenterGlobulin2019-08-08 16:55:00* Test Item Value Reference Range Interpretation Comments Globulin (test code = 68133-1) 4.3 2.3-3.5 H [facility] CenterAlbumin/Globulin Pkyab9551-65-43 16:55:00 * Test Item Value Reference Range Interpretation Comments Albumin/Globulin Ratio (test code = 1759-0) 0.9 0.8-2.0 [facility] CenterAlkaline Ygdakewzpeg6450-89-27 16:55:00* Test Item Value Reference Range Interpretation Comments Alkaline Phosphatase (test code = 6768-6) 83 40-150 [facility] CenterUrine QJC5151-33-19 16:54:00* Test Item Value Reference Range Interpretation Comments Urine WBC (test code = 5821-4) 6-10 0-5 H [facility] CenterU[facility] GWC2597-15-44 16:54:00* Test Item Value Reference Range Interpretation Comments Urine RBC (test code = 63065-2) 6-10 0-5 H [facility] Center[facility] Pqqchyqk8039-85-17 16:54:00* Test Item Value Reference Range Interpretation Comments Urine Bacteria (test code = 38459-0) MODERATE NONE H [facility] CenterU[facility] Epithelial Hrgby1606-11-02 16:54:00 * Test Item Value Reference Range Interpretation Comments Urine Epithelial Cells (test code = 92696-1) MANY NONE [facility] CenterU[facility] Transitional Epithelial Cells 2019-02-10 16:54:00* Test Item Value Reference Range Interpretation Comments Urine Transitional Epithelial Cells (test code = 8249-5) FEW NONE H [facility] Amorphous Xwqojqbc7930-23-01 16:54:00* Test Item Value Reference Range Interpretation Comments Urine Amorphous Sediment (test code = 8246-1) MODERATE FEW H [facility] CenterU[facility] Fhveo1792-64-32 16:47:00* Test Item Value Reference Range Interpretation Comments Urine Color (test code = 5778-6) YELLOW YELLOW [facility] CenterU[facility] Vvpprsf6909-31-24 16:47:00* Test Item Value Reference Range Interpretation Comments Urine Clarity (test code = 19065-2) SL CLOUDY CLEAR [facility] CenterUrine Specific Theaadw8080-60-78 16:47:00 * Test Item Value Reference Range Interpretation Comments Urine Specific [place] (test code = 5811-5) 1.020 1.010-1.02 5 [facility] CenterU[facility] jM9822-07-72 16:47:00* Test Item Value Reference Range Interpretation Comments Urine pH (test code = 29243-0) 6 5-7 [facility] Center[facility] Leukocyte Yzwfyype5940-13-26 16:47:00* Test Item Value Reference Range Interpretation Comments Urine Leukocyte Esterase (test code = 58670-1) SMALL NEGATIV E [facility] CenterU[facility] Jgsxtue7928-59-04 16:47:00* Test Item Value Reference Range Interpretation Comments Urine Nitrite (test code = 37289-4) NEGATIVE NEGATIVE [facility] CenterU[facility] Tbggsjp8688-63-89 16:47:00* Test Item Value Reference Range Interpretation Comments Urine Protein (test code = 80796-1) 1+ NEGATIVE H [facility] CenterU[facility]2019-02-10 16:47:00* Test Item Value Reference Range Interpretation Comments Urine Glucose (UA) (test code = 06671-5) NEGATIVE [facility]GATIVE [facility] Wvuiuua2774-73-31 16:47:00* Test Item Value Reference Range Interpretation Comments Urine Ketones (test code = 47771-3) NEGATIVE [facility]GATIVE [facility] Lidmobiuzxbv5987-84-52 16:47:00* Test Item Value Reference Range Interpretation Comments Urine Urobilinogen (test code = 48751-0) 0.2 0.2-1 [facility] Llczimutj5951-79-70 16:47:00* Test Item Value Reference Range Interpretation Comments Urine Bilirubin (test code = 1977-8) NEGATIVE NEGATIVE [facility] Cqiec5307-89-73 16:47:00* Test Item Value Reference Range Interpretation Comments Urine Blood (test code = 94487-4) 1+ [facility]GATIVE [facility] Thovz3628-59-51 16:41:00* Test Item Value Reference Range Interpretation Comments White Blood Count (test code = 6690-2) 12.23 4.8-10.8 [facility] Cojsf7803-54-96 16:41:00* Test Item Value Reference Range Interpretation Comments Red Blood Count (test code = 789-8) 4.30 3.6-5.1 [facility] 16:41:[facility]* Test Item Value Reference Range Interpretation Comments Hemoglobin (test code = 78008-2) 13.3 12.0-16.0 [facility]Hematocrit2019-08-08 16:41:00* Test Item Value Reference Range Interpretation Comments Hematocrit (test code = 4544-3) 38.7 34.2-44.1 [facility] CenterMean Corpuscular Miqlef4481-75-03 16:41:00* Test Item Value Reference Range Interpretation Comments Mean Corpuscular Volume (test code = 787-2) 90.0 81-99 [facility] CenterMean Corpuscular Ixkjzzprhm6732-39-30 16:41:00* Test Item Value Reference Range Interpretation Comments Mean Corpuscular Hemoglobin (test code = 785-6) 30.9 28-32 [facility] CenterMean Corpuscular Hemoglobin Concent 2019-02-10 16:41:00* Test Item Value Reference Range Interpretation Comments Mean Corpuscular Hemoglobin Concent (test code = 786-4) 34.4 31-35 [facility] CenterRed Cell Distribution Lmqyv8140-42-63 16:41:00* Test Item Value Reference Range Interpretation Comments Red Cell Distribution Width (test code = 38322-5) 13.2 11.7 -14.4 [facility] CenterPlatelet Wamym7911-52-55 16:41:00* Test Item Value Reference Range Interpretation Comments Platelet Count (test code = 777-3) 135 140-360 L [facility] CenterNeutrophils (%) (Auto)2019-02-10 16:41:00 * Test Item Value Reference Range Interpretation Comments Neutrophils (%) (Auto) (test code = 67314-4) 77.1 38.7-80.0 [facility] CenterLymphocytes (%) (Auto)2019-02-10 16:41:00 * Test Item Value Reference Range Interpretation Comments Lymphocytes (%) (Auto) (test code = 736-9) 14.7 18.0-39.1 L [facility] CenterMonocytes (%) (Auto)2019-02-10 16:41:00* Test Item Value Reference Range Interpretation Comments Monocytes (%) (Auto) (test code = 5905-5) 6.2 4.4-11.3 [facility] CenterEosinophils (%) (Auto)2019-02-10 16:41:00 * Test Item Value Reference Range Interpretation Comments Eosinophils (%) (Auto) (test code = 713-8) 1.4 0.0-6.0 [facility] CenterBasophils (%) (Auto)2019-02-10 16:41:00* Test Item Value Reference Range Interpretation Comments Basophils (%) (Auto) (test code = 706-2) 0.4 0.0-1.0 [facility] CenterIM GRANULOCYTES %2019-02-10 16:41:00* Test Item Value Reference Range Interpretation Comments IM GRANULOCYTES % (test code = IM GRANULOCYTES %) 0.2 0.0- 1.0 [facility] CenterNeutrophils # (Auto)2019-02-10 16:41:00* Test Item Value Reference Range Interpretation Comments Neutrophils # (Auto) (test code = 751-8) 9.4 2.1-6.9 H [facility] CenterLymphocytes # (Auto)2019-02-10 16:41:00* Test Item Value Reference Range Interpretation Comments Lymphocytes # (Auto) (test code = 04599-5) 1.8 1.0-3.2 [facility] CenterMonocytes # (Auto)2019-02-10 16:41:00* Test Item Value Reference Range Interpretation Comments Monocytes # (Auto) (test code = 742-7) 0.8 0.2-0.8 [facility] CenterEosinophils # (Auto)2019-02-10 16:41:00* Test Item Value Reference Range Interpretation Comments Eosinophils # (Auto) (test code = 711-2) 0.2 0.0-0.4 [facility] CenterBasophils # (Auto)2019-02-10 16:41:00* Test Item Value Reference Range Interpretation Comments Basophils # (Auto) (test code = 704-7) 0.1 0.0-0.1 [facility] CenterAbsolute Immature Granulocyte (auto 2019-02-10 16:41:00* Test Item Value Reference Range Interpretation Comments Absolute Immature Granulocyte (auto (nikhil t code = Absolute Immature Granulocyte (auto) 0.03 0-0.1 [facility] CenterB-Type Natriuretic Ufkpvpv3413-23-92 06:10:00* Test Item Value Reference Range Interpretation Comments B-Type Natriuretic Peptide (test code = 71129-0) 77.3 0-100 [facility] Center[facility] Tzahp7250-25-63 05:44:00* Test Item Value Reference Range Interpretation Comments Sodium Level (test code = 2951-2) 138 136-145 [facility] CenterPotassium Vjysc5966-75-88 05:44:00* Test Item Value Reference Range Interpretation Comments Potassium Level (test code = 2823-3) 4.3 3.5-5.1 [facility] CenterChloride Ttkoy1521-05-99 05:44:00* Test Item Value Reference Range Interpretation Comments Chloride Level (test code = 2075-0) 102 98-107 [facility] CenterCarbon Dioxide Nqkxn5403-74-35 05:44:00* Test Item Value Reference Range Interpretation Comments Carbon Dioxide Level (test code = 2028-9) 26 22-29 [facility] CenterAnion Ncn0991-36-67 05:44:00* Test Item Value Reference Range Interpretation Comments Anion Gap (test code = 84478-6) 14.3 8-16 [facility] CenterBlood Urea Yahjpgro3305-39-53 05:44:00* Test Item Value Reference Range Interpretation Comments Blood Urea Nitrogen (test code = 3094-0) 14 7-26 [facility] CenterCreatinine2019-08-06 05:44:00* Test Item Value Reference Range Interpretation Comments Creatinine (test code = 2160-0) 0.85 0.57-1.11 [facility] CenterBUN/Creatinine Uchky5722-60-99 05:44:00* Test Item Value Reference Range Interpretation Comments BUN/Creatinine Ratio (test code = 3097-3) 16 6-25 [facility] CenterEstimat Glomerular Filtration Rate 2019-02-08 05:44:00* Test Item Value Reference Range Interpretation Comments Estimat Glomerular Filtration Rate (test code = 356142205) > 60 >60 Ranges were taken from the National Kidney Disease Education Program and the [facility] Foundation literature.Reference ranges:60 or greater: Qysdyo53-25 ( for 3 consecutive months): Chronic kidney disease 15 or less: Kidney failureBaptist Medical CenterGlucose Npyxc7891-55-36 05:44:00* Test Item Value Reference Range Interpretation Comments Glucose Level (test code = YIX4138) 107 74-118 [facility] CenterCalcium Fyxjg0668-23-07 05:44:00* Test Item Value Reference Range Interpretation Comments Calcium Level (test code = 94884-6) 9.3 8.4-10.2 [facility] CenterMagnesium Tjwvh4474-03-16 05:44:00* Test Item Value Reference Range Interpretation Comments Magnesium Level (test code = 76175-4) 1.8 1.3-2.1 [facility] CenterMagnesium Ujdob3421-42-71 05:44:00* Test Item Value Reference Range Interpretation Comments Magnesium Level (test code = 56791-1) 1.8 1.3-2.1 [facility] CenterWhite Blood Gwkkk0551-36-37 05:33:00* Test Item Value Reference Range Interpretation Comments White Blood Count (test code = 6690-2) 6.02 4.8-10.8 [facility] CenterRed Blood Tkvsj6497-66-01 05:33:00* Test Item Value Reference Range Interpretation Comments Red Blood Count (test code = 789-8) 3.81 3.6-5.1 [facility] CenterHemoglobin2019-08-06 05:33:00* Test Item Value Reference Range Interpretation Comments Hemoglobin (test code = 90523-0) 12.0 12.0-16.0 [facility] CenterHematocrit2019-08-06 05:33:00* Test Item Value Reference Range Interpretation Comments Hematocrit (test code = 4544-3) 34.7 34.2-44.1 [facility] CenterMean Corpuscular Jsqebl9892-37-44 05:33:00* Test Item Value Reference Range Interpretation Comments Mean Corpuscular Volume (test code = 787-2) 91.1 81-99 [facility] CenterMean Corpuscular Xbhtvqlpod1088-53-62 05:33:00* Test Item Value Reference Range Interpretation Comments Mean Corpuscular Hemoglobin (test code = 785-6) 31.5 28-32 [facility] CenterMean Corpuscular Hemoglobin Concent 2019-02-08 05:33:00* Test Item Value Reference Range Interpretation Comments Mean Corpuscular Hemoglobin Concent (test code = 786-4) 34.6 31-35 [facility] CenterRed Cell Distribution Bdzya8920-92-12 05:33:00* Test Item Value Reference Range Interpretation Comments Red Cell Distribution Width (test code = 54326-9) 12.9 11.7 -14.4 [facility] CenterPlatelet Zpcos4489-16-87 05:33:00* Test Item Value Reference Range Interpretation Comments Platelet Count (test code = 777-3) 91 140-360 L [facility] CenterNeutrophils (%) (Auto)2019-02-08 05:33:00 * Test Item Value Reference Range Interpretation Comments Neutrophils (%) (Auto) (test code = 79561-1) 62.6 38.7-80.0 [facility] CenterLymphocytes (%) (Auto)2019-02-08 05:33:00 * Test Item Value Reference Range Interpretation Comments Lymphocytes (%) (Auto) (test code = 736-9) 25.1 18.0-39.1 [facility] CenterMonocytes (%) (Auto)2019-02-08 05:33:00* Test Item Value Reference Range Interpretation Comments Monocytes (%) (Auto) (test code = 5905-5) 9.3 4.4-11.3 [facility] CenterEosinophils (%) (Auto)2019-02-08 05:33:00 * Test Item Value Reference Range Interpretation Comments Eosinophils (%) (Auto) (test code = 713-8) 2.0 0.0-6.0 [facility] CenterBasophils (%) (Auto)2019-02-08 05:33:00* Test Item Value Reference Range Interpretation Comments Basophils (%) (Auto) (test code = 706-2) 0.7 0.0-1.0 [facility] CenterIM GRANULOCYTES %2019-02-08 05:33:00* Test Item Value Reference Range Interpretation Comments IM GRANULOCYTES % (test code = IM GRANULOCYTES %) 0.3 0.0- 1.0 [facility] CenterNeutrophils # (Auto)2019-02-08 05:33:00* Test Item Value Reference Range Interpretation Comments Neutrophils # (Auto) (test code = 751-8) 3.8 2.1-6.9 [facility] CenterLymphocytes # (Auto)2019-02-08 05:33:00* Test Item Value Reference Range Interpretation Comments Lymphocytes # (Auto) (test code = 71822-8) 1.5 1.0-3.2 [facility] CenterMonocytes # (Auto)2019-02-08 05:33:00* Test Item Value Reference Range Interpretation Comments Monocytes # (Auto) (test code = 742-7) 0.6 0.2-0.8 [facility] CenterEosinophils # (Auto)2019-02-08 05:33:00* Test Item Value Reference Range Interpretation Comments Eosinophils # (Auto) (test code = 711-2) 0.1 0.0-0.4 [facility] CenterBasophils # (Auto)2019-02-08 05:33:00* Test Item Value Reference Range Interpretation Comments Basophils # (Auto) (test code = 704-7) 0.0 0.0-0.1 [facility] CenterAbsolute Immature Granulocyte (auto 2019-02-08 05:33:00* Test Item Value Reference Range Interpretation Comments Absolute Immature Granulocyte (auto (nikhil t code = Absolute Immature Granulocyte (auto) 0.02 0-0.1 [facility] CenterCreatine Kinase KZ3893-53-75 14:14:00* Test Item Value Reference Range Interpretation Comments Creatine Kinase MB (test code = 21762-3) 1.90 0-5.0 [facility] CenterTroponin L2748-89-54 14:14:00* Test Item Value Reference Range Interpretation Comments Troponin I (test code = WMV0459) 0.001 0-0.300 [facility] CenterCreatine Usborm8742-16-04 14:06:00* Test Item Value Reference Range Interpretation Comments Creatine Kinase (test code = 2157-6) 45 29-168 [facility] CenterLipase2019-08-05 09:39:00* Test Item Value Reference Range Interpretation Comments Lipase (test code = 3040-3) 46 8-78 [facility] CenterLipase2019-08-05 09:39:00* Test Item Value Reference Range Interpretation Comments Lipase (test code = 3040-3) 46 8-78 [facility] CenterFree Uekizsyji5522-84-95 05:45:00* Test Item Value Reference Range Interpretation Comments Free Thyroxine (test code = 3024-7) 1.01 0.8-1.8 [facility] CenterThyroid Stimulating Hormone (TSH) 2019-02-07 05:45:00* Test Item Value Reference Range Interpretation Comments Thyroid Stimulating Hormone (TSH) (test code = 70574-6) 1.565 0.350-4.940 [facility] CenterFr Yogucxqdv7117-57-44 05:45:00* Test Item Value Reference Range Interpretation Comments Free Thyroxine (test code = 3024-7) 1.01 0.8-1.8 [facility] CenterThyroid Stimulating Hormone (TSH) 2019-02-07 05:45:00* Test Item Value Reference Range Interpretation Comments Thyroid Stimulating Hormone (TSH) (test code = 75695-9) 1.565 0.350-4.940 [facility] CenterTotal Azkaphscz9291-11-78 05:23:00* Test Item Value Reference Range Interpretation Comments Total Bilirubin (test code = 1975-2) 0.5 0.2-1.2 [facility] CenterDirect Jaevuyznh8360-19-61 05:23:00* Test Item Value Reference Range Interpretation Comments Direct Bilirubin (test code = 98477-0) 0.3 0.0-0.5 [facility] CenterAspartate Amino Transf (AST/SGOT) 2019-02-07 05:23:00* Test Item Value Reference Range Interpretation Comments Aspartate Amino Transf (AST/SGOT) (test code = Aspartate Amino Transf (AST/SGOT)) 28 5-34 [facility] CenterAlanine Aminotransferase (ALT/SGPT) 2019-02-07 05:23:00* Test Item Value Reference Range Interpretation Comments Alanine Aminotransferase (ALT/SGPT) (test code = 1742-6) 27 0-55 [facility] CenterTotal Plosozt7508-82-28 05:23:00* Test Item Value Reference Range Interpretation Comments Total Protein (test code = 2885-2) 7.9 6.5-8.1 [facility] CenterAlbumin2019-08-05 05:23:00* Test Item Value Reference Range Interpretation Comments Albumin (test code = 1751-7) 3.6 3.5-5.0 [facility] CenterGlobulin2019-08-05 05:23:00* Test Item Value Reference Range Interpretation Comments Globulin (test code = 82171-3) 4.3 2.3-3.5 H [facility] CenterAlbumin/Globulin Lgjam0492-76-76 05:23:00 * Test Item Value Reference Range Interpretation Comments Albumin/Globulin Ratio (test code = 1759-0) 0.8 0.8-2.0 [facility] CenterAlkaline Xgzajdgyorp8061-46-38 05:23:00* Test Item Value Reference Range Interpretation Comments Alkaline Phosphatase (test code = 6768-6) 89 40-150 [facility] CenterTriglycerides Hhggl9033-89-65 05:23:00* Test Item Value Reference Range Interpretation Comments Triglycerides Level (test code = 2571-8) 135 0-149 [facility] CenterCholesterol Acksp8946-28-99 05:23:00* Test Item Value Reference Range Interpretation Comments Cholesterol Level (test code = 2093-3) 112 0-199 Less than 200 mg/dL Low Vaiq860 - 239 mg/dL Borderline Ngsp815 m g/dl and greater High Risk [facility] CenterLDL Jhrwvarkkkg5467-73-48 05:23:00* Test Item Value Reference Range Interpretation Comments LDL Cholesterol (test code = 2089-1) 41 60-130 L [facility]L Jagkvwwpxux1455-72-54 05:23:00* Test Item Value Reference Range Interpretation Comments HDL Cholesterol (test code = 2085-9) 44 40-60 [facility] CenterCholesterol/HDL Anhkc5610-82-22 05:23:00 * Test Item Value Reference Range Interpretation Comments Cholesterol/HDL Ratio (test code = 9830-1) 2.5 3.0-3.6 L [facility] CenterDirect Gvtlzhkms4337-30-06 05:23:00* Test Item Value Reference Range Interpretation Comments Direct Bilirubin (test code = 12337-2) 0.3 0.0-0.5 [facility] CenterTriglycerides Ukxlg5942-30-45 05:23:00* Test Item Value Reference Range Interpretation Comments Triglycerides Level (test code = 2571-8) 135 0-149 [facility] CenterCholesterol Lzjwp5646-76-63 05:23:00* Test Item Value Reference Range Interpretation Comments Cholesterol Level (test code = 2093-3) 112 0-199 Less than 200 mg/dL Low Hxvq197 - 239 mg/dL Borderline Zykw912 m g/dl and greater High Risk [facility] CenterLDL Pplvnszomjp1024-14-68 05:23:00* Test Item Value Reference Range Interpretation Comments LDL Cholesterol (test code = 2089-1) 41 60-130 L [facility] Rvcrkkubfoo5137-24-35 05:23:00* Test Item Value Reference Range Interpretation Comments HDL Cholesterol (test code = 2085-9) 44 40-60 [facility] CenterCholesterol/HDL Savua8749-54-35 05:23:00 * Test Item Value Reference Range Interpretation Comments Cholesterol/HDL Ratio (test code = 9830-1) 2.5 3.0-3.6 L [facility] CenterHemoglobin A1c Dtsxptc5856-21-82 05:22:00 * Test Item Value Reference Range Interpretation Comments Hemoglobin A1c Percent (test code = Hemoglobin A1c Percent) 6.8 4.0-7.0 [facility] CenterHemoglobin A1c Sveayzq1427-34-94 05:22:00 * Test Item Value Reference Range Interpretation Comments Hemoglobin A1c Percent (test code = Hemoglobin A1c Percent) 6.8 4.0-7.0 [facility] CenterCT ABDOMEN/PELVIS A4979-38-85 16:10:00 [facility] [address] [place] [address] Patient Name: YEYO BYRNE MR #: [id number] : [birth year] Age/Sex: 78/F Req #: [id number] Adm Physician: Ordered by: HIMANSHU LARSON MD Report #: [id number] Location: ER Room/Bed: Procedure: [id number] CT/CT ABDOMEN/PELVIS W Exam Date: 02/06/19 Exam [...] normal wall thickness. Large Bowel: Normal in calibe r with normal wall thickness. There is a [...] 5. No evidence of obstructive uropathy. Bilateral johnie l cysts. 6. Lobulated cyst in the pancreas head should be monitored annuall y to confirm stability. Subcentimeter lipoma in the uncinate. 7. No evid ence for bowel obstruction or inflammation. Signed by: Dr. Maegan reese MD on 02/06/2019 4:19 PM Dictated By: MAEGAN BE MD Electronical ly Signed By: MAEGAN BE MD on 02/06/191618 Transcribed By: VANITA on 02/06/191618 COPY TO: HIMANSHU LARSON MD CT CHEST M6072-51-88 16:10:00 [place] [address] Patient Name: YEYO BYRNE MR #: [id number] : 1940 Age/Sex: 78/F Req #: [id number] Adm Physician: Ordered by: HIMANSHU LARSON MD Report #: [id number] Location: ER Room/Bed: Procedure: [id number] CT/CT CHEST W Exam Date: 02/06/19 Exam [...] in length with rounded contours. No evidence fo r mass. Gallbladder: Present and appears normal. No [...] 02/06/191618 COPY TO: HIMANSHU LARSON MD Prothrombin Ijxf7501-50-72 14:10:00* Test Item Value Reference Range Interpretation Comments Prothrombin Time (test code = 5902-2) 13.8 11.9-14.5 [facility] CenterProthromb Time International Ratio 2019-02-06 14:10:00* Test Item Value Reference Range Interpretation Comments Prothromb Time International Ratio (test code = 6301-6) 1.01 Oral Anticoagulant Therapy INR Values:1. Low Intensity Therapy 1.5 - 2.02 . Moderate Intensity Therapy 2.0 - 3.03. High Intensity Therapy(1) 2.5 - 3. 54. High Intensity Therapy(2) 3.0 - 4.05. Panic Value INR > 5.0 [facility] CenterActivated Partial Thromboplast Time 2019-02-06 14:10:00* Test Item Value Reference Range Interpretation Comments Activated Partial Thromboplast Time (test code = 85316-2) 45.4 23.8-35.5 H [facility] CenterProthrombin Pcjr1105-89-28 14:10:00* Test Item Value Reference Range Interpretation Comments Prothrombin Time (test code = 5902-2) 13.8 11.9-14.5 [facility] CenterProthromb Time International Ratio 2019-02-06 14:10:00* Test Item Value Reference Range Interpretation Comments Prothromb Time International Ratio (test code = 6301-6) 1.01 Oral Anticoagulant Therapy INR Values:1. Low Intensity Therapy 1.5 - 2.02 . Moderate Intensity Therapy 2.0 - 3.03. High Intensity Therapy(1) 2.5 - 3. 54. High Intensity Therapy(2) 3.0 - 4.05. Panic Value INR > 5.0 [facility] CenterActivated Partial Thromboplast Time 2019-02-06 14:10:00* Test Item Value Reference Range Interpretation Comments Activated Partial Thromboplast Time (test code = 29179-1) 45.4 23.8-35.5 H [facility] CenterUrine DEK5178-30-80 14:06:00* Test Item Value Reference Range Interpretation Comments Urine WBC (test code = 5821-4) 6-10 0-5 H [facility] CenterUrine GVD0078-71-93 14:06:00* Test Item Value Reference Range Interpretation Comments Urine RBC (test code = 02008-4) 6-10 0-5 H [facility] CenterUrine Ziwuexgn7469-74-25 14:06:00* Test Item Value Reference Range Interpretation Comments Urine Bacteria (test code = 52695-4) MANY NONE H [facility] CenterUrine Epithelial Vrapd7402-83-01 14:06:00 * Test Item Value Reference Range Interpretation Comments Urine Epithelial Cells (test code = 80158-5) MODERATE NONE [facility] CenterUrine Amorphous Impfvgix4687-62-61 14:06:00* Test Item Value Reference Range Interpretation Comments Urine Amorphous Sediment (test code = 8246-1) FEW FEW [facility] CenterUrine Hyaline Yfhnc3437-10-54 14:06:00* Test Item Value Reference Range Interpretation Comments Urine Hyaline Casts (test code = 23638-2) 0-1 0-1 [facility] CenterUrine Ilvkn4100-40-78 14:06:00* Test Item Value Reference Range Interpretation Comments Urine Mucus (test code = 8247-9) FEW RARE H [facility] CenterUrine Hyaline Ivtpf6125-04-31 14:06:00* Test Item Value Reference Range Interpretation Comments Urine Hyaline Casts (test code = 12614-8) 0-1 0-1 [facility] CenterUrine Zzooj2499-25-98 14:06:00* Test Item Value Reference Range Interpretation Comments Urine Mucus (test code = 8247-9) FEW RARE H [facility] CenterUrine Dcwgj7553-68-96 14:02:00* Test Item Value Reference Range Interpretation Comments Urine Color (test code = 5778-6) YELLOW YELLOW [facility] CenterUrine Yaqcmff3430-51-00 14:02:00* Test Item Value Reference Range Interpretation Comments Urine Clarity (test code = 38805-6) HAZY CLEAR [facility] CenterUrine Specific Vfhrhfb6211-79-51 14:02:00 * Test Item Value Reference Range Interpretation Comments Urine Specific [place] (test code = 5811-5) 1.010 1.010-1.02 5 [facility] CenterUrine mV7666-30-75 14:02:00* Test Item Value Reference Range Interpretation Comments Urine pH (test code = 78299-9) 7 5-7 [facility] CenterUrine Leukocyte Khppurbl5194-21-83 14:02:00* Test Item Value Reference Range Interpretation Comments Urine Leukocyte Esterase (test code = 5799-2) SMALL NEGATIVE [facility] CenterUrine Dhhyrku2040-33-07 14:02:00* Test Item Value Reference Range Interpretation Comments Urine Nitrite (test code = 84822-6) NEGATIVE NEGATIVE [facility] CenterUrine Byeomhm8803-82-68 14:02:00* Test Item Value Reference Range Interpretation Comments Urine Protein (test code = 5804-0) 1+ NEGATIVE H [facility] CenterUrine Glucose (UA)2019-02-06 14:02:00* Test Item Value Reference Range Interpretation Comments Urine Glucose (UA) (test code = 2349-9) 1+ NEGATIVE H [facility] CenterUrine Erbfhyb4335-80-42 14:02:00* Test Item Value Reference Range Interpretation Comments Urine Ketones (test code = 23959-3) NEGATIVE NEGATIVE [facility] CenterUrine Iayhghbrxrem3743-81-74 14:02:00* Test Item Value Reference Range Interpretation Comments Urine Urobilinogen (test code = 07322-1) 0.2 0.2-1 [facility] CenterUrine Gsvphemsz5618-38-38 14:02:00* Test Item Value Reference Range Interpretation Comments Urine Bilirubin (test code = 1978-6) NEGATIVE NEGATIVE [facility] CenterUrine Wpvva7244-19-30 14:02:00* Test Item Value Reference Range Interpretation Comments Urine Blood (test code = 23349-7) TRACE NEGATIVE H [facility] CenterCHEST SINGLE (PORTABLE)2019-02-06 13:51:00 [facility] [address] [place] [address] Patient Name: YEYO BYRNE MR #: [id number] : 1940 Age/Sex: 78/F Req #: [id number] Adm Physician: Ordered by: HIMANSHU LARSON MD Report #: [id number] Location: ER Room/Bed: Procedure: [id number] DX/CHEST SINGLE (PORTABLE) Exam Date: 02/06/19 Exam Time: 1350 REPORT STATUS: Signed EXAMINATION: CHEST SINGLE (PORTABLE) COMPARISON: None INDICATION : CHEST PAIN [id number] Y DISCUSSION: Frontal [...] PM Dic tated By: MAEGAN BE MD 0062 COPY TO: HIMANSHU LARSON MD Magnesium Utqlh4430-25-46 14:19:00* Test Item Value Reference Range Interpretation Comments Magnesium Level (test code = 95459-8) 1.9 1.3-2.1 [facility] Hdgmx1234-94-00 14:15:00* Test Item Value Reference Range Interpretation Comments Sodium Level (test code = 2951-2) 138 136-145 [facility] CenterPotassium Itvgr6442-33-78 14:15:00* Test Item Value Reference Range Interpretation Comments Potassium Level (test code = 2823-3) 3.9 3.5-5.1 [facility] CenterChloride Tjvgc8965-64-48 14:15:00* Test Item Value Reference Range Interpretation Comments Chloride Level (test code = 2075-0) 102 98-107 [facility] CenterCarbon Dioxide Bssoe5656-33-52 14:15:00* Test Item Value Reference Range Interpretation Comments Carbon Dioxide Level (test code = 2028-9) 27 22-29 [facility] CenterAnion Peb9490-02-08 14:15:00* Test Item Value Reference Range Interpretation Comments Anion Gap (test code = 56719-5) 12.9 8-16 [facility] CenterBlood Urea Muoemavq2551-26-12 14:15:00* Test Item Value Reference Range Interpretation Comments Blood Urea Nitrogen (test code = 3094-0) 12 7-26 [facility] CenterCreatinine2019-04-02 14:15:00* Test Item Value Reference Range Interpretation Comments Creatinine (test code = 2160-0) 0.78 0.57-1.11 [facility] CenterBUN/Creatinine Krlji1857-38-52 14:15:00* Test Item Value Reference Range Interpretation Comments BUN/Creatinine Ratio (test code = 3097-3) 15 6-25 [facility] CenterEstimat Glomerular Filtration Rate 2018-10-05 14:15:00* Test Item Value Reference Range Interpretation Comments Estimat Glomerular Filtration Rate (test code = 549843632) > 60 >60 Ranges were taken from the National Kidney Disease Education Program and the [facility] Foundation literature.Reference ranges:60 or greater: Kxjuth53-78 ( for 3 consecutive months): Chronic kidney disease 15 or less: Kidney failureBaptist Medical CenterGlucose Rgsrv6065-19-13 14:15:00* Test Item Value Reference Range Interpretation Comments Glucose Level (test code = ZLW3854) 109 74-118 [facility] Bfpmv8071-08-35 14:15:00* Test Item Value Reference Range Interpretation Comments Calcium Level (test code = 24635-2) 10.1 8.4-10.2 [facility] Ooyoqgguu5069-52-06 14:15:00* Test Item Value Reference Range Interpretation Comments Total Bilirubin (test code = 1975-2) 0.5 0.2-1.2 [facility] CenterAspartate Amino Transf (AST/SGOT) 2018-10-05 14:15:00* Test Item Value Reference Range Interpretation Comments Aspartate Amino Transf (AST/SGOT) (test code = Aspartate Amino Transf (AST/SGOT)) 36 5-34 H [facility] CenterAl[facility] Aminotransferase (ALT/SGPT) 2018-10-05 14:15:00* Test Item Value Reference Range Interpretation Comments Alanine Aminotransferase (ALT/SGPT) (test code = 1742-6) 25 0-55 [facility] Yxjiayp5172-18-34 14:15:00* Test Item Value Reference Range Interpretation Comments Total Protein (test code = 2885-2) 8.4 6.5-8.1 H [facility]Albumin2019-04-02 14:15:00* Test Item Value Reference Range Interpretation Comments Albumin (test code = 1751-7) 3.7 3.5-5.0 [facility] CenterGlobulin2019-04-02 14:15:00* Test Item Value Reference Range Interpretation Comments Globulin (test code = 32162-7) 4.7 2.3-3.5 H [facility] CenterAlbumin/Globulin Dbyrt9215-07-91 14:15:00 * Test Item Value Reference Range Interpretation Comments Albumin/Globulin Ratio (test code = 1759-0) 0.8 0.8-2.0 [facility] CenterAlkaline Oqehcestfen1319-08-97 14:15:00* Test Item Value Reference Range Interpretation Comments Alkaline Phosphatase (test code = 6768-6) 97 40-150 [facility] CenterCT BRAIN CM7461-14-37 14:09:00 [facility] [address] [address] Patient Name: YEYO BYRNE MR #: [id number] : 1940 Age/Sex: 77/F Req #: [id number] Adm Physician: Ordered by: ANDRY GUTIÉRREZ CRANE FOLLOWER Report #: [id number] Location: ER Room/Bed: Procedure: CT/CT BRAIN WO [...] el ischemic changes. Sellar/suprasellar region: No abnormalities. Sap Payroll Consultant niocervical junction: Patent foramen magnum. No Chiari [...] on 10/05/18 1412 COPY TO: ANDRY GUTIÉRREZ CRANE FOLLOWER White Blood Dkkcp5708-83-54 14:00:00* Test Item Value Reference Range Interpretation Comments White Blood Count (test code = 6690-2) 8.52 4.8-10.8 [facility] Center[facility] Blood Lugar7564-15-51 14:00:00* Test Item Value Reference Range Interpretation Comments Red Blood Count (test code = 789-8) 4.35 3.6-5.1 [facility] CenterHemoglobin2019-04-02 14:00:00* Test Item Value Reference Range Interpretation Comments Hemoglobin (test code = 75592-9) 13.9 12.0-16.0 [facility] CenterHematocrit2019-04-02 14:00:00* Test Item Value Reference Range Interpretation Comments Hematocrit (test code = 4544-3) 41.0 34.2-44.1 [facility] CenterMean Corpuscular Iexvcg7465-28-09 14:00:00* Test Item Value Reference Range Interpretation Comments Mean Corpuscular Volume (test code = 787-2) 94.3 81-99 [facility]Mean Corpuscular Qkchjhmect6668-09-32 14:00:00* Test Item Value Reference Range Interpretation Comments Mean Corpuscular Hemoglobin (test code = 785-6) 32.0 28-32 [facility]Mean Corpuscular Hemoglobin Concent 2018-10-05 14:00:00* Test Item Value Reference Range Interpretation Comments Mean Corpuscular Hemoglobin Concent (test code = 786-4) 33.9 31-35 [facility] CenterRed Cell Distribution Zgsoj8188-78-78 14:00:00* Test Item Value Reference Range Interpretation Comments Red Cell Distribution Width (test code = 40271-9) 13.6 11.7 -14.4 [facility] CenterPlatelet Ayldb7570-24-47 14:00:00* Test Item Value Reference Range Interpretation Comments Platelet Count (test code = 777-3) 94 140-360 L [facility] CenterNeutrophils (%) (Auto)2018-10-05 14:00:00 * Test Item Value Reference Range Interpretation Comments Neutrophils (%) (Auto) (test code = 03629-6) 71.7 38.7-80.0 [facility] CenterLymphocytes (%) (Auto)2018-10-05 14:00:00 * Test Item Value Reference Range Interpretation Comments Lymphocytes (%) (Auto) (test code = 736-9) 18.8 18.0-39.1 [facility] CenterMonocytes (%) (Auto)2018-10-05 14:00:00* Test Item Value Reference Range Interpretation Comments Monocytes (%) (Auto) (test code = 5905-5) 7.2 4.4-11.3 [facility] CenterEosinophils (%) (Auto)2018-10-05 14:00:00 * Test Item Value Reference Range Interpretation Comments Eosinophils (%) (Auto) (test code = 713-8) 1.6 0.0-6.0 [facility] CenterBasophils (%) (Auto)2018-10-05 14:00:00* Test Item Value Reference Range Interpretation Comments Basophils (%) (Auto) (test code = 706-2) 0.6 0.0-1.0 [facility] CenterIM GRANULOCYTES %2018-10-05 14:00:00* Test Item Value Reference Range Interpretation Comments IM GRANULOCYTES % (test code = IM GRANULOCYTES %) 0.1 0.0- 1.0 [facility] CenterNeutrophils # (Auto)2018-10-05 14:00:00* Test Item Value Reference Range Interpretation Comments Neutrophils # (Auto) (test code = 751-8) 6.1 2.1-6.9 [facility] CenterLymphocytes # (Auto)2018-10-05 14:00:00* Test Item Value Reference Range Interpretation Comments Lymphocytes # (Auto) (test code = 75496-2) 1.6 1.0-3.2 [facility] CenterMonocytes # (Auto)2018-10-05 14:00:00* Test Item Value Reference Range Interpretation Comments Monocytes # (Auto) (test code = 742-7) 0.6 0.2-0.8 [facility] CenterEosinophils # (Auto)2018-10-05 14:00:00* Test Item Value Reference Range Interpretation Comments Eosinophils # (Auto) (test code = 711-2) 0.1 0.0-0.4 [facility] CenterBasophils # (Auto)2018-10-05 14:00:00* Test Item Value Reference Range Interpretation Comments Basophils # (Auto) (test code = 704-7) 0.1 0.0-0.1 [facility] CenterAbsolute Immature Granulocyte (auto 2018-10-05 14:00:00* Test Item Value Reference Range Interpretation Comments Absolute Immature Granulocyte (auto (nikhil t code = Absolute Immature Granulocyte (auto) 0.01 0-0.1 [facility] CenterCHEM CRQMI7975-77-70 21:35:00* Test Item Value Reference Range Interpretation Comments A/G Ratio (test code = A/G Ratio) 0.8 1 0.7-1.6 [facility] RRQQA5882-07-64 21:35:004.9[facility]annCHEM PANEL 2018-05-06 21:35:000.2[facility]CHE[facility] YQGNG8184-13-18 21:35:000.2[facility]CHE[facility] PZNXX9602-39-27 21:35:000.4[facility]annCHEM LHDWJ1905-98-77 21:35:69697Leyxfswp HermannCHEM USKYG5169-71-76 21:35:003.7[facility]annCHEM ZVBOD9974-63-65 21:35:0036[facility]annCHE[facility] PYRXF6701-71-28 21:35:008.6 [facility]CHE[facility] TNEIK8215-85-54 21:35:0040[facility]annCHEM PANEL 2018-05-06 21:35:0061[facility]annCHE[facility] BHSUA3716-56-82 21:35:09311Zmavuptx [facility]annCHEM LQGCK6111-85-07 21:35:000.91[facility]annCHEM XDYXA9640-39-49 21:35:0013[facility]annCHE[facility] IXOXM2183-95-20 21:35:07251Lkwplmno HermannCHEM POMNS6629-30-14 21:35:0028[facility]annCHE[facility] IRTKS2549-69-15 21:35:66572 [facility]CHE[facility] HIQQT8068-37-23 21:35:003.7[facility]annCHEM PANEL 2018-05-06 21:35:009.0[facility]annCHEM XKIFX9002-60-95 21:35:0014.7[facility] TyhrpkeVGIISPMESA5715-54-07 21:35:005.3[facility] SkeyapnPBPYIJVVYI4162-92-48 21:35:000.4[facility] AjrjkgzVUGBECBTFP8891-01-48 21:35:001.8[facility] UHISIJKXQB6456-37-73 21:35:007.1[facility] GnlrxviQJHETIXQHT2835-38-61 21:35:001.6 [facility] DtkjzitEGXRUMSOQS7438-86-43 21:35:0076.0[facility]annHEMATOLOGY 2018-05-06 21:35:0016.5[facility] NfubsvfRSFBEOOLBI0886-79-87 21:35:000.5[facility] MnubcwzKHMFJJWUKF0271-83-18 21:35:000.2[facility] JhfohmvFJDDXQOVKH8277-60-10 21:35:00* Test Item Value Reference Range Interpretation Comments INR (test code = INR) 1.15 1 0.85-1.17 [facility] NprtblcHBXNBYTTQW3972-43-53 21:35:00* Test Item Value Reference Range Interpretation Comments PT (test code = PT) 14.7 s 12.0-14.7 [facility] JakypqeTZMNCJPBSS9837-19-52 21:35:14631Gbbymkws HermannHEMATOLOGY 2018-05-06 21:35:0042.5[facility] TtkkzquUOATZUNDJE9095-64-42 21:35:00* Test Item Value Reference Range Interpretation Comments MCH (test code = MCH) 32.7 pg 27.0-31.0 [facility] RrupsezURLHXIVDZX4584-75-96 21:35:0095.0[facility]annHEMATOLOGY 2018-05-06 21:35:0034.4[facility] DdkzuctIJYPDIHLJJ6575-88-58 21:35:0014.0[facility] UbdgiicIIHHNOHNSO4706-62-85 21:35:007.9[facility] OfhzwnhXSNGATCMEI4536-93-78 21:35:009.4[facility] EtwuoktVVFQVUBBOP6070-91-95 21:35:0014.6[facility] QDYLPOBEEV6723-25-72 21:35:004.47[facility] HlfffchGIPGCCLZTT1855-94-45 21:35:00 Positive *NA*(05/06/18 4:35 PM)[facility] CneyipmIGKVBMNPIV4314-18-27 21:35:00<3.1 [facility] GtidiesKAOLWWSIRR3675-76-84 21:35:829741Bvrlngfd HermannLIPIDS 2018-05-06 21:35:00* Test Item Value Reference Range Interpretation Comments VLDL (test code = VLDL) 43 1 [facility] BrlrtmxGIZKFT6748-08-68 21:35:0044[facility] YizpkdhDSOMOE3905-54-86 21:35:61290Szbofozb UprkadxMGPFEZ5560-18-93 21:35:0038[facility] HermannLIPIDS 2018-05-06 21:35:10461Pjaocfbf HddlkpvTOHNCW0042-09-89 21:35:00* Test Item Value Reference Range Interpretation Comments CHD Risk (test code = CHD Risk) 3.29 1 3.90-5.80 [facility]annSPECIAL LWSVCOVVU6517-76-74 21:35:007.0[facility] HermannTUMOR OGTOYUV7313-96-64 21:35:004.7[facility]annURINE AND RMOKX1782-91-35 07:30:18 Performed (02/08/14 2:30 AM)[facility] YLPAQ3058-52-39 07:30:18 Negative (02/08/14 2:30 AM)[facility] CQDES2421-27-88 07:30:18 Negative (02/08/14 2:30 AM)[facility] PVLEH4507-05-02 07:30:18 Yellow *NA*(02/08/14 2:30 AM)[facility] IPYVW9519-38-11 07:30:18 Clear (02/08/14 2:30 AM)[facility] JHQST5388-00-24 07:30:18* Test Item Value Reference Range Interpretation Comments UA Spec Grav (test code = UA Spec Grav) 1.025 1 [facility] AND ADDIJ4984-64-56 07:30:18* Test Item Value Reference Range Interpretation Comments UA pH (test code = UA pH) 5.5 1 5.0-8.0 [facility] RGMRC3710-72-16 07:30:18Negative *NA*(02/08/14 2:30 AM) [facility] XRDHK8458-54-10 07:30:180.2[facility] AND APERZ7870-10-85 07:30:18Negative (02/08/14 2:30 AM)[facility]
[2020-05-30 22:05] LABS: BASOPHILS # (AUTO) 0.1 (0.0-0.1); BASOPHILS % 0.6 % (0.0-1.0); EOSINOPHILS # (AUTO) 0.3 (0.0-0.4); EOSINOPHILS % 3.2 % (0.0-6.0); HEMATOCRIT 34.6 % (34.2-44.1); HEMOGLOBIN 11.5 g/dL (12.0-16.0); LYMPHOCYTES # (AUTO) 1.7 (1.0-3.2); LYMPHOCYTES % 20.7 % (18.0-39.1); MEAN CORPUSCULAR HEMOGLOBIN 31.4 pg (28-32); MEAN CORPUSCULAR HGB CONC 33.2 g/dL (31-35); MEAN CORPUSCULAR VOLUME 94.5 fL (81-99); MONOCYTES # (AUTO) 0.6 (0.2-0.8); MONOCYTES % 7.7 % (4.4-11.3); NEUTROPHILS # (AUTO) 5.5 (2.1-6.9); NEUTROPHILS % 67.6 % (38.7-80.0); PLATELET COUNT 122 x10e3/uL (140-360); RED BLOOD COUNT 3.66 x10e6/uL (3.6-5.1); RED CELL DISTRIBUTION WIDTH 13.4 % (11.7-14.4)
[2020-05-30 22:23] LABS: ALBUMIN/GLOBULIN RATIO 0.9 (0.8-2.0); ANION GAP 14.9 mmol/L (8-16); CALCIUM 9.3 mg/dL (8.4-10.2); CREATININE, SERUM 1.16 mg/dL (0.57-1.11); POTASSIUM 3.9 mmol/L (3.5-5.1)
--- NOTE | 2020-05-30 22:39 | Emergency Department Note ---
History of Present Illnes History of Present Illness Chief Complaint: Extremity Trauma/Pain History of Present Illness This is a 79 year old Other female intermittent swelling to lower legs and rash to right leg and foot that she noticed today. Patient states legs have been swollen for over a year. Patient c/o chronic shortness of breath. . Historian: Patient Arrival Mode: Car Onset (how long ago): year(s) (1) Location: BILATERAL LOWER LEGS Quality: SWELLING Severity: moderate Onset quality: gradual Duration (how long): month(s) (12) Timing of current episode: constant Progression: waxing and waning Chronicity: chronic Relieving factors: none Exacerbating factors: none Associated symptoms: Reports shortness of breath (BUT PT STATES IT IS CHRONIC), Reports other (NOTICED RASH/REDNESS TO LEFT LOWER LEG FOR FIRST TIME TODAY) Treatments prior to arrival: none Past Medical/Family History Physician Review I have reviewed the patient's past medical and family history. Any updates have been documented here. Past Medical History Recent Fever: No Clinical Suspicion of Infectio: No New/Unexplained Change in Ment: No Past Medical History: Hypertension, Diabetes, Liver Disease, GERD Other Medical History: BIPOLAR CIRRHOSIS ADDISONS EMPHYSEMA Past Surgical History: Knee Replacement, Hernia Repair Other Surgery: LEFT KNEE Social History Smoking Cessation: Never Smoker Counseling Performed: No Alcohol Use: None Any Illegal Drug Use: No Family History Family history of heart diseas: No Other family history HTN,DM Other Last Tetanus: UNKNOWN Any Pre-Existing Lines (PICC,: No Review of Systems Review of Systems Constitutional: Reports no symptoms EENTM: Reports no symptoms Cardiovascular: Reports no symptoms Respiratory: Reports as per HPI Gastrointestinal: Reports no symptoms Genitourinary: Reports no symptoms Musculoskeletal: Reports as per HPI Integumentary: Reports no symptoms Neurological: Reports no symptoms Psychological: Reports no symptoms Endocrine: Reports no symptoms Hematological/Lymphatic: Reports no symptoms Physical Exam Related Data Allergies: Coded Allergies: Sulfa (Sulfonamide Antibiotics) (Verified Allergy, Unknown, 02/07/19) Triage Vital Signs Vital Signs Date Time Temp Pulse Resp B/P (MAP) Pulse Ox O2 Delivery O2 Flow Rate FiO2 05/30/20 21:45 98.1 91 22 183/79 98 Room Air Vital signs reviewed: Yes Physical Exam CONSTITUTIONAL Constitutional: Present well-developed, Present well-nourished; Absent distressed HENT HENT: Present normocephalic, Present atraumatic, Present oropharynx clear/moist, Present nose normal HENT L/R: Present left ext ear normal, Present right ext ear normal EYES Eyes: Reports PERRL, Reports conjunctivae normal NECK Neck: Present ROM normal PULMONARY Pulmonary: Present effort normal, Present breath sounds normal CARDIOVASCULAR Cardiovascular: Present regular rhythm, Present heart sounds normal, Present capillary refill normal, Present normal rate GASTROINTESTINAL Abdominal: Present soft, Present nontender, Present bowel sounds normal GENITOURINARY Genitourinary: Present exam deferred SKIN Skin: Present warm, Present dry, Present erythema (TO LEFT LOWER EXTREMITY JUST PROXIMAL TO ANKLE, WARM TO TOUCH) MUSCULOSKELETAL Musculoskeletal: Present ROM normal, Present edema (MILD 1 + BILATERAL LOWER EXTREMTIES, PULSES IN TACT, ), Present tenderness (BILATERAL CALVES) NEUROLOGICAL Neurological: Present alert, Present oriented x 3, Present no gross motor or sensory deficits PSYCHOLOGICAL Psychological: Present mood/affect normal, Present judgement normal Results Laboratory Result Diagram: 05/30/20215205/30/202152 Laboratory Laboratory Tests Test 05/30/20 21:53 White Blood Count 8.15 x10e3/uL (4.8-10.8) Red Blood Count 3.66 x10e6/uL (3.6-5.1) Hemoglobin 11.5 g/dL (12.0-16.0) Hematocrit 34.6 % (34.2-44.1) Mean Corpuscular Volume 94.5 fL (81-99) Mean Corpuscular Hemoglobin 31.4 pg (28-32) Mean Corpuscular Hemoglobin Concent 33.2 g/dL (31-35) Red Cell Distribution Width 13.4 % (11.7-14.4) Platelet Count 122 x10e3/uL (140-360) Neutrophils (%) (Auto) 67.6 % (38.7-80.0) Lymphocytes (%) (Auto) 20.7 % (18.0-39.1) Monocytes (%) (Auto) 7.7 % (4.4-11.3) Eosinophils (%) (Auto) 3.2 % (0.0-6.0) Basophils (%) (Auto) 0.6 % (0.0-1.0) Neutrophils # (Auto) 5.5 (2.1-6.9) Lymphocytes # (Auto) 1.7 (1.0-3.2) Monocytes # (Auto) 0.6 (0.2-0.8) Eosinophils # (Auto) 0.3 (0.0-0.4) Basophils # (Auto) 0.1 (0.0-0.1) Absolute Immature Granulocyte (auto 0.02 x10e3/uL (0-0.1) Sodium Level 132 mmol/L (136-145) Potassium Level 3.9 mmol/L (3.5-5.1) Chloride Level 97 mmol/L (98-107) Carbon Dioxide Level 24 mmol/L (22-29) Anion Gap 14.9 mmol/L (8-16) Blood Urea Nitrogen 21 mg/dL (7-26) Creatinine 1.16 mg/dL (0.57-1.11) Estimat Glomerular Filtration Rate 45 ML/MIN (60-) BUN/Creatinine Ratio 18 (6-25) Glucose Level 168 mg/dL (74-118) Calcium Level 9.3 mg/dL (8.4-10.2) Total Bilirubin 0.4 mg/dL (0.2-1.2) Aspartate Amino Transf (AST/SGOT) 29 IU/L (5-34) Alanine Aminotransferase (ALT/SGPT) 21 IU/L (0-55) Alkaline Phosphatase 86 IU/L (40-150) B-Type Natriuretic Peptide 42.0 pg/mL (0-100) Total Protein 8.3 g/dL (6.5-8.1) Albumin 4.0 g/dL (3.5-5.0) Globulin 4.3 g/dL (2.3-3.5) Albumin/Globulin Ratio 0.9 (0.8-2.0) Lab results reviewed: Yes Imaging Imaging results reviewed: Yes Impressions Procedure: [id number] DX/CHEST SINGLE (PORTABLE) Exam Date: 05/30/20 Exam Time: 2204 REPORT STATUS: Signed EXAMINATION: CHEST SINGLE (PORTABLE) INDICATION: ^EVAL FOR PULMONARY EDEMA ^[id number] ^2204 ^Y COMPARISON: 02/10/2019 FINDINGS: AP view TUBES and LINES: None. LUNGS: Lungs are well inflated. Central peribronchial cuffing. Mild left basilar haziness. PLEURA: No significant pleural effusion or pneumothorax. HEART AND MEDIASTINUM: The cardiomediastinal silhouette is unremarkable. BONES AND SOFT TISSUES: No acute osseous lesion. Soft tissues are unremarkable. UPPER ABDOMEN: No free air under the diaphragm. IMPRESSION: Central peribronchial cuffing. Mild left basilar haziness, probably subsegmental atelectasis. Underlying pneumonia cannot be excluded. Signed by: Dr. London Briceño MD on 05/30/2020 10:57 PM Dictated By: LONDON BRICEÑO MD 56 Transcribed By: VANITA on 05/30/202256 COPY TO: RUPERT RAJPUT MD~ Diagnostics Tests Diagnostic test(s) reviewed: Yes Diagnostic comments VENOUS DOPPLER NEGATIVE FOR DVT Assessment & Plan Medical Decision Making MDM PT WITH SWOLLEN LEGS AND REDNESS TO LEFT LEG CBC, CMP, CXR, VENOUS DOPPLER ORDERED TO EVAL FOR DVT, LEUKOCYTOSIS, PULMONARY EDEMA, ELECTROLYTE ABNORMALITY, RENAL FAILURE Assessment & Plan Final Impression: (1) Dependent edema (2) Cellulitis of left lower extremity Depart Disposition: HOME, SELF-CARE Last Vital Signs Date Time Temp Pulse Resp B/P (MAP) Pulse Ox O2 Delivery O2 Flow Rate FiO2 05/30/20 22:15 80 18 159/67 100 Room Air 05/30/20 21:45 98.1 Home Meds Active Scripts Tizanidine Hcl (TIZANIDINE HCL) 4 Mg Capsule, 4 MG PO TID PRN for MUSCLE SPASMS, #15 TAB Prov:ANDRY GUTIÉRREZ SITE HEAD 02/10/19 [Albuterol Hfa] No Conflict Check, 1 INH INH Q8H PRN for SHORTNESS OF BREATH, #1 Prov:AJ ALMENDAREZ SITE HEAD 02/08/19 [Ceftin] No Conflict Check, 500 MG PO Q12H for 5 Days Prov:AJ ALMENDAREZ SITE HEAD 02/08/19 Pantoprazole Sod (PROTONIX) 40 Mg/Ml Susp, 40 MG PO BIDWM for 30 Days Prov:AJ ALMENDAREZ SITE HEAD 02/08/19 Baclofen (BACLOFEN) 10 Mg Tablet, 5 MG PO TID PRN for MUSCLE SPASMS, #30 Prov:AJ ALMENDAREZ NP 02/08/19 Aspirin (ASPIRIN EC) 81 Mg Tablet.dr 81 MG PO QAM for 30 Days Prov:AJ ALMENDAREZ SITE HEAD 02/08/19 Reported Medications Sitagliptin Phosphate (JANUVIA) 100 Mg Tablet, 100 MG PO DAILY, #30 TAB 02/07/19 Nifedipine (NIFEDIPINE ER) 60 Mg Tablet.er, 60 MG PO DAILY 02/07/19 Lisinopril (LISINOPRIL) 10 Mg Tablet, 20 MG PO DAILY, #30 TAB 02/07/19 Metformin Hcl (METFORMIN HCL ER) 500 Mg Tab.er.24, 1000 MG PO BID, #60 TAB 02/07/19 Atorvastatin Calcium (ATORVASTATIN CALCIUM) 10 Mg Tablet, 10 MG PO 2100, #30 TAB 02/07/19 Omeprazole (OMEPRAZOLE) 40 Mg Capsule., ACB 02/07/19 Mu-Vits-Min Th/Lycopene/Lutein (CENTRUM SILVER TABLET) 1 Each Tablet, 60 DAILY 02/07/19 RUPERT RAJPUT MD May 30, 2020 22:39
--- NOTE | 2020-05-30 23:00 | Diagnostic Imaging Report ---
EXAMINATION: CHEST SINGLE (PORTABLE) INDICATION: ^EVAL FOR PULMONARY EDEMA ^[id number] ^5 ^Y COMPARISON: 02/10/2019 FINDINGS: AP view TUBES and LINES: None. LUNGS: Lungs are well inflated. Central peribronchial cuffing. Mild left basilar haziness. PLEURA: No significant pleural effusion or pneumothorax. HEART AND MEDIASTINUM: The cardiomediastinal silhouette is unremarkable. BONES AND SOFT TISSUES: No acute osseous lesion. Soft tissues are unremarkable. UPPER ABDOMEN: No free air under the diaphragm. IMPRESSION: Central peribronchial cuffing. Mild left basilar haziness, probably subsegmental atelectasis. Underlying pneumonia cannot be excluded. Signed by: Dr. London Klein MD on 05/30/2020 10:57 PM
[2020-05-30 23:16] VITALS: BP 152/67
== END 2020-05-30 23:25 | disposition home or self-care (01) ==
LOC: ER 21:49
DX: L03.116 Cellulitis of left lower limb (principal); R60.9 Edema, unspecified; I10 Essential (primary) hypertension; E11.65 Type 2 diabetes mellitus with hyperglycemia; K76.9 Liver disease, unspecified; K21.9 Gastro-esophageal reflux disease without esophagitis
CPT/HCPCS: 36415; 71045; 80053; 83880; 85025; 87040; 93970; 99283

== ENCOUNTER 2020-10-24 20:21 | Emergency (ER) | payer MEDICARE, OTHER ==
[~2020-10-24] VITALS: Ht 162.6 cm; Wt 95.3 kg
== END 2020-10-24 23:05 | disposition home or self-care (01) ==
LOC: ER 22:01
DX: M25.562 Pain in left knee (principal); M25.561 Pain in right knee; S80.02XA Contusion of left knee, initial encounter; S80.01XA Contusion of right knee, initial encounter; W18.11XA Fall from or off toilet without subsequent striking against object, initial encounter; Y92.002 Bathroom of unspecified non-institutional (private) residence as the place of occurrence of the external cause
CPT/HCPCS: 99283

== ENCOUNTER 2021-01-06 17:09 | Inpatient (IN) | payer MEDICARE, OTHER ==
[~2021-01-06] VITALS: Ht 162.6 cm; Wt 96.2 kg
[2021-01-06 18:10] LABS: BASOPHILS # (AUTO) 0.1 (0.0-0.1); BASOPHILS % 0.4 % (0.0-1.0); EOSINOPHILS # (AUTO) 0.2 (0.0-0.4); EOSINOPHILS % 1.3 % (0.0-6.0); HEMATOCRIT 33.4 % (34.2-44.1); HEMOGLOBIN 12.3 g/dL (12.0-16.0); LYMPHOCYTES # (AUTO) 0.8 (1.0-3.2); LYMPHOCYTES % 6.1 % (18.0-39.1); MEAN CORPUSCULAR HGB CONC 36.8 g/dL (31-35); MONOCYTES # (AUTO) 0.8 (0.2-0.8); NEUTROPHILS # (AUTO) 10.9 (2.1-6.9); NEUTROPHILS % 85.6 % (38.7-80.0); PLATELET COUNT 131 x10e3/uL (140-360); RED BLOOD COUNT 3.84 x10e6/uL (3.6-5.1); RED CELL DISTRIBUTION WIDTH 12.8 % (11.7-14.4)
[2021-01-06 18:21] LABS: CLARITY,URINE HAZY (CLEAR); COLOR,URINE YELLOW (YELLOW); LEUKOCYTE ESTERASE ,URINE LARGE (NEGATIVE); NITRITE,URINE NEGATIVE (NEGATIVE); PROTEIN,URINE DIPSTICK 1+ (NEGATIVE)
[2021-01-06 18:22] LABS: AMORPHOUS SEDIMENT,URINE FEW (FEW); BACTERIA,URINE MANY /HPF; EPITHELIAL CELLS,URINE FEW /LPF; HYALINE CASTS 0-1 (0-1); KETONES,URINE NEGATIVE (NEGATIVE); URINE UROBILINOGEN 0.2 mg/dL (0.2 - 1); WBC,URINE (MAN) >50 /HPF (0-5)
[2021-01-06 18:23] LABS: MUCUS,URINE MODERATE (RARE)
[2021-01-06 18:31] LABS: ALANINE AMINOTRANSFERASE 53 IU/L (0-55); ALBUMIN 3.8 g/dL (3.5-5.0); ALBUMIN/GLOBULIN RATIO 0.9 (0.8-2.0); ANION GAP 17.1 mmol/L (8-16); BLOOD UREA NITROGEN 16 mg/dL (7-26); BUN/CREATININE RATIO 13 (6-25); CALCIUM 9.5 mg/dL (8.4-10.2); CARBON DIOXIDE 29 mmol/L (22-29); CHLORIDE 71 mmol/L (98-107); CREATININE, SERUM 1.25 mg/dL (0.57-1.11); EST GLOMERULAR FILTRATION RATE 41 ML/MIN (60-); GLUCOSE 297 mg/dL (74-118); POTASSIUM 3.1 mmol/L (3.5-5.1)
[2021-01-06 18:34] LABS: SODIUM 114 mmol/L (136-145)
[2021-01-06 18:40] LABS: CREATINE KINASE 41 IU/L (29-168)
[2021-01-06 18:55] LABS: ALKALINE PHOSPHATASE 136 IU/L (40-150)
[2021-01-06] MEDS ORDERED: SODIUM CHLORIDE 0.9% 1000ML 1,000 ML IV SCH ×2 (19:30→19:45)
[2021-01-06] MEDS ORDERED: SODIUM CHLORIDE 0.9% 1000ML 1,000 ML ONE (19:55)
[2021-01-07] VITALS (25 sets, daily range): BP systolic 96–166; BP diastolic 43–97
[2021-01-07] MEDS: CEFTRIAXONE 1 GM in SODIUM CHLORIDE 0.9% 50ML 50 ML IV SCH ×2 (00:14→09:58)
[2021-01-07] MEDS ORDERED: POTASSIUM CHLORIDE 20 MEQ TAB CR PO STA (01:10)
[2021-01-07] MEDS ORDERED: MELATONIN 5 MG TABLET PO PRN (01:15)
[2021-01-07] MEDS ORDERED: TRAMADOL HCL 50 MG TAB PO PRN (01:15)
[2021-01-07] MEDS ORDERED: POTASSIUM CHLORIDE 20 MEQ TAB CR PO PRN (01:15)
[2021-01-07] MEDS ORDERED: DIPHENHYDRAMINE HCL 25 MG CAP PO PRN (01:15)
[2021-01-07] MEDS ORDERED: ONDANSETRON HCL INJ 2MG/ML 2ML 2 MG/ML VIAL IV PRN (01:15)
[2021-01-07] MEDS ORDERED: HYDRALAZINE HCL 20 MG/ML VIAL IV PRN (01:15)
[2021-01-07] MEDS ORDERED: BACLOFEN 10 MG TAB PO PRN (01:15)
[2021-01-07] MEDS ORDERED: DOCUSATE SODIUM 100 MG CAP PO PRN (01:15)
[2021-01-07] MEDS ORDERED: LIDOCAINE 4% PATCH TP PRN (01:15)
[2021-01-07] MEDS ORDERED: DEXTROSE 50% SYRINGE 50 ML IV PRN ×3 (01:15→18:30)
[2021-01-07] MEDS ORDERED: ACETAMINOPHEN 325 MG TAB PO PRN (01:15)
[2021-01-07] MEDS ORDERED: ALBUTEROL/IPRATROPIUM 3 ML NEB NEB PRN (01:15)
[2021-01-07 02:09] LABS: CREATINE KINASE 57 IU/L (29-168)
[2021-01-07] MEDS: BENZONATATE 100 MG CAP PO PRN (02:49)
[2021-01-07 06:38] LABS: BASOPHILS # (AUTO) 0.1 (0.0-0.1); BASOPHILS % 0.4 % (0.0-1.0); EOSINOPHILS # (AUTO) 0.4 (0.0-0.4); HEMATOCRIT 34.9 % (34.2-44.1); HEMOGLOBIN 12.8 g/dL (12.0-16.0); LYMPHOCYTES # (AUTO) 1.3 (1.0-3.2); LYMPHOCYTES % 10.8 % (18.0-39.1); MEAN CORPUSCULAR HEMOGLOBIN 31.8 pg (28-32); MEAN CORPUSCULAR HGB CONC 36.7 g/dL (31-35); MEAN CORPUSCULAR VOLUME 86.8 fL (81-99); MONOCYTES # (AUTO) 0.7 (0.2-0.8); MONOCYTES % 6.1 % (4.4-11.3); NEUTROPHILS # (AUTO) 9.4 (2.1-6.9); NEUTROPHILS % 79.3 % (38.7-80.0); PLATELET COUNT 118 x10e3/uL (140-360); RED BLOOD COUNT 4.02 x10e6/uL (3.6-5.1); RED CELL DISTRIBUTION WIDTH 12.7 % (11.7-14.4)
[2021-01-07 07:02] LABS: ANION GAP 17.6 mmol/L (8-16); CALCIUM 9.8 mg/dL (8.4-10.2); CREATININE, SERUM 0.96 mg/dL (0.57-1.11); MAGNESIUM 1.7 MG/DL (1.3-2.1); PHOSPHORUS 3.2 MG/DL (2.3-4.7); POTASSIUM 3.6 mmol/L (3.5-5.1)
[2021-01-07] MEDS ORDERED: PANTOPRAZOLE SOD 40 MG TABEC PO SCH (07:30)
[2021-01-07] MEDS: PANTOPRAZOLE SOD 40 MG TABEC PO SCH ×2 (08:00→17:10)
[2021-01-07] MEDS ORDERED: COSYNTROPIN 0.25 MG/VIAL VIAL INJ ONE (08:00)
[2021-01-07] MEDS: SITAGLIPTIN 100 MG TAB PO SCH (09:58)
[2021-01-07] MEDS: ASPIRIN 81 MG ENTERIC COATED PO SCH (09:58)
[2021-01-07] MEDS: LISINOPRIL 20 MG TAB PO SCH (09:58)
[2021-01-07 10:55] LABS: CREATINE KINASE 39 IU/L (29-168)
[2021-01-07] MEDS ORDERED: SODIUM CHLORIDE 1 GM TAB PO ONE (20:00)
[2021-01-07] MEDS: INSULIN LISPRO 100 UNIT/1 ML 3ML VIAL SQ SCH (21:00)
[2021-01-07] MEDS: ATORVASTATIN 10 MG TAB PO SCH (21:02)
[2021-01-08] VITALS (21 sets, daily range): BP systolic 85–146; BP diastolic 45–87
[2021-01-08] MEDS: SODIUM CHLORIDE 0.9% 1000ML 1,000 ML IV SCH ×2 (00:15→19:04)
[2021-01-08 05:30] LABS: FREE T4 (FREE THYROXINE) 1.22 ng/dL (0.8-1.8); THYROID STIMULATING HORMONE 1.901 uIU/mL (0.350-4.940)
[2021-01-08 07:01] LABS: ALBUMIN 3.5 g/dL (3.5-5.0); ALBUMIN/GLOBULIN RATIO 0.9 (0.8-2.0); ANION GAP 17.6 mmol/L (8-16); CALCIUM 9.1 mg/dL (8.4-10.2); CREATININE, SERUM 1.19 mg/dL (0.57-1.11); POTASSIUM 3.6 mmol/L (3.5-5.1)
[2021-01-08] MEDS: INSULIN LISPRO 100 UNIT/1 ML 3ML VIAL SQ SCH ×4 (07:05→21:00)
[2021-01-08] MEDS ORDERED: COSYNTROPIN 0.25 MG/VIAL VIAL INJ ONE (08:00)
[2021-01-08] MEDS: PANTOPRAZOLE SOD 40 MG TABEC PO SCH ×2 (08:06→17:06)
[2021-01-08] MEDS: ASPIRIN 81 MG ENTERIC COATED PO SCH (08:06)
[2021-01-08] MEDS: SITAGLIPTIN 100 MG TAB PO SCH (08:06)
[2021-01-08] MEDS: CEFTRIAXONE 1 GM in SODIUM CHLORIDE 0.9% 50ML 50 ML IV SCH (08:06)
[2021-01-08] MEDS: LISINOPRIL 20 MG TAB PO SCH (08:09)
[2021-01-08] MEDS: ATORVASTATIN 10 MG TAB PO SCH (21:15)
[2021-01-09] VITALS (12 sets, daily range): BP systolic 106–172; BP diastolic 49–98
[2021-01-09 07:06] LABS: BASOPHILS % 0.3 % (0.0-1.0); EOSINOPHILS # (AUTO) 0.1 (0.0-0.4); HEMATOCRIT 32.7 % (34.2-44.1); HEMOGLOBIN 11.6 g/dL (12.0-16.0); LYMPHOCYTES # (AUTO) 0.9 (1.0-3.2); LYMPHOCYTES % 14.8 % (18.0-39.1); MEAN CORPUSCULAR HEMOGLOBIN 32.1 pg (28-32); MEAN CORPUSCULAR HGB CONC 35.5 g/dL (31-35); MEAN CORPUSCULAR VOLUME 90.6 fL (81-99); MONOCYTES # (AUTO) 0.5 (0.2-0.8); MONOCYTES % 7.6 % (4.4-11.3); NEUTROPHILS # (AUTO) 4.5 (2.1-6.9); PLATELET COUNT 88 x10e3/uL (140-360); RED BLOOD COUNT 3.61 x10e6/uL (3.6-5.1); RED CELL DISTRIBUTION WIDTH 13.2 % (11.7-14.4)
[2021-01-09] MEDS: INSULIN LISPRO 100 UNIT/1 ML 3ML VIAL SQ SCH ×4 (07:30→20:32)
[2021-01-09 07:37] LABS: ALBUMIN 3.4 g/dL (3.5-5.0); ALBUMIN/GLOBULIN RATIO 0.9 (0.8-2.0); ANION GAP 15.6 mmol/L (8-16); CALCIUM 9.1 mg/dL (8.4-10.2); CREATININE, SERUM 0.86 mg/dL (0.57-1.11); POTASSIUM 3.6 mmol/L (3.5-5.1)
[2021-01-09] MEDS ORDERED: DEXTROSE 5% 1,000 ML IV SCH (08:30)
[2021-01-09] MEDS: PANTOPRAZOLE SOD 40 MG TABEC PO SCH ×2 (08:31→18:37)
[2021-01-09] MEDS: CEFTRIAXONE 1 GM in SODIUM CHLORIDE 0.9% 50ML 50 ML IV SCH (08:33)
[2021-01-09] MEDS: SITAGLIPTIN 100 MG TAB PO SCH (08:34)
[2021-01-09] MEDS: ASPIRIN 81 MG ENTERIC COATED PO SCH (08:34)
[2021-01-09] MEDS: LISINOPRIL 20 MG TAB PO SCH (08:34)
[2021-01-09] MEDS ORDERED: DESMOPRESSIN ACETATE 4 MCG/ML VIAL SQ ONE (08:45)
[2021-01-09 13:13] LABS: OSMOLALITY,SERUM OSMOMETER 247 mOsmol/kg (280-301)
[2021-01-09] MEDS ORDERED: ONDANSETRON HCL 4 MG ORAL DISINTEGRATING TAB PO PRN (14:00)
[2021-01-09 16:56] LABS: ALBUMIN 3.5 g/dL (3.5-5.0); ALBUMIN/GLOBULIN RATIO 0.9 (0.8-2.0); ANION GAP 14.5 mmol/L (8-16); CALCIUM 8.7 mg/dL (8.4-10.2); CREATININE, SERUM 0.82 mg/dL (0.57-1.11); POTASSIUM 3.5 mmol/L (3.5-5.1)
[2021-01-09] MEDS: ATORVASTATIN 10 MG TAB PO SCH (21:11)
[2021-01-10] VITALS (9 sets, daily range): BP systolic 144–171; BP diastolic 60–82
[2021-01-10] MEDS: BENZONATATE 100 MG CAP PO PRN (03:59)
[2021-01-10 06:17] LABS: ANION GAP 14.6 mmol/L (8-16); CALCIUM 8.7 mg/dL (8.4-10.2); CREATININE, SERUM 0.72 mg/dL (0.57-1.11); POTASSIUM 3.6 mmol/L (3.5-5.1)
[2021-01-10] MEDS: INSULIN LISPRO 100 UNIT/1 ML 3ML VIAL SQ SCH ×4 (07:30→21:44)
[2021-01-10] MEDS: SITAGLIPTIN 100 MG TAB PO SCH (08:54)
[2021-01-10] MEDS: PANTOPRAZOLE SOD 40 MG TABEC PO SCH ×2 (08:54→16:30)
[2021-01-10] MEDS: ASPIRIN 81 MG ENTERIC COATED PO SCH (08:54)
[2021-01-10] MEDS: LISINOPRIL 20 MG TAB PO SCH (08:55)
[2021-01-10] MEDS: CEFTRIAXONE 1 GM in SODIUM CHLORIDE 0.9% 50ML 50 ML IV SCH (08:55)
[2021-01-10] MEDS: SODIUM CHLORIDE 0.9% 1000ML 1,000 ML IV SCH ×2 (11:30→13:30)
[2021-01-10] MEDS: ATORVASTATIN 10 MG TAB PO SCH (21:38)
[2021-01-11] VITALS (8 sets, daily range): BP systolic 138–166; BP diastolic 54–96
[2021-01-11] MEDS: INSULIN LISPRO 100 UNIT/1 ML 3ML VIAL SQ SCH ×4 (07:16→19:34)
[2021-01-11 07:26] LABS: ANION GAP 16.9 mmol/L (8-16); CALCIUM 9.3 mg/dL (8.4-10.2); CREATININE, SERUM 0.76 mg/dL (0.57-1.11); POTASSIUM 3.9 mmol/L (3.5-5.1)
[2021-01-11] MEDS: PANTOPRAZOLE SOD 40 MG TABEC PO SCH ×2 (08:04→16:50)
[2021-01-11] MEDS ORDERED: DEXTROSE 5% 1,000 ML IV SCH ×2 (08:30→10:00)
[2021-01-11] MEDS: LISINOPRIL 20 MG TAB PO SCH (09:59)
[2021-01-11] MEDS: ASPIRIN 81 MG ENTERIC COATED PO SCH (09:59)
[2021-01-11] MEDS: CEFTRIAXONE 1 GM in SODIUM CHLORIDE 0.9% 50ML 50 ML IV SCH (09:59)
[2021-01-11] MEDS: SITAGLIPTIN 100 MG TAB PO SCH (09:59)
[2021-01-11] MEDS ORDERED: SODIUM CHLORIDE 1 GM TAB PO ONE (19:55)
[2021-01-11] MEDS: ATORVASTATIN 10 MG TAB PO SCH (19:58)
[2021-01-12 05:34] VITALS: BP 164/69
[2021-01-12 07:06] LABS: ANION GAP 16.7 mmol/L (8-16); CALCIUM 9.5 mg/dL (8.4-10.2); CREATININE, SERUM 0.78 mg/dL (0.57-1.11); POTASSIUM 3.7 mmol/L (3.5-5.1)
[2021-01-12] MEDS: INSULIN LISPRO 100 UNIT/1 ML 3ML VIAL SQ SCH ×2 (07:30→11:30)
[2021-01-12 08:04] VITALS: BP 147/86
[2021-01-12] MEDS: CEFTRIAXONE 1 GM in SODIUM CHLORIDE 0.9% 50ML 50 ML IV SCH (08:46)
[2021-01-12] MEDS: PANTOPRAZOLE SOD 40 MG TABEC PO SCH (08:46)
[2021-01-12] MEDS: SITAGLIPTIN 100 MG TAB PO SCH (08:46)
[2021-01-12] MEDS: LISINOPRIL 20 MG TAB PO SCH (08:46)
[2021-01-12] MEDS: ASPIRIN 81 MG ENTERIC COATED PO SCH (08:46)
[2021-01-12 09:08] VITALS: BP 147/83
[2021-01-12 11:42] VITALS: BP 158/63
[2021-01-12] MEDS ORDERED: CEFDINIR300 MG PO (13:32)
== END 2021-01-12 15:07 | disposition home or self-care (01) | DRG 640 ==
LOC: ER 18:55 → ERHOLD 19:40 → ICU 23:59 → IMCU 01-09 10:10 → MED/SURG 01-09 22:49
PROVIDERS: ADMIT Internal Medicine; ATTEND Internal Medicine
DX: E87.1 Hypo-osmolality and hyponatremia (principal); G93.41 Metabolic encephalopathy; N39.0 Urinary tract infection, site not specified; E27.1 Primary adrenocortical insufficiency; K74.60 Unspecified cirrhosis of liver; E11.9 Type 2 diabetes mellitus without complications; Z79.4 Long term (current) use of insulin; Z20.822 Contact with and (suspected) exposure to COVID-19
CPT/HCPCS: 36415; 70450; 71045; 80048; 80053; 81001; 82024; 82550; 82553; 82948; 83036; 83735; 83930; 83935; 84100; 84295; 84300; 84439; 84443; 84484; 84550; 85025; 87086; 87186; 93005; 97139; 99285; J0696; J0834; J7030; J7070; U0002

== ENCOUNTER 2021-05-19 11:59 | Emergency (ER) | payer MEDICARE, OTHER ==
[~2021-05-19] VITALS: Ht 162.6 cm; Wt 96.2 kg
[~2021-05-19 11:59] MED LIST changes: +CEFDINIR300 MG PO
[2021-05-19] MEDS ORDERED: LIDOCAINE 4% PATCH TP STA (12:22)
[2021-05-19] MEDS ORDERED: LIDOPATCH1 EACH TOP (13:17)
== END 2021-05-19 13:35 | disposition home or self-care (01) ==
LOC: ER 12:18
DX: M54.6 Pain in thoracic spine (principal); M79.18 Myalgia, other site; I10 Essential (primary) hypertension; E11.9 Type 2 diabetes mellitus without complications; K76.9 Liver disease, unspecified; K21.9 Gastro-esophageal reflux disease without esophagitis; F31.9 Bipolar disorder, unspecified
CPT/HCPCS: 71046; 93005; 99283

== ENCOUNTER 2022-03-01 17:48 | Emergency (ER) | payer MEDICARE, OTHER ==
[~2022-03-01] VITALS: Ht 162.6 cm; Wt 96.2 kg
[~2022-03-01 17:48] MED LIST changes: +LIDOPATCH1 EACH TOP
[2022-03-01] MEDS ORDERED: CLONIDINE HCL 0.1 MG TAB PO ONE (18:00)
[2022-03-01] MEDS: LIDOCAINE 4% PATCH TP ONE ×2 (18:33→18:44)
[2022-03-01 18:45] LABS: BASOPHILS % 0.4 % (0.0-1.0); EOSINOPHILS # (AUTO) 0.1 (0.0-0.4); EOSINOPHILS % 0.7 % (0.0-6.0); HEMATOCRIT 43.6 % (34.2-44.1); HEMOGLOBIN 14.9 g/dL (12.0-16.0); LYMPHOCYTES # (AUTO) 0.9 (1.0-3.2); LYMPHOCYTES % 11.6 % (18.0-39.1); MEAN CORPUSCULAR HEMOGLOBIN 32.3 pg (28-32); MEAN CORPUSCULAR HGB CONC 34.2 g/dL (31-35); MEAN CORPUSCULAR VOLUME 94.6 fL (81-99); MONOCYTES # (AUTO) 0.4 (0.2-0.8); MONOCYTES % 5.1 % (4.4-11.3); NEUTROPHILS # (AUTO) 6.6 (2.1-6.9); PLATELET COUNT 102 x10e3/uL (140-360); RED BLOOD COUNT 4.61 x10e6/uL (3.6-5.1); RED CELL DISTRIBUTION WIDTH 13.6 % (11.7-14.4)
[2022-03-01 18:53] LABS: COLOR,URINE YELLOW (YELLOW)
[2022-03-01 18:54] LABS: CLARITY,URINE HAZY (CLEAR); LEUKOCYTE ESTERASE ,URINE NEGATIVE (NEGATIVE); NITRITE,URINE POSITIVE (NEGATIVE); PROTEIN,URINE DIPSTICK >=300 (NEGATIVE)
[2022-03-01 18:55] LABS: BACTERIA,URINE MANY /HPF; EPITHELIAL CELLS,URINE MODERATE /LPF; KETONES,URINE NEGATIVE (NEGATIVE); RBC,URINE 0-5 /HPF (0-5); URINE UROBILINOGEN 0.2 mg/dL (0.2 - 1)
[2022-03-01 19:25] LABS: ALBUMIN 3.9 g/dL (3.5-5.0); ALBUMIN/GLOBULIN RATIO 0.9 (0.8-2.0); ANION GAP 18.7 mmol/L (8-16); CALCIUM 9.5 mg/dL (8.4-10.2); CREATININE, SERUM 0.82 mg/dL (0.57-1.11); POTASSIUM 3.7 mmol/L (3.5-5.1)
[2022-03-01 19:31] LABS: CREATINE KINASE MB 1.2 ng/mL (0-5.0)
[2022-03-01 20:27] VITALS: BP 162/58
== END 2022-03-01 20:28 | disposition home or self-care (01) ==
LOC: ER 17:50
DX: M54.6 Pain in thoracic spine (principal); N39.0 Urinary tract infection, site not specified; R20.0 Anesthesia of skin; E11.65 Type 2 diabetes mellitus with hyperglycemia; I10 Essential (primary) hypertension; K76.9 Liver disease, unspecified; K21.9 Gastro-esophageal reflux disease without esophagitis; F31.9 Bipolar disorder, unspecified
CPT/HCPCS: 36415; 71045; 80053; 81001; 82550; 82553; 84484; 85025; 93005; 99284

== ENCOUNTER 2022-12-04 10:46 | Inpatient (IN) | payer MEDICARE, OTHER ==
[~2022-12-04] VITALS: Ht 165.1 cm; Wt 91.7 kg
[2022-12-04] MEDS ORDERED: ONDANSETRON HCL INJ 2MG/ML 2ML 2 MG/ML VIAL IV STA (11:14)
[2022-12-04] MEDS ORDERED: SODIUM CHLORIDE 0.9% 1000ML 1,000 ML IV ONE (11:15)
[2022-12-04 11:56] LABS: BASOPHILS % 0.2 % (0.0-1.0); EOSINOPHILS # (AUTO) 0.1 (0.0-0.4); EOSINOPHILS % 0.5 % (0.0-6.0); HEMATOCRIT 37.3 % (34.2-44.1); HEMOGLOBIN 13.4 g/dL (12.0-16.0); LYMPHOCYTES # (AUTO) 0.7 (1.0-3.2); LYMPHOCYTES % 5.7 % (18.0-39.1); MEAN CORPUSCULAR HEMOGLOBIN 32.8 pg (28-32); MEAN CORPUSCULAR HGB CONC 35.9 g/dL (31-35); MEAN CORPUSCULAR VOLUME 91.4 fL (81-99); MONOCYTES # (AUTO) 0.7 (0.2-0.8); MONOCYTES % 5.7 % (4.4-11.3); NEUTROPHILS # (AUTO) 11.3 (2.1-6.9); NEUTROPHILS % 87.6 % (38.7-80.0); PLATELET COUNT 151 x10e3/uL (140-360); RED BLOOD COUNT 4.08 x10e6/uL (3.6-5.1); RED CELL DISTRIBUTION WIDTH 14.4 % (11.7-14.4)
[2022-12-04 12:23] LABS: ALBUMIN 4.1 g/dL (3.5-5.0); ALBUMIN/GLOBULIN RATIO 1.1 (0.8-2.0); ANION GAP 18.6 mmol/L (8-16); CALCIUM 8.9 mg/dL (8.4-10.2); CREATININE, SERUM 1.07 mg/dL (0.57-1.11); POTASSIUM 3.6 mmol/L (3.5-5.1)
[2022-12-04 13:12] LABS: CLARITY,URINE CLEAR (CLEAR); COLOR,URINE YELLOW (YELLOW); LEUKOCYTE ESTERASE ,URINE NEGATIVE (NEGATIVE); NITRITE,URINE NEGATIVE (NEGATIVE)
[2022-12-04 13:13] LABS: BACTERIA,URINE FEW /HPF; EPITHELIAL CELLS,URINE FEW /LPF; HYALINE CASTS >15 (0-1); KETONES,URINE NEGATIVE (NEGATIVE); PROTEIN,URINE DIPSTICK >=300 (NEGATIVE); URINE UROBILINOGEN 1 mg/dL (0.2 - 1)
[2022-12-04] MEDS ORDERED: ONDANSETRON HCL INJ 2MG/ML 2ML 2 MG/ML VIAL IV PRN (14:30)
[2022-12-04] MEDS: SODIUM CHLORIDE 0.9% 1000ML 1,000 ML IV SCH ×2 (14:59→22:08)
[2022-12-04] MEDS ORDERED: ALBUTEROL SULFATE HFA 8GM INHALATION AEROSOL INH PRN (15:00)
[2022-12-04] MEDS ORDERED: ALBUTEROL INH PRN (15:00)
[2022-12-04] MEDS: PANTOPRAZOLE SOD 40 MG TABEC PO SCH (17:00)
[2022-12-04 21:00] VITALS: BP 137/70; PULSE 73; RESP 20; TEMP 97.4; TEMP 97.5; O2SAT 98
[2022-12-04 21:14] VITALS: BP 137/70; PULSE 73; RESP 20; TEMP 97.5; O2SAT 97
[2022-12-04] MEDS: ATORVASTATIN 10 MG TAB PO SCH (22:08)
[2022-12-05] VITALS (9 sets, daily range): BP systolic 100–169; BP diastolic 52–78; PULSE 63–85; RESP 17–18; TEMP 97.6–98.6; O2SAT 95–100
[2022-12-05] MEDS: SODIUM CHLORIDE 0.9% 1000ML 1,000 ML IV SCH ×2 (05:34→13:17)
[2022-12-05 06:47] LABS: ALBUMIN 3.4 g/dL (3.5-5.0); ALBUMIN/GLOBULIN RATIO 1.2 (0.8-2.0); ANION GAP 12.4 mmol/L (8-16); CREATININE, SERUM 0.87 mg/dL (0.57-1.11); POTASSIUM 3.4 mmol/L (3.5-5.1)
[2022-12-05 07:26] LABS: BASOPHILS % 0.5 % (0.0-1.0); EOSINOPHILS # (AUTO) 0.2 (0.0-0.4); EOSINOPHILS % 4.2 % (0.0-6.0); HEMOGLOBIN 11.2 g/dL (12.0-16.0); LYMPHOCYTES % 18.2 % (18.0-39.1); MEAN CORPUSCULAR HEMOGLOBIN 32.7 pg (28-32); MEAN CORPUSCULAR HGB CONC 33.9 g/dL (31-35); MONOCYTES # (AUTO) 0.6 (0.2-0.8); MONOCYTES % 11.2 % (4.4-11.3); NEUTROPHILS # (AUTO) 3.8 (2.1-6.9); NEUTROPHILS % 65.6 % (38.7-80.0); RED BLOOD COUNT 3.43 x10e6/uL (3.6-5.1); RED CELL DISTRIBUTION WIDTH 14.1 % (11.7-14.4)
[2022-12-05 07:32] LABS: MEAN CORPUSCULAR VOLUME 96.2 fL (81-99); PLATELET COUNT 73 x10e3/uL (140-360)
[2022-12-05] MEDS ORDERED: NON-FORMULARY MEDICATION (Nifedipine (Nifedipine Er) 60 MG) PO SCH (09:00)
[2022-12-05] MEDS ORDERED: NIFEDIPINE CR 30 MG TAB PO SCH (09:00)
[2022-12-05] MEDS: ASPIRIN 81 MG ENTERIC COATED PO SCH (09:09)
[2022-12-05] MEDS: SITAGLIPTIN 100 MG TAB PO SCH (09:09)
[2022-12-05] MEDS: PANTOPRAZOLE SOD 40 MG TABEC PO SCH ×2 (09:10→16:39)
[2022-12-05] MEDS: LIDOCAINE 4% PATCH TP SCH (09:11)
[2022-12-05] MEDS: LISINOPRIL 20 MG TAB PO SCH (09:11)
[2022-12-05] MEDS ORDERED: ONDANSETRON HCL 4 MG ORAL DISINTEGRATING TAB PO PRN (14:00)
[2022-12-05] MEDS: ATORVASTATIN 10 MG TAB PO SCH (20:23)
[2022-12-05] MEDS ORDERED: LIDOCAINE 4% PATCH TP ONE (22:30)
[2022-12-06] VITALS (9 sets, daily range): BP systolic 130–189; BP diastolic 52–89; PULSE 79–102; RESP 15–22; TEMP 98.2–98.7; O2SAT 97–100
[2022-12-06 06:21] LABS: BASOPHILS % 0.3 % (0.0-1.0); EOSINOPHILS # (AUTO) 0.1 (0.0-0.4); EOSINOPHILS % 0.6 % (0.0-6.0); HEMOGLOBIN 12.6 g/dL (12.0-16.0); LYMPHOCYTES # (AUTO) 0.7 (1.0-3.2); LYMPHOCYTES % 7.5 % (18.0-39.1); MEAN CORPUSCULAR HEMOGLOBIN 32.3 pg (28-32); MONOCYTES # (AUTO) 0.6 (0.2-0.8); NEUTROPHILS % 85.4 % (38.7-80.0); PLATELET COUNT 100 x10e3/uL (140-360)
[2022-12-06 06:29] LABS: MEAN CORPUSCULAR VOLUME 92.3 fL (81-99)
[2022-12-06 06:54] LABS: ANION GAP 13.3 mmol/L (8-16); CALCIUM 8.5 mg/dL (8.4-10.2); CREATININE, SERUM 0.72 mg/dL (0.57-1.11); POTASSIUM 3.3 mmol/L (3.5-5.1)
[2022-12-06] MEDS ORDERED: PIOGLITAZONE HC15 MG PO (07:17)
[2022-12-06] MEDS ORDERED: LOSARTAN POTASS50 MG PO (07:17)
[2022-12-06] MEDS ORDERED: SODIUM CHLORI1000 M2 PO (07:17)
[2022-12-06] MEDS ORDERED: LINZESS145 MCG PO (07:17)
[2022-12-06] MEDS ORDERED: OXYBUTYNIN CHLO10 MG PO (07:17)
[2022-12-06] MEDS ORDERED: SODIUM CHLORIDE 452MG TAB PO SCH ×2 (09:00→09:30)
[2022-12-06] MEDS ORDERED: IBUPROFEN 400 MG TAB PO PRN (09:00)
[2022-12-06] MEDS ORDERED: ONDANSETRON HCL INJ 2MG/ML 2ML 2 MG/ML VIAL IV PRN (09:00)
[2022-12-06] MEDS ORDERED: PANTOPRAZOLE SOD 40 MG TABEC PO ONE (09:30)
[2022-12-06] MEDS: LIDOCAINE 4% PATCH TP SCH (09:37)
[2022-12-06] MEDS: PANTOPRAZOLE SOD 40 MG TABEC PO SCH ×2 (09:37→16:41)
[2022-12-06] MEDS: ASPIRIN 81 MG ENTERIC COATED PO SCH (09:38)
[2022-12-06] MEDS: NIFEDIPINE CR 30 MG TAB PO SCH (09:38)
[2022-12-06] MEDS: LISINOPRIL 20 MG TAB PO SCH (09:39)
[2022-12-06] MEDS: SITAGLIPTIN 100 MG TAB PO SCH (09:39)
[2022-12-06] MEDS ORDERED: METOCLOPRAMIDE HCL 10 MG/2ML VIAL IV ONE (10:00)
[2022-12-06] MEDS: SODIUM CHLORIDE 1 GM TAB PO SCH (16:41)
[2022-12-06] MEDS: ATORVASTATIN 10 MG TAB PO SCH (20:34)
[2022-12-06] MEDS: NAPROXEN 250 MG TAB PO SCH (23:05)
[2022-12-07] VITALS (9 sets, daily range): BP systolic 103–167; BP diastolic 54–75; PULSE 79–98; RESP 20–22; TEMP 97.9–99.1; O2SAT 98–100
[2022-12-07 06:18] LABS: BASOPHILS % 0.2 % (0.0-1.0); EOSINOPHILS # (AUTO) 0.2 (0.0-0.4); HEMATOCRIT 34.7 % (34.2-44.1); HEMOGLOBIN 12.4 g/dL (12.0-16.0); LYMPHOCYTES % 11.7 % (18.0-39.1); MEAN CORPUSCULAR HEMOGLOBIN 32.5 pg (28-32); MEAN CORPUSCULAR HGB CONC 35.7 g/dL (31-35); MEAN CORPUSCULAR VOLUME 90.8 fL (81-99); MONOCYTES # (AUTO) 0.9 (0.2-0.8); MONOCYTES % 9.6 % (4.4-11.3); NEUTROPHILS # (AUTO) 6.8 (2.1-6.9); NEUTROPHILS % 76.2 % (38.7-80.0); PLATELET COUNT 96 x10e3/uL (140-360); RED BLOOD COUNT 3.82 x10e6/uL (3.6-5.1); RED CELL DISTRIBUTION WIDTH 13.9 % (11.7-14.4)
[2022-12-07 06:34] LABS: ANION GAP 12.5 mmol/L (8-16); CALCIUM 8.7 mg/dL (8.4-10.2); CREATININE, SERUM 0.77 mg/dL (0.57-1.11); MAGNESIUM 1.5 MG/DL (1.3-2.1); POTASSIUM 3.5 mmol/L (3.5-5.1)
[2022-12-07] MEDS: PANTOPRAZOLE SOD 40 MG TABEC PO SCH ×2 (09:43→16:38)
[2022-12-07] MEDS: NIFEDIPINE CR 30 MG TAB PO SCH (09:43)
[2022-12-07] MEDS: SODIUM CHLORIDE 1 GM TAB PO SCH ×2 (09:44→16:37)
[2022-12-07] MEDS: SITAGLIPTIN 100 MG TAB PO SCH (09:44)
[2022-12-07] MEDS: LISINOPRIL 20 MG TAB PO SCH (09:44)
[2022-12-07] MEDS: ASPIRIN 81 MG ENTERIC COATED PO SCH (09:45)
[2022-12-07] MEDS: LIDOCAINE 4% PATCH TP SCH (09:45)
[2022-12-07] MEDS: NAPROXEN 250 MG TAB PO SCH (16:38)
[2022-12-07] MEDS: ATORVASTATIN 10 MG TAB PO SCH (21:12)
[2022-12-08] VITALS (10 sets, daily range): BP systolic 106–164; BP diastolic 47–84; PULSE 75–95; RESP 18–22; TEMP 97.1–98.8; O2SAT 98–100
[2022-12-08 06:44] LABS: ANION GAP 12.4 mmol/L (8-16); CALCIUM 9.1 mg/dL (8.4-10.2); CREATININE, SERUM 0.83 mg/dL (0.57-1.11); POTASSIUM 3.4 mmol/L (3.5-5.1)
[2022-12-08] MEDS: LIDOCAINE 4% PATCH TP SCH (09:00)
[2022-12-08] MEDS: SITAGLIPTIN 100 MG TAB PO SCH (10:04)
[2022-12-08] MEDS: NIFEDIPINE CR 30 MG TAB PO SCH (10:05)
[2022-12-08] MEDS: PANTOPRAZOLE SOD 40 MG TABEC PO SCH ×2 (10:05→17:42)
[2022-12-08] MEDS: SODIUM CHLORIDE 1 GM TAB PO SCH ×3 (10:05→21:55)
[2022-12-08] MEDS: LISINOPRIL 20 MG TAB PO SCH (10:05)
[2022-12-08] MEDS: NAPROXEN 250 MG TAB PO SCH ×2 (10:06→17:43)
[2022-12-08] MEDS: ASPIRIN 81 MG ENTERIC COATED PO SCH (10:06)
[2022-12-08 14:51] LABS: FREE THYROXINE INDEX 2.559 (1.4-3.8); THYROID STIMULATING HORMONE 1.795 uIU/mL (0.350-4.940)
[2022-12-08] MEDS ORDERED: SODIUM CHLORIDE 1 GM TAB PO SCH (15:00)
[2022-12-08] MEDS: ATORVASTATIN 10 MG TAB PO SCH (21:56)
[2022-12-09] VITALS (10 sets, daily range): BP systolic 99–150; BP diastolic 54–81; PULSE 78–92; RESP 18–20; TEMP 97.2–98.9; O2SAT 96–100
[2022-12-09 07:38] LABS: ALBUMIN 3.7 g/dL (3.5-5.0); ANION GAP 13.6 mmol/L (8-16); CALCIUM 9.4 mg/dL (8.4-10.2); CREATININE, SERUM 0.88 mg/dL (0.57-1.11); POTASSIUM 3.6 mmol/L (3.5-5.1)
[2022-12-09] MEDS: LISINOPRIL 20 MG TAB PO SCH (09:00)
[2022-12-09] MEDS: LIDOCAINE 4% PATCH TP SCH (09:00)
[2022-12-09] MEDS: SITAGLIPTIN 100 MG TAB PO SCH (09:58)
[2022-12-09] MEDS: SODIUM CHLORIDE 1 GM TAB PO SCH ×3 (09:58→21:27)
[2022-12-09] MEDS: PANTOPRAZOLE SOD 40 MG TABEC PO SCH ×2 (09:58→16:47)
[2022-12-09] MEDS: ASPIRIN 81 MG ENTERIC COATED PO SCH (09:58)
[2022-12-09] MEDS: FUROSEMIDE INJ 10 MG/ML 2 ML VIAL IV SCH (09:58)
[2022-12-09] MEDS ORDERED: ONDANSETRON HCL 4 MG ORAL DISINTEGRATING TAB PO PRN (14:15)
[2022-12-09] MEDS: ATORVASTATIN 10 MG TAB PO SCH (21:27)
[2022-12-10] VITALS (7 sets, daily range): BP systolic 122–148; BP diastolic 51–77; PULSE 72–87; RESP 18–22; TEMP 97.1–98.1; O2SAT 95–100
[2022-12-10 08:24] LABS: ALBUMIN 3.2 g/dL (3.5-5.0); ALBUMIN/GLOBULIN RATIO 1.1 (0.8-2.0); ANION GAP 10.4 mmol/L (8-16); CREATININE, SERUM 0.81 mg/dL (0.57-1.11); POTASSIUM 3.4 mmol/L (3.5-5.1)
[2022-12-10] MEDS: LIDOCAINE 4% PATCH TP SCH (09:00)
[2022-12-10] MEDS: SITAGLIPTIN 100 MG TAB PO SCH (09:36)
[2022-12-10] MEDS: ASPIRIN 81 MG ENTERIC COATED PO SCH (09:36)
[2022-12-10] MEDS: PANTOPRAZOLE SOD 40 MG TABEC PO SCH ×2 (09:36→17:07)
[2022-12-10] MEDS: SODIUM CHLORIDE 1 GM TAB PO SCH ×2 (09:36→14:37)
[2022-12-10] MEDS: FUROSEMIDE INJ 10 MG/ML 2 ML VIAL IV SCH (09:36)
[2022-12-10] MEDS: LISINOPRIL 20 MG TAB PO SCH (09:36)
[2022-12-10] MEDS ORDERED: POTASSIUM CHLORIDE 10MEQ EA PO ONE (13:30)
== END 2022-12-10 18:58 | disposition home or self-care (01) | DRG 644 ==
LOC: ER 10:50 → ERHOLD 14:35 → MED/SURG3 21:16 → OBSVTOIN 12-05 15:03
PROVIDERS: ADMIT Family Medicine; ATTEND Family Medicine
DX: E22.2 Syndrome of inappropriate secretion of antidiuretic hormone (principal); E27.1 Primary adrenocortical insufficiency; N39.0 Urinary tract infection, site not specified; F03.90 Unspecified dementia, unspecified severity, without behavioral disturbance, psychotic disturbance, mood disturbance, and anxiety; K74.60 Unspecified cirrhosis of liver; K21.00 Gastro-esophageal reflux disease with esophagitis, without bleeding; F31.9 Bipolar disorder, unspecified; J43.9 Emphysema, unspecified; I12.9 Hypertensive chronic kidney disease with stage 1 through stage 4 chronic kidney disease, or unspecified chronic kidney disease; E11.22 Type 2 diabetes mellitus with diabetic chronic kidney disease; N18.31 Chronic kidney disease, stage 3a; Z20.822 Contact with and (suspected) exposure to COVID-19; Z96.652 Presence of left artificial knee joint; Z79.82 Long term (current) use of aspirin; Z88.2 Allergy status to sulfonamides; Z79.84 Long term (current) use of oral hypoglycemic drugs
CPT/HCPCS: 0223U; 36415; 71045; 80048; 80053; 81001; 82533; 82948; 83690; 83735; 84436; 84443; 84479; 84550; 85025; 94799; 96361; 99284; G0378; J1940; J2405; J2765; J7030